=== PATIENT | female | born 1975 | race Caucasian/White ===

== ENCOUNTER 2019-12-03 12:01 | Emergency (ER) | payer BC ==
[~2019-12-03] VITALS: Ht 172.7 cm; Wt 110.2 kg
[~2019-12-03 12:01] MED LIST: CALC600T14 PO; CEPH500C PO; CYAN250010 PO; GBPN100C PO; HDR2T PO; HYDR-3870 PO; MULT1CAP27 PO; NAPR250T34 PO; NITR-65 PO; PHEN-640 PO; PREDNISONE PO
[2019-12-03] MEDS ORDERED: LABETALOL HCL 20 MG/4 ML VIAL IV ONE (12:15)
--- NOTE | 2019-12-03 12:15 | NUR ---
Stroke paged by Lester Patel at this time.
[2019-12-03 12:21] LABS: BASOPHILS % (AUTO) 0 % (0-10); EOSINOPHILS # (AUTO) 0.1 10^3/uL (0.0-0.3); EOSINOPHILS % (AUTO) 1 % (0-10); HEMATOCRIT 41 % (35-52); HEMOGLOBIN 13.6 G/DL (11.5-16.0); LYMPHOCYTES # (AUTO) 2.5 X 10^3 (1.0-4.0); LYMPHOCYTES % (AUTO) 35 % (12-44); MEAN CORPUSCULAR HEMOGLOBIN 32 PG (25-34); MEAN CORPUSCULAR HGB CONC 33 G/DL (32-36); MEAN CORPUSCULAR VOLUME 96 FL (80-99); MEAN PLATELET VOLUME 10.3 FL (7.4-10.4); MONOCYTES # (AUTO) 0.5 X 10^3 (0.0-1.0); MONOCYTES % (AUTO) 7 % (0-12); NEUTROPHILS # (AUTO) 4.1 X 10^3 (1.8-7.8); NEUTROPHILS % (AUTO) 57 % (42-75); PLATELET COUNT 262 10^3/uL (130-400); RED CELL DISTRIBUTION WIDTH 12.9 % (10.0-14.5); WHITE BLOOD COUNT 7.2 10^3/uL (4.3-11.0)
--- NOTE | 2019-12-03 12:21 | ED Neurological Problem ---
General Stated Complaint: RT ARM AND LEG PROBLEMS Source: patient Exam Limitations: no limitations History of Present Illness Date Seen by Provider: Dec 03, 2019 Time Seen by Provider: 12:17 Initial Comments To ER with right arm and right leg feeling weird since 11 AM this morning. She has also had some speech difficulty. Notices that she has some slurred speech and states she feels as if the words are "there" but she cannot get them out. Timing/Duration: 1 hour Severity: moderate Associated Symptoms: slurred speech Allergies and Home Medications Allergies Coded Allergies: No Known Drug Allergies (Unverified , 12/20/10) Home Medications Alprazolam 1 Mg Tablet, 1 MG PO BID PRN for ANXIETY Prescribed by: TRUDY BALTAZAR on 12/03/19 1335 Cyanocobalamin (Vitamin B-12) 2,500 Mcg Tablet, 2,500 MCG PO DAILY, (Reported) Hydrocodone/Acetaminophen 1 Each Tablet, 1-2 TAB PO Q4H PRN for PAIN Prescribed by: ANGELITA LÓPEZ on 10/24/15 1245 Metoprolol Tartrate 25 Mg Tablet, 25 MG PO BID Prescribed by: TRUDY BALTAZAR on 12/03/19 1335 Multivitamin 1 Each Capsule, 1 EACH PO DAILY, (Reported) Nitrofurantoin Monohyd/M-Cryst 100 Mg Capsule, 1 TAB PO BID Prescribed by: ANGELITA LÓPEZ on 10/24/15 1245 Phenazopyridine HCl 200 Mg Tablet, 1 TAB PO TID Prescribed by: ANGELITA LÓPEZ on 10/24/15 1245 [Prednisone] , 1 TAB PO DAILY DOES NOT KNOW DOSAGE. HAS HAD 3 DOSES OF PRESCRIBED 5 TOTAL. Prescribed by: ANGELITA LÓPEZ on 10/24/15 1044 Patient Home Medication List Home Medication List Reviewed: Yes Review of Systems Review of Systems Constitutional: see HPI Eyes: No Symptoms Reported Ears, Nose, Mouth, Throat: no symptoms reported Respiratory: no symptoms reported Cardiovascular: no symptoms reported Genitourinary: no symptoms reported Musculoskeletal: no symptoms reported Skin: no symptoms reported Psychiatric/Neurological: See HPI, Anxiety Endocrine: No Symptoms Reported Hematologic/Lymphatic: No Symptoms Reported Past Uqcevam-Vvyikb-Gvyfux Hx Past Medical History Reproductive Disorders: No Kidney Stones Physical Exam Vital Signs Vital Signs - First Documented 12/03/19 12:01 Temp 36.9 Pulse 96 Resp 20 B/P (MAP) 199/144 (162) Pulse Ox 98 O2 Delivery Room Air Capillary Refill : Height, Weight, BMI Height: 5'8.00" Weight: 240lbs. 0.0oz. [id number]; 36.5 BMI Method:Stated General Appearance: WD/WN, no apparent distress, other (very tearful, sobbing. States that she is very scared. Blood pressure 224/119 heart rate 90 sinus. Very anxious appearing. However she does get stroke score of 2 with 1. being for minor drift of the right arm and mild to moderate dysarthria.) HEENT: PERRL/EOMI, normal ENT inspection Neck: non-tender, full range of motion Respiratory: lungs clear, normal breath sounds, no respiratory distress, no accessory muscle use Cardiovascular: regular rate, rhythm, no murmur Gastrointestinal: normal bowel sounds, soft Extremities: normal range of motion, non-tender Neurologic/Psychiatric: alert, normal mood/affect, oriented x 3 Crainal Nerves: normal hearing, normal speech Skin: normal color, warm/dry Stroke Onset of Symptoms Date of Onset of Symptoms: Dec 03, 2019 Time of Symptom Onset: 11:00 Onset of Symptoms: Yes Symptoms onset unknown: Yes NIH Stroke Scale Assessment Select: Initial Level of Consciousness: 0=Alert (0), Level of Consciousness- Questions: 0=Answers both month/age (0), LOC Commands: 0=Performs both tasks (0), Gaze: Normal (0), Visual Monterroso: 0=No visual loss (0), Facial Movement (Facial Paresis): 0=Normal symmetrical mnt (0), Motor Function-Arms Right: 1=Drift (1), Motor Function-Arms Left: 0=No drift (0), Motor Function-Legs Right: 0=No drift (0), Motor Function-Legs Left: 0=No drift (0), Limb Ataxia: 0=Absent (0), Sensory: 0=Normal:no loss (0), Best Language: 0=No aphasia (0), Dysarthria: 1=Mild to moderate loss (1), Extinction & Inattention: 0=No abnormality (0), Total: 2 Stroke Thrombolytic Exclusion Age 18 or Over: Yes Acute intenal hemorrhage: No History of CVA: No Uncontrolled Coagulation Defec: No Severe Hypertension: Yes GI or Bleed: No Subarachnoid Hemorrhage: No Intracranial Neoplasm/Aneurysm: No Oral Anticoagulants: No Surgery or Trauma: No Puncture of Non-Compressible V: No Recent CPR: No Diabetic Hemorrhagic Retinopat: No Organ Biopsy: No Recent Obstetric Delivery: No Glucose: No Significant Hepatic Dysfunctio: No NIH Stoke Scale >22: No Bacterial Endocarditis: No Pericarditis: No Improving Symptoms: No Platelets: No TPA Contraindication: No Progress/Results/Core Measures Results/Orders Lab Results Laboratory Tests Test 12/03/19 12:05 12/03/19 12:35 Range/Units White Blood Count 7.2 4.3-11.0 10^3/uL Red Blood Count 4.27 L 4.35-5.85 10^6/uL Hemoglobin 13.6 11.5-16.0 G/DL Hematocrit 41 35-52 % Mean Corpuscular Volume 96 80-99 FL Mean Corpuscular Hemoglobin 32 25-34 PG Mean Corpuscular Hemoglobin Concent 33 32-36 G/DL Red Cell Distribution Width 12.9 10.0-14.5 % Platelet Count 262 130-400 10^3/uL Mean Platelet Volume 10.3 7.4-10.4 FL Neutrophils (%) (Auto) 57 42-75 % Lymphocytes (%) (Auto) 35 12-44 % Monocytes (%) (Auto) 7 0-12 % Eosinophils (%) (Auto) 1 0-10 % Basophils (%) (Auto) 0 0-10 % Neutrophils # (Auto) 4.1 1.8-7.8 X 10^3 Lymphocytes # (Auto) 2.5 1.0-4.0 X 10^3 Monocytes # (Auto) 0.5 0.0-1.0 X 10^3 Eosinophils # (Auto) 0.1 0.0-0.3 10^3/uL Basophils # (Auto) 0.0 0.0-0.1 10^3/uL Prothrombin Time 12.7 12.2-14.7 SEC INR Comment 0.9 0.8-1.4 Activated Partial Thromboplast Time 25 24-35 SEC D-Dimer 0.55 H 0.00-0.49 UG/ML Sodium Level 139 135-145 MMOL/L Potassium Level 3.6 3.6-5.0 MMOL/L Chloride Level 106 98-107 MMOL/L Carbon Dioxide Level 20 L 21-32 MMOL/L Anion Gap 13 5-14 MMOL/L Blood Urea Nitrogen 12 7-18 MG/DL Creatinine 0.83 0.60-1.30 MG/DL Estimat Glomerular Filtration Rate > 60 BUN/Creatinine Ratio 14 Glucose Level 116 H 70-105 MG/DL Calcium Level 8.9 8.5-10.1 MG/DL Corrected Calcium 8.7 8.5-10.1 MG/DL Magnesium Level 1.9 1.6-2.4 MG/DL Total Bilirubin 0.5 0.1-1.0 MG/DL Aspartate Amino Transf (AST/SGOT) 15 5-34 U/L Alanine Aminotransferase (ALT/SGPT) 14 0-55 U/L Alkaline Phosphatase 53 40-136 U/L Myoglobin 38.3 10.0-92.0 NG/ML Troponin I < 0.028 <0.028 NG/ML B-Type Natriuretic Peptide 63.9 <100.0 PG/ML Total Protein 8.2 6.4-8.2 GM/DL Albumin 4.2 3.2-4.5 GM/DL Urine Color YELLOW Urine Clarity CLEAR Urine pH 6.0 5-9 Urine Specific Bolt 1.025 H 1.016-1.022 Urine Protein 1+ H NEGATIVE Urine Glucose (UA) NEGATIVE NEGATIVE Urine Ketones NEGATIVE NEGATIVE Urine Nitrite NEGATIVE NEGATIVE Urine Bilirubin NEGATIVE NEGATIVE Urine Urobilinogen 0.2 < = 1.0 MG/DL Urine Leukocyte Esterase NEGATIVE NEGATIVE Urine RBC (Auto) TRACE-I NEGATIVE Urine RBC NONE /HPF Urine WBC NONE /HPF Urine Squamous Epithelial Cells RARE /HPF Urine Crystals NONE /LPF Urine Bacteria NEGATIVE /HPF Urine Casts NONE /LPF Urine Mucus NEGATIVE /LPF Urine Culture Indicated NO Urine Opiates Screen NEGATIVE NEGATIVE Urine Oxycodone Screen NEGATIVE NEGATIVE Urine Methadone Screen NEGATIVE NEGATIVE Urine Propoxyphene Screen NEGATIVE NEGATIVE Urine Barbiturates Screen NEGATIVE NEGATIVE Ur Tricyclic Antidepressants Screen NEGATIVE NEGATIVE Urine Phencyclidine Screen NEGATIVE NEGATIVE Urine Amphetamines Screen NEGATIVE NEGATIVE Urine Methamphetamines Screen NEGATIVE NEGATIVE Urine Benzodiazepines Screen NEGATIVE NEGATIVE Urine Cocaine Screen NEGATIVE NEGATIVE Urine Cannabinoids Screen NEGATIVE NEGATIVE My Orders Orders - TRUDY BALTAZAR [employer] Cbc With Automated Diff (12/03/19 12:12) Magnesium (12/03/19 12:12) Chest 1 View, Ap/Pa Only (12/03/19 12:12) Ekg Tracing (12/03/19 12:12) Comprehensive Metabolic Panel (12/03/19 12:12) Myoglobin Serum (12/03/19 12:12) Protime With Inr (12/03/19 12:12) Partial Thromboplastin Time (12/03/19 12:12) O2 (12/03/19 12:12) Monitor-Rhythm Ecg Trace Only (12/03/19 12:12) Lipid Panel (12/04/19 06:00) Ed Iv/Invasive Line Start (12/03/19 12:12) BNP (12/03/19 12:12) Troponin I (12/03/19 12:12) Labetalol Injection (Normodyne Injection (12/03/19 12:15) Ct Head Wo-R/O Stroke (12/03/19 12:12) Lorazepam Injection (Ativan Injection) (12/03/19 12:30) Ua Culture If Indicated (12/03/19 12:23) Drug Screen Stat (Urine) (12/03/19 12:23) Dysphagia Screening Tool (12/03/19 12:37) Fibrin Degradation Products (12/03/19 12:47) Ketorolac Injection (Toradol Injection) (12/03/19 13:00) Clonidine Tablet (Catapres Tablet) (12/03/19 13:30) Medications Given in ED Current Medications Medications Dose Ordered Sig/Sergio Route Start Time Stop Time Status Last Admin Dose Admin Ketorolac Tromethamine 15 mg ONCE ONCE IVP 12/03/19 13:00 12/03/19 13:01 DC 12/03/19 13:03 15 MG Labetalol HCl 10 mg ONCE ONCE IV 12/03/19 12:15 12/03/19 12:16 DC 12/03/19 12:41 10 MG Lorazepam 0.5 mg ONCE PRN IVP 12/03/19 12:30 12/03/19 12:37 0.5 MG Vital Signs/I&O 12/03/19 12:01 Temp 36.9 Pulse 96 Resp 20 B/P (MAP) 199/144 (162) Pulse Ox 98 O2 Delivery Room Air Departure Communication (Admissions) 1233-patient continues to sob nearly uncontrollably. She is texturing during most of her ER stay so far. Significant other reports she's been under a great deal of stress. It took 2 people to hold her upright to walk-in, now she refuses any assistance and insists on pushing the wheelchair back to the room herself and becomes irritated with nursing staff as they hold her arm while she walks back to her room. 1244-patient now reports that her symptoms have entirely resolved, she speaks clearly, she is downsizing from a large house to a smaller house. She gets an NIH of 0. Blood pressure still elevated at 24/116. Nurses giving Ativan and labetalol currently. She believes her symptoms are all related to the stress. 1337-still asymptomatic, blood pressure down to 177/100, she is requesting to go home. Impression Primary Impression: Anxiety Additional Impression: Hypertensive emergency Disposition: HOME, SELF-CARE Condition: Stable Departure-Patient Inst. Decision time for Depature: 13:33 Referrals: SERJIO HUTCHINSON DO (PCP) Primary Care Physician SHANE PARMAR (Family) Primary Care Physician Patient Instructions: Anxiety, Adult (DC), Malignant Hypertension (DC) Add. Discharge Instructions: 1. Return to ER for any concerns 2. Follow-up with your doctor next week 3. Medication as directed. Scripts Metoprolol Tartrate (Metoprolol Tartrate) 25 Mg Tablet 25 MG PO BID, #20 TAB Prov: TRUDY BALTAZAR APRN 12/03/19 Alprazolam (Alprazolam) 1 Mg Tablet 1 MG PO BID PRN for ANXIETY for 7 Days, #10 TAB Prov: TRUDY BALTAZAR APRN 12/03/19 TRUDY BALTAZAR APRN Dec 03, 2019 12:21
--- NOTE | 2019-12-03 12:22 | NUR ---
Spoke with pt's SO regarding plan of care.
[2019-12-03 12:27] LABS: ALBUMIN 4.2 GM/DL (3.2-4.5); CHLORIDE 106 MMOL/L (98-107); POTASSIUM 3.6 MMOL/L (3.6-5.0); SODIUM 139 MMOL/L (135-145)
[2019-12-03 12:28] LABS: CALCIUM 8.9 MG/DL (8.5-10.1)
[2019-12-03 12:29] LABS: GLUCOSE 116 MG/DL (70-105); INR 0.9 (0.8-1.4); PROTHROMBIN TIME PATIENT 12.7 SEC (12.2-14.7)
[2019-12-03 12:30] LABS: TOTAL PROTEIN 8.2 GM/DL (6.4-8.2)
[2019-12-03] MEDS ORDERED: LORazepam INJ 2 MG/ML (ATIVAN) VIAL IVP PRN (12:30)
[2019-12-03 12:31] LABS: BILIRUBIN,TOTAL 0.5 MG/DL (0.1-1.0); CARBON DIOXIDE 20 MMOL/L (21-32)
[2019-12-03 12:33] LABS: ALKALINE PHOSPHATASE 53 U/L (40-136); CREATININE SERUM 0.83 MG/DL (0.60-1.30); GFR ESTIMATED > 60
[2019-12-03 12:34] LABS: BUN/CREATININE RATIO 14
[2019-12-03 12:36] LABS: ALANINE AMINOTRANSFERASE 14 U/L (0-55); MAGNESIUM 1.9 MG/DL (1.6-2.4)
--- NOTE | 2019-12-03 12:41 | Diagnostic Imaging Report ---
PROCEDURE: CT head wo r/o stroke. TECHNIQUE: Multiple contiguous axial images were obtained through the brain without the use of intravenous contrast. Auto Exposure Controls were utilized during the CT exam to meet ALARA standards for radiation dose reduction. INDICATION: Right arm and leg numbness. Speech abnormalities. Elevated blood pressure. Evaluate for stroke. There are no CT findings of acute intracranial hemorrhage. There is no intracranial mass effect or shift. There is no hydrocephalus. No abnormal extra-axial fluid collection. There are no findings of territorial loss of santos-white differentiation. There is no abnormal low density evident within the basal ganglia or within the krystle. By CT imaging there is no evidence of an asymmetric focal hyperdense blood vessel. The mastoid air cells appear clear. The paranasal sinuses appear clear. Orbital contents unremarkable. There is no calvarial abnormality. IMPRESSION: 1. No CT findings of loss of santos-white differentiation. 2. No evidence of hemorrhage. 3. No evidence to suggest a focal abnormal hyperdense blood vessel. Dictated by: Dictated on workstation # [id number]
[2019-12-03 12:42] LABS: BILIRUBIN,URINE NEGATIVE (NEGATIVE); CLARITY,URINE CLEAR; COLOR,URINE YELLOW; GLUCOSE, URINE (UA) NEGATIVE (NEGATIVE); KETONES,URINE NEGATIVE (NEGATIVE); LEUKOCYTE ESTERASE ,URINE NEGATIVE (NEGATIVE); NITRITE,URINE NEGATIVE (NEGATIVE); PROTEIN,URINE 1+ (NEGATIVE)
[2019-12-03] MEDS ORDERED: KETOROLAC 30 MG/ML VIAL IVP ONE (13:00)
[2019-12-03 13:07] LABS: BACTERIA,URINE NEGATIVE /HPF; SQUAMOUS EPITHELIAL CELL,UR RARE /HPF
[2019-12-03 13:08] LABS: AMPHETAMINE SCREEN, URINE NEGATIVE (NEGATIVE); BARBITURATE SCREEN URINE NEGATIVE (NEGATIVE); BENZODIAZEPINES SCREEN URINE NEGATIVE (NEGATIVE); CANNABINOID SCREEN, URINE NEGATIVE (NEGATIVE); COCAINE SCREEN URINE NEGATIVE (NEGATIVE); METHADONE STAT NEGATIVE (NEGATIVE); METHAMPHETAMINE SCREEN URINE S NEGATIVE (NEGATIVE); OPIATE SCREEN URINE NEGATIVE (NEGATIVE); OXYCODONE STAT NEGATIVE (NEGATIVE); PROPOXYPHENE STAT NEGATIVE (NEGATIVE); TRICYCLIC ANTIDEPRESSANTS SCRE NEGATIVE (NEGATIVE)
--- NOTE | 2019-12-03 13:12 | Diagnostic Imaging Report ---
EXAMINATION: Chest 1 view HISTORY: Right arm and leg numbness COMPARISON: 05/10/2007 FINDINGS: The lungs are clear without edema or pneumonia. No pleural effusion or pneumothorax. Heart size is normal. IMPRESSION: 1. Clear lungs. Dictated by: Dictated on workstation # [id number]
[2019-12-03] MEDS ORDERED: cloNIDine 0.1 MG (CATAPRES) TAB PO ONE (13:30)
--- NOTE | 2019-12-03 13:32 | NUR ---
Updated pt's SO regarding plan of care.
[2019-12-03] MEDS ORDERED: METO-333 PO (13:35)
[2019-12-03] MEDS ORDERED: ALPR1TAB7 PO (13:35)
--- NOTE | 2019-12-03 13:38 | NUR ---
Pt reports feeling better and is asymptomatic at this time. Pt would like to go home. Lester Patel notified.
[2019-12-03 13:50] VITALS: BP 177/100
== END 2019-12-03 13:50 | disposition home or self-care (01) ==
LOC: EDUNIT# 12:01 → ER 12:04
DX: F41.9 Anxiety disorder, unspecified (principal); I16.1 Hypertensive emergency; Z79.52 Long term (current) use of systemic steroids
CPT/HCPCS: 36415; 70450; 71045; 80053; 80306; 81000; 83735; 83874; 83880; 84484; 85025; 85379; 85610; 85730; 93005; 93041

== ENCOUNTER 2019-12-06 13:26 | Inpatient (IN) | payer OTHER ==
[~2019-12-06] VITALS: Ht 172.7 cm; Wt 116.9 kg
[~2019-12-06 13:26] MED LIST changes: +ALPR1TAB7 PO; +METO-333 PO
[2019-12-06] MEDS ORDERED: AMLO5TAB9 PO (14:54)
[2019-12-06] MEDS ORDERED: LISI-552 PO (14:54)
[2019-12-06] MEDS ORDERED: ATOR40TA70 PO (14:54)
[2019-12-06] MEDS ORDERED: ASPI325T32 PO (14:54)
--- NOTE | 2019-12-06 14:54 | NUR ---
THE MED REC HAS BEEN ENTERED USING THE DISCHARGE ORDERS FROM [facility]- AFTER THE MEDS ARE CONTINUED I WILL SPEAK WITH THE PT AND MAKE ANY CHANGES TO THE NOTE/MED REC IF NEEDED Addendum: 12/09/19 at 1304 by BRYANNA HOLLIS CPhT SPOKE WITH PT AND CALLED [facility] TO COMPLETE THE MED REC MEDICATIONS THAT HAVE BEEN REMOVED DUE TO PT NOT TAKING PRIOR TO [facility] STAY: ASPIRIN 81 ATORVASTATIN 40MG AMLODIPINE 5MG LISINOPRIL 20MG MEDICATIONS THAT HAVE BEEN ADDED TO THE MED REC DUE TO PT TAKING BEFORE [facility]: RIKY BUCKLEY - LAST FILLED 11-15-2019 #2/ DAY SUPPLY
[2019-12-06] MEDS ORDERED: LOPERAMIDE 2 MG (IMODIUM) TABLET PO PRN (15:15)
[2019-12-06] MEDS ORDERED: LACTULOSE SYRUP 10GM/15ML (ENULOSE) 30ML UDC PO PRN (15:15)
[2019-12-06] MEDS ORDERED: diphenhydrAMINE 25 MG TAB (BENADRYL) PO PRN (15:15)
[2019-12-06] MEDS ORDERED: FLEET ENEMA ADULT 1 EA BTL PR PRN (15:15)
[2019-12-06] MEDS ORDERED: guaiFENesin/CODEINE (ROBITUSSIN AC) 10ML UDC PO PRN (15:15)
[2019-12-06] MEDS ORDERED: ACETAMINOPHEN 500 MG TAB (TYLENOL) PO PRN (15:15)
[2019-12-06] MEDS ORDERED: DOCUSATE SODIUM 100 MG (COLACE) CAP PO PRN (15:15)
[2019-12-06] MEDS ORDERED: CALCIUM CARBONATE 500 MG (TUMS) TAB.CHEW PO PRN (15:15)
[2019-12-06] MEDS ORDERED: BISACODYL 10 MG SUPP (DULCOLAX) PR PRN (15:15)
--- NOTE | 2019-12-06 16:20 | NUR ---
Admitted to room 228-1, with an admitting diagnosis of CVA, on 12/06/19 from [place] [facility] , accompanied by .DARCI BUI introduced to surroundings, call light, bed controls, phone, TV, temperature control, lights, meal times, smoking policy, visitor policy, side rail policy, bathrooms and showers. Patient Rights given to patient in the handbook.DARCI BUI verbalizes understanding that [facility] is not responsible for the loss or damage to any personal effects or valuables that are kept in the patients posession during their hospitalization. The following Patient Care Plans were discussed with the : Discharge Planning, ,, and . DARCI BUI verbalizes understanding of Interdisciplinary Patient Education. Patient and/or family were informed about the Rapid Response Team and its purpose. Patient received Patient Rights Booklet, which includes Privacy Act Statement and Data Collection Information Summary.
[2019-12-06 16:30] VITALS: BP 136/80
[2019-12-06 19:13] VITALS: BP 136/80
[2019-12-06] MEDS ORDERED: HYDROcodone/APAP 5 MG/325 MG (LORTAB) TAB PO PRN (19:45)
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
--- OUTSIDE RECORDS SUMMARY | 2019-12-06 19:49 | XMS REPORT | Clinical Summary ---
Author Author [facility] Organization [facility] Address Unknown Phone Unavailable Care Team Providers Care Retail Department Supervisor Name Role Phone Logan Huggins MD Unavailable Bill Carrizales MD PCP Macie Otoole RN Unavailable Unavailable Lasha Gray MD Unavailable Source Comments Some departments are not documenting in the electronic medical record. If you d o not see the information that you expected, contact Release of Information in [facility] [employer] Information Management department at [phone] for further assistan ce in locating additional records.[facility] Allergies No Known Allergies Medications End Date Status Medication Sig Dispensed Refills Start Date Active calcium carbonate Take 500 mg 0 (ANTACID) 500 mg PO Chew by mouth As Needed. Active ACETAMINOPHEN (TYLENOL Take by 0 PO) mouth As Needed. Active docusate (COLACE) 100 mg Take 1 Cap by 200 Cap 0 PO capsule mouth Twice 0 Daily. Active GABAPENTIN PO Take 700 mg 0 by mouth three times daily. Active SULFAMETHOXAZOLE/TRIMETHO Take by 0 PRIM (BACTRIM PO) mouth. Active oxyCODONE (ROXICODONE) 5 Take 1-3 Tabs 80 Tab 0 mg PO tablet by mouth 1 every 4 hours as needed for Pain. Active ceFAZolin (ANCEF) IJ Administer 2 21 Each 3 01/02 injection g through 1 vein every 8 hours. Active Problems Problem Noted Date Osteomyelitis, lower leg 01/13/2011 Immunizations Name Administration Dates Next Due FLU VACCINE >3YO 02/08/2010 (Preservative Free) Pneumococcal Vaccine 02/08/2010 (23-[place] Adult) Social History Date Tobacco Use Types Packs/Day Years Used Never Smoker Drinks/Week oz/Week Comments Alcohol Use socially No Sex Assigned at Date Recorded Not on file Industry Job Start Date Occupation Not on file Not on file Not on file Travel End Travel History Travel Start No recent travel history available. Last Filed Vital Signs Reading Time Taken Comments Vital Sign 113/63 01/14/2011 1:00 PM CDT Blood Pressure 71 01/14/2011 1:00 PM CDT Pulse 36.8 C (98.3 F) 01/14/2011 1:00 PM CDT Temperature - - Respiratory Rate 98% 01/14/2011 1:00 PM CDT Oxygen Saturation - - Inhaled Oxygen Concentration 113.4 kg (250 lb) 01/11/2011 2:00 PM CDT Weight 172.7 cm (5' 8") 01/11/2011 2:00 PM CDT Height 38.01 01/11/2011 2:00 PM CDT Body Mass Index Plan of Treatment Health Maintenance Due Date Last Done Comments HIV SCREENING 1988 DTAP/TDAP VACCINES (1 - 1991 Tdap) HEPATITIS C SCREENING 1991 PHYSICAL (COMPREHENSIVE) 1991 EXAM CERVICAL CANCER SCREENING 1994 BREAST CANCER SCREENING 2013 INFLUENZA VACCINE 02/02/2020 02/08/2010 Results Not on filefrom Last 3 Months Advance Directives Date Inactivated Comments Code Status Date Activated 01/14/2011 9:10 PM Full Code 01/11/2011 6:43 AM Provider has discussed Code Status No, discussion no t w/Patient or Family? necessary based on Dx 02/09/2010 4:13 PM Full Code 02/08/2010 7:41 PM
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
--- OUTSIDE RECORDS SUMMARY | 2019-12-06 19:50 | XMS REPORT ---
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 Role Phone PADMA VALENTE Unavailable PROBLEMS Type Condition ICD9-CM Code RRJ08-DL Code Onset Dates Condition S tatus SNOMED Code Problem Essential hypertension I10 Resolve d 62734284 Problem Dysthymia F34.1 Active 12668832 Problem MRSA (methicillin resistant Staphylococcus aureus) A49.02 Active 685379148 Problem Neuropathy of right ankle G57.91 Acti ve 968404421 Problem Carpal tunnel syndrome, bilateral G56.03 Active [id number] Problem Hyperinsulinemia E16.1 Active 834 10003 Problem Uses control Z30.9 Active 7 88607162 Problem Dysuria R30.0 Active 43429301 Problem Encounter for annual physica l examination excluding gynecological examination in a patient older than 17 years Z00.00 Active 975534753 ALLERGIES No Information ENCOUNTERS Encounter Location Date Diagnosis [facility] [place] [address] [facility] [id number] [address] [place] [address] 16 Jul, 2019 Carpal tunnel syndrome, bila teral G56.03 ; Neuropathy of right ankle G57.91 ; Contraceptive device, intrauterine Z97.5 and Family history of colon cancer in father Z80.0 [facility] [address] [facility] [id number] [address] [place] [address] May, Strep pharyngitis J02.0 [facility] [place] [address] [facility] [id number] [address] [place] [address] Oct, Uses control Z30.9 [facility] [place] [address] [facility] [id number] [address] [place] [address] Aug, Encounter for annual physica l examination excluding gynecological examination in a patient older than 17 years Z00.00 ; Dysuria R30.0 and Uses control Z30.9 [facility] [place] [address] [place] [id number] [address] [place] [address] May, Pharyngitis due to other org anism J02.8 [place] [address] [place] [id number] [address] [place] [address] 13 Oct, 2016 Cellulitis of right lower ex tremity L03.115 [place] [address] [address] 05 Oct, 2016 Cellulitis of right lower ex tremity L03.115 [place] [address] [address] Aug, [facility] [address] [place] [id number] [address] [place] [id number] Aug, Dental examination Z01.20 [place] [address] [address] Jul, [place] [address] [address] Jun, Well woman exam Z01.419 ; Ce rvical cancer screening Z12.4 ; Breast cancer screening Z12.39 and Right foot pain M79.671 [place] [address] [address] 02 Jun, 2016 Acute nasopharyngitis J00 [place] [address] [address] May, Contraceptive device, intrau terine Z97.5 [facility] [address] [address] Oct, Right lower quadrant abdomin al pain R10.31 ; Frequency of urination R35.0 ; Hematuria R31.9 and Renal calculi N20.0 [place] [address] [address] Oct, Pain in unspecified knee M25 .569 ; Other chronic pain G89.29 ; Obesity, unspecified obesity severity, unspecified obesity type E66.9 and Depression F32.9 [facility] [place] [address] [facility] [id number] [address] [place] [address] 25 Jun, 2015 Depressive disorder, not els ewhere classified F32.9 [place] [address] [facility] [id number] [address] [place] [address] Jun, Hyperglycemia R73.9 and Obes ity E66.9 [place] [address] [facility] [id number] [address] [place] [address] 05 Jun, 2015 Obesity, unspecified obesity severity, unspecified obesity type E66.9 [place] [address] [facility] [id number] [address] [place] [address] May, Essential hypertension I10 a nd Obesity, unspecified obesity severity, unspecified obesity type E66.9 [place] [address] [place] [id number] [address] [place] [address] Apr, Upper respiratory disease J3 9.9 ; Yeast vaginitis B37.3 ; Contraceptive device, intrauterine Z97.5 ; Depression F32.9 and Essential hypertension I10 [place] [address] [place] [id number] [address] [place] [address] 30 Oct, 2014 Sinusitis 473.9 [place] [address] [place] [id number] [address] [place] [address] Oct, Edema 782.3 and Right foot p ain 729.5 [place] [address] [facility] [id number] [address] [place] [address] Aug, [place] [address] [place] [id number] [address] [place] [address] Aug, [place] [address] [place] [id number] [address] [place] [address] Jul, [place] [address] [place] [address] Jul, [facility] [address] [id number] [address] [place] [address], [place] [address] May, [facility] [address] [id number] [address] [place] [address], [place] [address] May, [facility] [address] [id number] [address] [place] [address], [place] [address] Feb, [facility] [address] [id number] [address] [place] [address], [place] [address] Feb, [facility] [address] [id number] [address] [place] [address], [place] [address] Dec, [facility] [address] [id number] [address] [place] [address], [place] [address] Dec, [facility] [address] [id number] [address] [place] [address], [place] [address] Dec, [facility] [address] [id number] [address] [place] [address], [place] [address] Dec, [facility] [address] [id number] [address] [place] [address], [place] [address] Nov, [facility] [address] [id number] [address] [place] [address], [place] [address] Nov, [facility] [address] [id number] [address] [place] [address], [place] [address] Oct, [facility] [address] [id number] [address] [place] [address], [place] [address] Oct, [facility] [address] [id number] [address] [place] [address], [place] [address] Oct, [facility] [address] [id number] [address] [place] [address], [place] [address] Oct, [facility] [address] [id number] [address] [place] [address], [place] [address] Oct, [facility] [address] [id number] [facility] [place] [address] Oct, [facility] [address] [id number] [facility] [place] [address] Oct, [facility] [address] [id number] [address] [place] [address], [place] [address] Oct, [facility] [address] [id number] [address] [place] [address], [place] [address] Oct, [facility] [address] [id number] [address] [place] [address], [place] [address] Oct, [facility] [address] [id number] [address] [place] [address], [place] [address] September, [facility] [address] [id number] [address] [place] [address], [place] [address] September, [facility] [address] [id number] [address] [place] [address], [place] [address] Aug, [facility] [address] [id number] [address] [place] [address], [place] [address] Aug, [facility] [address] [id number] [address] [place] [address], [place] [address] Aug, [facility] [address] [id number] [address] [place] [address], [place] [address] Aug, [facility] [address] [id number] [address] [place] [address], [place] [address] Aug, [facility] [address] [id number] [address] [place] [address], [place] [address] Aug, [facility] [address] [id number] [address] [place] [address], [place] [address] Aug, [facility] [address] [id number] [address] [place] [address], [place] [address] Aug, [facility] [address] [id number] [address] [place] [address], [place] [address] May, [facility] [address] [id number] [address] [place] [address], [place] [address] May, [facility] [address] [id number] [address] [place] [address], [place] [address] May, [facility] [address] [id number] [address] [place] [address], [place] [address] May, [facility] [address] [id number] [address] [place] [address], [place] [address] May, [facility] [address] [id number] [address] [place] [address], [place] [address] May, [facility] [address] [id number] [address] [place] [address], [place] [address] Feb, [facility] [address] [id number] [address] [place] [address], [place] [address] Feb, [facility] [address] [id number] [address] [place] [address], [place] [address] Feb, [facility] [address] [id number] [address] [place] [address], [place] [address] Jan, [facility] [address] [id number] [address] [place] [address], [place] [address] Jan, [facility] [address] [id number] [address] [place] [address], [place] [address] Nov, [facility] [address] [id number] [address] [place] [address], [place] [address] Oct, [facility] [address] [id number] [address] [place] [address], [place] [address] September, [facility] [address] [id number] [address] [place] [address], [place] [address] Aug, [facility] [address] [id number] [address] [place] [address], [place] [address] Aug, [facility] [address] [id number] [address] [place] [address], [place] [address] Aug, [facility] [address] [id number] [address] [place] [address], [place] [address] Aug, [facility] [address] [id number] [address] [place] [address], [place] [address] May, [facility] [address] [id number] [address] [place] [address], [place] [address] Feb, [facility] [address] [id number] [address] [place] [address], [place] [address] Feb, [facility] [address] [id number] [address] [place] [address], [place] [address] Feb, [facility] [address] [id number] [address] [place] [address], [place] [address] Feb, [facility] [address] [id number] [address] [place] [address], [place] [address] Jan, [facility] [address] [id number] [address] [place] [address], [place] [address] Dec, [facility] [address] [id number] [address] [place] [address], [place] [address] Dec, [facility] [address] [id number] [address] [place] [address], [place] [address] Nov, [facility] [address] [id number] [address] [place] [address], [place] [address] Nov, [facility] [address] [id number] [address] [place] [address], [place] [address] Nov, [facility] [address] [id number] [address] [place] [address], [place] [address] Oct, [facility] [address] [id number] [address] [place] [address], [place] [address] September, [facility] [address] [id number] [address] [place] [address], [place] [address] Aug, [facility] [address] [id number] [address] [place] [address], [place] [address] Jul, [facility] [address] [id number] [address] [place] [address], [place] [address] Jun, [facility] [address] [id number] [address] [place] [address], [place] [address] Jun, [facility] [address] [id number] [address] [place] [address], [place] [address] Jun, [facility] [address] [id number] [address] [place] [address], [place] [address] Jun, [facility] [address] [id number] [address] [place] [address], [place] [address] Apr, [facility] [address] [id number] [address] [place] [address], [place] [address] Apr, [facility] [address] [id number] [address] [place] [address] Mar, [facility] [address] [id number] [address] [place] [address], [place] [address] Mar, [facility] [address] [id number] [address] [place] [address] Mar, [facility] [address] [id number] [address] [place] [address] Mar, [facility] [address] [id number] [address] [place] [address] Feb, [facility] [address] [id number] [address] [place] [address], [place] [address] Feb, [facility] [address] [id number] [address] [place] [address] Feb, [facility] [address] [id number] [address] [place] [address], [place] [address] Feb, [facility] [address] [id number] [address] [place] [address] Jul, [facility] [address] [facility] [id number] [address] [place] [address] Jun, [facility] [place] [address] [facility] [id number] [address] [place] [address] Feb, IMMUNIZATIONS No Known Immunizations SOCIAL HISTORY Never Assessed REASON FOR VISIT PLAN OF CARE VITAL SIGNS Height 69 in 2012-10-28 Weight 286.5 lbs 2012-10-28 Temperature 98.2 degrees Fahrenheit 2012-10-28 Heart Rate 64 bpm 2012-10-28 Respiratory Rate 18 2012-10-28 Blood pressure systolic 130 mmHg 2012-10-28 Blood pressure diastolic 84 mmHg 2012-10-28 MEDICATIONS Unknown Medications RESULTS No Results PROCEDURES No Known procedures INSTRUCTIONS MEDICATIONS ADMINISTERED No Known Medications MEDICAL [...]
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
--- OUTSIDE RECORDS SUMMARY | 2019-12-06 19:50 | XMS REPORT ---
Author Author Tracee CARPENTER Organization [facility] Address [address] [place] [address] Care Team Providers Care Braille Teacher Name Role Phone SILVERIO CARPENTER Unavailable PROBLEMS Type Condition ICD9-CM Code WNL80-IV Code Onset Dates Condition S tatus SNOMED Code Problem Essential hypertension I10 Resolve d 33835868 Problem Dysthymia F34.1 Active 02868202 Problem MRSA (methicillin resistant Staphylococcus aureus) A49.02 Active 073701138 Problem Neuropathy of right ankle G57.91 Acti ve 539744457 Problem Carpal tunnel syndrome, bilateral G56.03 Active [id number] Problem Hyperinsulinemia E16.1 Active 834 98354 Problem Uses control Z30.9 Active 7 65601853 Problem Dysuria R30.0 Active 49301660 Problem Encounter for annual physica l examination excluding gynecological examination in a patient older than 17 years Z00.00 Active 222482544 ALLERGIES No Information ENCOUNTERS Encounter Location Date Diagnosis [facility] [address] [facility] [id number] [address] [place] [address] Jul, Carpal tunnel syndrome, bila teral G56.03 ; Neuropathy of right ankle G57.91 ; Contraceptive device, intrauterine Z97.5 and Family history of colon cancer in father Z80.0 [facility] [address] [facility] [id number] [address] [place] [id number] May, Strep pharyngitis J02.0 [facility] [address] [facility] [id number] [address] [place] [id number] Oct, Uses control Z30.9 [facility] [address] [facility] [id number] [address] [place] [id number] Aug, Encounter for annual physica l examination excluding gynecological examination in a patient older than 17 years Z00.00 ; Dysuria R30.0 and Uses control Z30.9 [place] [id number] [address] May, Pharyngitis due to other org anism J02.8 [place] [address] [address] 13 Oct, 2016 Cellulitis of right lower ex tremity L03.115 [place] [address] [address] 05 Oct, 2016 Cellulitis of right lower ex tremity L03.115 [place] [address] [address] Aug, [facility] [address] [place] [id number] Aug, Dental examination Z01.20 [place] [address] [address] Jul, [place] [address] [address] Jun, Well woman exam Z01.419 ; Ce rvical cancer screening Z12.4 ; Breast cancer screening Z12.39 and Right foot pain M79.671 [place] [address] [address] 02 Jun, 2016 Acute nasopharyngitis J00 [place] [address] [address] 09 May, 2016 Contraceptive device, intrau terine Z97.5 [facility] [address] [address] Oct, Right lower quadrant abdomin al pain R10.31 ; Frequency of urination R35.0 ; Hematuria R31.9 and Renal calculi N20.0 [place] [address] [address] 16 Oct, 2015 Pain in unspecified knee M25 .569 ; Other chronic pain G89.29 ; Obesity, unspecified obesity severity, unspecified obesity type E66.9 and Depression F32.9 [facility] [address] [place] [id number] [address] [place] [address] 25 Jun, 2015 Depressive disorder, not els ewhere classified F32.9 [place] [address] [address] Jun, Hyperglycemia R73.9 and Obes ity E66.9 [place] [address] [address] 05 Jun, 2015 Obesity, unspecified obesity severity, unspecified obesity type E66.9 [place] [address] [address] May, Essential hypertension I10 a nd Obesity, unspecified obesity severity, unspecified obesity type E66.9 [place] [address] [place] [id number] [address] [place] [address] Apr, Upper respiratory disease J3 9.9 ; Yeast vaginitis B37.3 ; Contraceptive device, intrauterine Z97.5 ; Depression F32.9 and Essential hypertension I10 [place] [address] [address] 30 Oct, 2014 Sinusitis 473.9 [place] [address] [address] Oct, Edema 782.3 and Right foot p ain 729.5 [place] [address] [place] [address] Aug, [place] [address] [address] Aug, [place] [address] [address] Jul, [facility] [address] [id number] [address] [place] [address], [place] [address] Jul, [facility] [address] [id number] [address] [place] [address], [place] [address] May, [facility] [address] [id number] [address] [place] [address], [place] [address] May, [facility] [address] [id number] [address] [place] [address], [place] [address] Feb, [facility] [address] [id number] [address] [place] [address], [place] [address] Feb, [facility] [address] [id number] [address] [place] [address], [place] [address] Dec, [facility] [address] [id number] [address] [place] [address], [place] [address] Dec, [facility] [address] [id number] [address] [place] [address], [place] [address] Dec, [facility] [address] [id number] [address] [place] [address], [place] [address] Dec, [facility] [address] [id number] [address] [place] [address], [place] [address] Nov, [facility] [address] [id number] [address] [place] [address], [place] [address] Nov, [facility] [address] [id number] [address] [place] [address], [place] [address] Oct, [facility] [address] [id number] [address] [place] [address], [place] [address] Oct, [facility] [address] [id number] [address] [place] [address], [place] [address] Oct, [facility] [address] [id number] [address] [place] [address], [place] [address] Oct, [facility] [address] [id number] [address] [place] [address], [place] [address] Oct, [facility] [address] [id number] [address] [place] [address], [place] [address] Oct, [facility] [address] [id number] [address] [place] [address], [place] [address] Oct, [facility] [address] [id number] [address] [place] [address], [place] [address] Oct, [facility] [address] [id number] [address] [place] [address], [place] [address] Oct, [facility] [address] [id number] [address] [place] [address], [place] [address] Oct, [facility] [address] [id number] [address] [place] [address], [place] [address] September, [facility] [address] [id number] [address] [place] [address], [place] [address] September, [facility] [address] [id number] [address] [place] [address], [place] [address] Aug, [facility] [address] [id number] [address] [place] [address], [place] [address] Aug, [facility] [address] [id number] [address] [place] [address], [place] [address] Aug, [facility] [address] [id number] [address] [place] [address], [place] [address] Aug, [facility] [address] [id number] [address] [place] [address], [place] [address] Aug, [facility] [address] [id number] [address] [place] [address], [place] [address] Aug, [facility] [address] [id number] [address] [place] [address], [place] [address] Aug, [facility] [address] [id number] [address] [place] [address], [place] [address] Aug, [facility] [address] [id number] [address] [place] [address], [place] [id number] May, [facility] [address] [id number] [address] [place] [address], [place] [address] May, [facility] [address] [id number] [address] [place] [address], [place] [address] May, [facility] [address] [id number] [address] [place] [address], [place] [address] May, [facility] [address] [id number] [address] [place] [address], [place] [address] May, [facility] [address] [id number] [address] [place] [address], [place] [address] May, [facility] [address] [id number] [address] [place] [address], [place] [address] Feb, [facility] [address] [id number] [address] [place] [address], [place] [address] Feb, [facility] [address] [id number] [address] [place] [address], [place] [address] Feb, [facility] [address] [id number] [address] [place] [address], [place] [address] Jan, [facility] [address] [id number] [address] [place] [address], [place] [address] Jan, [facility] [address] [id number] [address] [place] [address], [place] [address] Nov, [facility] [address] [id number] [address] [place] [address], [place] [address] Oct, [facility] [address] [id number] [address] [place] [address], [place] [address] September, [facility] [address] [id number] [address] [place] [address], [place] [address] Aug, [facility] [address] [id number] [address] [place] [address], [place] [address] Aug, [facility] [address] [id number] [address] [place] [address], [place] [address] Aug, [facility] [address] [id number] [address] [place] [address], [place] [address] Aug, [facility] [address] [id number] [address] [place] [address], [place] [address] May, [facility] [address] [id number] [address] [place] [address], [place] [address] Feb, [facility] [address] [id number] [address] [place] [address], [place] [address] Feb, [facility] [address] [id number] [address] [place] [address], [place] [address] Feb, [facility] [address] [id number] [address] [place] [address], [place] [address] Feb, [facility] [address] [id number] [address] [place] [address], [place] [address] Jan, [facility] [address] [id number] [address] [place] [address], [place] [address] Dec, [facility] [address] [id number] [address] [place] [address], [place] [address] Dec, [facility] [address] [id number] [address] [place] [address], [place] [address] Nov, [facility] [address] [id number] [address] [place] [address], [place] [address] Nov, [facility] [address] [id number] [address] [place] [address], [place] [address] Nov, [facility] [address] [id number] [address] [place] [address], [place] [address] Oct, [facility] [address] [id number] [address] [place] [address], [place] [id number] September, [facility] [address] [id number] [address] [place] [address], [place] [address] Aug, [facility] [address] [id number] [address] [place] [address], [place] [id number] Jul, [facility] [address] [id number] [address] [place] [address], [place] [address] Jun, [facility] [address] [id number] [address] [place] [address], [place] [id number] Jun, [facility] [address] [id number] [address] [place] [address], [place] [id number] Jun, [facility] [address] [id number] [address] [place] [address], [place] [address] Jun, [facility] [address] [id number] [address] [place] [address], [place] [address] Apr, [facility] [address] [id number] [address] [place] [address], [place] [id number] Apr, [facility] [address] [id number] [address] [place] [address], [place] [id number] Mar, [facility] [address] [id number] [address] [place] [address], [place] [address] Mar, [facility] [address] [id number] [address] [place] [address], [place] [address] Mar, [facility] [address] [id number] [address] [place] [address], [place] [address] Mar, [facility] [address] [id number] [address] [place] [address], [place] [address] Feb, [facility] [address] [id number] [address] [place] [address], [place] [address] Feb, [facility] [address] [id number] [address] [place] [address], [place] [address] Feb, [facility] [address] [id number] [address] [place] [address], [place] [address] Feb, [facility] [address] [id number] [address] [place] [address] Jul, [facility] [address] [facility] [id number] [address] [place] [id number] Jun, [facility] [address] [facility] [id number] [address] [place] [address] Feb, IMMUNIZATIONS No Known Immunizations SOCIAL HISTORY Never Assessed REASON FOR VISIT PLAN OF CARE VITAL SIGNS MEDICATIONS Unknown Medications RESULTS No Results PROCEDURES Procedure Date Ordered Result Body Site PSYTX PT&/FAMILY 45 MINUTES Feb 07, 2013 INSTRUCTIONS MEDICATIONS ADMINISTERED No Known Medications MEDICAL [...]
--- OUTSIDE RECORDS SUMMARY | 2019-12-06 19:50 | XMS REPORT ---
Author Author Tracee Ruth Doctor Organization [facility] Address Unknown Phone Unavailable Care Team Providers Care Mail Distributor Name Role Phone Migration, Doctor Unavailable Unavailable PROBLEMS Type Condition ICD9-CM Code [id number] Code Onset Dates Condition S tatus SNOMED Code Problem Essential hypertension I10 Resolve d 34739035 Problem Dysthymia F34.1 Active 40254032 Problem MRSA (methicillin resistant Staphylococcus aureus) A49.02 Active 474319553 Problem Neuropathy of right ankle G57.91 Acti ve 988527690 Problem Carpal tunnel syndrome, bilateral G56.03 Active [id number] Problem Hyperinsulinemia E16.1 Active 834 29205 Problem Uses control Z30.9 Active 7 13005927 Problem Dysuria R30.0 Active 74058304 Problem Encounter for annual physica l examination excluding gynecological examination in a patient older than 17 years Z00.00 Active 102016707 ALLERGIES No Information ENCOUNTERS Encounter Location Date Diagnosis [facility] [address] [place] [address] 16 Jul, 2019 Carpal tunnel syndrome, bila teral G56.03 ; Neuropathy of right ankle G57.91 ; Contraceptive device, intrauterine Z97.5 and Family history of colon cancer in father Z80.0 [facility] [address] [facility] [id number] [address] [place] [address] May, Strep pharyngitis J02.0 [facility] [address] [facility] [id number] [address] [place] [address] Oct, Uses control Z30.9 [facility] [address] [place] [address] Aug, Encounter for annual physica l examination excluding gynecological examination in a patient older than 17 years Z00.00 ; Dysuria R30.0 [address] U[address] control [address]30.9 [facility] [address] [place] [id number] [address] [place] [address] May, Pharyngitis due to other org anism J02.8 [place] [address] [address] 13 Oct, 2016 Cellulitis of right lower ex tremity L03.115 [facility] [address] [address] Oct, Cellulitis of right lower ex tremity L03.115 [place] [address] [address] Aug, [facility] [address] [place] [id number] Aug, Dental examination Z01.20 [place] [address] [address] Jul, [place] [address] [address] Jun, Well woman exam Z01.419 ; Ce rvical cancer screening Z12.4 ; Breast cancer screening Z12.39 and Right foot pain M79.671 [place] [address] [address] 02 Jun, 2016 Acute nasopharyngitis J00 [place] [address] [address] May, Contraceptive device, intrau terine Z97.5 [facility] [address] [place] [id number] [address] [place] [address] Oct, Right lower quadrant abdomin al pain R10.31 ; Frequency of urination R35.0 ; Hematuria R31.9 and Renal calculi N20.0 [place] [address] [place] [id number] [place] [address] 16 Oct, 2015 Pain in unspecified knee M25 .569 ; Other chronic pain G89.29 ; Obesity, unspecified obesity severity, unspecified obesity type E66.[address] [facility] [address] [address] Jun, Depressive disorder, not els ewhere classified F32.9 [facility] [address] [address] Jun, Hyperglycemia R73.9 and Obes ity E66.9 [place] [address] [address] 05 Jun, 2015 Obesity, unspecified obesity severity, unspecified obesity type E66.9 [place] [address] [address] May, Essential hypertension I10 a nd Obesity, unspecified obesity severity, unspecified obesity type E66.9 [place] [address] [address] Apr, Upper respiratory disease J3 9.9 ; Yeast vaginitis B37.3 ; Contraceptive device, intrauterine Z97.5 ; Depression F32.9 and Essential hypertension I10 [place] [address] [address] Oct, Sinusitis 473.9 [place] [address] [address] Oct, Edema 782.3 and Right foot p ain 729.5 [place] [address] [address] Aug, [place] [address] [address] Aug, [place] [address] [address] Jul, [place] [address] [address] Jul, [facility] [address] [id number] [address] [place] [address], [place] [address] May, [facility] [address] [id number] [address] [place] [address], [place] [address] May, [facility] [address] [id number] [address] [place] [address], [place] [address] Feb, [facility] [address] [id number] [address] [place] [address], [place] [address] Feb, [facility] [address] [id number] [address] [place] [address], [place] [address] Dec, [facility] [address] [id number] [address] [place] [address], [place] [address] Dec, [facility] [address] [id number] [address] [place] [address], [place] [address] Dec, [facility] [address] [id number] [address] [place] [address], [place] [address] Dec, [facility] [address] [id number] [address] [place] [address], [place] [address] Nov, [facility] [address] [id number] [address] [place] [address], [place] [address] Nov, [facility] [address] [id number] [address] [place] [address], [place] [address] Oct, [facility] [address] [id number] [address] [place] [address], [place] [address] Oct, [facility] [address] [id number] [address] [place] [address], [place] [address] Oct, [facility] [address] [id number] [address] [place] [address], [place] [address] Oct, [facility] [address] [id number] [address] [place] [address], [place] [address] Oct, [facility] [address] [id number] [address] [place] [address], [place] [address] Oct, [facility] [address] [id number] [address] [place] [address], [place] [address] Oct, [facility] [address] [id number] [address] [place] [address], [place] [address] Oct, [facility] [address] [id number] [address] [place] [address], [place] [address] Oct, [facility] [address] [id number] [address] [place] [address], [place] [address] Oct, [facility] [address] [id number] [address] [place] [address], [place] [address] September, [facility] [address] [id number] [address] [place] [address], [place] [address] September, [facility] [address] [id number] [address] [place] [address], [place] [address] Aug, [facility] [address] [id number] [address] [place] [address], [place] [address] Aug, [facility] [address] [id number] [address] [place] [address], [place] [address] Aug, [facility] [address] [id number] [address] [place] [address], [place] [address] Aug, [facility] [address] [id number] [address] [place] [address], [place] [address] Aug, [facility] [address] [id number] [address] [place] [address], [place] [address] Aug, [facility] [address] [id number] [address] [place] [address], [place] [address] Aug, [facility] [address] [id number] [address] [place] [address], [place] [address] Aug, [facility] [address] [id number] [address] [place] [address], [place] [address] May, [facility] [address] [id number] [address] [place] [address], [place] [address] May, [facility] [address] [id number] [address] [place] [address], [place] [address] May, [facility] [address] [id number] [address] [place] [address], [place] [address] May, [facility] [address] [id number] [address] [place] [address], [place] [address] May, [facility] [address] [id number] [address] [place] [address], [place] [address] May, [facility] [address] [id number] [address] [place] [address], [place] [address] Feb, [facility] [address] [id number] [address] [place] [address], [place] [address] Feb, [facility] [address] [id number] [address] [place] [address], [place] [address] Feb, [facility] [address] [id number] [address] [place] [address], [place] [address] Jan, [facility] [address] [id number] [address] [place] [address], [place] [address] Jan, [facility] [address] [id number] [address] [place] [address], [place] [address] Nov, [facility] [address] [id number] [address] [place] [address], [place] [address] Oct, [facility] [address] [id number] [address] [place] [address], [place] [address] September, [facility] [address] [id number] [address] [place] [address], [place] [address] Aug, [facility] [address] [id number] [address] [place] [address], [place] [address] Aug, [facility] [address] [id number] [address] [place] [address], [place] [address] Aug, [facility] [address] [id number] [address] [place] [address], [place] [address] Aug, [facility] [address] [id number] [address] [place] [address], [place] [address] May, [facility] [address] [id number] [address] [place] [address], [place] [address] Feb, [facility] [address] [id number] [address] [place] [address], [place] [address] Feb, [facility] [address] [id number] [address] [place] [address], [place] [address] Feb, [facility] [address] [id number] [address] [place] [address], [place] [address] Feb, [facility] [address] [id number] [address] [place] [address], [place] [address] Jan, [facility] [address] [id number] [address] [place] [address], [place] [address] Dec, [facility] [address] [id number] [address] [place] [address], [place] [address] Dec, [facility] [address] [id number] [address] [place] [address], [place] [address] Nov, [facility] [address] [id number] [address] [place] [address], [place] [address] Nov, [facility] [address] [id number] [address] [place] [address], [place] [address] Nov, [facility] [address] [id number] [address] [place] [address], [place] [address] Oct, [facility] [address] [id number] [address] [place] [address], [place] [address] September, [facility] [address] [id number] [address] [place] [address], [place] [address] Aug, [facility] [address] [id number] [address] [place] [address], [place] [address] Jul, [facility] [address] [id number] [address] [place] [address], [place] [address] Jun, [facility] [address] [id number] [address] [place] [address], [place] [address] Jun, [facility] [address] [id number] [address] [place] [address], [place] [address] Jun, [facility] [address] [id number] [address] [place] [address], [place] [address] Jun, [facility] [address] [id number] [address] [place] [address], [place] [address] Apr, [facility] [address] [id number] [address] [place] [address], [place] [address] Apr, [facility] [address] [id number] [address] [place] [address], [place] [address] Mar, [facility] [address] [id number] [address] [place] [address], [place] [address] Mar, [facility] [address] [id number] [address] [place] [address], [place] [address] Mar, [facility] [address] [id number] [address] [place] [address], [place] [address] Mar, [facility] [address] [id number] [address] [place] [address], [place] [address] Feb, [facility] [address] [id number] [address] [place] [address], [place] [address] Feb, [facility] [address] [id number] [address] [place] [address], [place] [address] Feb, [facility] [address] [id number] [address] [place] [address], [place] [address] Feb, [facility] [address] [id number] [address] [place] [address], [place] [address] Jul, [facility] [address] [id number] [address] [place] [address] Jun, [facility] [address] [facility] [id number] [address] [place] [address] Feb, IMMUNIZATIONS No Known Immunizations SOCIAL HISTORY Never Assessed REASON FOR VISIT PLAN OF CARE VITAL SIGNS MEDICATIONS Unknown Medications RESULTS No Results PROCEDURES Procedure Date Ordered Result Body Site TB INTRADERMAL TEST Jan 25, 2013 INSTRUCTIONS MEDICATIONS ADMINISTERED No Known Medications [...]
--- OUTSIDE RECORDS SUMMARY | 2019-12-06 19:50 | XMS REPORT ---
Author Author Tracee CARPENTER Organization [facility] Address [address] [place] [address] Care Team Providers Care Warehouse Pricing And Inventory Clerk Name Role Phone SILVERIO CARPENTER Unavailable PROBLEMS Type Condition ICD9-CM Code OQY83-JC Code Onset Dates Condition S tatus SNOMED Code Problem Essential hypertension I10 Resolve d 28889946 Problem Dysthymia F34.1 Active 23165369 Problem MRSA (methicillin resistant Staphylococcus aureus) A49.02 Active 748975743 Problem Neuropathy of right ankle G57.91 Acti ve 342917388 Problem Carpal tunnel syndrome, bilateral G56.03 Active [id number] Problem Hyperinsulinemia E16.1 Active 834 44573 Problem Uses control Z30.9 Active 7 05106950 Problem Dysuria R30.0 Active 16584873 Problem Encounter for annual physica l examination excluding gynecological examination in a patient older than 17 years Z00.00 Active 980772226 ALLERGIES No Information ENCOUNTERS Encounter Location Date Diagnosis [facility] [address] [facility] [id number] [address] [place] [address] Jul, Carpal tunnel syndrome, bila teral G56.03 ; Neuropathy of right ankle G57.91 ; Contraceptive device, intrauterine Z97.5 and Family history of colon cancer in father Z80.0 [facility] [address] [facility] [place] [id number] [address] [place] [address] May, Strep pharyngitis J02.0 [facility] [address] [facility] [id number] [address] [place] [address] Oct, Uses control Z30.9 [facility] [address] [facility] [id number] [address] [place] [address] Aug, Encounter for annual physica l examination excluding gynecological examination in a patient older than 17 years Z00.00 ; Dysuria R30.0 and Uses control Z30.9 [place] [id number] [address] May, Pharyngitis due to other org anism J02.8 [place] [address] [address] 13 Oct, 2016 Cellulitis of right lower ex tremity L03.115 [place] [address] [address] 05 Oct, 2016 Cellulitis of right lower ex tremity L03.115 [place] [address] [address] Aug, [facility] [address] [place] [id number] Aug, Dental examination Z01.20 [place] [address] [address] Jul, [place] [address] [address] Jun, Well woman exam Z01.419 ; Ce rvical cancer screening Z12.4 ; Breast cancer screening Z12.39 and Right foot pain M79.671 [place] [address] [address] 02 Jun, 2016 Acute nasopharyngitis J00 [place] [address] [address] 09 May, 2016 Contraceptive device, intrau terine Z97.[address] [facility] [address] [address] Oct, Right lower quadrant abdomin al pain R10.31 ; Frequency of urination R35.0 ; Hematuria R31.9 and Renal calculi N20.0 [place] [address] [address] 16 Oct, 2015 Pain in unspecified knee M25 .569 ; Other chronic pain G89.29 ; Obesity, unspecified obesity severity, unspecified obesity type E66.9 and Depression F32.9 [facility] [address] [place] [id number] [address] [place] [address] 25 Jun, 2015 Depressive disorder, not els ewhere classified F32.9 [place] [address] [address] Jun, Hyperglycemia R73.9 and Obes ity E66.9 [place] [address] [address] 05 Jun, 2015 Obesity, unspecified obesity severity, unspecified obesity type E66.9 [place] [address] [address] May, Essential hypertension I10 a nd Obesity, unspecified obesity severity, unspecified obesity type E66.9 [place] [address] [place] [id number] [address] [place] [address] Apr, Upper respiratory disease J3 9.9 ; Yeast vaginitis B37.3 ; Contraceptive device, intrauterine Z97.5 ; Depression F32.9 and Essential hypertension I10 [place] [address] [address] 30 Oct, 2014 Sinusitis 473.9 [place] [address] [address] Oct, Edema 782.3 and Right foot p ain 729.5 [place] [address] [place] [address] Aug, [place] [address] [address] Aug, [place] [address] [address] Jul, [facility] [address] [id number] [address] [place] [address], [place] [address] Jul, [facility] [address] [id number] [address] [place] [address], [place] [address] May, [facility] [address] [id number] [address] [place] [address], [place] [address] May, [facility] [address] [id number] [address] [place] [address], [place] [address] Feb, [facility] [address] [id number] [address] [place] [address], [place] [address] Feb, [facility] [address] [id number] [address] [place] [address], [place] [address] Dec, [facility] [address] [id number] [address] [place] [address], [place] [address] Dec, [facility] [address] [id number] [address] [place] [address], [place] [address] Dec, [facility] [address] [id number] [address] [place] [address], [place] [address] Dec, [facility] [address] [id number] [address] [place] [address], [place] [address] Nov, [facility] [address] [id number] [address] [place] [address], [place] [address] Nov, [facility] [address] [id number] [address] [place] [address], [place] [address] Oct, [facility] [address] [id number] [address] [place] [address], [place] [address] Oct, [facility] [address] [id number] [address] [place] [address], [place] [address] Oct, [facility] [address] [id number] [address] [place] [address], [place] [address] Oct, [facility] [address] [id number] [address] [place] [address], [place] [address] Oct, [facility] [address] [id number] [address] [place] [address], [place] [address] Oct, [facility] [address] [id number] [address] [place] [address], [place] [address] Oct, [facility] [address] [id number] [address] [place] [address], [place] [address] Oct, [facility] [address] [id number] [address] [place] [address], [place] [address] Oct, [facility] [address] [id number] [address] [place] [address], [place] [address] Oct, [facility] [address] [id number] [address] [place] [address], [place] [address] September, [facility] [address] [id number] [address] [place] [address], [place] [address] September, [facility] [address] [id number] [address] [place] [address], [place] [address] Aug, [facility] [address] [id number] [address] [place] [address], [place] [address] Aug, [facility] [address] [id number] [address] [place] [address], [place] [address] Aug, [facility] [address] [id number] [address] [place] [address], [place] [address] Aug, [facility] [address] [id number] [address] [place] [address], [place] [address] Aug, [facility] [address] [id number] [address] [place] [address], [place] [address] Aug, [facility] [address] [id number] [address] [place] [address], [place] [address] Aug, [facility] [address] [id number] [address] [place] [address], [place] [address] Aug, [facility] [address] [id number] [address] [place] [address], [place] [address] May, [facility] [address] [id number] [address] [place] [address], [place] [address] May, [facility] [address] [id number] [address] [place] [address], [place] [address] May, [facility] [address] [id number] [address] [place] [address], [place] [address] May, [facility] [address] [id number] [address] [place] [address], [place] [address] May, [facility] [address] [id number] [address] [place] [address], [place] [address] May, [facility] [address] [id number] [address] [place] [address], [place] [address] Feb, [facility] [address] [id number] [address] [place] [address], [place] [address] Feb, [facility] [address] [id number] [address] [place] [address], [place] [address] Feb, [facility] [address] [id number] [address] [place] [address], [place] [address] Jan, [facility] [address] [id number] [address] [place] [address], [place] [address] Jan, [facility] [address] [id number] [address] [place] [address], [place] [address] Nov, [facility] [address] [id number] [address] [place] [address], [place] [address] Oct, [facility] [address] [id number] [address] [place] [address], [place] [address] September, [facility] [address] [id number] [address] [place] [address], [place] [address] Aug, [facility] [address] [id number] [address] [place] [address], [place] [address] Aug, [facility] [address] [id number] [address] [place] [address], [place] [address] Aug, [facility] [address] [id number] [address] [place] [address], [place] [address] Aug, [facility] [address] [id number] [address] [place] [address], [place] [address] May, [facility] [address] [id number] [address] [place] [address], [place] [address] Feb, [facility] [address] [id number] [address] [place] [address], [place] [address] Feb, [facility] [address] [id number] [address] [place] [address], [place] [address] Feb, [facility] [address] [id number] [address] [place] [address], [place] [address] Feb, [facility] [address] [id number] [address] [place] [address], [place] [address] Jan, [facility] [address] [id number] [address] [place] [address], [place] [address] Dec, [facility] [address] [id number] [address] [place] [address], [place] [address] Dec, [facility] [address] [id number] [address] [place] [address], [place] [address] Nov, [facility] [address] [id number] [address] [place] [address], [place] [address] Nov, [facility] [address] [id number] [address] [place] [address], [place] [address] Nov, [facility] [address] [id number] [address] [place] [address], [place] [address] Oct, [facility] [address] [id number] [address] [place] [address], [place] [address] September, [facility] [address] [id number] [address] [place] [address], [place] [address] Aug, [facility] [address] [id number] [address] [place] [address], [place] [address] Jul, [facility] [address] [id number] [address] [place] [address], [place] [address] Jun, [facility] [address] [id number] [address] [place] [address], [place] [address] Jun, [facility] [address] [id number] [address] [place] [address], [place] [address] Jun, [facility] [address] [id number] [address] [place] [address], [place] [address] Jun, [facility] [address] [id number] [address] [place] [address], [place] [address] Apr, [facility] [address] [id number] [address] [place] [address], [place] [address] Apr, [facility] [address] [id number] [address] [place] [address], [place] [address] Mar, [facility] [address] [id number] [address] [place] [address], [place] [address] Mar, [facility] [address] [id number] [address] [place] [address], [place] [address] Mar, [facility] [address] [id number] [address] [place] [address], [place] [address] Mar, [facility] [address] [id number] [address] [place] [address], [place] [address] Feb, [facility] [address] [id number] [address] [place] [address], [place] [address] Feb, [facility] [address] [id number] [address] [place] [address], [place] [address] Feb, [facility] [address] [id number] [address] [place] [address], [place] [address] Feb, [facility] [address] [id number] [address] [place] [address] Jul, [facility] [address] [facility] [id number] [address] [place] [address] Jun, [facility] [address] [facility] [id number] [address] [place] [address] Feb, IMMUNIZATIONS No Known Immunizations SOCIAL HISTORY Never Assessed REASON FOR VISIT PLAN OF CARE VITAL SIGNS MEDICATIONS Unknown Medications RESULTS No Results PROCEDURES Procedure Date Ordered Result Body Site PSYTX PT&/FAMILY 45 MINUTES Feb 21, 2013 INSTRUCTIONS MEDICATIONS ADMINISTERED No Known Medications [...]
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
--- OUTSIDE RECORDS SUMMARY | 2019-12-06 19:50 | XMS REPORT ---
Author Author Tracee Ruth Doctor Organization [facility] Address Unknown Phone Unavailable Care Team Providers Care Customs Consultant Name Role Phone Migration, Doctor Unavailable Unavailable PROBLEMS Type Condition ICD9-CM Code BKI73-CD Code Onset Dates Condition S tatus SNOMED Code Problem Essential hypertension I10 Resolve d 81129923 Problem Dysthymia F34.1 Active 37869503 Problem MRSA (methicillin resistant Staphylococcus aureus) A49.02 Active 570354530 Problem Neuropathy of right ankle G57.91 Acti ve 570316911 Problem Carpal tunnel syndrome, bilateral G56.03 Active [id number] Problem Hyperinsulinemia E16.1 Active 834 27604 Problem Uses control Z30.9 Active 7 08679497 Problem Dysuria R30.0 Active 56997393 Problem Encounter for annual physica l examination excluding gynecological examination in a patient older than 17 years Z00.00 Active 291845234 ALLERGIES No Information ENCOUNTERS Encounter Location Date Diagnosis [facility] [address] [facility] [id number] [address] [place] [id number] Aug, [facility] [address] [facility] [id number] [address] [place] [address] Jul, Carpal tunnel syndrome, bila teral G56.03 ; Neuropathy of right ankle G57.91 ; Contraceptive device, intrauterine Z97.5 and Family history of colon cancer in father Z80.0 [facility] [address] [facility] [id number] [address] [place] [address] May, Strep pharyngitis J02.0 [facility] [address] [facility] [id number] [address] [place] [address] Oct, Uses control Z30.9 [facility] [address] [facility] [id number] [address] [place] [address] Aug, Encounter for annual physica l examination excluding gynecological examination in a patient older than 17 years Z00.00 ; Dysuria R30.0 [address]30[address]9 [facility] [address] [address] May, Pharyngitis due to other org anism J02.8 [place] [address] [address] 13 Oct, 2016 Cellulitis of right lower ex tremity L03.115 [place] [address] [address] Oct, Cellulitis of right lower ex tremity L03.115 [place] [address] [address] Aug, [facility] [address] [place] [id number] [place] [id number] Aug, Dental examination Z01.20 [place] [address] [address] Jul, [place] [address] [address] Jun, Well woman exam Z01.419 ; Ce rvical cancer screening Z12.4 ; Breast cancer screening Z12.39 and Right foot pain M79.671 [place] [address] [address] Jun, Acute nasopharyngitis J00 [facility] [address] [address] May, Contraceptive device, intrau terine Z97.5 [facility] [address] [address] Oct, Right lower quadrant abdomin al pain R10.31 ; Frequency of urination R35.0 ; Hematuria R31.9 and Renal calculi N20.0 [place] [address] [address] 16 Oct, 2015 Pain in unspecified knee M25 .569 ; Other chronic pain G89.29 ; Obesity, unspecified obesity severity, unspecified obesity type E66.[address] [facility] [address] [facility] [id number] [address] [place] [address] 25 Jun, 2015 Depressive disorder, not els ewhere classified F32.9 [place] [address] [place] [id number] [address] [place] [address] Jun, Hyperglycemia R73.9 and Obes ity E66.9 [place] [address] [facility] [id number] [place] [phone] 05 Jun, 2015 Obesity, unspecified obesity severity, unspecified obesity type E66.9 [place] [address] [address] May, Essential hypertension I10 a nd Obesity, unspecified obesity severity, unspecified obesity type E66.9 [place] [id number] [place] [address] Apr, Upper respiratory disease J3 9.9 ; Yeast vaginitis B37.3 ; Contraceptive device, intrauterine Z97.5 ; Depression F32.9 and Essential hypertension I10 [place] [address] [place] [id number] [address] [place] [phone] 30 Oct, 2014 Sinusitis 473.9 [place] [address] [address] Oct, Edema 782.3 and Right foot p ain 729.5 [place] [address] [place] [id number] [address] [place] [phone] Aug, [place] [address] [address] Aug, [place] [address] [place] [id number] [address] [place] [address] Jul, [facility] [address] [id number] [address] [place] [address], [place] [address] Jul, [facility] [address] [id number] [address] [place] [address], [place] [address] May, [facility] [address] [id number] [address] [place] [address], [place] [address] May, [facility] [address] [id number] [address] [place] [address], [place] [address] Feb, [facility] [address] [id number] [address] [place] [address], [place] [address] Feb, [facility] [address] [id number] [address] [place] [address], [place] [address] Dec, [facility] [address] [id number] [address] [place] [address], [place] [address] Dec, [facility] [address] [id number] [address] [place] [address], [place] [address] Dec, [facility] [address] [id number] [address] [place] [address], [place] [address] Dec, [facility] [address] [id number] [address] [place] [address], [place] [address] Nov, [facility] [address] [id number] [address] [place] [address], [place] [address] Nov, [facility] [address] [id number] [address] [place] [address], [place] [address] Oct, [facility] [address] [id number] [address] [place] [address], [place] [address] Oct, [facility] [address] [id number] [address] [place] [address], [place] [address] Oct, [facility] [address] [id number] [address] [place] [address], [place] [address] Oct, [facility] [address] [id number] [address] [place] [address], [place] [address] Oct, [facility] [address] [id number] [address] [place] [address], [place] [address] Oct, [facility] [address] [id number] [address] [place] [address], [place] [address] Oct, [facility] [address] [id number] [address] [place] [address], [place] [address] Oct, [facility] [address] [id number] [address] [place] [address], [place] [address] Oct, [facility] [address] [id number] [address] [place] [address], [place] [address] Oct, [facility] [address] [id number] [address] [place] [address], [place] [address] September, [facility] [address] [id number] [address] [place] [address], [place] [address] September, [facility] [address] [id number] [address] [place] [address], [place] [address] Aug, [facility] [address] [id number] [address] [place] [address], [place] [address] Aug, [facility] [address] [id number] [address] [place] [address], [place] [address] Aug, [facility] [address] [id number] [address] [place] [address], [place] [address] Aug, [facility] [address] [id number] [address] [place] [address], [place] [address] Aug, [facility] [address] [id number] [address] [place] [address], [place] [address] Aug, [facility] [address] [id number] [address] [place] [address], [place] [address] Aug, [facility] [address] [id number] [address] [place] [address], [place] [address] Aug, [facility] [address] [id number] [address] [place] [address], [place] [address] May, [facility] [address] [id number] [address] [place] [address], [place] [address] May, [facility] [address] [id number] [address] [place] [address], [place] [address] May, [facility] [address] [id number] [address] [place] [address], [place] [address] May, [facility] [address] [id number] [address] [place] [address], [place] [address] May, [facility] [address] [id number] [address] [place] [address], [place] [address] May, [facility] [address] [id number] [address] [place] [address], [place] [address] Feb, [facility] [address] [id number] [address] [place] [address], [place] [address] Feb, [facility] [address] [id number] [address] [place] [address], [place] [address] Feb, [facility] [address] [id number] [address] [place] [address], [place] [address] Jan, [facility] [address] [id number] [address] [place] [address], [place] [address] Jan, [facility] [address] [id number] [address] [place] [address], [place] [address] Nov, [facility] [address] [id number] [address] [place] [address], [place] [address] Oct, [facility] [address] [id number] [address] [place] [address], [place] [address] September, [facility] [address] [id number] [address] [place] [address], [place] [address] Aug, [facility] [address] [id number] [address] [place] [address], [place] [address] Aug, [facility] [address] [id number] [address] [place] [address], [place] [address] Aug, [facility] [address] [id number] [address] [place] [address], [place] [address] Aug, [facility] [address] [id number] [address] [place] [address], [place] [address] May, [facility] [address] [id number] [address] [place] [address], [place] [address] Feb, [facility] [address] [id number] [address] [place] [address], [place] [address] Feb, [facility] [address] [id number] [address] [place] [address], [place] [address] Feb, [facility] [address] [id number] [address] [place] [address], [place] [address] Feb, [facility] [address] [id number] [address] [place] [address], [place] [address] Jan, [facility] [address] [id number] [address] [place] [address], [place] [address] Dec, [facility] [address] [id number] [address] [place] [address], [place] [address] Dec, [facility] [address] [id number] [address] [place] [address], [place] [address] Nov, [facility] [address] [id number] [address] [place] [address], [place] [address] Nov, [facility] [address] [id number] [address] [place] [address], [place] [address] Nov, [facility] [address] [id number] [address] [place] [address], [place] [address] Oct, [facility] [address] [id number] [address] [place] [address], [place] [address] September, [facility] [address] [id number] [address] [place] [address], [place] [address] Aug, [facility] [address] [id number] [address] [place] [address], [place] [address] Jul, [facility] [address] [id number] [address] [place] [address], [place] [address] Jun, [facility] [address] [id number] [address] [place] [address], [place] [address] Jun, [facility] [address] [id number] [address] [place] [address], [place] [address] Jun, [facility] [address] [id number] [address] [place] [address], [place] [address] Jun, [facility] [address] [id number] [address] [place] [address], [place] [address] Apr, [facility] [address] [id number] [address] [place] [address], [place] [address] Apr, [facility] [address] [id number] [address] [place] [address], [place] [address] Mar, [facility] [address] [id number] [address] [place] [address], [place] [address] Mar, [facility] [address] [id number] [address] [place] [address], [place] [address] Mar, [facility] [address] [id number] [address] [place] [address], [place] [address] Mar, [facility] [address] [id number] [address] [place] [address], [place] [address] Feb, [facility] [address] [id number] [address] [place] [address], [place] [address] Feb, [facility] [address] [id number] [address] [place] [address], [place] [address] Feb, [facility] [address] [id number] [address] [place] [address], [place] [address] Feb, [facility] [address] [id number] [address] [place] [address] Jul, [facility] [address] [facility] [id number] [address] [place] [address] Jun, [facility] [address] [facility] [id number] [address] [place] [address] Feb, IMMUNIZATIONS No Known Immunizations SOCIAL HISTORY Never Assessed REASON FOR VISIT PLAN OF CARE VITAL SIGNS MEDICATIONS Unknown Medications RESULTS No Results PROCEDURES Procedure Date Ordered Result Body Site TB INTRADERMAL TEST Dec 06, 2013 INSTRUCTIONS MEDICATIONS ADMINISTERED No Known Medications [...]
--- OUTSIDE RECORDS SUMMARY | 2019-12-06 19:50 | XMS REPORT ---
Author Author Tracee CARPENTER Organization [facility] Address [address] [place] [address] Care Team Providers Care Data Review Specialist Name Role Phone SILVERIO CARPENTER Unavailable PROBLEMS Type Condition ICD9-CM Code NAK90-UI Code Onset Dates Condition S tatus SNOMED Code Problem Essential hypertension I10 Resolve d 86678803 Problem Dysthymia F34.1 Active 06848008 Problem MRSA (methicillin resistant Staphylococcus aureus) A49.02 Active 365461971 Problem Neuropathy of right ankle G57.91 Acti ve 016018909 Problem Carpal tunnel syndrome, bilateral G56.03 Active [id number] Problem Hyperinsulinemia E16.1 Active 834 48649 Problem Uses control Z30.9 Active 7 22226489 Problem Dysuria R30.0 Active 08574979 Problem Encounter for annual physica l examination excluding gynecological examination in a patient older than 17 years Z00.00 Active [id number] ALLERGIES No Information ENCOUNTERS Encounter Location Date Diagnosis [facility] [address] [facility] [id number] [address] [place] [address] Jul, Carpal tunnel syndrome, bila teral G56.03 ; Neuropathy of right ankle G57.91 ; Contraceptive device, intrauterine Z97.5 and Family history of colon cancer in father Z80.0 [facility] [address] [facility] [id number] [address] [place] [address] May, Strep pharyngitis J02.0 [facility] [address] [facility] [id number] [address] [place] [address] Oct, Uses control Z30.9 [facility] [address] [facility] [id number] [address] [place] [address] Aug, Encounter for annual physica l examination excluding gynecological examination in a patient older than 17 years Z00.00 ; Dysuria R30.0 and Uses control Z30.9 [place] [id number] [address] May, Pharyngitis due to other org anism J02.8 [place] [address] [address] 13 Oct, 2016 Cellulitis of right lower ex tremity L03.115 [place] [address] [address] 05 Oct, 2016 Cellulitis of right lower ex tremity L03.115 [place] [address] [address] Aug, [facility] [address] [place] [id number] Aug, Dental examination Z01.20 [place] [address] [address] Jul, [place] [address] [address] Jun, Well woman exam Z01.419 ; Ce rvical cancer screening Z12.4 ; Breast cancer screening Z12.39 and Right foot pain M79.671 [place] [address] [address] 02 Jun, 2016 Acute nasopharyngitis J00 [place] [address] [address] 09 May, 2016 Contraceptive device, intrau terine Z97.5 [facility] [address] [address] Oct, Right lower quadrant abdomin al pain R10.31 ; Frequency of urination R35.0 ; Hematuria R31.9 and Renal calculi N20.0 [place] [address] [address] 16 Oct, 2015 Pain in unspecified knee M25 .569 ; Other chronic pain G89.29 ; Obesity, unspecified obesity severity, unspecified obesity type E66.9 and Depression F32.9 [facility] [address] [place] [id number] [address] [place] [address] 25 Jun, 2015 Depressive disorder, not els ewhere classified F32.9 [place] [address] [address] Jun, Hyperglycemia R73.9 and Obes ity E66.9 [place] [address] [address] 05 Jun, 2015 Obesity, unspecified obesity severity, unspecified obesity type E66.9 [place] [address] [address] May, Essential hypertension I10 a nd Obesity, unspecified obesity severity, unspecified obesity type E66.9 [place] [address] [place] [id number] [address] [place] [address] Apr, Upper respiratory disease J3 9.9 ; Yeast vaginitis B37.3 ; Contraceptive device, intrauterine Z97.5 ; Depression F32.9 and Essential hypertension I10 [place] [address] [address] 30 Oct, 2014 Sinusitis 473.9 [place] [address] [address] Oct, Edema 782.3 and Right foot p ain 729.5 [place] [address] [place] [address] Aug, [place] [address] [address] Aug, [place] [address] [address] Jul, [facility] [address] [id number] [address] [place] [address], [place] [address] Jul, [facility] [address] [id number] [address] [place] [address], [place] [address] May, [facility] [address] [id number] [address] [place] [address], [place] [address] May, [facility] [address] [id number] [address] [place] [address], [place] [address] Feb, [facility] [address] [id number] [address] [place] [address], [place] [address] Feb, [facility] [address] [id number] [address] [place] [address], [place] [address] Dec, [facility] [address] [id number] [address] [place] [address], [place] [address] Dec, [facility] [address] [id number] [address] [place] [address], [place] [address] Dec, [facility] [address] [id number] [address] [place] [address], [place] [address] Dec, [facility] [address] [id number] [address] [place] [address], [place] [address] Nov, [facility] [address] [id number] [address] [place] [address], [place] [address] Nov, [facility] [address] [id number] [address] [place] [address], [place] [address] Oct, [facility] [address] [id number] [address] [place] [address], [place] [address] Oct, [facility] [address] [id number] [address] [place] [address], [place] [address] Oct, [facility] [address] [id number] [address] [place] [address], [place] [address] Oct, [facility] [address] [id number] [address] [place] [address], [place] [address] Oct, [facility] [address] [id number] [address] [place] [address], [place] [address] Oct, [facility] [address] [id number] [address] [place] [address], [place] [address] Oct, [facility] [address] [id number] [address] [place] [address], [place] [address] Oct, [facility] [address] [id number] [address] [place] [address], [place] [address] Oct, [facility] [address] [id number] [address] [place] [address], [place] [address] Oct, [facility] [address] [id number] [address] [place] [address], [place] [address] September, [facility] [address] [id number] [address] [place] [address], [place] [address] September, [facility] [address] [id number] [address] [place] [address], [place] [address] Aug, [facility] [address] [id number] [address] [place] [address], [place] [address] Aug, [facility] [address] [id number] [address] [place] [address], [place] [address] Aug, [facility] [address] [id number] [address] [place] [address], [place] [address] Aug, [facility] [address] [id number] [address] [place] [address], [place] [address] Aug, [facility] [address] [id number] [address] [place] [address], [place] [address] Aug, [facility] [address] [id number] [address] [place] [address], [place] [address] Aug, [facility] [address] [id number] [address] [place] [address], [place] [address] Aug, [facility] [address] [id number] [address] [place] [address], [place] [address] May, [facility] [address] [id number] [address] [place] [address], [place] [address] May, [facility] [address] [id number] [address] [place] [address], [place] [address] May, [facility] [address] [id number] [address] [place] [address], [place] [address] May, [facility] [address] [id number] [address] [place] [address], [place] [address] May, [facility] [address] [id number] [address] [place] [address], [place] [address] May, [facility] [address] [id number] [address] [place] [address], [place] [address] Feb, [facility] [address] [id number] [address] [place] [address], [place] [address] Feb, [facility] [address] [id number] [address] [place] [address], [place] [address] Feb, [facility] [address] [id number] [address] [place] [address], [place] [address] Jan, [facility] [address] [id number] [address] [place] [address], [place] [address] Jan, [facility] [address] [id number] [address] [place] [address], [place] [address] Nov, [facility] [address] [id number] [address] [place] [address], [place] [address] Oct, [facility] [address] [id number] [address] [place] [address], [place] [address] September, [facility] [address] [id number] [address] [place] [address], [place] [address] Aug, [facility] [address] [id number] [address] [place] [address], [place] [address] Aug, [facility] [address] [id number] [address] [place] [address], [place] [address] Aug, [facility] [address] [id number] [address] [place] [address], [place] [address] Aug, [facility] [address] [id number] [address] [place] [address], [place] [address] May, [facility] [address] [id number] [address] [place] [address], [place] [address] Feb, [facility] [address] [id number] [address] [place] [address], [place] [address] Feb, [facility] [address] [id number] [address] [place] [address], [place] [address] Feb, [facility] [address] [id number] [address] [place] [address], [place] [address] Feb, [facility] [address] [id number] [address] [place] [address], [place] [address] Jan, [facility] [address] [id number] [address] [place] [address], [place] [address] Dec, [facility] [address] [id number] [address] [place] [address], [place] [address] Dec, [facility] [address] [id number] [address] [place] [address], [place] [address] Nov, [facility] [address] [id number] [address] [place] [address], [place] [address] Nov, [facility] [address] [id number] [address] [place] [address], [place] [address] Nov, [facility] [address] [id number] [address] [place] [address], [place] [address] Oct, [facility] [address] [id number] [address] [place] [address], [place] [address] September, [facility] [address] [id number] [address] [place] [address], [place] [address] Aug, [facility] [address] [id number] [address] [place] [address], [place] [address] Jul, [facility] [address] [id number] [address] [place] [address], [place] [address] Jun, [facility] [address] [id number] [address] [place] [address], [place] [address] Jun, [facility] [address] [id number] [address] [place] [address], [place] [address] Jun, [facility] [address] [id number] [address] [place] [address], [place] [address] Jun, [facility] [address] [id number] [address] [place] [address], [place] [address] Apr, [facility] [address] [id number] [address] [place] [address], [place] [address] Apr, [facility] [address] [id number] [address] [place] [address], [place] [address] Mar, [facility] [address] [id number] [address] [place] [address], [place] [address] Mar, [facility] [address] [id number] [address] [place] [address], [place] [address] Mar, [facility] [address] [id number] [address] [place] [address], [place] [address] Mar, [facility] [address] [id number] [address] [place] [address], [place] [address] Feb, [facility] [address] [id number] [address] [place] [address], [place] [address] Feb, [facility] [address] [id number] [address] [place] [address], [place] [address] Feb, [facility] [address] [id number] [address] [place] [address], [place] [address] Feb, [facility] [address] [id number] [address] [place] [address] Jul, [facility] [address] [facility] [id number] [address] [place] [address] Jun, [facility] [address] [facility] [id number] [address] [place] [address] Feb, IMMUNIZATIONS No Known Immunizations SOCIAL HISTORY Never Assessed REASON FOR VISIT PLAN OF CARE VITAL SIGNS MEDICATIONS Unknown Medications RESULTS No Results PROCEDURES Procedure Date Ordered Result Body Site PSYTX PT&/FAMILY 45 MINUTES November 22, 2012 INSTRUCTIONS MEDICATIONS ADMINISTERED No Known Medications [...]
--- OUTSIDE RECORDS SUMMARY | 2019-12-06 19:51 | XMS REPORT ---
Author Author Tracee Ruth Doctor Organization [facility] Address Unknown Phone Unavailable Care Team Providers Care Staff Analyst Name Role Phone Migration, Doctor Unavailable Unavailable PROBLEMS Type Condition ICD9-CM Code QUN68-YP Code Onset Dates Condition S tatus SNOMED Code Problem Uses control Z30.9 Active 7 98561273 Problem Dysuria R30.0 Active 24677291 Problem Dysthymia F34.1 Active 15169797 Problem MRSA (methicillin resistant Staphylococcus aureus) A49.02 Active 794242279 Problem Hyperinsulinemia E16.1 Active 834 39745 Problem Encounter for annual physica l examination excluding gynecological examination in a patient older than 17 years Z00.00 Active [id number] ALLERGIES No Information ENCOUNTERS Encounter Location Date Diagnosis [facility] WALK IN [facility] [address] [facility] [id number] [address] [place] [address] 05 May, 2019 Strep pharyngitis J02.0 [place] [address] [id number] [place] [address] Oct, Uses control Z30.9 [place] [address] [id number] [place] [address] Aug, Encounter for annual physical examinatio n excluding gynecological examination in a patient older than 17 years Z00.00 ; Dysuria R30.0 and Uses control Z30.9 [facility] [address] [id number] [place] [address] May, Pharyngitis due to other organism J02.8 [place] [address] [address] 13 Oct, 2016 Cellulitis of right lower extremity L03. 115 [place] [address] [address] 05 Oct, 2016 Cellulitis of right lower extremity L03. 115 [place] [id number] [place] [address] Aug, [facility] [address] [id number] [place] [id number] Aug, Dental examination Z01.20 [facility] [id number] [place] [address] Jul, [facility] [address] [address] Jun, Well woman exam Z01.419 ; Cervical cance r screening Z12.4 ; Breast cancer screening Z12.39 and Right foot pain M79.671 [place] [address] [address] 02 Jun, 2016 Acute nasopharyngitis J00 [place] [address] [address] May, Contraceptive device, intrauterine Z97.5 [facility] CARE [address] [facility] [id number] [address] [place] [address] Oct, Right lower quadrant abdomin al pain R10.31 ; Frequency of urination R35.0 ; Hematuria R31.9 and Renal calculi N20.0 [place] [id number] [place] [address] 16 Oct, 2015 Pain in unspecified knee M25.569 ; Other chronic pain G89.29 ; Obesity, unspecified obesity severity, unspecified obesity type E66.9 and Depression F32.9 [place] [address] [address] Jun, Depressive disorder, not elsewhere class ified F32.9 [facility] [address] [address] Jun, Hyperglycemia R73.9 and Obesity E66.9 [facility] [address] [address] 05 Jun, 2015 Obesity, unspecified obesity severity, u nspecified obesity type E66.9 [facility] [address] [address] May, Essential hypertension I10 and Obesity, unspecified obesity severity, unspecified obesity type E66.9 [facility] [address] [address] Apr, Upper respiratory disease J39.9 ; Yeast vaginitis B37.3 ; Contraceptive device, intrauterine Z97.5 ; Depression F32.9 and Essential hypertension I10 [facility] [address] [address] Oct, Sinusitis 473.9 [place] [address] [address] Oct, Edema 782.3 and Right foot pain 729.5 [facility] [address] [address] Aug, [facility] [address] [address] Aug, [facility] [address] [address] Jul, [facility] [address] [address] Jul, [facility] [address] [address] May, [facility] [address] [address] May, [facility] [address] [address] Feb, [facility] [address] [address] Feb, [facility] [address] [address] Dec, [facility] [address] [address] Dec, [facility] [address] [facility] [id number] [place] [address] Dec, [facility] [address] [facility] [id number] [place] [address] Dec, [facility] [address] [id number] [place] [address] Nov, [facility] [address] [id number] [place] [address] Nov, [facility] [address] [id number] [place] [address] Oct, [facility] [address] [id number] [place] [address] Oct, [facility] [address] [id number] [place] [address] Oct, [facility] [address] [id number] [place] [address] Oct, [facility] [address] [id number] [place] [address] Oct, [facility] [address] [id number] [place] [address] Oct, [facility] [address] [id number] [place] [address] Oct, [facility] [address] [id number] [place] [address] Oct, [facility] [address] [id number] [place] [address] Oct, [facility] [address] [id number] [place] [address] Oct, [facility] [address] [id number] [place] [address] September, [facility] [address] [id number] [place] [address] September, [facility] [address] [id number] [place] [address] Aug, [facility] [address] [facility] [id number] [place] [address] Aug, [facility] [address] [facility] [id number] [place] [address] Aug, [facility] [address] [id number] [place] [address] Aug, [facility] [address] [id number] [place] [address] Aug, [facility] [address] [facility] [id number] [place] [address] Aug, [facility] [address] [id number] [place] [address] Aug, [facility] [address] [id number] [place] [address] Aug, [facility] [address] [id number] [place] [address] May, [facility] [address] [id number] [place] [address] May, [facility] [address] [id number] [place] [address] May, [facility] [address] [id number] [place] [address] May, [facility] [address] [id number] [place] [address] May, [facility] [address] [id number] [place] [address] May, [facility] [address] [id number] [place] [address] Feb, [facility] [address] [id number] [place] [address] Feb, [facility] [address] [id number] [place] [address] Feb, [facility] [address] [id number] [place] [address] Jan, [facility] [address] [id number] [place] [address] Jan, [facility] [address] [id number] [place] [address] Nov, [facility] [address] [id number] [place] [address] Oct, [facility] [address] [id number] [place] [address] September, [facility] [address] [id number] [place] [address] Aug, [facility] [address] [id number] [place] [address] Aug, [facility] [address] [id number] [place] [address] Aug, [facility] [address] [id number] [place] [address] Aug, [facility] [address] [id number] [place] [address] May, [facility] [address] [id number] [place] [address] Feb, [facility] [address] [id number] [place] [address] Feb, [facility] [address] [id number] [place] [address] Feb, [facility] [address] [id number] [place] [address] Feb, [facility] [address] [id number] [place] [address] Jan, [facility] [address] [id number] [place] [address] Dec, [facility] [address] [id number] [place] [address] Dec, [facility] [address] [id number] [place] [address] Nov, [facility] [address] [id number] [place] [address] Nov, [facility] [address] [id number] [place] [address] Nov, [facility] [address] [id number] [place] [address] Oct, [facility] [address] [id number] [place] [address] September, [facility] [address] [id number] [place] [address] Aug, [facility] [address] [id number] [place] [address] Jul, [facility] [id number] [place] [address] Jun, [facility] [id number] [place] [address] Jun, [facility] [address] [id number] [place] [address] Jun, [facility] [id number] [place] [address] Jun, [facility] [id number] [place] [address] Apr, [facility] [address] [id number] [place] [address] Apr, [facility] [address] [id number] [place] [address] Mar, [facility] [id number] [place] [address] Mar, [facility] [address] [id number] [place] [address] Mar, [facility] [address] [id number] [place] [address] Mar, [facility] [address] [id number] [place] [address] Feb, [facility] [address] [id number] [place] [address] Feb, [facility] [address] [id number] [place] [address] Feb, [facility] [id number] [place] [address] Feb, [facility] [address] [id number] [place] [address] Jul, [facility] [address] [id number] [place] [address] Jun, [facility] [address] [id number] [place] [address] Feb, IMMUNIZATIONS No Known Immunizations SOCIAL HISTORY Never Assessed REASON FOR VISIT PLAN OF CARE VITAL SIGNS Height 69 in 2013-08-23 Weight 288.2 lbs 2013-08-23 Temperature 99.1 degrees Fahrenheit 2013-08-23 Heart Rate 88 bpm 2013-08-23 Respiratory Rate 20 2013-08-23 Blood pressure systolic 138 mmHg 2013-08-23 Blood pressure diastolic 80 mmHg 2013-08-23 MEDICATIONS No Known Medications RESULTS No Results PROCEDURES Procedure Date Ordered Result Body Site THER/PROPH/DIAG INJ, SC/IM August 23, 2013 STREP A ASSAY W/OPTIC August 23, 2013 IM 5OOMG [place] August 23, 2013 INSTRUCTIONS MEDICATIONS ADMINISTERED No Known Medications [...]
--- OUTSIDE RECORDS SUMMARY | 2019-12-06 19:51 | XMS REPORT ---
Author Author Tracee CARPENTER Organization [facility] Address [address] [place] [address] Care Team Providers Care Aircraft Navigator Name Role Phone SILVERIO CARPENTER Unavailable PROBLEMS Type Condition ICD9-CM Code RFX47-FA Code Onset Dates Condition S tatus SNOMED Code Problem Uses control Z30.9 Active 7 48722384 Problem Dysuria R30.0 Active 56005455 Problem Dysthymia F34.1 Active 85161249 Problem MRSA (methicillin resistant Staphylococcus aureus) A49.02 Active 033514109 Problem Hyperinsulinemia E16.1 Active 834 32184 Problem Encounter for annual physica l examination excluding gynecological examination in a patient older than 17 years Z00.00 Active 534662564 ALLERGIES No Information ENCOUNTERS Encounter Location Date Diagnosis [facility] WALK IN [facility] [address] [facility] [id number] [address] [place] [address] 05 May, 2019 Strep pharyngitis J02.0 [facility] [id number] [place] [address] Oct, Uses control Z30.9 [facility] [id number] [place] [address] Aug, Encounter for annual physical examinatio n excluding gynecological examination in a patient older than 17 years Z00.00 ; Dysuria R30.0 and Uses control Z30.9 [facility] [id number] [place] [address] May, Pharyngitis due to other organism J02.8 [facility] [id number] [place] [address] 13 Oct, 2016 Cellulitis of right lower extremity L03. 115 [place] [id number] [place] [address] Oct, Cellulitis of right lower extremity L03. 115 [place] [address] [address] Aug, [facility] [address] [facility] [id number] [place] [id number] Aug, Dental examination Z01.20 [place] [address] [address] Jul, [place] [address] [address] Jun, Well woman exam Z01.419 ; Cervical cance r screening Z12.4 ; Breast cancer screening Z12.39 and Right foot pain M79.671 [place] [address] [address] 02 Jun, 2016 Acute nasopharyngitis J00 [place] [address] [address] May, Contraceptive device, intrauterine Z97.5 [facility] CARE [address] [facility] [id number] [address] [place] [address] Oct, Right lower quadrant abdomin al pain R10.31 ; Frequency of urination R35.0 ; Hematuria R31.9 and Renal calculi N20.0 [place] [address] [address] 16 Oct, 2015 Pain in unspecified knee M25.569 ; Other chronic pain G89.29 ; Obesity, unspecified obesity severity, unspecified obesity type E66.9 and Depression F32.9 [place] [address] [address] Jun, Depressive disorder, not elsewhere class ified F32.9 [place] [address] [address] 11 Jun, 2015 Hyperglycemia R73.9 and Obesity E66.9 [place] [address] [address] Jun, Obesity, unspecified obesity severity, u nspecified obesity type E66.9 [facility] [address] [address] May, Essential hypertension I10 and Obesity, unspecified obesity severity, unspecified obesity type E66.9 [facility] [address] [address] Apr, Upper respiratory disease J39.9 ; Yeast vaginitis B37.3 ; Contraceptive device, intrauterine Z97.5 ; Depression F32.9 and Essential hypertension I10 [facility] [address] [address] Oct, Sinusitis 473.9 [facility] [address] [address] Oct, Edema 782.3 and Right foot pain 729.5 [facility] [address] [address] Aug, [facility] [address] [address] Aug, [facility] [address] [address] Jul, [facility] [address] [address] Jul, [facility] [address] [address] May, [facility] [address] [address] May, [facility] [address] [address] Feb, [facility] [address] [address] Feb, [facility] [address] [address] Dec, [facility] [address] [facility] [id number] [place] [address] Dec, [facility] [address] [facility] [id number] [place] [address] Dec, [facility] [address] [facility] [id number] [place] [address] Dec, [facility] [address] [id number] [place] [address] Nov, [facility] [address] [facility] [id number] [place] [address] Nov, [facility] [address] [id number] [place] [address] Oct, [facility] [address] [id number] [place] [address] Oct, [facility] [address] [id number] [place] [address] Oct, [facility] [address] [id number] [place] [address] Oct, [facility] [address] [id number] [place] [address] Oct, [facility] [address] [id number] [place] [address] Oct, [facility] [address] [id number] [place] [address] Oct, [facility] [address] [id number] [place] [address] Oct, [facility] [address] [id number] [place] [address] Oct, [facility] [address] [id number] [place] [address] Oct, [facility] [address] [id number] [place] [address] September, [facility] [address] [id number] [place] [address] September, [facility] [address] [facility] [id number] [place] [address] Aug, [facility] [address] [id number] [place] [address] Aug, [facility] [address] [id number] [place] [address] Aug, [facility] [address] [id number] [place] [address] Aug, [facility] [address] [facility] [id number] [place] [address] Aug, [facility] [address] [id number] [place] [address] Aug, [facility] [address] [id number] [place] [address] Aug, [facility] [address] [id number] [place] [address] Aug, [facility] [address] [id number] [place] [address] May, [facility] [address] [id number] [place] [address] May, [facility] [address] [id number] [place] [address] May, [facility] [address] [id number] [place] [address] May, [facility] [address] [id number] [place] [address] May, [facility] [address] [id number] [place] [address] May, [facility] [address] [id number] [place] [address] Feb, [facility] [address] [id number] [place] [address] Feb, [facility] [address] [id number] [place] [address] 07 Feb, 2013 [facility] [address] [id number] [place] [address] Jan, [facility] [address] [id number] [place] [address] 24 Jan, 2013 [facility] [address] [id number] [place] [address] Nov, [facility] [address] [id number] [place] [address] Oct, [facility] [address] [id number] [place] [address] September, [facility] [address] [id number] [place] [address] Aug, [facility] [address] [id number] [place] [address] Aug, [facility] [address] [id number] [place] [address] Aug, [facility] [address] [id number] [place] [address] Aug, [facility] [address] [id number] [place] [address] May, [facility] [address] [id number] [place] [address] Feb, [facility] [address] [id number] [place] [address] Feb, [facility] [address] [id number] [place] [address] Feb, [facility] [address] [id number] [place] [address] Feb, [facility] [address] [id number] [place] [address] Jan, [facility] [address] [id number] [place] [address] Dec, [facility] [address] [id number] [place] [address] Dec, [facility] [address] [id number] [place] [address] Nov, [facility] [address] [id number] [place] [address] Nov, [facility] [address] [id number] [place] [address] Nov, [facility] [address] [id number] [place] [address] Oct, [facility] [address] [id number] [place] [address] September, [facility] [address] [id number] [place] [address] Aug, [facility] [id number] [place] [address] Jul, [facility] [address] [id number] [place] [address] Jun, [facility] [address] [id number] [place] [address] Jun, [facility] [id number] [place] [address] Jun, [facility] [address] [id number] [place] [address] Jun, [facility] [address] [id number] [place] [address] Apr, [facility] [address] [id number] [place] [address] Apr, [facility] [id number] [place] [address] Mar, [facility] [address] [id number] [place] [address] Mar, [facility] [id number] [place] [address] Mar, [facility] [address] [id number] [place] [address] Mar, [facility] [address] [id number] [place] [address] Feb, [facility] [address] [id number] [place] [address] Feb, [facility] [id number] [place] [address] Feb, [facility] [address] [id number] [place] [address] Feb, [facility] [id number] [place] [address] Jul, [facility] [address] [id number] [place] [address] Jun, [facility] [address] [id number] [place] [address] Feb, IMMUNIZATIONS No Known Immunizations SOCIAL HISTORY Never Assessed REASON FOR VISIT PLAN OF CARE VITAL SIGNS MEDICATIONS No Known Medications RESULTS No Results PROCEDURES Procedure Date Ordered Result Body Site PSYTX PT&/FAMILY 45 MINUTES August 25, 2013 INSTRUCTIONS MEDICATIONS ADMINISTERED No Known [...]
--- OUTSIDE RECORDS SUMMARY | 2019-12-06 19:51 | XMS REPORT ---
Author Author Tracee PARMAR Organization [facility] Address [address] [place] [address] Care Team Providers Care Educational Therapy Teacher Name Role Phone SHANE PARMAR Unavailable PROBLEMS Type Condition ICD9-CM Code XUR50-ZZ Code Onset Dates Condition S tatus SNOMED Code Problem Dysthymia F34.1 Active 86987302 Problem MRSA (methicillin resistant Staphylococcus aureus) A49.02 Active 541616394 Problem Neuropathy of right ankle G57.91 Acti ve 899545754 Problem Carpal tunnel syndrome, bilateral G56.03 Active [id number] Problem Hyperinsulinemia E16.1 Active 834 01891 Problem Uses control Z30.9 Active 7 95605537 Problem Dysuria R30.0 Active 39879815 Problem Encounter for annual physica l examination excluding gynecological examination in a patient older than 17 years Z00.00 Active 197406005 ALLERGIES No Information ENCOUNTERS Encounter Location Date Diagnosis [facility] [id number] [place] [address] Aug, [facility] [address] [address] Jul, Carpal tunnel syndrome, bilateral G56.03 ; Neuropathy of right ankle G57.91 ; Contraceptive device, intrauterine Z97.5 and Family history of colon cancer in father Z80.0 [facility] [address] [facility] [id number] [address] [place] [address] May, Strep pharyngitis J02.0 [facility] [address] [id number] [place] [address] Oct, Uses control Z30.9 [facility] [id number] [place] [address] Aug, Encounter for annual physical examinatio n excluding gynecological examination in a patient older than 17 years Z00.00 ; Dysuria R30.0 and Uses control Z30.[address] [address] May, Pharyngitis due to other organism J02.8 [facility] [address] [address] 13 Oct, 2016 Cellulitis of right lower extremity L03. 115 [place] [address] [address] 05 Oct, 2016 Cellulitis of right lower extremity L03. [address] [address] Aug, [facility] [address] [id number] [place] [id number] Aug, Dental examination Z01.[address] [address] Jul, [address] [address] Jun, Well woman exam Z01.419 ; Cervical cance r screening Z12.4 ; Breast cancer screening Z12.39 and Right foot pain M79.[address] [address] 02 Jun, 2016 Acute nasopharyngitis J00 [address] [address] 09 May, 2016 Contraceptive device, intrauterine Z97.5 [facility] [address] [facility] [id number] [address] [place] [address] Oct, Right lower quadrant abdomin al pain R10.31 ; Frequency of urination R35.0 ; Hematuria R31.9 and Renal calculi N20.[address] [address] 16 Oct, 2015 Pain in unspecified knee M25.569 ; Other chronic pain G89.29 ; Obesity, unspecified obesity severity, unspecified obesity type E66.9 and Depression F32.9 [facility] [address] [address] Jun, Depressive disorder, not elsewhere class ified F32.9 [facility] [address] [address] Jun, Hyperglycemia R73.9 and Obesity E66.9 [facility] [address] [address] Jun, Obesity, unspecified obesity severity, u nspecified obesity type E66.9 [facility] [address] [address] May, Essential hypertension I10 and Obesity, unspecified obesity severity, unspecified obesity type E66.9 [facility] [address] [address] Apr, Upper respiratory disease J39.9 ; Yeast vaginitis B37.3 ; Contraceptive device, intrauterine Z97.5 ; Depression F32.9 and Essential hypertension I10 [facility] [address] [address] Oct, Sinusitis 473.9 [facility] [address] [address] 04 Oct, 2014 Edema 782.3 and Right foot pain 729.5 [facility] [address] [address] Aug, [facility] [address] [address] Aug, [facility] [address] [address] Jul, [facility] [address] [address] Jul, [facility] [address] [address] May, [facility] [place] [facility] [address] [facility] [id number] [place] [address] May, [facility] [place] [facility] [address] [facility] [id number] [place] [address] Feb, [facility] [place] [facility] [address] [id number] [place] [address] Feb, [facility] [place] [facility] [address] [id number] [place] [address] Dec, [facility] [place] [facility] [address] [facility] [id number] [place] [address] Dec, [facility] [place] [facility] [address] [id number] [place] [address] Dec, [facility] [place] [facility] [address] [id number] [place] [address] Dec, [facility] [place] [facility] [address] [id number] [place] [address] Nov, [facility] [place] [facility] [address] [facility] [id number] [place] [address] Nov, [facility] [place] [facility] [address] [id number] [place] [address] Oct, [facility] [place] [facility] [address] [id number] [place] [address] Oct, [facility] [place] [facility] [address] [id number] [place] [address] Oct, [facility] [place] [facility] [address] [facility] [id number] [place] [address] Oct, [facility] [place] [facility] [address] [id number] [place] [address] Oct, [facility] [place] [facility] [address] [id number] [place] [address] Oct, [facility] [place] [facility] [address] [id number] [place] [address] Oct, [facility] [place] [facility] [address] [id number] [place] [address] Oct, [facility] [place] [facility] [address] [id number] [place] [address] Oct, [facility] [place] [facility] [address] [facility] [id number] [place] [address] Oct, [facility] [place] [facility] [address] [id number] [place] [address] September, [facility] [place] [facility] [address] [id number] [place] [address] September, [facility] [place] [facility] [address] [id number] [place] [address] Aug, [facility] [place] [facility] [address] [id number] [place] [address] Aug, [facility] [place] [facility] [address] [id number] [place] [address] Aug, [facility] [place] [facility] [address] [id number] [place] [address] Aug, [facility] [place] [facility] [address] [id number] [place] [address] Aug, [facility] [place] [facility] [address] [id number] [place] [address] Aug, [facility] [place] [facility] [address] [id number] [place] [address] Aug, [facility] [place] [facility] [address] [id number] [place] [address] Aug, [facility] [place] [facility] [address] [id number] [place] [address] May, [facility] [place] [facility] [address] [id number] [place] [address] May, [facility] [place] [facility] [address] [id number] [place] [address] May, [facility] [place] [facility] [address] [id number] [place] [address] May, [facility] [place] [facility] [address] [id number] [place] [address] May, [facility] [place] [facility] [address] [id number] [place] [address] May, [facility] [place] [facility] [address] [id number] [place] [address] Feb, [facility] [place] [facility] [address] [id number] [place] [address] Feb, [facility] [place] [facility] [address] [id number] [place] [address] Feb, [facility] [place] [facility] [address] [id number] [place] [address] Jan, [facility] [place] [facility] [address] [id number] [place] [address] Jan, [facility] [place] [facility] [address] [id number] [place] [address] Nov, [facility] [place] [facility] [address] [id number] [place] [address] Oct, [facility] [place] [facility] [address] [id number] [place] [address] September, [facility] [place] [facility] [address] [id number] [place] [address] Aug, [facility] [place] [facility] [address] [id number] [place] [address] Aug, [facility] [place] [facility] [address] [id number] [place] [address] Aug, [facility] [place] [facility] [address] [id number] [place] [address] Aug, [facility] [place] [facility] [address] [id number] [place] [address] May, [facility] [place] [facility] [address] [id number] [place] [address] Feb, [facility] [place] [facility] [address] [id number] [place] [address] Feb, [facility] [place] [facility] [address] [id number] [place] [address] Feb, [facility] [place] [facility] [address] [id number] [place] [address] Feb, [facility] [place] [facility] [address] [id number] [place] [address] Jan, [facility] [place] [facility] [address] [id number] [place] [address] Dec, [facility] [place] [facility] [address] [id number] [place] [address] Dec, [facility] [place] [facility] [address] [id number] [place] [address] Nov, [facility] [place] [facility] [address] [id number] [place] [address] Nov, [facility] [place] [facility] [address] [id number] [place] [address] Nov, [facility] [place] [facility] [address] [id number] [place] [address] Oct, [facility] [place] [facility] [id number] [place] [address] September, [facility] [place] [facility] [address] [id number] [place] [address] Aug, [facility] [place] [facility] [address] [id number] [place] [address] Jul, [facility] [place] [facility] [address] [id number] [place] [address] Jun, [facility] [place] [facility] [address] [id number] [place] [address] Jun, [facility] [place] [facility] [address] [id number] [place] [address] Jun, [facility] [place] [facility] [address] [id number] [place] [address] Jun, [facility] [place] [facility] [address] [id number] [place] [address] Apr, [facility] [address] [id number] [place] [address] Apr, [facility] [address] [id number] [place] [address] Mar, [facility] [address] [id number] [place] [address] Mar, [facility] [id number] [place] [address] Mar, [facility] [id number] [place] [address] Mar, [facility] [id number] [place] [address] Feb, [facility] [id number] [place] [address] Feb, [facility] [id number] [place] [address] Feb, [facility] [id number] [place] [address] Feb, [facility] [address] [id number] [place] [address] Jul, [facility] [id number] [place] [address] Jun, [facility] [id number] [place] [address] Feb, IMMUNIZATIONS No Known Immunizations SOCIAL HISTORY [...]
--- OUTSIDE RECORDS SUMMARY | 2019-12-06 19:51 | XMS REPORT ---
Author Author Tracee CARPENTER Organization [facility] [place] Address [address] [place] [address] Care Team Providers Care Tax Accountant Name Role Phone SILVERIO CARPENTER Unavailable PROBLEMS Type Condition ICD9-CM Code PUP60-NR Code Onset Dates Condition S tatus SNOMED Code Problem Uses control Z30.9 Active 7 95304085 Problem Dysuria R30.0 Active 55304848 Problem Dysthymia F34.1 Active 14666811 Problem MRSA (methicillin resistant Staphylococcus aureus) A49.02 Active 209516197 Problem Hyperinsulinemia E16.1 Active 834 34148 Problem Encounter for annual physica l examination excluding gynecological examination in a patient older than 17 years Z00.00 Active [id number] ALLERGIES No Information ENCOUNTERS Encounter Location Date Diagnosis [facility] [place] [id number] [place] [address] 16 Jul, 2019 [facility] [address] [facility] [id number] [place] [address] May, Strep pharyngitis J02.0 [facility] [place] [address] [id number] [place] [address] Oct, Uses control Z30.9 [facility] [place] [address] [id number] [place] [address] Aug, Encounter for annual physical examinatio n excluding gynecological examination in a patient older than 17 years Z00.00 ; Dysuria R30.0 and Uses control Z30.9 [facility] [place] [address] [id number] [place] [address] May, Pharyngitis due to other organism J02.8 [facility] [place] [address] [id number] [place] [address] Oct, Cellulitis of right lower extremity L03. 115 [place] [address] [address] 05 Oct, 2016 Cellulitis of right lower extremity L03. 115 [place] [address] [address] Aug, [facility] [address] [facility] [id number] [place] [id number] Aug, Dental examination Z01.20 [place] [address] [address] Jul, [address] [address] Jun, Well woman exam Z01.419 ; Cervical cance r screening Z12.4 ; Breast cancer screening Z12.39 and Right foot pain M79.671 [place] [address] [address] Jun, Acute nasopharyngitis J00 [place] [address] [address] May, Contraceptive device, intrauterine Z97.5 [facility] [address] [facility] [id number] [address] [place] [address] Oct, Right lower quadrant abdomin al pain R10.31 ; Frequency of urination R35.0 ; Hematuria R31.9 and Renal calculi N20.0 [place] [address] [address] 16 Oct, 2015 Pain in unspecified knee M25.569 ; Other chronic pain G89.29 ; Obesity, unspecified obesity severity, unspecified obesity type E66.9 and Depression F32.9 [place] [address] [address] Jun, Depressive disorder, not elsewhere class ified F32.9 [place] [address] [address] Jun, Hyperglycemia R73.9 and Obesity E66.9 [facility] [place] [address] [address] 05 Jun, 2015 Obesity, unspecified obesity severity, u nspecified obesity type E66.9 [facility] [place] [address] [address] May, Essential hypertension I10 and Obesity, unspecified obesity severity, unspecified obesity type E66.9 [facility] [place] [address] [address] Apr, Upper respiratory disease J39.9 ; Yeast vaginitis B37.3 ; Contraceptive device, intrauterine Z97.5 ; Depression F32.9 and Essential hypertension I10 [place] [address] [address] Oct, Sinusitis 473.9 [place] [address] [address] Oct, Edema 782.3 and Right foot pain 729.5 [facility] [place] [address] [address] Aug, [facility] [place] [address] [address] Aug, [facility] [place] [address] [address] Jul, [facility] [place] [address] [address] Jul, [facility] [place] [address] [address] May, [facility] [place] [address] [address] May, [facility] [place] [address] [address] Feb, [facility] [place] [address] [address] Feb, [facility] [place] [facility] [address] [facility] [id number] [place] [address] Dec, [facility] [place] [facility] [address] [facility] [id number] [place] [address] Dec, [facility] [place] [facility] [address] [facility] [id number] [place] [address] Dec, [facility] [place] [facility] [address] [id number] [place] [address] Dec, [facility] [place] [facility] [address] [facility] [id number] [place] [address] Nov, [facility] [place] [facility] [address] [facility] [id number] [place] [address] Nov, [facility] [place] [facility] [address] [id number] [place] [address] Oct, [facility] [place] [facility] [address] [id number] [place] [address] Oct, [facility] [place] [facility] [address] [id number] [place] [address] Oct, [facility] [place] [facility] [address] [id number] [place] [address] Oct, [facility] [place] [facility] [address] [id number] [place] [address] Oct, [facility] [place] [facility] [address] [id number] [place] [address] Oct, [facility] [place] [facility] [address] [id number] [place] [address] Oct, [facility] [place] [facility] [address] [id number] [place] [address] Oct, [facility] [place] [facility] [address] [id number] [place] [address] Oct, [facility] [place] [facility] [address] [id number] [place] [address] Oct, [facility] [place] [facility] [address] [id number] [place] [address] September, [facility] [place] [facility] [address] [id number] [place] [address] September, [facility] [place] [facility] [address] [id number] [place] [address] Aug, [facility] [place] [facility] [address] [id number] [place] [address] Aug, [facility] [place] [facility] [address] [id number] [place] [address] Aug, [facility] [place] [facility] [address] [facility] [id number] [place] [address] Aug, [facility] [place] [facility] [address] [id number] [place] [address] Aug, [facility] [place] [facility] [address] [id number] [place] [address] Aug, [facility] [place] [facility] [address] [id number] [place] [address] Aug, [facility] [place] [facility] [address] [id number] [place] [address] Aug, [facility] [place] [facility] [address] [id number] [place] [address] May, [facility] [place] [facility] [address] [id number] [place] [address] May, [facility] [place] [facility] [address] [id number] [place] [address] May, [facility] [place] [facility] [address] [id number] [place] [address] May, [facility] [place] [facility] [address] [id number] [place] [address] May, [facility] [place] [facility] [address] [id number] [place] [address] May, [facility] [place] [facility] [address] [id number] [place] [address] Feb, [facility] [place] [facility] [address] [id number] [place] [address] Feb, [facility] [place] [facility] [address] [id number] [place] [address] Feb, [facility] [place] [facility] [address] [id number] [place] [address] Jan, [facility] [place] [facility] [address] [id number] [place] [address] Jan, [facility] [place] [facility] [address] [id number] [place] [address] Nov, [facility] [place] [facility] [address] [id number] [place] [address] Oct, [facility] [place] [facility] [address] [id number] [place] [address] September, [facility] [place] [facility] [address] [id number] [place] [address] Aug, [facility] [place] [facility] [address] [facility] [id number] [place] [address] Aug, [facility] [address] [facility] [id number] [place] [address] Aug, [facility] [address] [facility] [id number] [place] [address] Aug, [facility] [address] [facility] [id number] [place] [address] May, [facility] [address] [facility] [id number] [place] [address] Feb, [facility] [address] [facility] [id number] [place] [address] Feb, [facility] [address] [facility] [id number] [place] [address] Feb, [facility] [address] [facility] [id number] [place] [address] Feb, [facility] [address] [facility] [id number] [place] [address] Jan, [facility] [address] [facility] [id number] [place] [address] Dec, [facility] [address] [facility] [id number] [place] [address] Dec, [facility] [address] [facility] [id number] [place] [address] Nov, [facility] [address] [facility] [id number] [place] [address] Nov, [facility] [address] [facility] [address] [id number] [place] [address] Nov, [facility] [address] [facility] [id number] [place] [address] Oct, [facility] [address] [facility] [address] [id number] [place] [address] September, [facility] [id number] [place] [address] Aug, [facility] [address] [facility] [address] [id number] [place] [address] Jul, [facility] [address] [facility] [address] [id number] [place] [address] Jun, [facility] [address] [facility] [address] [id number] [place] [address] Jun, [facility] [address] [facility] [address] [id number] [place] [address] Jun, [facility] [address] [facility] [address] [id number] [place] [address] Jun, [facility] [address] [facility] [address] [id number] [place] [address] Apr, [facility] [id number] [place] [address] Apr, [facility] [address] [facility] [address] [id number] [place] [address] Mar, [facility] [id number] [place] [address] Mar, [facility] [place] [id number] [place] [address] Mar, [facility] [place] [id number] [place] [address] Mar, [facility] [place] [id number] [place] [address] Feb, [facility] [place] [id number] [place] [address] Feb, [facility] [place] [id number] [place] [address] Feb, [facility] [place] [id number] [place] [address] Feb, [facility] [place] [id number] [place] [address] Jul, [facility] [place] [id number] [place] [address] Jun, [facility] [place] [id number] [place] [address] Feb, IMMUNIZATIONS No Known Immunizations SOCIAL HISTORY Never Assessed REASON FOR VISIT PLAN OF CARE VITAL SIGNS MEDICATIONS Unknown Medications RESULTS No Results PROCEDURES Procedure Date Ordered Result Body Site PSYTX PT&/FAMILY 45 MINUTES September 05, 2013 INSTRUCTIONS MEDICATIONS ADMINISTERED No Known Medications [...]
--- OUTSIDE RECORDS SUMMARY | 2019-12-06 19:51 | XMS REPORT ---
Author Author Tracee PARMAR Organization [facility] Address [address] [place] [address] Care Team Providers Care Pathology Technician Name Role Phone SHANE PARMAR Unavailable PROBLEMS Type Condition ICD9-CM Code FWS79-SI Code Onset Dates Condition S tatus SNOMED Code Problem Uses control Z30.9 Active 7 75438649 Problem Dysuria R30.0 Active 81424267 Problem Dysthymia F34.1 Active 32744922 Problem MRSA (methicillin resistant Staphylococcus aureus) A49.02 Active 430786193 Problem Hyperinsulinemia E16.1 Active 834 21233 Problem Encounter for annual physica l examination excluding gynecological examination in a patient older than 17 years Z00.00 Active [id number] ALLERGIES No Information ENCOUNTERS Encounter Location Date Diagnosis [facility] [address] [facility] [id number] [address] [place] [address] 05 May, 2019 Strep pharyngitis J02.0 [facility] [id number] [place] [address] Oct, Uses control Z30.9 [facility] [id number] [place] [address] Aug, Encounter for annual physical examinatio n excluding gynecological examination in a patient older than 17 years Z00.00 ; Dysuria R30.0 and Uses control Z30.9 [facility] [id number] [place] [address] May, Pharyngitis due to other organism J02.8 [facility] [id number] [place] [address] 13 Oct, 2016 Cellulitis of right lower extremity L03. [address] [place] [id number] [place] [address] Oct, Cellulitis of right lower extremity L03. [address] [place] [address] [address] Aug, [facility] [address] [facility] [id number] [place] [id number] Aug, Dental examination Z01.20 [place] [address] [address] Jul, [place] [address] [address] Jun, Well woman exam Z01.419 ; Cervical cance r screening Z12.4 ; Breast cancer screening Z12.39 and Right foot pain M79.671 [place] [address] [address] 02 Jun, 2016 Acute nasopharyngitis J00 [place] [address] [address] May, Contraceptive device, intrauterine Z97.5 [facility] [address] [facility] [facility] [id number] [address] [place] [address] Oct, Right lower quadrant abdomin al pain R10.31 ; Frequency of urination R35.0 ; Hematuria R31.9 and Renal calculi N20.0 [place] [address] [address] 16 Oct, 2015 Pain in unspecified knee M25.569 ; Other chronic pain G89.29 ; Obesity, unspecified obesity severity, unspecified obesity type E66.9 and Depression F32.9 [place] [address] [address] Jun, Depressive disorder, not elsewhere class ified F32.9 [place] [address] [address] 11 Jun, 2015 Hyperglycemia R73.9 and Obesity E66.9 [place] [address] [address] Jun, Obesity, unspecified obesity severity, u nspecified obesity type E66.9 [facility] [address] [address] May, Essential hypertension I10 and Obesity, unspecified obesity severity, unspecified obesity type E66.9 [facility] [address] [address] Apr, Upper respiratory disease J39.9 ; Yeast vaginitis B37.3 ; Contraceptive device, intrauterine Z97.5 ; Depression F32.9 and Essential hypertension I10 [facility] [address] [address] Oct, Sinusitis 473.9 [facility] [address] [address] Oct, Edema 782.3 and Right foot pain 729.5 [facility] [address] [address] Aug, [facility] [address] [address] Aug, [facility] [address] [address] Jul, [facility] [address] [address] Jul, [facility] [address] [address] May, [facility] [address] [address] May, [facility] [address] [address] Feb, [facility] [address] [address] Feb, [facility] [address] [address] Dec, [facility] [address] [facility] [id number] [place] [address] Dec, [facility] [address] [facility] [facility] [id number] [place] [address] Dec, [facility] [address] [facility] [facility] [id number] [place] [address] Dec, [facility] [address] [id number] [place] [address] Nov, [facility] [address] [facility] [id number] [place] [address] Nov, [facility] [address] [id number] [place] [address] Oct, [facility] [address] [id number] [place] [address] Oct, [facility] [address] [id number] [place] [address] Oct, [facility] [address] [id number] [place] [address] Oct, [facility] [address] [id number] [place] [address] Oct, [facility] [address] [id number] [place] [address] Oct, [facility] [address] [id number] [place] [address] Oct, [facility] [address] [id number] [place] [address] Oct, [facility] [address] [id number] [place] [address] Oct, [facility] [address] [id number] [place] [address] Oct, [facility] [address] [id number] [place] [address] September, [facility] [address] [id number] [place] [address] September, [facility] [address] [facility] [id number] [place] [address] Aug, [facility] [address] [id number] [place] [address] Aug, [facility] [address] [id number] [place] [address] Aug, [facility] [address] [id number] [place] [address] Aug, [facility] [address] [facility] [id number] [place] [address] Aug, [facility] [address] [id number] [place] [address] Aug, [facility] [address] [id number] [place] [address] Aug, [facility] [address] [id number] [place] [address] Aug, [facility] [address] [id number] [place] [address] May, [facility] [address] [id number] [place] [address] May, [facility] [address] [id number] [place] [address] May, [facility] [address] [id number] [place] [address] May, [facility] [address] [id number] [place] [address] May, [facility] [address] [id number] [place] [address] May, [facility] [address] [id number] [place] [address] Feb, [facility] [address] [id number] [place] [address] Feb, [facility] [address] [id number] [place] [address] 07 Feb, 2013 [facility] [address] [id number] [place] [address] Jan, [facility] [address] [id number] [place] [address] 24 Jan, 2013 [facility] [address] [id number] [place] [address] Nov, [facility] [address] [id number] [place] [address] Oct, [facility] [address] [id number] [place] [address] September, [facility] [address] [id number] [place] [address] Aug, [facility] [address] [id number] [place] [address] Aug, [facility] [address] [id number] [place] [address] Aug, [facility] [address] [id number] [place] [address] Aug, [facility] [address] [id number] [place] [address] May, [facility] [address] [id number] [place] [address] Feb, [facility] [address] [id number] [place] [address] Feb, [facility] [address] [id number] [place] [address] Feb, [facility] [address] [id number] [place] [address] Feb, [facility] [address] [id number] [place] [address] Jan, [facility] [address] [id number] [place] [address] Dec, [facility] [address] [id number] [place] [address] Dec, [facility] [address] [id number] [place] [address] Nov, [facility] [address] [id number] [place] [address] Nov, [facility] [address] [id number] [place] [address] Nov, [facility] [address] [id number] [place] [address] Oct, [facility] [address] [id number] [place] [address] September, [facility] [address] [id number] [place] [address] Aug, [facility] [id number] [place] [address] Jul, [facility] [address] [id number] [place] [address] Jun, [facility] [address] [id number] [place] [address] Jun, [facility] [id number] [place] [address] Jun, [facility] [address] [id number] [place] [address] Jun, [facility] [address] [id number] [place] [address] Apr, [facility] [address] [id number] [place] [address] Apr, [facility] [id number] [place] [address] Mar, [facility] [address] [id number] [place] [address] Mar, [facility] [id number] [place] [address] Mar, [facility] [address] [id number] [place] [address] Mar, [facility] [address] [id number] [place] [address] Feb, [facility] [address] [id number] [place] [address] Feb, [facility] [id number] [place] [address] Feb, [facility] [address] [id number] [place] [address] Feb, [facility] [id number] [place] [address] Jul, [facility] [address] [id number] [place] [address] Jun, [facility] [address] [id number] [place] [address] Feb, IMMUNIZATIONS No Known Immunizations SOCIAL HISTORY Never Assessed REASON FOR VISIT PLAN OF CARE VITAL SIGNS Height 69 in 2013-10-27 Weight 295.1 lbs 2013-10-27 Temperature 98.8 degrees Fahrenheit 2013-10-27 Heart Rate 62 bpm 2013-10-27 Respiratory Rate 20 2013-10-27 Blood pressure systolic 144 mmHg 2013-10-27 Blood pressure diastolic 82 mmHg 2013-10-27 MEDICATIONS No Known Medications RESULTS No Results PROCEDURES Procedure Date Ordered Result Body Site COMPLETE CBC W/AUTO DIFF WBC October 27, 2013 ASSAY THYROID STIM HORMONE October 27, 2013 URINE TEST October 27, 2013 COMPREHEN METABOLIC PANEL October 27, 2013 VENIPUNCT, ROUTINE* October 27, 2013 INSTRUCTIONS MEDICATIONS ADMINISTERED No Known Medications [...]
--- OUTSIDE RECORDS SUMMARY | 2019-12-06 19:51 | XMS REPORT ---
Author Author Tracee CARPENTER Organization [facility] Address [address] [place] [address] Care Team Providers Care State Appellate Clerk Name Role Phone SILVERIO CARPENTER Unavailable PROBLEMS Type Condition ICD9-CM Code [id number] Code Onset Dates Condition S tatus SNOMED Code Problem Essential hypertension I10 Resolve d 24062040 Problem Dysthymia F34.1 Active 80053368 Problem MRSA (methicillin resistant Staphylococcus aureus) A49.02 Active 201762185 Problem Neuropathy of right ankle G57.91 Acti ve 673557730 Problem Carpal tunnel syndrome, bilateral G56.03 Active [id number] Problem Hyperinsulinemia E16.1 Active 834 24727 Problem Uses control Z30.9 Active 7 90366900 Problem Dysuria R30.0 Active 17695212 Problem Encounter for annual physica l examination excluding gynecological examination in a patient older than 17 years Z00.00 Active [id number] ALLERGIES No Information ENCOUNTERS Encounter Location Date Diagnosis [facility] [address] [facility] [id number] [address] [place] [address] Aug, [facility] [address] [facility] [id number] [address] [place] [address] Jul, Carpal tunnel syndrome, bila teral G56.03 ; Neuropathy of right ankle G57.91 ; Contraceptive device, intrauterine Z97.5 and Family history of colon cancer in father Z80.0 [facility] [address] [facility] [id number] [address] [place] [address] May, Strep pharyngitis J02.0 [facility] [address] [facility] [id number] [address] [place] [address] Oct, Uses control Z30.9 [facility] [address] [place] [id number] [address] [place] [address] Aug, Encounter for annual physica l examination excluding gynecological examination in a patient older than 17 years Z00.00 ; Dysuria R30.0 and Uses control Z30.9 [facility] [address] [place] [id number] [address] [place] [address] 26 May, 2017 Pharyngitis due to other org anism J02.8 [facility] [address] [address] 13 Oct, 2016 Cellulitis of right lower ex tremity L03.115 [place] [address] [address] 05 Oct, 2016 Cellulitis of right lower ex tremity L03.115 [place] [address] [place] [id number] [address] [place] [address] Aug, [facility] [address] [place] [id number] Aug, Dental examination Z01.20 [facility] [address] [place] [id number] [address] [place] [address] Jul, [place] [address] [address] Jun, Well woman exam Z01.419 ; Ce rvical cancer screening Z12.4 ; Breast cancer screening Z12.39 and Right foot pain M79.671 [facility] [address] [place] [address] 02 Jun, 2016 Acute nasopharyngitis J00 [facility] [address] [address] 09 May, 2016 Contraceptive device, intrau terine Z97.[address] [facility] [address] [place] [id number] [address] [place] [address] Oct, Right lower quadrant abdomin al pain R10.31 ; Frequency of urination R35.0 ; Hematuria R31.9 and Renal calculi N20.0 [place] [address] [place] [id number] [address] [place] [address] 16 Oct, 2015 Pain in unspecified knee M25 .569 ; Other chronic pain G89.29 ; Obesity, unspecified obesity severity, unspecified obesity type E66.9 and Depression F32.9 [place] [address] [place] [address] Jun, Depressive disorder, not els ewhere classified F32.9 [place] [address] [place] [id number] [place] [address] Jun, Hyperglycemia R73.9 and Obes ity E66.9 [place] [address] [place] [id number] [place] [address] 05 Jun, 2015 Obesity, unspecified obesity severity, unspecified obesity type E66.9 [place] [address] [address] May, Essential hypertension I10 a nd Obesity, unspecified obesity severity, unspecified obesity type E66.9 [place] [address] [address] Apr, Upper respiratory disease J3 9.9 ; Yeast vaginitis B37.3 ; Contraceptive device, intrauterine Z97.5 ; Depression F32.9 and Essential hypertension I10 [place] [address] [place] [address] 30 Oct, 2014 Sinusitis 473.9 [place] [address] [place] [id number] [address] [place] [address] 04 Oct, 2014 Edema 782.3 and Right foot p ain 729.5 [place] [address] [place] [id number] [place] [address] Aug, [place] [address] [address] Aug, [facility] [address] [id number] [address] [place] [address], [place] [address] Jul, [facility] [address] [id number] [address] [place] [address], [place] [address] Jul, [facility] [address] [id number] [address] [place] [address], [place] [address] May, [facility] [address] [id number] [address] [place] [address], [place] [address] May, [facility] [address] [id number] [address] [place] [address], [place] [address] Feb, [facility] [address] [id number] [address] [place] [address], [place] [address] Feb, [facility] [address] [id number] [address] [place] [address], [place] [address] Dec, [facility] [address] [id number] [address] [place] [address], [place] [address] Dec, [facility] [address] [id number] [address] [place] [address], [place] [address] Dec, [facility] [address] [id number] [address] [place] [address], [place] [address] Dec, [facility] [address] [id number] [address] [place] [address], [place] [address] Nov, [facility] [address] [id number] [address] [place] [address], [place] [address] Nov, [facility] [address] [id number] [address] [place] [address], [place] [address] Oct, [facility] [address] [id number] [address] [place] [address], [place] [address] Oct, [facility] [address] [id number] [address] [place] [address], [place] [address] Oct, [facility] [address] [id number] [address] [place] [address], [place] [address] Oct, [facility] [address] [id number] [address] [place] [address], [place] [address] Oct, [facility] [address] [id number] [address] [place] [address], [place] [address] Oct, [facility] [address] [id number] [address] [place] [address], [place] [address] Oct, [facility] [address] [id number] [address] [place] [address], [place] [address] Oct, [facility] [address] [id number] [address] [place] [address], [place] [address] Oct, [facility] [address] [id number] [address] [place] [address], [place] [address] Oct, [facility] [address] [id number] [address] [place] [address], [place] [address] September, [facility] [address] [id number] [address] [place] [address], [place] [address] September, [facility] [address] [id number] [address] [place] [address], [place] [address] Aug, [facility] [address] [id number] [address] [place] [address], [place] [address] Aug, [facility] [address] [id number] [address] [place] [address], [place] [address] Aug, [facility] [address] [id number] [address] [place] [address], [place] [address] Aug, [facility] [address] [id number] [address] [place] [address], [place] [address] Aug, [facility] [address] [id number] [address] [place] [address], [place] [address] Aug, [facility] [address] [id number] [address] [place] [address], [place] [address] Aug, [facility] [address] [id number] [address] [place] [address], [place] [address] Aug, [facility] [address] [id number] [address] [place] [address], [place] [address] May, [facility] [address] [id number] [address] [place] [address], [place] [address] May, [facility] [address] [id number] [address] [place] [address], [place] [address] May, [facility] [address] [id number] [address] [place] [address], [place] [address] May, [facility] [address] [id number] [address] [place] [address], [place] [address] May, [facility] [address] [id number] [address] [place] [address], [place] [address] May, [facility] [address] [id number] [address] [place] [address], [place] [address] Feb, [facility] [address] [id number] [address] [place] [address], [place] [address] Feb, [facility] [address] [id number] [address] [place] [address], [place] [address] Feb, [facility] [address] [id number] [address] [place] [address], [place] [address] Jan, [facility] [address] [id number] [address] [place] [address], [place] [address] Jan, [facility] [address] [id number] [address] [place] [address], [place] [address] Nov, [facility] [address] [id number] [address] [place] [address], [place] [address] Oct, [facility] [address] [id number] [address] [place] [address], [place] [address] September, [facility] [address] [id number] [address] [place] [address], [place] [address] Aug, [facility] [address] [id number] [address] [place] [address], [place] [address] Aug, [facility] [address] [id number] [address] [place] [address], [place] [address] Aug, [facility] [address] [id number] [address] [place] [address], [place] [address] Aug, [facility] [address] [id number] [address] [place] [address], [place] [address] May, [facility] [address] [id number] [address] [place] [address], [place] [address] Feb, [facility] [address] [id number] [address] [place] [address], [place] [address] Feb, [facility] [address] [id number] [address] [place] [address], [place] [address] Feb, [facility] [address] [id number] [address] [place] [address], [place] [address] Feb, [facility] [address] [id number] [address] [place] [address], [place] [address] Jan, [facility] [address] [id number] [address] [place] [address], [place] [address] Dec, [facility] [address] [id number] [address] [place] [address], [place] [address] Dec, [facility] [address] [id number] [address] [place] [address], [place] [address] Nov, [facility] [address] [id number] [address] [place] [address], [place] [address] Nov, [facility] [address] [id number] [address] [place] [address], [place] [address] Nov, [facility] [address] [id number] [address] [place] [address], [place] [address] Oct, [facility] [address] [id number] [address] [place] [address], [place] [address] September, [facility] [address] [id number] [address] [place] [address], [place] [address] Aug, [facility] [address] [id number] [address] [place] [address], [place] [address] Jul, [facility] [address] [id number] [address] [place] [address], [place] [address] Jun, [facility] [address] [id number] [address] [place] [address], [place] [address] Jun, [facility] [address] [id number] [address] [place] [address], [place] [address] Jun, [facility] [address] [id number] [address] [place] [address], [place] [address] Jun, [facility] [address] [id number] [address] [place] [address], [place] [address] Apr, [facility] [address] [id number] [address] [place] [address], [place] [address] Apr, [facility] [address] [id number] [address] [place] [address], [place] [address] Mar, [facility] [address] [id number] [address] [place] [address], [place] [address] Mar, [facility] [address] [id number] [address] [place] [address], [place] [address] Mar, [facility] [address] [id number] [address] [place] [address] Mar, [facility] [address] [id number] [address] [place] [address], [place] [address] Feb, [facility] [address] [id number] [address] [place] [address], [place] [address] Feb, [facility] [address] [id number] [address] [place] [address], [place] [address] Feb, [facility] [address] [id number] [address] [place] [address] Feb, [facility] [address] [facility] [id number] [address] [place] [address] Jul, [facility] [address] [facility] [id number] [address] [place] [address] Jun, [facility] [address] [facility] [id number] [address] [place] [address] Feb, IMMUNIZATIONS No Known Immunizations SOCIAL HISTORY [...]
--- OUTSIDE RECORDS SUMMARY | 2019-12-06 19:51 | XMS REPORT ---
Author Author Tracee PARMAR Organization [facility] Address [address] [place] [address] Care Team Providers Care Postpartum Rn Name Role Phone SHANE PARMAR Unavailable PROBLEMS Type Condition ICD9-CM Code EIG14-UP Code Onset Dates Condition S tatus SNOMED Code Problem Essential hypertension I10 Resolve d 35151625 Problem Dysthymia F34.1 Active 10070494 Problem MRSA (methicillin resistant Staphylococcus aureus) A49.02 Active 275340816 Problem Neuropathy of right ankle G57.91 Acti ve 386574667 Problem Carpal tunnel syndrome, bilateral G56.03 Active [id number] Problem Hyperinsulinemia E16.1 Active 834 18590 Problem Uses control Z30.9 Active 7 39411875 Problem Dysuria R30.0 Active 46580826 Problem Encounter for annual physica l examination excluding gynecological examination in a patient older than 17 years Z00.00 Active [id number] ALLERGIES No Information ENCOUNTERS Encounter Location Date Diagnosis [facility] [address] [id number] [place] [address] Aug, [facility] [address] [id number] [place] [address] Jul, Carpal tunnel syndrome, bila teral G56.03 ; Neuropathy of right ankle G57.91 ; Contraceptive device, intrauterine Z97.5 and Family history of colon cancer in father Z80.0 [facility] [address] [facility] [id number] [place] [address] May, Strep pharyngitis J02.0 [facility] [address] [facility] [id number] [place] [address] Oct, Uses control Z30.9 [place] [address] [place] [id number] [place] [address] Aug, Encounter for annual physica l examination excluding gynecological examination in a patient older than 17 years Z00.00 ; Dysuria R30.0 and Uses control Z30.9 [facility] [address] [place] [id number] [address] [place] [address] 26 May, 2017 Pharyngitis due to other org anism J02.8 [facility] [address] [address] 13 Oct, 2016 Cellulitis of right lower ex tremity L03.115 [place] [address] [address] 05 Oct, 2016 Cellulitis of right lower ex tremity L03.115 [place] [address] [place] [id number] [place] [address] Aug, [facility] [id number] [place] [id number] Aug, Dental examination Z01.20 [facility] [address] [place] [id number] [place] [address] Jul, [place] [address] [address] Jun, Well woman exam Z01.419 ; Ce rvical cancer screening Z12.4 ; Breast cancer screening Z12.39 and Right foot pain M79.671 [facility] [address] [place] [address] 02 Jun, 2016 Acute nasopharyngitis J00 [facility] [address] [address] 09 May, 2016 Contraceptive device, intrau terine Z97.5 [facility] [address] [place] [id number] [address] [place] [address] Oct, Right lower quadrant abdomin al pain R10.31 ; Frequency of urination R35.0 ; Hematuria R31.9 and Renal calculi N20.0 [place] [address] [place] [id number] [address] [place] [address] 16 Oct, 2015 Pain in unspecified knee M25 .569 ; Other chronic pain G89.29 ; Obesity, unspecified obesity severity, unspecified obesity type E66.9 and Depression F32.9 [place] [address] [place] [address] Jun, Depressive disorder, not els ewhere classified F32.9 [place] [address] [place] [id number] [place] [address] Jun, Hyperglycemia R73.9 and Obes ity E66.9 [place] [address] [place] [id number] [place] [address] 05 Jun, 2015 Obesity, unspecified obesity severity, unspecified obesity type E66.9 [place] [address] [address] May, Essential hypertension I10 a nd Obesity, unspecified obesity severity, unspecified obesity type E66.9 [place] [address] [address] Apr, Upper respiratory disease J3 9.9 ; Yeast vaginitis B37.3 ; Contraceptive device, intrauterine Z97.5 ; Depression F32.9 and Essential hypertension I10 [place] [address] [place] [address] 30 Oct, 2014 Sinusitis 473.9 [place] [address] [place] [id number] [address] [place] [address] 04 Oct, 2014 Edema 782.3 and Right foot p ain 729.5 [place] [address] [place] [id number] [place] [address] Aug, [place] [address] [address] Aug, [facility] [address] [id number] [address] [place] [address], [place] [address] Jul, [facility] [address] [id number] [address] [place] [address], [place] [address] Jul, [facility] [address] [id number] [address] [place] [address], [place] [address] May, [facility] [address] [id number] [address] [place] [address], [place] [address] May, [facility] [address] [id number] [address] [place] [address], [place] [address] Feb, [facility] [address] [id number] [address] [place] [address], [place] [address] Feb, [facility] [address] [id number] [address] [place] [address], [place] [address] Dec, [facility] [address] [id number] [address] [place] [address], [place] [address] Dec, [facility] [address] [id number] [address] [place] [address], [place] [address] Dec, [facility] [address] [id number] [address] [place] [address], [place] [address] Dec, [facility] [address] [id number] [address] [place] [address], [place] [address] Nov, [facility] [address] [id number] [address] [place] [address], [place] [address] Nov, [facility] [address] [id number] [address] [place] [address], [place] [address] Oct, [facility] [address] [id number] [address] [place] [address], [place] [address] Oct, [facility] [address] [id number] [address] [place] [address], [place] [address] Oct, [facility] [address] [id number] [address] [place] [address], [place] [address] Oct, [facility] [address] [id number] [address] [place] [address], [place] [address] Oct, [facility] [address] [id number] [address] [place] [address], [place] [address] Oct, [facility] [address] [id number] [address] [place] [address], [place] [address] Oct, [facility] [address] [id number] [address] [place] [address], [place] [address] Oct, [facility] [address] [id number] [address] [place] [address], [place] [address] Oct, [facility] [address] [id number] [address] [place] [address], [place] [address] Oct, [facility] [address] [id number] [address] [place] [address], [place] [address] September, [facility] [address] [id number] [address] [place] [address], [place] [address] September, [facility] [address] [id number] [address] [place] [address], [place] [address] Aug, [facility] [address] [id number] [address] [place] [address], [place] [address] Aug, [facility] [address] [id number] [address] [place] [address], [place] [address] Aug, [facility] [address] [id number] [address] [place] [address], [place] [address] Aug, [facility] [address] [id number] [address] [place] [address], [place] [address] Aug, [facility] [address] [id number] [address] [place] [address], [place] [address] Aug, [facility] [address] [id number] [address] [place] [address], [place] [address] Aug, [facility] [address] [id number] [address] [place] [address], [place] [address] Aug, [facility] [address] [id number] [address] [place] [address], [place] [address] May, [facility] [address] [id number] [address] [place] [address], [place] [address] May, [facility] [address] [id number] [address] [place] [address], [place] [address] May, [facility] [address] [id number] [address] [place] [address], [place] [address] May, [facility] [address] [id number] [address] [place] [address], [place] [address] May, [facility] [address] [id number] [address] [place] [address], [place] [address] May, [facility] [address] [id number] [address] [place] [address], [place] [address] Feb, [facility] [address] [id number] [address] [place] [address], [place] [address] Feb, [facility] [address] [id number] [address] [place] [address], [place] [address] Feb, [facility] [address] [id number] [address] [place] [address], [place] [address] Jan, [facility] [address] [id number] [address] [place] [address], [place] [address] Jan, [facility] [address] [id number] [address] [place] [address], [place] [address] Nov, [facility] [address] [id number] [address] [place] [address], [place] [address] Oct, [facility] [address] [id number] [address] [place] [address], [place] [address] September, [facility] [address] [id number] [address] [place] [address], [place] [address] Aug, [facility] [address] [id number] [address] [place] [address], [place] [address] Aug, [facility] [address] [id number] [address] [place] [address], [place] [address] Aug, [facility] [address] [id number] [address] [place] [address], [place] [address] Aug, [facility] [address] [id number] [address] [place] [address], [place] [address] May, [facility] [address] [id number] [address] [place] [address], [place] [address] Feb, [facility] [address] [id number] [address] [place] [address], [place] [address] Feb, [facility] [address] [id number] [address] [place] [address], [place] [address] Feb, [facility] [address] [id number] [address] [place] [address], [place] [address] Feb, [facility] [address] [id number] [address] [place] [address], [place] [address] Jan, [facility] [address] [id number] [address] [place] [address], [place] [address] Dec, [facility] [address] [id number] [address] [place] [address], [place] [address] Dec, [facility] [address] [id number] [address] [place] [address], [place] [address] Nov, [facility] [address] [id number] [address] [place] [address], [place] [address] Nov, [facility] [address] [id number] [address] [place] [address], [place] [address] Nov, [facility] [address] [id number] [address] [place] [address], [place] [address] Oct, [facility] [address] [id number] [address] [place] [address], [place] [address] September, [facility] [address] [id number] [address] [place] [address], [place] [address] Aug, [facility] [address] [id number] [address] [place] [address], [place] [address] Jul, [facility] [address] [id number] [address] [place] [address], [place] [address] Jun, [facility] [address] [id number] [address] [place] [address], [place] [address] Jun, [facility] [address] [id number] [address] [place] [address], [place] [address] Jun, [facility] [address] [id number] [address] [place] [address], [place] [address] Jun, [facility] [address] [id number] [address] [place] [address], [place] [address] Apr, [facility] [address] [id number] [address] [place] [address], [place] [address] Apr, [facility] [address] [id number] [address] [place] [address], [place] [address] Mar, [facility] [address] [id number] [address] [place] [address], [place] [address] Mar, [facility] [address] [id number] [address] [place] [address], [place] [address] Mar, [facility] [address] [id number] [address] [place] [address] Mar, [facility] [address] [id number] [address] [place] [address], [place] [address] Feb, [facility] [address] [id number] [address] [place] [address], [place] [address] Feb, [facility] [address] [id number] [address] [place] [address], [place] [address] Feb, [facility] [address] [id number] [address] [place] [address] Feb, [facility] [address] [id number] [place] [address] Jul, [facility] [address] [facility] [id number] [place] [address] Jun, [facility] [address] [facility] [id number] [place] [address] Feb, IMMUNIZATIONS No Known Immunizations SOCIAL HISTORY Never Assessed REASON FOR VISIT PLAN OF CARE VITAL SIGNS Height 69 in 2013-05-05 Weight 294.18 lbs 2013-05-05 Temperature 101.6 degrees Fahrenheit 2013-05-05 Heart Rate 120 bpm 2013-05-05 Respiratory Rate 20 2013-05-05 Blood pressure systolic 112 mmHg 2013-05-05 Blood pressure diastolic 80 mmHg 2013-05-05 MEDICATIONS Unknown Medications RESULTS No Results PROCEDURES Procedure Date Ordered Result Body Site STREP A ASSAY W/OPTIC May 05, 2013 INSTRUCTIONS MEDICATIONS ADMINISTERED No Known [...]
--- OUTSIDE RECORDS SUMMARY | 2019-12-06 19:51 | XMS REPORT ---
Author Author Tracee Ruth Doctor Organization [facility] Address Unknown Phone Unavailable Care Team Providers Care Product Management Internship Name Role Phone Migration, Doctor Unavailable Unavailable PROBLEMS Type Condition ICD9-CM Code OFZ83-DO Code Onset Dates Condition S tatus SNOMED Code Problem Uses control Z30.9 Active 7 69025363 Problem Dysuria R30.0 Active 30059288 Problem Dysthymia F34.1 Active 94896431 Problem MRSA (methicillin resistant Staphylococcus aureus) A49.02 Active 964236617 Problem Hyperinsulinemia E16.1 Active 834 61269 Problem Encounter for annual physica l examination excluding gynecological examination in a patient older than 17 years Z00.00 Active [id number] ALLERGIES No Information ENCOUNTERS Encounter Location Date Diagnosis [facility] [id number] [place] [address] 16 Jul, 2019 [facility] [address] [facility] [id number] [place] [address] 05 May, 2019 Strep pharyngitis J02.0 [facility] [facility] [id number] [place] [address] 27 Oct, 2018 Uses control Z30.9 [facility] [facility] [id number] [place] [address] Aug, Encounter for annual physical examinatio n excluding gynecological examination in a patient older than 17 years Z00.00 ; Dysuria R30.0 and Uses control Z30.9 [place] [id number] [place] [address] 26 May, 2017 Pharyngitis due to other organism J02.8 [facility] [id number] [place] [address] 13 Oct, 2016 Cellulitis of right lower extremity L03. 115 [address] [address] [address] Oct, Cellulitis of right lower extremity L03. 115 [address] [address] [address] Aug, [facility] [address] [facility] [id number] [place] [id number] Aug, Dental examination Z01.20 [place] [address] [address] Jul, [place] [address] [address] Jun, Well woman exam Z01.419 ; Cervical cance r screening Z12.4 ; Breast cancer screening Z12.39 and Right foot pain M79.671 [place] [address] [address] 02 Jun, 2016 Acute nasopharyngitis J00 [place] [address] [address] May, Contraceptive device, intrauterine Z97.5 [facility] [address] [facility] [id number] [address] [place] [address] Oct, Right lower quadrant abdomin al pain R10.31 ; Frequency of urination R35.0 ; Hematuria R31.9 and Renal calculi N20.0 [place] [address] [address] 16 Oct, 2015 Pain in unspecified knee M25.569 ; Other chronic pain G89.29 ; Obesity, unspecified obesity severity, unspecified obesity type E66.9 and Depression F32.9 [place] [address] [address] Jun, Depressive disorder, not elsewhere class ified F32.9 [place] [address] [address] 11 Jun, 2015 Hyperglycemia R73.9 and Obesity E66.9 [place] [address] [address] Jun, Obesity, unspecified obesity severity, u nspecified obesity type E66.9 [facility] [address] [address] May, Essential hypertension I10 and Obesity, unspecified obesity severity, unspecified obesity type E66.9 [facility] [address] [address] Apr, Upper respiratory disease J39.9 ; Yeast vaginitis B37.3 ; Contraceptive device, intrauterine Z97.5 ; Depression F32.9 and Essential hypertension I10 [facility] [address] [address] Oct, Sinusitis 473.9 [facility] [address] [address] Oct, Edema 782.3 and Right foot pain 729.5 [facility] [address] [address] Aug, [facility] [address] [address] Aug, [facility] [address] [address] Jul, [facility] [address] [address] Jul, [facility] [address] [address] May, [facility] [address] [address] May, [facility] [address] [address] Feb, [facility] [address] [address] Feb, [facility] [address] [address] Dec, [facility] [address] [facility] [id number] [place] [address] Dec, [facility] [address] [facility] [id number] [place] [address] Dec, [facility] [address] [facility] [id number] [place] [address] Dec, [facility] [address] [id number] [place] [address] Nov, [facility] [address] [facility] [id number] [place] [address] Nov, [facility] [address] [id number] [place] [address] Oct, [facility] [address] [id number] [place] [address] Oct, [facility] [address] [id number] [place] [address] Oct, [facility] [address] [id number] [place] [address] Oct, [facility] [address] [id number] [place] [address] Oct, [facility] [address] [id number] [place] [address] Oct, [facility] [address] [id number] [place] [address] Oct, [facility] [address] [id number] [place] [address] Oct, [facility] [address] [id number] [place] [address] Oct, [facility] [address] [id number] [place] [address] Oct, [facility] [address] [id number] [place] [address] September, [facility] [address] [id number] [place] [address] September, [facility] [address] [facility] [id number] [place] [address] Aug, [facility] [address] [id number] [place] [address] Aug, [facility] [address] [id number] [place] [address] Aug, [facility] [address] [id number] [place] [address] Aug, [facility] [address] [facility] [id number] [place] [address] Aug, [facility] [address] [id number] [place] [address] Aug, [facility] [address] [id number] [place] [address] Aug, [facility] [address] [id number] [place] [address] Aug, [facility] [address] [id number] [place] [address] May, [facility] [address] [id number] [place] [address] May, [facility] [address] [id number] [place] [address] May, [facility] [address] [id number] [place] [address] May, [facility] [address] [id number] [place] [address] May, [facility] [address] [id number] [place] [address] May, [facility] [address] [id number] [place] [address] Feb, [facility] [address] [id number] [place] [address] Feb, [facility] [address] [id number] [place] [address] 07 Feb, 2013 [facility] [address] [id number] [place] [address] Jan, [facility] [address] [id number] [place] [address] 24 Jan, 2013 [facility] [address] [id number] [place] [address] Nov, [facility] [address] [id number] [place] [address] Oct, [facility] [address] [id number] [place] [address] September, [facility] [address] [id number] [place] [address] Aug, [facility] [address] [id number] [place] [address] Aug, [facility] [address] [id number] [place] [address] Aug, [facility] [address] [id number] [place] [address] Aug, [facility] [address] [id number] [place] [address] May, [facility] [address] [id number] [place] [address] Feb, [facility] [address] [id number] [place] [address] Feb, [facility] [address] [id number] [place] [address] Feb, [facility] [address] [id number] [place] [address] Feb, [facility] [address] [id number] [place] [address] Jan, [facility] [address] [id number] [place] [address] Dec, [facility] [address] [id number] [place] [address] Dec, [facility] [address] [id number] [place] [address] Nov, [facility] [address] [id number] [place] [address] Nov, [facility] [address] [id number] [place] [address] Nov, [facility] [address] [id number] [place] [address] Oct, [facility] [address] [id number] [place] [address] September, [facility] [address] [id number] [place] [address] Aug, [facility] [id number] [place] [address] Jul, [facility] [address] [id number] [place] [address] Jun, [facility] [address] [id number] [place] [address] Jun, [facility] [id number] [place] [address] Jun, [facility] [address] [id number] [place] [address] Jun, [facility] [address] [id number] [place] [address] Apr, [facility] [address] [id number] [place] [address] Apr, [facility] [id number] [place] [address] Mar, [facility] [address] [id number] [place] [address] Mar, [facility] [id number] [place] [address] Mar, [facility] [address] [id number] [place] [address] Mar, [facility] [address] [id number] [place] [address] Feb, [facility] [address] [id number] [place] [address] Feb, [facility] [id number] [place] [address] Feb, [facility] [id number] [place] [address] Feb, [facility] [id number] [place] [address] Jul, [facility] [address] [id number] [place] [address] Jun, [facility] [address] [id number] [place] [address] Feb, IMMUNIZATIONS No Known Immunizations SOCIAL HISTORY [...]
--- OUTSIDE RECORDS SUMMARY | 2019-12-06 19:52 | XMS REPORT ---
Author Author Tracee PARMAR Organization [facility] Address [address] [place] [address] Care Team Providers Care Gaming Associate Name Role Phone SHANE PARMAR Unavailable PROBLEMS Type Condition ICD9-CM Code VSI67-GM Code Onset Dates Condition S tatus SNOMED Code Problem Uses control Z30.9 Active 7 [id number] Problem Dysuria R30.0 Active 19126038 Problem Dysthymia F34.1 Active 67374735 Problem MRSA (methicillin resistant Staphylococcus aureus) A49.02 Active 542770166 Problem Hyperinsulinemia E16.1 Active 834 68596 Problem Encounter for annual physica l examination excluding gynecological examination in a patient older than 17 years Z00.00 Active [id number] ALLERGIES No Information ENCOUNTERS Encounter Location Date Diagnosis [place] [id number] [facility] [id number] [address] [place] [id number] Oct, Uses control Z30.9 [place] [address] [facility] [id number] [address] [place] [address] Aug, Encounter for annual physica l examination excluding gynecological examination in a patient older than 17 years Z00.00 ; Dysuria R30.0 and Uses control Z30.9 [facility] [address] [facility] [id number] [address] [place] [address] May, Pharyngitis due to other org anism J02.8 [place] [address] [facility] [id number] [address] [place] [address] 13 Oct, 2016 Cellulitis of right lower ex tremity L03.115 [place] [address] [facility] [id number] [address] [place] [address] 05 Oct, 2016 Cellulitis of right lower ex tremity L03.115 [place] [address] [facility] [id number] [address] [place] [address] Aug, [facility] [address] [facility] [id number] [address] [place] [id number] Aug, Dental examination Z01.20 [facility] [address] [place] [address] Jul, [facility] [address] [address] 23 Jun, 2016 Well woman exam Z01.419 ; Ce rvical cancer screening Z12.4 ; Breast cancer screening Z12.39 and Right foot pain M79.671 [place] [address] [place] [id number] [address] [place] [address] 02 Jun, 2016 Acute nasopharyngitis J00 [place] [address] [address] May, Contraceptive device, intrau terine Z97.5 [facility] [address] [place] [address] Oct, Right lower quadrant abdomin al pain R10.31 ; Frequency of urination R35.0 ; Hematuria R31.9 and Renal calculi N20.0 [place] [address] [place] [id number] [address] [place] [address] 16 Oct, 2015 Pain in unspecified knee M25 .569 ; Other chronic pain G89.29 ; Obesity, unspecified obesity severity, unspecified obesity type E66.9 and Depression F32.9 [place] [address] [place] [address] Jun, Depressive disorder, not els ewhere classified F32.9 [facility] [address] [place] [id number] [address] [place] [address] 11 Jun, 2015 Hyperglycemia R73.9 and Obes ity E66.9 [facility] [address] [address] Jun, Obesity, unspecified obesity severity, unspecified obesity type E66.9 [facility] [address] [facility] [id number] [address] [place] [phone] May, Essential hypertension I10 a nd Obesity, unspecified obesity severity, unspecified obesity type E66.9 [facility] [address] [place] [id number] [address] [place] [address] Apr, Upper respiratory disease J3 9.9 ; Yeast vaginitis B37.3 ; Contraceptive device, intrauterine Z97.5 ; Depression F32.9 and Essential hypertension I10 [facility] [address] [facility] [id number] [address] [place] [address] Oct, Sinusitis 473.9 [facility] [address] [place] [id number] [address] [place] [address] Oct, Edema 782.3 and Right foot p ain 729.5 [facility] [address] [place] [id number] [address] [place] [address] Aug, [facility] [address] [facility] [id number] [address] [place] [phone] Aug, [facility] [address] [place] [id number] [address] [place] [address] Jul, [facility] [address] [place] [id number] [address] [place] [address] Jul, [facility] [address] [place] [id number] [address] [place] [phone] May, [facility] [address] [facility] [id number] [address] [place] [address] May, [facility] [address] [place] [id number] [address] [place] [phone] Feb, [facility] [address] [place] [id number] [address] [place] [phone] Feb, [facility] [address] [id number] [facility] [address] Dec, [facility] [address] [id number] [address] [place] [address], [place] [address] Dec, [facility] [address] [id number] [address] [place] [address], [place] [address] Dec, [facility] [address] [id number] [address] [place] [address], [place] [address] Dec, [facility] [address] [id number] [address] [place] [address], [place] [address] Nov, [facility] [address] [id number] [address] [place] [address], [place] [address] Nov, [facility] [address] [id number] [address] [place] [address], [place] [address] Oct, [facility] [address] [id number] [address] [place] [address], [place] [address] Oct, [facility] [address] [id number] [address] [place] [address], [place] [address] Oct, [facility] [address] [id number] [address] [place] [address], [place] [address] Oct, [facility] [address] [id number] [address] [place] [address], [place] [address] Oct, [facility] [address] [id number] [address] [place] [address], [place] [address] Oct, [facility] [address] [id number] [address] [place] [address], [place] [address] Oct, [facility] [address] [id number] [address] [place] [address], [place] [address] Oct, [facility] [address] [id number] [address] [place] [address], [place] [address] Oct, [facility] [address] [id number] [address] [place] [address], [place] [address] Oct, [facility] [address] [id number] [address] [place] [address], [place] [address] September, [facility] [address] [id number] [address] [place] [address], [place] [address] September, [facility] [address] [id number] [address] [place] [address], [place] [address] Aug, [facility] [address] [id number] [address] [place] [address], [place] [address] Aug, [facility] [address] [id number] [address] [place] [address], [place] [address] Aug, [facility] [address] [id number] [address] [place] [address], [place] [address] Aug, [facility] [address] [id number] [address] [place] [address], [place] [address] Aug, [facility] [address] [id number] [address] [place] [address], [place] [address] Aug, [facility] [address] [id number] [address] [place] [address], [place] [address] Aug, [facility] [address] [id number] [address] [place] [address], [place] [address] Aug, [facility] [address] [id number] [address] [place] [address], [place] [address] May, [facility] [address] [id number] [address] [place] [address], [place] [address] May, [facility] [address] [id number] [address] [place] [address], [place] [address] May, [facility] [address] [id number] [address] [place] [address], [place] [address] May, [facility] [address] [id number] [address] [place] [address], [place] [address] May, [facility] [address] [id number] [address] [place] [address], [place] [address] May, [facility] [address] [id number] [address] [place] [address], [place] [address] Feb, [facility] [address] [id number] [address] [place] [address], [place] [address] Feb, [facility] [address] [id number] [address] [place] [address], [place] [address] Feb, [facility] [address] [id number] [address] [place] [address], [place] [address] Jan, [facility] [address] [id number] [address] [place] [address], [place] [address] Jan, [facility] [address] [id number] [address] [place] [address], [place] [address] Nov, [facility] [address] [id number] [address] [place] [address], [place] [address] Oct, [facility] [address] [id number] [address] [place] [address], [place] [address] September, [facility] [address] [id number] [address] [place] [address], [place] [address] Aug, [facility] [address] [id number] [address] [place] [address], [place] [address] Aug, [facility] [address] [id number] [address] [place] [address], [place] [address] Aug, [facility] [address] [id number] [address] [place] [address], [place] [address] Aug, [facility] [address] [id number] [address] [place] [address], [place] [address] May, [facility] [address] [id number] [address] [place] [address], [place] [address] Feb, [facility] [address] [id number] [address] [place] [address], [place] [address] Feb, [facility] [address] [id number] [address] [place] [address], [place] [address] Feb, [facility] [address] [id number] [address] [place] [address], [place] [address] Feb, [facility] [address] [id number] [address] [place] [address], [place] [address] Jan, [facility] [address] [id number] [address] [place] [address], [place] [address] Dec, [facility] [address] [id number] [address] [place] [address], [place] [address] Dec, [facility] [address] [id number] [address] [place] [address], [place] [address] Nov, [facility] [address] [id number] [address] [place] [address], [place] [address] Nov, [facility] [address] [id number] [address] [place] [address], [place] [address] Nov, [facility] [address] [id number] [address] [place] [address], [place] [address] Oct, [facility] [address] [id number] [address] [place] [address], [place] [address] September, [facility] [address] [id number] [address] [place] [address], [place] [address] Aug, [facility] [address] [id number] [address] [place] [address], [place] [address] Jul, [facility] [address] [id number] [address] [place] [address], [place] [address] Jun, [facility] [address] [id number] [address] [place] [address], [place] [address] Jun, [facility] [address] [id number] [address] [place] [address], [place] [address] 08 Jun, 2011 [facility] [address] [id number] [address] [place] [address] [address] Jun, [facility] [address] [id number] [address] [place] [address] Apr, [facility] [address] [id number] [address] [place] [address] Apr, [facility] [address] [id number] [address] [place] [id number] Mar, [facility] [address] [id number] [address] [place] [address] Mar, [facility] [address] [id number] [address] [place] [address] Mar, [facility] [address] [id number] [address] [place] [address] Mar, [facility] [address] [id number] [address] [place] [address] Feb, [facility] [address] [id number] [address] [place] [address] Feb, [facility] [address] [id number] [address] [place] [address] Feb, [facility] [address] [id number] [address] [place] [address] Feb, [facility] [address] [id number] [address] [place] [address] Jul, [facility] [address] [id number] [address] [place] [address] Jun, [facility] [address] [id number] [address] [place] [address] Feb, IMMUNIZATIONS No Known Immunizations SOCIAL HISTORY Never Assessed REASON FOR VISIT PLAN OF CARE VITAL SIGNS Height 69 in 2014-02-02 Weight 289.3 lbs 2014-02-02 Temperature 98.4 degrees Fahrenheit 2014-02-02 Heart Rate 80 bpm 2014-02-02 Respiratory Rate 18 2014-02-02 Blood pressure systolic 152 mmHg 2014-02-02 Blood pressure diastolic 88 mmHg 2014-02-02 MEDICATIONS Unknown Medications RESULTS No Results PROCEDURES [...]
--- OUTSIDE RECORDS SUMMARY | 2019-12-06 19:52 | XMS REPORT ---
Author Author Tracee PARMAR Organization [facility] Address [address] [place] [address] Care Team Providers Care Insight Director Name Role Phone SHANE PARMAR Unavailable PROBLEMS Type Condition ICD9-CM Code HZX22-DV Code Onset Dates Condition S tatus SNOMED Code Problem Uses control Z30.9 Active 7 15089036 Problem Dysuria R30.0 Active 76070755 Problem Dysthymia F34.1 Active 66564339 Problem MRSA (methicillin resistant Staphylococcus aureus) A49.02 Active 463380471 Problem Hyperinsulinemia E16.1 Active 834 54444 Problem Encounter for annual physica l examination excluding gynecological examination in a patient older than 17 years Z00.00 Active [id number] ALLERGIES No Information ENCOUNTERS Encounter Location Date Diagnosis [place] [address] [facility] [id number] [address] [place] [address] Oct, Uses control Z30.9 [place] [address] [facility] [id number] [address] [place] [address] Aug, Encounter for annual physica l examination excluding gynecological examination in a patient older than 17 years Z00.00 ; Dysuria R30.0 and Uses control Z30.9 [facility] [address] [facility] [id number] [address] [place] [address] May, Pharyngitis due to other org anism J02.8 [place] [address] [facility] [id number] [address] [place] [address] 13 Oct, 2016 Cellulitis of right lower ex tremity L03.115 [place] [address] [facility] [id number] [address] [place] [address] 05 Oct, 2016 Cellulitis of right lower ex tremity L03.115 [place] [address] [facility] [id number] [address] [place] [address] Aug, [facility] [address] [facility] [id number] [address] [place] [id number] Aug, Dental examination Z01.20 [facility] [id number] [place] [address] Jul, [facility] [address] [address] 23 Jun, 2016 Well woman exam Z01.419 ; Ce rvical cancer screening Z12.4 ; Breast cancer screening Z12.39 and Right foot pain M79.671 [place] [address] [place] [id number] [address] [place] [address] 02 Jun, 2016 Acute nasopharyngitis J00 [place] [address] [address] May, Contraceptive device, intrau terine Z97.5 [facility] [address] [place] [address] Oct, Right lower quadrant abdomin al pain R10.31 ; Frequency of urination R35.0 ; Hematuria R31.9 and Renal calculi N20.0 [place] [address] [place] [id number] [address] [place] [address] 16 Oct, 2015 Pain in unspecified knee M25 .569 ; Other chronic pain G89.29 ; Obesity, unspecified obesity severity, unspecified obesity type E66.9 and Depression F32.9 [place] [address] [place] [address] Jun, Depressive disorder, not els ewhere classified F32.9 [facility] [address] [place] [id number] [address] [place] [address] 11 Jun, 2015 Hyperglycemia R73.9 and Obes ity E66.9 [facility] [address] [address] Jun, Obesity, unspecified obesity severity, unspecified obesity type E66.9 [facility] [address] [facility] [id number] [address] [place] [address] May, Essential hypertension I10 a nd Obesity, unspecified obesity severity, unspecified obesity type E66.9 [facility] [address] [place] [id number] [address] [place] [address] Apr, Upper respiratory disease J3 9.9 ; Yeast vaginitis B37.3 ; Contraceptive device, intrauterine Z97.5 ; Depression F32.9 and Essential hypertension I10 [facility] [address] [facility] [id number] [address] [place] [address] Oct, Sinusitis 473.9 [facility] [address] [place] [id number] [address] [place] [address] Oct, Edema 782.3 and Right foot p ain 729.5 [facility] [address] [place] [id number] [address] [place] [address] Aug, [facility] [address] [facility] [id number] [address] [place] [address] Aug, [facility] [address] [place] [id number] [address] [place] [address] Jul, [facility] [address] [place] [id number] [address] [place] [address] Jul, [facility] [address] [place] [id number] [address] [place] [address] May, [facility] [address] [facility] [id number] [address] [place] [address] May, [facility] [address] [place] [id number] [address] [place] [address] Feb, [facility] [address] [place] [id number] [address] [place] [address] Feb, [facility] [address] [id number] [facility] [place] [address] Dec, [facility] [address] [id number] [address] [place] [address], [place] [address] Dec, [facility] [address] [id number] [address] [place] [address], [place] [address] Dec, [facility] [address] [id number] [address] [place] [address], [place] [address] Dec, [facility] [address] [id number] [address] [place] [address], [place] [address] Nov, [facility] [address] [id number] [address] [place] [address], [place] [address] Nov, [facility] [address] [id number] [address] [place] [address], [place] [address] Oct, [facility] [address] [id number] [address] [place] [address], [place] [address] Oct, [facility] [address] [id number] [address] [place] [address], [place] [address] Oct, [facility] [address] [id number] [address] [place] [address], [place] [address] Oct, [facility] [address] [id number] [address] [place] [address], [place] [address] Oct, [facility] [address] [id number] [address] [place] [address], [place] [address] Oct, [facility] [address] [id number] [address] [place] [address], [place] [address] Oct, [facility] [address] [id number] [address] [place] [address], [place] [address] Oct, [facility] [address] [id number] [address] [place] [address], [place] [address] Oct, [facility] [address] [id number] [address] [place] [address], [place] [address] Oct, [facility] [address] [id number] [address] [place] [address], [place] [address] September, [facility] [address] [id number] [address] [place] [address], [place] [address] September, [facility] [address] [id number] [address] [place] [address], [place] [address] Aug, [facility] [address] [id number] [address] [place] [address], [place] [address] Aug, [facility] [address] [id number] [address] [place] [address], [place] [address] Aug, [facility] [address] [id number] [address] [place] [address], [place] [address] Aug, [facility] [address] [id number] [address] [place] [address], [place] [address] Aug, [facility] [address] [id number] [address] [place] [address], [place] [address] Aug, [facility] [address] [id number] [address] [place] [address], [place] [address] Aug, [facility] [address] [id number] [address] [place] [address], [place] [address] Aug, [facility] [address] [id number] [address] [place] [address], [place] [address] May, [facility] [address] [id number] [address] [place] [address], [place] [address] May, [facility] [address] [id number] [address] [place] [address], [place] [address] May, [facility] [address] [id number] [address] [place] [address], [place] [address] May, [facility] [address] [id number] [address] [place] [address], [place] [address] May, [facility] [address] [id number] [address] [place] [address], [place] [address] May, [facility] [address] [id number] [address] [place] [address], [place] [address] Feb, [facility] [address] [id number] [address] [place] [address], [place] [address] Feb, [facility] [address] [id number] [address] [place] [address], [place] [address] Feb, [facility] [address] [id number] [address] [place] [address], [place] [address] Jan, [facility] [address] [id number] [address] [place] [address], [place] [address] Jan, [facility] [address] [id number] [address] [place] [address], [place] [address] Nov, [facility] [address] [id number] [address] [place] [address], [place] [address] Oct, [facility] [address] [id number] [address] [place] [address], [place] [address] September, [facility] [address] [id number] [address] [place] [address], [place] [address] Aug, [facility] [address] [id number] [address] [place] [address], [place] [address] Aug, [facility] [address] [id number] [address] [place] [address], [place] [address] Aug, [facility] [address] [id number] [address] [place] [address], [place] [address] Aug, [facility] [address] [id number] [address] [place] [address], [place] [address] May, [facility] [address] [id number] [address] [place] [address], [place] [address] Feb, [facility] [address] [id number] [address] [place] [address], [place] [address] Feb, [facility] [address] [id number] [address] [place] [address], [place] [address] Feb, [facility] [address] [id number] [address] [place] [address], [place] [address] Feb, [facility] [address] [id number] [address] [place] [address], [place] [address] Jan, [facility] [address] [id number] [address] [place] [address], [place] [address] Dec, [facility] [address] [id number] [address] [place] [address], [place] [address] Dec, [facility] [address] [id number] [address] [place] [address], [place] [address] Nov, [facility] [address] [id number] [address] [place] [address], [place] [address] Nov, [facility] [address] [id number] [address] [place] [address], [place] [address] Nov, [facility] [address] [id number] [address] [place] [address], [place] [address] Oct, [facility] [address] [id number] [address] [place] [address], [place] [address] September, [facility] [address] [id number] [address] [place] [address], [place] [address] Aug, [facility] [address] [id number] [address] [place] [address], [place] [address] Jul, [facility] [address] [id number] [address] [place] [address], [place] [address] Jun, [facility] [address] [id number] [address] [place] [address], [place] [address] Jun, [facility] [address] [id number] [address] [place] [address], [place] [address] 08 Jun, 2011 [facility] [address] [id number] [address] [place] [address] [address] Jun, [facility] [address] [id number] [address] [place] [address] Apr, [facility] [address] [id number] [address] [place] [address] Apr, [facility] [address] [id number] [address] [place] [address] Mar, [facility] [address] [id number] [address] [place] [address] Mar, [facility] [address] [id number] [address] [place] [address] Mar, [facility] [address] [id number] [address] [place] [address] Mar, [facility] [address] [id number] [address] [place] [address] Feb, [facility] [address] [id number] [address] [place] [address] Feb, [facility] [address] [id number] [address] [place] [address] Feb, [facility] [address] [id number] [address] [place] [address] Feb, [facility] [address] [id number] [address] [place] [address] Jul, [facility] [address] [id number] [address] [place] [address] Jun, [facility] [address] [id number] [address] [place] [address] Feb, IMMUNIZATIONS No Known Immunizations SOCIAL HISTORY Never Assessed REASON FOR VISIT PLAN OF CARE VITAL SIGNS Height 69 in 2013-11-24 Weight 287.2 lbs 2013-11-24 Temperature 99 degrees Fahrenheit 2013-11-24 Heart Rate 80 bpm 2013-11-24 Respiratory Rate 20 2013-11-24 Blood pressure systolic 120 mmHg 2013-11-24 Blood pressure diastolic 80 mmHg 2013-11-24 MEDICATIONS Unknown Medications RESULTS No Results PROCEDURES Procedure Date Ordered Result Body Site DESTRUCT LESION, -November 24, 2013 INSTRUCTIONS MEDICATIONS ADMINISTERED No Known Medications [...]
--- OUTSIDE RECORDS SUMMARY | 2019-12-06 19:52 | XMS REPORT ---
Author Author Tracee Ruth Doctor Organization [facility] Address Unknown Phone Unavailable Care Team Providers Care Laboratory Director Name Role Phone Migration, Doctor Unavailable Unavailable PROBLEMS Type Condition ICD9-CM Code FOS44-ZB Code Onset Dates Condition S tatus SNOMED Code Problem Uses control Z30.9 Active 7 16171381 Problem Dysuria R30.0 Active 34692585 Problem Dysthymia F34.1 Active 82926637 Problem MRSA (methicillin resistant Staphylococcus aureus) A49.02 Active 119644400 Problem Hyperinsulinemia E16.1 Active 834 46757 Problem Encounter for annual physica l examination excluding gynecological examination in a patient older than 17 years Z00.00 Active [id number] ALLERGIES No Information ENCOUNTERS Encounter Location Date Diagnosis [place] [address] [facility] [id number] [address] [place] [id number] Dec, [place] [address] [id number] [address] [place] [phone] Oct, Uses control Z30.9 [place] [address] [id number] [address] [place] [phone] Aug, Encounter for annual physica l examination excluding gynecological examination in a patient older than 17 years Z00.00 ; Dysuria R30.0 and Uses control Z30.9 [place] [address] [id number] [address] [place] [phone] May, Pharyngitis due to other org anism J02.8 [place] [address] [facility] [id number] [address] [place] [id number] 13 Oct, 2016 Cellulitis of right lower ex tremity L03.115 [place] [address] [facility] [id number] [address] [place] [id number] 05 Oct, 2016 Cellulitis of right lower ex tremity L03.115 [facility] [place] [address] [facility] [id number] [address] [place] [phone] Aug, [facility] [address] [facility] [id number] [address] [place] [id number] Aug, Dental examination Z01.20 [facility] [place] [address] [place] [id number] [address] [place] [id number] Jul, [facility] [place] [address] [place] [id number] [address] [place] [id number] 23 Jun, 2016 Well woman exam Z01.419 ; Ce rvical cancer screening Z12.4 ; Breast cancer screening Z12.39 and Right foot pain M79.671 [place] [address] [place] [id number] [address] [place] [id number] 02 Jun, 2016 Acute nasopharyngitis J00 [place] [address] [phone] May, Contraceptive device, intrau terine Z97.5 [facility] [address] [place] [id number] [address] [place] [phone] Oct, Right lower quadrant abdomin al pain R10.31 ; Frequency of urination R35.0 ; Hematuria R31.9 and Renal calculi N20.0 [place] [id number] [place] [id number] 16 Oct, 2015 Pain in unspecified knee M25 .569 ; Other chronic pain G89.29 ; Obesity, unspecified obesity severity, unspecified obesity type E66.9 and Depression F32.9 [place] [address] [place] [id number] [address] [place] [id number] Jun, Depressive disorder, not els ewhere classified F32.9 [facility] [place] [address] [place] [id number] [address] [place] [id number] 11 Jun, 2015 Hyperglycemia R73.9 and Obes ity E66.9 [place] [address] [place] [id number] [address] [place] [id number] 05 Jun, 2015 Obesity, unspecified obesity severity, unspecified obesity type E66.9 [facility] [place] [address] [facility] [id number] [address] [place] [phone] May, Essential hypertension I10 a nd Obesity, unspecified obesity severity, unspecified obesity type E66.9 [facility] [place] [address] [facility] [id number] [address] [place] [phone] Apr, Upper respiratory disease J3 9.9 ; Yeast vaginitis B37.3 ; Contraceptive device, intrauterine Z97.5 ; Depression F32.9 and Essential hypertension I10 [facility] [place] [address] [facility] [id number] [address] [place] [phone] Oct, Sinusitis 473.9 [facility] [place] [address] [place] [id number] [address] [place] [phone] Oct, Edema 782.3 and Right foot p ain 729.5 [facility] [place] [address] [place] [id number] [address] [place] [phone] Aug, [facility] [place] [address] [facility] [id number] [address] [place] [phone] Aug, [facility] [place] [address] [place] [id number] [address] [place] [phone] Jul, [facility] [place] [address] [place] [id number] [address] [place] [phone] Jul, [facility] [place] [address] [place] [id number] [address] [place] [phone] May, [facility] [place] [address] [id number] [address] [place] [phone] May, [facility] [place] [address] [place] [id number] [address] [place] [phone] Feb, [facility] [place] [address] [place] [id number] [address] [place] [phone] Feb, [facility] [address] [id number] [facility] [place] [address] Dec, [facility] [address] [id number] [address] [place] [address], [place] [address] Dec, [facility] [address] [id number] [address] [place] [address], [place] [address] Dec, [facility] [address] [id number] [address] [place] [address], [place] [address] Dec, [facility] [address] [id number] [address] [place] [address], [place] [address] Nov, [facility] [address] [id number] [address] [place] [address], [place] [address] Nov, [facility] [address] [id number] [address] [place] [address], [place] [address] Oct, [facility] [address] [id number] [address] [place] [address], [place] [address] Oct, [facility] [address] [id number] [address] [place] [address], [place] [address] Oct, [facility] [address] [id number] [address] [place] [address], [place] [address] Oct, [facility] [address] [id number] [address] [place] [address], [place] [address] Oct, [facility] [address] [id number] [address] [place] [address], [place] [address] Oct, [facility] [address] [id number] [address] [place] [address], [place] [address] Oct, [facility] [address] [id number] [address] [place] [address], [place] [address] Oct, [facility] [address] [id number] [address] [place] [address], [place] [address] Oct, [facility] [address] [id number] [address] [place] [address], [place] [address] Oct, [facility] [address] [id number] [address] [place] [address], [place] [address] September, [facility] [address] [id number] [address] [place] [address], [place] [address] September, [facility] [address] [id number] [address] [place] [address], [place] [address] Aug, [facility] [address] [id number] [address] [place] [address], [place] [address] Aug, [facility] [address] [id number] [address] [place] [address], [place] [address] Aug, [facility] [address] [id number] [address] [place] [address], [place] [address] Aug, [facility] [address] [id number] [address] [place] [address], [place] [address] Aug, [facility] [address] [id number] [address] [place] [address], [place] [address] Aug, [facility] [address] [id number] [address] [place] [address], [place] [address] Aug, [facility] [address] [id number] [address] [place] [address], [place] [address] Aug, [facility] [address] [id number] [address] [place] [address], [place] [address] May, [facility] [address] [id number] [address] [place] [address], [place] [address] May, [facility] [address] [id number] [address] [place] [address], [place] [address] May, [facility] [address] [id number] [address] [place] [address], [place] [address] May, [facility] [address] [id number] [address] [place] [address], [place] [address] May, [facility] [address] [id number] [address] [place] [address], [place] [address] May, [facility] [address] [id number] [address] [place] [address], [place] [address] Feb, [facility] [address] [id number] [address] [place] [address], [place] [address] Feb, [facility] [address] [id number] [address] [place] [address], [place] [address] Feb, [facility] [address] [id number] [address] [place] [address], [place] [address] Jan, [facility] [address] [id number] [address] [place] [address], [place] [address] Jan, [facility] [address] [id number] [address] [place] [address], [place] [address] Nov, [facility] [address] [id number] [address] [place] [address], [place] [address] Oct, [facility] [address] [id number] [address] [place] [address], [place] [address] September, [facility] [address] [id number] [address] [place] [address], [place] [address] Aug, [facility] [address] [id number] [address] [place] [address], [place] [address] Aug, [facility] [address] [id number] [address] [place] [address], [place] [address] Aug, [facility] [address] [id number] [address] [place] [address], [place] [address] Aug, [facility] [address] [id number] [address] [place] [address], [place] [address] May, [facility] [address] [id number] [address] [place] [address], [place] [address] Feb, [facility] [address] [id number] [address] [place] [address], [place] [address] Feb, [facility] [address] [id number] [address] [place] [address], [place] [address] Feb, [facility] [address] [id number] [address] [place] [address], [place] [address] Feb, [facility] [address] [id number] [address] [place] [address], [place] [address] Jan, [facility] [address] [id number] [address] [place] [address], [place] [address] Dec, [facility] [address] [id number] [address] [place] [address], [place] [address] Dec, [facility] [address] [id number] [address] [place] [address], [place] [address] Nov, [facility] [address] [id number] [address] [place] [address], [place] [address] Nov, [facility] [address] [id number] [address] [place] [address], [place] [address] Nov, [facility] [address] [id number] [address] [place] [address], [place] [address] Oct, [facility] [address] [id number] [address] [place] [address], [place] [address] September, [facility] [address] [id number] [address] [place] [address], [place] [address] Aug, [facility] [address] [id number] [address] [place] [address], [place] [address] Jul, [facility] [address] [id number] [address] [place] [address], [place] [address] Jun, [facility] [address] [id number] [address] [place] [address], [place] [address] Jun, [facility] [address] [id number] [address] [place] [address], [place] [address] Jun, [facility] [address] [id number] [address] [place] [address], [place] [address] Jun, [facility] [place] [address] [id number] [address] [place] [phone] Apr, [facility] [place] [address] [id number] [address] [place] [id number] Apr, [facility] [place] [address] [id number] [address] [place] [address] Mar, [facility] [place] [address] [id number] [address] [place] [id number] Mar, [facility] [place] [address] [id number] [address] [place] [address] Mar, [facility] [place] [address] [id number] [address] [place] [id number] Mar, [facility] [place] [address] [id number] [address] [place] [phone] Feb, [facility] [place] [address] [id number] [address] [place] [id number] Feb, [facility] [place] [address] [id number] [address] [place] [id number] Feb, [facility] [place] [address] [id number] [address] [place] [id number] Feb, [facility] [place] [address] [id number] [address] [place] [id number] Jul, [facility] [place] [address] [id number] [address] [place] [id number] Jun, [facility] [place] [address] [id number] [address] [place] [phone] Feb, IMMUNIZATIONS No Known Immunizations SOCIAL HISTORY Never Assessed REASON FOR VISIT PLAN OF CARE VITAL SIGNS Height 69 in 2011-11-24 Weight 280.12 lbs 2011-11-24 Temperature 97.8 degrees Fahrenheit 2011-11-24 Heart Rate 74 bpm 2011-11-24 Respiratory Rate 20 2011-11-24 Blood pressure systolic 124 mmHg 2011-11-24 Blood pressure diastolic 86 mmHg 2011-11-24 MEDICATIONS Unknown Medications RESULTS No Results PROCEDURES [...]
--- OUTSIDE RECORDS SUMMARY | 2019-12-06 19:52 | XMS REPORT ---
Author Author Tracee CARPENTER Organization [facility] Address [address] [place] [address] Care Team Providers Care Panelboard Operator Name Role Phone SILVERIO CARPENTER Unavailable PROBLEMS Type Condition ICD9-CM Code [id number] Code Onset Dates Condition S tatus SNOMED Code Problem Uses control Z30.9 Active 7 73070300 Problem Dysuria R30.0 Active 32083432 Problem Dysthymia F34.1 Active 38967225 Problem MRSA (methicillin resistant Staphylococcus aureus) A49.02 Active 620452682 Problem Hyperinsulinemia E16.1 Active 834 27034 Problem Encounter for annual physica l examination excluding gynecological examination in a patient older than 17 years Z00.00 Active [id number] ALLERGIES No Information ENCOUNTERS Encounter Location Date Diagnosis [place] [id number] [id number] [address] [place] [id number] Dec, [place] [address] [id number] [address] [place] [id number] Oct, Uses control Z30.9 [facility] [address] [id number] [address] [place] [id number] Aug, Encounter for annual physica l examination excluding gynecological examination in a patient older than 17 years Z00.00 ; Dysuria R30.0 and Uses control Z30.9 [facility] [address] [id number] [address] [place] [address] May, Pharyngitis due to other org anism J02.8 [facility] [address] [id number] [address] [place] [id number] 13 Oct, 2016 Cellulitis of right lower ex tremity L03.115 [place] [address] [place] [id number] [address] [place] [address] 05 Oct, 2016 Cellulitis of right lower ex tremity L03.115 [place] [address] [address] Aug, [facility] [address] [facility] [id number] [address] [place] [id number] Aug, Dental examination Z01.20 [place] [address] [address] Jul, [place] [address] [address] Jun, Well woman exam Z01.419 ; Ce rvical cancer screening Z12.4 ; Breast cancer screening Z12.39 and Right foot pain M79.671 [place] [address] [address] 02 Jun, 2016 Acute nasopharyngitis J00 [place] [address] [address] May, Contraceptive device, intrau terine Z97.5 [facility] [address] [id number] Oct, Right lower quadrant abdomin al pain R10.31 ; Frequency of urination R35.0 ; Hematuria R31.9 and Renal calculi N20.0 [place] [address] [place] [id number] [address] [place] [address] Oct, Pain in unspecified knee M25 .569 ; Other chronic pain G89.29 ; Obesity, unspecified obesity severity, unspecified obesity type E66.9 and Depression F32.9 [place] [address] [id number] Jun, Depressive disorder, not els ewhere classified F32.9 [facility] [address] [id number] 11 Feb, 2016 Hyperglycemia R73.9 and Obes ity E66.9 [facility] [address] [facility] [id number] [address] [place] [id number] 05 Jun, 2015 Obesity, unspecified obesity severity, unspecified obesity type E66.9 [facility] [address] [facility] [id number] [address] [place] [address] 28 May, 2015 Essential hypertension I10 a nd Obesity, unspecified obesity severity, unspecified obesity type E66.9 [facility] [address] [place] [id number] [address] [place] [address] Apr, Upper respiratory disease J3 9.9 ; Yeast vaginitis B37.3 ; Contraceptive device, intrauterine Z97.5 ; Depression F32.9 and Essential hypertension I10 [facility] [address] [place] [id number] [address] [place] [id number] 30 Oct, 2014 Sinusitis 473.9 [facility] [address] [id number] Oct, Edema 782.3 and Right foot p ain 729.5 [facility] [address] [place] [id number] [address] [place] [phone] Aug, [facility] [address] [place] [id number] [address] [place] [phone] Aug, [facility] [address] [place] [id number] [address] [place] [address] Jul, [facility] [address] [place] [id number] [address] [place] [id number] Jul, [facility] [address] [place] [id number] [address] [place] [address] May, [facility] [address] [place] [id number] [address] [place] [address] May, [facility] [address] [place] [id number] [address] [place] [address] Feb, [facility] [address] [id number] [address] [place] [address], [place] [id number] Feb, [facility] [address] [id number] [address] [place] [address], [place] [id number] Dec, [facility] [address] [id number] [address] [place] [address], [place] [id number] Dec, [facility] [address] [id number] [address] [place] [address], [place] [id number] Dec, [facility] [address] [id number] [address] [place] [address], [place] [id number] Dec, [facility] [address] [id number] [address] [place] [address], [place] [id number] Nov, [facility] [address] [id number] [address] [place] [address], [place] [id number] Nov, [facility] [address] [id number] [address] [place] [address], [place] [id number] Oct, [facility] [address] [id number] [address] [place] [address], [place] [address] Oct, [facility] [address] [id number] [address] [place] [address], [place] [id number] Oct, [facility] [address] [id number] [address] [place] [address], [place] [id number] Oct, [facility] [address] [id number] [address] [place] [address], [place] [id number] Oct, [facility] [address] [id number] [address] [place] [address], [place] [id number] Oct, [facility] [address] [id number] [address] [place] [address], [place] [id number] Oct, [facility] [address] [id number] [address] [place] [address], [place] [id number] Oct, [facility] [address] [id number] [address] [place] [address], [place] [id number] Oct, [facility] [address] [id number] [address] [place] [address], [place] [id number] Oct, [facility] [address] [id number] [address] [place] [address], [place] [id number] September, [facility] [address] [id number] [address] [place] [address], [place] [id number] September, [facility] [address] [id number] [address] [place] [address], [place] [id number] Aug, [facility] [address] [id number] [address] [place] [address], [place] [id number] Aug, [facility] [address] [id number] [address] [place] [address], [place] [id number] Aug, [facility] [address] [id number] [address] [place] [address], [place] [id number] Aug, [facility] [address] [id number] [address] [place] [address], [place] [id number] Aug, [facility] [address] [id number] [address] [place] [address], [place] [id number] Aug, [facility] [address] [id number] [address] [place] [address], [place] [id number] Aug, [facility] [address] [id number] [address] [place] [address], [place] [id number] Aug, [facility] [address] [id number] [address] [place] [address], [place] [id number] May, [facility] [address] [id number] [address] [place] [address], [place] [id number] May, [facility] [address] [id number] [address] [place] [address], [place] [id number] May, [facility] [address] [id number] [address] [place] [address], [place] [id number] May, [facility] [address] [id number] [address] [place] [address], [place] [id number] May, [facility] [address] [id number] [address] [place] [address], [place] [id number] May, [facility] [address] [id number] [address] [place] [address], [place] [id number] Feb, [facility] [address] [id number] [address] [place] [address], [place] [id number] Feb, [facility] [address] [id number] [address] [place] [address], [place] [id number] Feb, [facility] [address] [id number] [address] [place] [address], [place] [id number] Jan, [facility] [address] [id number] [address] [place] [address], [place] [id number] Jan, [facility] [address] [id number] [address] [place] [address], [place] [id number] Nov, [facility] [address] [id number] [address] [place] [address], [place] [id number] Oct, [facility] [address] [id number] [address] [place] [address], [place] [id number] September, [facility] [address] [id number] [address] [place] [address], [place] [id number] Aug, [facility] [address] [id number] [address] [place] [address], [place] [address] Aug, [facility] [address] [id number] [address] [place] [address], [place] [id number] Aug, [facility] [address] [id number] [address] [place] [address], [place] [id number] Aug, [facility] [address] [id number] [address] [place] [address], [place] [id number] May, [facility] [address] [id number] [address] [place] [address], [place] [id number] Feb, [facility] [address] [id number] [address] [place] [address], [place] [id number] Feb, [facility] [address] [id number] [address] [place] [address], [place] [id number] Feb, [facility] [address] [id number] [address] [place] [address], [place] [id number] Feb, [facility] [address] [id number] [address] [place] [address], [place] [id number] Jan, [facility] [address] [id number] [address] [place] [address], [place] [id number] Dec, [facility] [address] [id number] [address] [place] [address], [place] [id number] Dec, [facility] [address] [id number] [address] [place] [address], [place] [id number] Nov, [facility] [address] [id number] [address] [place] [address], [place] [address] Nov, [facility] [address] [id number] [address] [place] [address], [place] [id number] Nov, [facility] [address] [id number] [address] [place] [address], [place] [id number] Oct, [facility] [address] [id number] [address] [place] [address], [place] [id number] September, [facility] [address] [id number] [address] [place] [address], [place] [id number] Aug, [facility] [address] [id number] [address] [place] [address], [place] [id number] Jul, [facility] [address] [id number] [address] [place] [address], [place] [id number] Jun, [facility] [address] [id number] [address] [place] [address], [place] [id number] Jun, [facility] [address] [id number] [address] [place] [address], [place] [id number] Jun, [facility] [address] [id number] [address] [place] [id number] Jun, [facility] [address] [id number] [address] [place] [id number] Apr, [facility] [address] [id number] [address] [place] [id number] Apr, [facility] [address] [id number] [address] [place] [address] Mar, [facility] [address] [id number] [address] [place] [id number] Mar, [facility] [address] [id number] [address] [place] [id number] Mar, [facility] [address] [id number] [address] [place] [id number] Mar, [facility] [address] [id number] [address] [place] [id number] Feb, [facility] [address] [id number] [address] [place] [id number] Feb, [facility] [address] [id number] [address] [place] [phone] Feb, [facility] [address] [id number] [address] [place] [id number] Feb, [facility] [address] [id number] [address] [place] [id number] Jul, [facility] [address] [id number] [address] [place] [id number] Jun, [facility] [address] [id number] [address] [place] [id number] Feb, IMMUNIZATIONS No Known Immunizations SOCIAL HISTORY [...]
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
--- OUTSIDE RECORDS SUMMARY | 2019-12-06 19:52 | XMS REPORT ---
Author Author Tracee CARPENTER Organization [facility] Address [address] [place] [address] Care Team Providers Care [employer] Name Role Phone SILVERIO CARPENTER Unavailable PROBLEMS Type Condition ICD9-CM Code XAT71-LQ Code Onset Dates Condition S tatus SNOMED Code Problem Uses control Z30.9 Active 7 56104600 Problem Dysuria R30.0 Active 08029918 Problem Dysthymia F34.1 Active 15843832 Problem MRSA (methicillin resistant Staphylococcus aureus) A49.02 Active 850633813 Problem Hyperinsulinemia E16.1 Active 834 22189 Problem Encounter for annual physica l examination excluding gynecological examination in a patient older than 17 years Z00.00 Active [id number] ALLERGIES No Information ENCOUNTERS Encounter Location Date Diagnosis [facility] [address] [facility] [id number] [address] [place] [address] Oct, Uses control Z30.[address] [place] [address] [facility] [id number] [address] [place] [phone] Aug, Encounter for annual physica l examination excluding gynecological examination in a patient older than 17 years Z00.00 ; Dysuria R30.0 and Uses control Z30.9 [facility] [address] [facility] [id number] [address] [place] [address] May, Pharyngitis due to other org anism J02.[address] [place] [address] [facility] [id number] [address] [place] [address] 13 Oct, 2016 Cellulitis of right lower ex tremity L03.[address] [place] [address] [facility] [id number] [address] [place] [id number] 05 Oct, 2016 Cellulitis of right lower ex tremity L03.[address] [place] [address] [facility] [id number] [address] [place] [address] Aug, [facility] [address] [facility] [id number] [address] [place] [id number] Aug, Dental examination Z01.20 [facility] [address] [place] [address] Jul, [facility] [address] [address] 23 Jun, 2016 Well woman exam Z01.419 ; Ce rvical cancer screening Z12.4 ; Breast cancer screening Z12.39 and Right foot pain M79.671 [place] [address] [place] [id number] [address] [place] [address] 02 Jun, 2016 Acute nasopharyngitis J00 [place] [address] [address] May, Contraceptive device, intrau terine Z97.5 [facility] [address] [place] [address] Oct, Right lower quadrant abdomin al pain R10.31 ; Frequency of urination R35.0 ; Hematuria R31.9 and Renal calculi N20.0 [place] [address] [place] [id number] [address] [place] [address] 16 Oct, 2015 Pain in unspecified knee M25 .569 ; Other chronic pain G89.29 ; Obesity, unspecified obesity severity, unspecified obesity type E66.9 and Depression F32.9 [place] [address] [place] [address] Jun, Depressive disorder, not els ewhere classified F32.9 [facility] [address] [place] [id number] [address] [place] [address] 11 Jun, 2015 Hyperglycemia R73.9 and Obes ity E66.9 [facility] [address] [address] Jun, Obesity, unspecified obesity severity, unspecified obesity type E66.9 [facility] [address] [facility] [id number] [address] [place] [address] May, Essential hypertension I10 a nd Obesity, unspecified obesity severity, unspecified obesity type E66.9 [facility] [address] [place] [id number] [address] [place] [address] Apr, Upper respiratory disease J3 9.9 ; Yeast vaginitis B37.3 ; Contraceptive device, intrauterine Z97.5 ; Depression F32.9 and Essential hypertension I10 [facility] [address] [facility] [id number] [address] [place] [address] Oct, Sinusitis 473.9 [facility] [address] [place] [id number] [address] [place] [address] Oct, Edema 782.3 and Right foot p ain 729.5 [facility] [address] [place] [id number] [address] [place] [id number] Aug, [facility] [address] [facility] [id number] [address] [place] [address] Aug, [facility] [address] [place] [id number] [address] [place] [phone] Jul, [facility] [address] [place] [id number] [address] [place] [address] Jul, [facility] [address] [place] [id number] [address] [place] [address] May, [facility] [address] [facility] [id number] [address] [place] [address] May, [facility] [address] [place] [id number] [address] [place] [address] Feb, [facility] [address] [place] [id number] [address] [place] [address] Feb, [facility] [address] [id number] [facility] [place] [address] Dec, [facility] [address] [id number] [address] [place] [address], [place] [address] Dec, [facility] [address] [id number] [address] [place] [address], [place] [address] Dec, [facility] [address] [id number] [address] [place] [address], [place] [address] Dec, [facility] [address] [id number] [address] [place] [address], [place] [address] Nov, [facility] [address] [id number] [address] [place] [address], [place] [address] Nov, [facility] [address] [id number] [address] [place] [address], [place] [address] Oct, [facility] [address] [id number] [address] [place] [address], [place] [address] Oct, [facility] [address] [id number] [address] [place] [address], [place] [address] Oct, [facility] [address] [id number] [address] [place] [address], [place] [address] Oct, [facility] [address] [id number] [address] [place] [address], [place] [address] Oct, [facility] [address] [id number] [address] [place] [address], [place] [address] Oct, [facility] [address] [id number] [address] [place] [address], [place] [address] Oct, [facility] [address] [id number] [address] [place] [address], [place] [address] Oct, [facility] [address] [id number] [address] [place] [address], [place] [address] Oct, [facility] [address] [id number] [address] [place] [address], [place] [address] Oct, [facility] [address] [id number] [address] [place] [address], [place] [address] September, [facility] [address] [id number] [address] [place] [address], [place] [address] September, [facility] [address] [id number] [address] [place] [address], [place] [address] Aug, [facility] [address] [id number] [address] [place] [address], [place] [address] Aug, [facility] [address] [id number] [address] [place] [address], [place] [address] Aug, [facility] [address] [id number] [address] [place] [address], [place] [address] Aug, [facility] [address] [id number] [address] [place] [address], [place] [address] Aug, [facility] [address] [id number] [address] [place] [address], [place] [address] Aug, [facility] [address] [id number] [address] [place] [address], [place] [address] Aug, [facility] [address] [id number] [address] [place] [address], [place] [address] Aug, [facility] [address] [id number] [address] [place] [address], [place] [address] May, [facility] [address] [id number] [address] [place] [address], [place] [address] May, [facility] [address] [id number] [address] [place] [address], [place] [address] May, [facility] [address] [id number] [address] [place] [address], [place] [address] May, [facility] [address] [id number] [address] [place] [address], [place] [address] May, [facility] [address] [id number] [address] [place] [address], [place] [address] May, [facility] [address] [id number] [address] [place] [address], [place] [address] Feb, [facility] [address] [id number] [address] [place] [address], [place] [address] Feb, [facility] [address] [id number] [address] [place] [address], [place] [address] Feb, [facility] [address] [id number] [address] [place] [address], [place] [address] Jan, [facility] [address] [id number] [address] [place] [address], [place] [address] Jan, [facility] [address] [id number] [address] [place] [address], [place] [address] Nov, [facility] [address] [id number] [address] [place] [address], [place] [address] Oct, [facility] [address] [id number] [address] [place] [address], [place] [address] September, [facility] [address] [id number] [address] [place] [address], [place] [address] Aug, [facility] [address] [id number] [address] [place] [address], [place] [address] Aug, [facility] [address] [id number] [address] [place] [address], [place] [address] Aug, [facility] [address] [id number] [address] [place] [address], [place] [address] Aug, [facility] [address] [id number] [address] [place] [address], [place] [address] May, [facility] [address] [id number] [address] [place] [address], [place] [address] Feb, [facility] [address] [id number] [address] [place] [address], [place] [address] Feb, [facility] [address] [id number] [address] [place] [address], [place] [address] Feb, [facility] [address] [id number] [address] [place] [address], [place] [address] Feb, [facility] [address] [id number] [address] [place] [address], [place] [address] Jan, [facility] [address] [id number] [address] [place] [address], [place] [address] Dec, [facility] [address] [id number] [address] [place] [address], [place] [address] Dec, [facility] [address] [id number] [address] [place] [address], [place] [address] Nov, [facility] [address] [id number] [address] [place] [address], [place] [address] Nov, [facility] [address] [id number] [address] [place] [address], [place] [address] Nov, [facility] [address] [id number] [address] [place] [address], [place] [address] Oct, [facility] [address] [id number] [address] [place] [address], [place] [address] September, [facility] [address] [id number] [address] [place] [address], [place] [address] Aug, [facility] [address] [id number] [address] [place] [address], [place] [address] Jul, [facility] [address] [id number] [address] [place] [address], [place] [address] Jun, [facility] [address] [id number] [address] [place] [address], [place] [address] Jun, [facility] [address] [id number] [address] [place] [address], [place] [address] 08 Jun, 2011 [facility] [address] [id number] [address] [place] [address] [address] Jun, [facility] [address] [id number] [address] [place] [address] Apr, [facility] [address] [id number] [address] [place] [address] Apr, [facility] [address] [id number] [address] [place] [address] Mar, [facility] [address] [id number] [address] [place] [address] Mar, [facility] [address] [id number] [address] [place] [address] Mar, [facility] [address] [id number] [address] [place] [address] Mar, [facility] [address] [id number] [address] [place] [address] Feb, [facility] [address] [id number] [address] [place] [address] Feb, [facility] [address] [id number] [address] [place] [id number] Feb, [facility] [address] [id number] [address] [place] [id number] Feb, [facility] [address] [id number] [address] [place] [address] Jul, [facility] [address] [id number] [address] [place] [address] Jun, [facility] [address] [id number] [address] [place] [address] Feb, IMMUNIZATIONS No Known Immunizations SOCIAL HISTORY Never Assessed REASON FOR VISIT PLAN OF CARE VITAL SIGNS MEDICATIONS Unknown Medications RESULTS No Results PROCEDURES Procedure Date Ordered Result Body Site PSYTX PT&/FAMILY 45 MINUTES October 03, 2013 INSTRUCTIONS MEDICATIONS ADMINISTERED No Known Medications [...]
--- OUTSIDE RECORDS SUMMARY | 2019-12-06 19:52 | XMS REPORT ---
Author Author Tracee CARPENTER Organization [facility] Address [address] [place] [address] Care Team Providers Care Manager Lan Name Role Phone SILVERIO CARPENTER Unavailable PROBLEMS Type Condition ICD9-CM Code [id number] Code Onset Dates Condition S tatus SNOMED Code Problem Uses control Z30.9 Active 7 [id number] Problem Dysuria R30.0 Active 94460763 Problem Dysthymia F34.1 Active 32141051 Problem MRSA (methicillin resistant Staphylococcus aureus) A49.02 Active 847473059 Problem Hyperinsulinemia E16.1 Active 834 31386 Problem Encounter for annual physica l examination excluding gynecological examination in a patient older than 17 years Z00.00 Active [id number] ALLERGIES No Information ENCOUNTERS Encounter Location Date Diagnosis [facility] [address] [facility] [id number] [address] [place] [id number] Oct, Uses control Z30.9 [place] [address] [facility] [id number] [address] [place] [address] Aug, Encounter for annual physica l examination excluding gynecological examination in a patient older than 17 years Z00.00 ; Dysuria R30.0 and Uses control Z30.9 [facility] [address] [facility] [id number] [address] [place] [address] May, Pharyngitis due to other org anism J02.8 [place] [address] [facility] [id number] [address] [place] [address] 13 Oct, 2016 Cellulitis of right lower ex tremity L03.115 [place] [address] [facility] [id number] [address] [place] [address] 05 Oct, 2016 Cellulitis of right lower ex tremity L03.115 [place] [address] [facility] [id number] [address] [place] [address] Aug, [facility] [address] [facility] [id number] [address] [place] [id number] Aug, Dental examination Z01.20 [facility] [id number] [place] [address] Jul, [facility] [address] [address] 23 Jun, 2016 Well woman exam Z01.419 ; Ce rvical cancer screening Z12.4 ; Breast cancer screening Z12.39 and Right foot pain M79.671 [place] [address] [place] [id number] [address] [place] [phone] 02 Jun, 2016 Acute nasopharyngitis J00 [place] [address] [address] May, Contraceptive device, intrau terine Z97.5 [facility] [address] [place] [address] Oct, Right lower quadrant abdomin al pain R10.31 ; Frequency of urination R35.0 ; Hematuria R31.9 and Renal calculi N20.0 [place] [address] [place] [id number] [address] [place] [address] 16 Oct, 2015 Pain in unspecified knee M25 .569 ; Other chronic pain G89.29 ; Obesity, unspecified obesity severity, unspecified obesity type E66.9 and Depression F32.9 [place] [address] [place] [address] Jun, Depressive disorder, not els ewhere classified F32.9 [facility] [address] [place] [id number] [address] [place] [id number] 11 Jun, 2015 Hyperglycemia R73.9 and Obes ity E66.9 [facility] [address] [address] Jun, Obesity, unspecified obesity severity, unspecified obesity type E66.9 [facility] [address] [facility] [id number] [address] [place] [id number] May, Essential hypertension I10 a nd Obesity, unspecified obesity severity, unspecified obesity type E66.9 [facility] [address] [place] [id number] [address] [place] [id number] Apr, Upper respiratory disease J3 9.9 ; Yeast vaginitis B37.3 ; Contraceptive device, intrauterine Z97.5 ; Depression F32.9 and Essential hypertension I10 [facility] [address] [facility] [id number] [address] [place] [address] Oct, Sinusitis 473.9 [facility] [address] [place] [id number] [address] [place] [address] Oct, Edema 782.3 and Right foot p ain 729.5 [facility] [address] [place] [id number] [address] [place] [address] Aug, [facility] [address] [facility] [id number] [address] [place] [address] Aug, [facility] [address] [place] [id number] [address] [place] [id number] Jul, [facility] [address] [place] [id number] [address] [place] [phone] Jul, [facility] [address] [place] [id number] [address] [place] [phone] May, [facility] [address] [facility] [id number] [address] [place] [id number] May, [facility] [address] [place] [id number] [address] [place] [id number] Feb, [facility] [address] [place] [id number] [address] [place] [phone] Feb, [facility] [address] [id number] [facility] [address] Dec, [facility] [address] [id number] [address] [place] [address], [place] [address] Dec, [facility] [address] [id number] [address] [place] [address], [place] [address] Dec, [facility] [address] [id number] [address] [place] [address], [place] [address] Dec, [facility] [address] [id number] [address] [place] [address], [place] [address] Nov, [facility] [address] [id number] [address] [place] [address], [place] [address] Nov, [facility] [address] [id number] [address] [place] [address], [place] [address] Oct, [facility] [address] [id number] [address] [place] [address], [place] [address] Oct, [facility] [address] [id number] [address] [place] [address], [place] [address] Oct, [facility] [address] [id number] [address] [place] [address], [place] [address] Oct, [facility] [address] [id number] [address] [place] [address], [place] [address] Oct, [facility] [address] [id number] [address] [place] [address], [place] [address] Oct, [facility] [address] [id number] [address] [place] [address], [place] [address] Oct, [facility] [address] [id number] [address] [place] [address], [place] [address] Oct, [facility] [address] [id number] [address] [place] [address], [place] [address] Oct, [facility] [address] [id number] [address] [place] [address], [place] [address] Oct, [facility] [address] [id number] [address] [place] [address], [place] [address] September, [facility] [address] [id number] [address] [place] [address], [place] [address] September, [facility] [address] [id number] [address] [place] [address], [place] [address] Aug, [facility] [address] [id number] [address] [place] [address], [place] [address] Aug, [facility] [address] [id number] [address] [place] [address], [place] [address] Aug, [facility] [address] [id number] [address] [place] [address], [place] [address] Aug, [facility] [address] [id number] [address] [place] [address], [place] [address] Aug, [facility] [address] [id number] [address] [place] [address], [place] [address] Aug, [facility] [address] [id number] [address] [place] [address], [place] [address] Aug, [facility] [address] [id number] [address] [place] [address], [place] [address] Aug, [facility] [address] [id number] [address] [place] [address], [place] [address] May, [facility] [address] [id number] [address] [place] [address], [place] [address] May, [facility] [address] [id number] [address] [place] [address], [place] [address] May, [facility] [address] [id number] [address] [place] [address], [place] [address] May, [facility] [address] [id number] [address] [place] [address], [place] [address] May, [facility] [address] [id number] [address] [place] [address], [place] [address] May, [facility] [address] [id number] [address] [place] [address], [place] [address] Feb, [facility] [address] [id number] [address] [place] [address], [place] [address] Feb, [facility] [address] [id number] [address] [place] [address], [place] [address] Feb, [facility] [address] [id number] [address] [place] [address], [place] [address] Jan, [facility] [address] [id number] [address] [place] [address], [place] [address] Jan, [facility] [address] [id number] [address] [place] [address], [place] [address] Nov, [facility] [address] [id number] [address] [place] [address], [place] [address] Oct, [facility] [address] [id number] [address] [place] [address], [place] [address] September, [facility] [address] [id number] [address] [place] [address], [place] [address] Aug, [facility] [address] [id number] [address] [place] [address], [place] [address] Aug, [facility] [address] [id number] [address] [place] [address], [place] [address] Aug, [facility] [address] [id number] [address] [place] [address], [place] [address] Aug, [facility] [address] [id number] [address] [place] [address], [place] [address] May, [facility] [address] [id number] [address] [place] [address], [place] [address] Feb, [facility] [address] [id number] [address] [place] [address], [place] [address] Feb, [facility] [address] [id number] [address] [place] [address], [place] [address] Feb, [facility] [address] [id number] [address] [place] [address], [place] [address] Feb, [facility] [address] [id number] [address] [place] [address], [place] [address] Jan, [facility] [address] [id number] [address] [place] [address], [place] [address] Dec, [facility] [address] [id number] [address] [place] [address], [place] [address] Dec, [facility] [address] [id number] [address] [place] [address], [place] [address] Nov, [facility] [address] [id number] [address] [place] [address], [place] [address] Nov, [facility] [address] [id number] [address] [place] [address], [place] [address] Nov, [facility] [address] [id number] [address] [place] [address], [place] [address] Oct, [facility] [address] [id number] [address] [place] [address], [place] [address] September, [facility] [address] [id number] [address] [place] [address], [place] [address] Aug, [facility] [address] [id number] [address] [place] [address], [place] [address] Jul, [facility] [address] [id number] [address] [place] [address], [place] [address] Jun, [facility] [address] [id number] [address] [place] [address], [place] [address] Jun, [facility] [address] [id number] [address] [place] [address], [place] [address] 08 Jun, 2011 [facility] [address] [id number] [address] [place] [address] [address] Jun, [facility] [address] [id number] [address] [place] [address] Apr, [facility] [address] [id number] [address] [place] [address] Apr, [facility] [address] [id number] [address] [place] [address] Mar, [facility] [address] [id number] [address] [place] [address] Mar, [facility] [address] [id number] [address] [place] [address] Mar, [facility] [address] [id number] [address] [place] [address] Mar, [facility] [address] [id number] [address] [place] [address] Feb, [facility] [address] [id number] [address] [place] [address] Feb, [facility] [address] [id number] [address] [place] [address] Feb, [facility] [address] [id number] [address] [place] [address] Feb, [facility] [address] [id number] [address] [place] [address] Jul, [facility] [address] [id number] [address] [place] [address] Jun, [facility] [address] [id number] [address] [place] [address] Feb, IMMUNIZATIONS No Known Immunizations SOCIAL HISTORY Never Assessed REASON FOR VISIT PLAN OF CARE VITAL SIGNS MEDICATIONS Unknown Medications RESULTS No Results PROCEDURES Procedure Date Ordered Result Body Site PSYTX PT&/FAMILY 45 MINUTES October 13, 2013 INSTRUCTIONS MEDICATIONS ADMINISTERED No Known Medications [...]
--- OUTSIDE RECORDS SUMMARY | 2019-12-06 19:52 | XMS REPORT ---
Author Author Tracee Ruth Doctor Organization [facility] Address Unknown Phone Unavailable Care Team Providers Care Marketing Communication Manager Name Role Phone Migration, Doctor Unavailable Unavailable PROBLEMS Type Condition ICD9-CM Code QWL35-OO Code Onset Dates Condition S tatus SNOMED Code Problem Uses control Z30.9 Active 7 85220910 Problem Dysuria R30.0 Active 97875126 Problem Dysthymia F34.1 Active 89815358 Problem MRSA (methicillin resistant Staphylococcus aureus) A49.02 Active 355888953 Problem Hyperinsulinemia E16.1 Active 834 41067 Problem Encounter for annual physica l examination excluding gynecological examination in a patient older than 17 years Z00.00 Active [id number] ALLERGIES No Information ENCOUNTERS Encounter Location Date Diagnosis [place] [address] [facility] [id number] [address] [place] [address] Dec, [place] [address] [id number] [address] [place] [address] Oct, Uses control Z30.9 [place] [address] [id number] [address] [place] [address] Aug, Encounter for annual physica l examination excluding gynecological examination in a patient older than 17 years Z00.00 ; Dysuria R30.0 and Uses control Z30.9 [place] [address] [id number] [address] [place] [address] May, Pharyngitis due to other org anism J02.8 [place] [address] [facility] [id number] [address] [place] [address] 13 Oct, 2016 Cellulitis of right lower ex tremity L03.115 [place] [address] [facility] [id number] [address] [place] [id number] 05 Oct, 2016 Cellulitis of right lower ex tremity L03.115 [facility] [address] [facility] [id number] [address] [place] [address] Aug, [facility] [address] [facility] [id number] [address] [place] [id number] Aug, Dental examination Z01.20 [facility] [address] [place] [id number] [address] [place] [address] Jul, [facility] [address] [place] [id number] [address] [place] [address] 23 Jun, 2016 Well woman exam Z01.419 ; Ce rvical cancer screening Z12.4 ; Breast cancer screening Z12.39 and Right foot pain M79.671 [place] [address] [place] [id number] [address] [place] [address] 02 Jun, 2016 Acute nasopharyngitis J00 [place] [address] [address] May, Contraceptive device, intrau terine Z97.5 [facility] [address] [place] [id number] [address] [place] [address] Oct, Right lower quadrant abdomin al pain R10.31 ; Frequency of urination R35.0 ; Hematuria R31.9 and Renal calculi N20.0 [place] [id number] [place] [address] 16 Oct, 2015 Pain in unspecified knee M25 .569 ; Other chronic pain G89.29 ; Obesity, unspecified obesity severity, unspecified obesity type E66.9 and Depression F32.9 [place] [address] [place] [id number] [address] [place] [address] Jun, Depressive disorder, not els ewhere classified F32.9 [facility] [address] [place] [id number] [address] [place] [address] 11 Jun, 2015 Hyperglycemia R73.9 and Obes ity E66.9 [place] [address] [place] [id number] [address] [place] [id number] 05 Jun, 2015 Obesity, unspecified obesity severity, unspecified obesity type E66.9 [facility] [address] [facility] [id number] [address] [place] [address] May, Essential hypertension I10 a nd Obesity, unspecified obesity severity, unspecified obesity type E66.9 [facility] [address] [facility] [id number] [address] [place] [address] Apr, Upper respiratory disease J3 9.9 ; Yeast vaginitis B37.3 ; Contraceptive device, intrauterine Z97.5 ; Depression F32.9 and Essential hypertension I10 [facility] [address] [facility] [id number] [address] [place] [address] Oct, Sinusitis 473.9 [facility] [address] [place] [id number] [address] [place] [address] Oct, Edema 782.3 and Right foot p ain 729.5 [facility] [address] [place] [id number] [address] [place] [address] Aug, [facility] [address] [facility] [id number] [address] [place] [address] Aug, [facility] [address] [place] [id number] [address] [place] [address] Jul, [facility] [address] [place] [id number] [address] [place] [address] Jul, [facility] [address] [place] [id number] [address] [place] [address] May, [facility] [address] [id number] [address] [place] [address] May, [facility] [address] [place] [id number] [address] [place] [address] Feb, [facility] [address] [place] [id number] [address] [place] [address] Feb, [facility] [address] [id number] [address] [place] [address] Dec, [facility] [address] [id number] [address] [place] [address], [place] [address] Dec, [facility] [address] [id number] [address] [place] [address], [place] [address] Dec, [facility] [address] [id number] [address] [place] [address], [place] [address] Dec, [facility] [address] [id number] [address] [place] [address], [place] [address] Nov, [facility] [address] [id number] [address] [place] [address], [place] [address] Nov, [facility] [address] [id number] [address] [place] [address], [place] [address] Oct, [facility] [address] [id number] [address] [place] [address], [place] [address] Oct, [facility] [address] [id number] [address] [place] [address], [place] [address] Oct, [facility] [address] [id number] [address] [place] [address], [place] [address] Oct, [facility] [address] [id number] [address] [place] [address], [place] [address] Oct, [facility] [address] [id number] [address] [place] [address], [place] [address] Oct, [facility] [address] [id number] [address] [place] [address], [place] [address] Oct, [facility] [address] [id number] [address] [place] [address], [place] [address] Oct, [facility] [address] [id number] [address] [place] [address], [place] [address] Oct, [facility] [address] [id number] [address] [place] [address], [place] [address] Oct, [facility] [address] [id number] [address] [place] [address], [place] [address] September, [facility] [address] [id number] [address] [place] [address], [place] [address] September, [facility] [address] [id number] [address] [place] [address], [place] [address] Aug, [facility] [address] [id number] [address] [place] [address], [place] [address] Aug, [facility] [address] [id number] [address] [place] [address], [place] [address] Aug, [facility] [address] [id number] [address] [place] [address], [place] [address] Aug, [facility] [address] [id number] [address] [place] [address], [place] [address] Aug, [facility] [address] [id number] [address] [place] [address], [place] [address] Aug, [facility] [address] [id number] [address] [place] [address], [place] [address] Aug, [facility] [address] [id number] [address] [place] [address], [place] [address] Aug, [facility] [address] [id number] [address] [place] [address], [place] [address] May, [facility] [address] [id number] [address] [place] [address], [place] [address] May, [facility] [address] [id number] [address] [place] [address], [place] [address] May, [facility] [address] [id number] [address] [place] [address], [place] [address] May, [facility] [address] [id number] [address] [place] [address], [place] [address] May, [facility] [address] [id number] [address] [place] [address], [place] [address] May, [facility] [address] [id number] [address] [place] [address], [place] [address] Feb, [facility] [address] [id number] [address] [place] [address], [place] [address] Feb, [facility] [address] [id number] [address] [place] [address], [place] [address] Feb, [facility] [address] [id number] [address] [place] [address], [place] [address] Jan, [facility] [address] [id number] [address] [place] [address], [place] [address] Jan, [facility] [address] [id number] [address] [place] [address], [place] [address] Nov, [facility] [address] [id number] [address] [place] [address], [place] [address] Oct, [facility] [address] [id number] [address] [place] [address], [place] [address] September, [facility] [address] [id number] [address] [place] [address], [place] [address] Aug, [facility] [address] [id number] [address] [place] [address], [place] [address] Aug, [facility] [address] [id number] [address] [place] [address], [place] [address] Aug, [facility] [address] [id number] [address] [place] [address], [place] [address] Aug, [facility] [address] [id number] [address] [place] [address], [place] [address] May, [facility] [address] [id number] [address] [place] [address], [place] [address] Feb, [facility] [address] [id number] [address] [place] [address], [place] [address] Feb, [facility] [address] [id number] [address] [place] [address], [place] [address] Feb, [facility] [address] [id number] [address] [place] [address], [place] [address] Feb, [facility] [address] [id number] [address] [place] [address], [place] [address] Jan, [facility] [address] [id number] [address] [place] [address], [place] [address] Dec, [facility] [address] [id number] [address] [place] [address], [place] [address] Dec, [facility] [address] [id number] [address] [place] [address], [place] [address] Nov, [facility] [address] [id number] [address] [place] [address], [place] [address] Nov, [facility] [address] [id number] [address] [place] [address], [place] [address] Nov, [facility] [address] [id number] [address] [place] [address], [place] [address] Oct, [facility] [address] [id number] [address] [place] [address], [place] [address] September, [facility] [address] [id number] [address] [place] [address], [place] [address] Aug, [facility] [address] [id number] [address] [place] [address], [place] [address] Jul, [facility] [address] [id number] [address] [place] [address], [place] [address] Jun, [facility] [address] [id number] [address] [place] [address], [place] [address] Jun, [facility] [address] [id number] [address] [place] [address], [place] [address] Jun, [facility] [address] [id number] [address] [place] [address], [place] [address] Jun, [facility] [address] [id number] [address] [place] [address] Apr, [facility] [address] [id number] [address] [place] [address] Apr, [facility] [address] [id number] [address] [place] [address] Mar, [facility] [address] [id number] [address] [place] [address] Mar, [facility] [address] [id number] [address] [place] [address] Mar, [facility] [address] [id number] [address] [place] [address] Mar, [facility] [address] [id number] [address] [place] [address] Feb, [facility] [address] [id number] [address] [place] [address] Feb, [facility] [address] [id number] [address] [place] [address] Feb, [facility] [address] [id number] [address] [place] [address] Feb, [facility] [address] [id number] [address] [place] [address] Jul, [facility] [address] [id number] [address] [place] [address] Jun, [facility] [address] [id number] [address] [place] [address] Feb, IMMUNIZATIONS No Known Immunizations SOCIAL HISTORY Never Assessed REASON FOR VISIT PLAN OF CARE VITAL SIGNS MEDICATIONS Unknown Medications RESULTS No Results PROCEDURES Procedure Date Ordered Result Body Site INJECTION PCN G [place] [id number] UNITS May 06, 2013 THER/PROPH/DIAG INJ, SC/IM May 06, 2013 INSTRUCTIONS MEDICATIONS ADMINISTERED No Known [...]
--- OUTSIDE RECORDS SUMMARY | 2019-12-06 19:53 | XMS REPORT ---
Author Author Tracee MCCRAY Organization [facility] Address [address] [place] [address] Care Team Providers Care Supervisor Electronic Coils Name Role Phone LOPEZ MCCRAY Unavailable PROBLEMS Type Condition ICD9-CM Code FAI26-OX Code Onset Dates Condition S tatus SNOMED Code Problem Dysuria R30.0 Active 38570304 Problem Uses control Z30.9 Active 7 11140168 Problem MRSA (methicillin resistant Staphylococcus aureus) A49.02 Active 315578479 Problem Dysthymia F34.1 Active 56867140 Problem Encounter for annual physica l examination excluding gynecological examination in a patient older than 17 years Z00.00 Active 044946031 Problem Hyperinsulinemia E16.1 Active 834 20553 ALLERGIES No Known Allergies ENCOUNTERS Encounter Location Date Diagnosis [facility] [address] [facility] [id number] [address] [place] [address] Aug, Encounter for annual physica l examination excluding gynecological examination in a patient older than 17 years Z00.00 ; Dysuria R30.0 and Uses control Z30.9 [facility] [address] [facility] [id number] [address] [place] [address] May, Pharyngitis due to other org anism J02.8 [facility] [address] [facility] [id number] [address] [place] [address] Oct, Cellulitis of right lower ex tremity L03.115 [facility] [address] [facility] [id number] [address] [place] [address] Oct, Cellulitis of right lower ex tremity L03.115 [facility] [address] [facility] [id number] [address] [place] [address] Aug, [facility] [address] [facility] [id number] [address] [place] [address] [id number] Aug, Dental examination Z01.20 [place] [address] [place] [id number] [address] [place] [address] 02 Jul, 2016 [place] [address] [place] [id number] [address] [place] [address] 23 Jun, 2016 Well woman exam Z01.419 ; Ce rvical cancer screening Z12.4 ; Breast cancer screening Z12.39 and Right foot pain M79.671 [place] [address] [place] [id number] [address] [place] [address] 02 Jun, 2016 Acute nasopharyngitis J00 [place] [address] [address] 09 May, 2016 Contraceptive device, intrau terine Z97.5 [facility] [address] [place] [id number] [address] [place] [address] Oct, Right lower quadrant abdomin al pain R10.31 ; Frequency of urination R35.0 ; Hematuria R31.9 and Renal calculi N20.0 [place] [address] [address] 16 Oct, 2015 Pain in unspecified knee M25 .569 ; Other chronic pain G89.29 ; Obesity, unspecified obesity severity, unspecified obesity type E66.9 and Depression F32.9 [place] [address] [place] [id number] [address] [place] [address] Jun, Depressive disorder, not els ewhere classified F32.9 [place] [address] [place] [id number] [address] [place] [address] 11 Jun, 2015 Hyperglycemia R73.9 and Obes ity E66.9 [place] [address] [place] [id number] [address] [place] [address] 05 Jun, 2015 Obesity, unspecified obesity severity, unspecified obesity type E66.9 [place] [address] [address] May, Essential hypertension I10 a nd Obesity, unspecified obesity severity, unspecified obesity type E66.9 [facility] [address] [address] Apr, Upper respiratory disease J3 9.9 ; Yeast vaginitis B37.3 ; Contraceptive device, intrauterine Z97.5 ; Depression F32.9 and Essential hypertension I10 [facility] [address] [address] Oct, Sinusitis 473.9 [facility] [address] [address] Oct, Edema 782.3 and Right foot p ain 729.5 [facility] [address] [address] Aug, [facility] [address] [address] Aug, [facility] [address] [address] Jul, [facility] [address] [address] Jul, [facility] [address] [address] May, [facility] [address] [place] [id number] [address] [place] [address] May, [facility] [address] [place] [id number] [address] [place] [address] Feb, [facility] [address] [address] Feb, [facility] [address] [place] [id number] [address] [place] [address] Dec, [facility] [address] [address] Dec, [facility] [address] [id number] [facility] [place] [address] Dec, [facility] [address] [id number] [address] [place] [address], [place] [address] Dec, [facility] [address] [id number] [address] [place] [address], [place] [address] Nov, [facility] [address] [id number] [address] [place] [address], [place] [address] Nov, [facility] [address] [id number] [address] [place] [address], [place] [address] Oct, [facility] [address] [id number] [address] [place] [address], [place] [address] Oct, [facility] [address] [id number] [address] [place] [address], [place] [address] Oct, [facility] [address] [id number] [address] [place] [address], [place] [address] Oct, [facility] [address] [id number] [address] [place] [address], [place] [address] Oct, [facility] [address] [id number] [address] [place] [address], [place] [address] Oct, [facility] [address] [id number] [address] [place] [address], [place] [address] Oct, [facility] [address] [id number] [address] [place] [address], [place] [address] Oct, [facility] [address] [id number] [address] [place] [address], [place] [address] Oct, [facility] [address] [id number] [address] [place] [address], [place] [address] Oct, [facility] [address] [id number] [address] [place] [address], [place] [address] September, [facility] [address] [id number] [address] [place] [address], [place] [address] September, [facility] [address] [id number] [address] [place] [address], [place] [address] Aug, [facility] [address] [id number] [address] [place] [address], [place] [address] Aug, [facility] [address] [id number] [address] [place] [address], [place] [address] Aug, [facility] [address] [id number] [address] [place] [address], [place] [address] Aug, [facility] [address] [id number] [address] [place] [address], [place] [address] Aug, [facility] [address] [id number] [address] [place] [address], [place] [address] Aug, [facility] [address] [id number] [address] [place] [address], [place] [address] Aug, [facility] [address] [id number] [address] [place] [address], [place] [address] Aug, [facility] [address] [id number] [address] [place] [address], [place] [address] May, [facility] [address] [id number] [address] [place] [address], [place] [address] May, [facility] [address] [id number] [address] [place] [address], [place] [address] May, [facility] [address] [id number] [address] [place] [address], [place] [address] May, [facility] [address] [id number] [address] [place] [address], [place] [address] May, [facility] [address] [id number] [address] [place] [address], [place] [address] May, [facility] [address] [id number] [address] [place] [address], [place] [address] Feb, [facility] [address] [id number] [address] [place] [address], [place] [address] Feb, [facility] [address] [id number] [address] [place] [address], [place] [address] Feb, [facility] [address] [id number] [address] [place] [address], [place] [address] Jan, [facility] [address] [id number] [address] [place] [address], [place] [address] Jan, [facility] [address] [id number] [address] [place] [address], [place] [address] Nov, [facility] [address] [id number] [address] [place] [address], [place] [address] Oct, [facility] [address] [id number] [address] [place] [address], [place] [address] September, [facility] [address] [id number] [address] [place] [address], [place] [address] Aug, [facility] [address] [id number] [address] [place] [address], [place] [address] Aug, [facility] [address] [id number] [address] [place] [address], [place] [address] Aug, [facility] [address] [id number] [address] [place] [address], [place] [address] Aug, [facility] [address] [id number] [address] [place] [address], [place] [address] May, [facility] [address] [id number] [address] [place] [address], [place] [address] Feb, [facility] [address] [id number] [address] [place] [address], [place] [address] Feb, [facility] [address] [id number] [address] [place] [address], [place] [address] Feb, [facility] [address] [id number] [address] [place] [address] [place] [address] Feb, [facility] [address] [id number] [address] [place] [address], [place] [address] Jan, [facility] [address] [id number] [address] [place] [address], [place] [address] Dec, [facility] [address] [id number] [address] [place] [address], [place] [address] Dec, [facility] [address] [id number] [address] [place] [address], [place] [address] Nov, [facility] [address] [id number] [address] [place] [address], [place] [address] Nov, [facility] [address] [id number] [address] [place] [address], [place] [address] Nov, [facility] [address] [id number] [address] [place] [address], [place] [address] Oct, [facility] [address] [id number] [address] [place] [address], [place] [address] September, [facility] [address] [id number] [address] [place] [address], [place] [address] Aug, [facility] [address] [id number] [address] [place] [address], [place] [address] Jul, [facility] [address] [id number] [address] [place] [address], [place] [address] Jun, [facility] [address] [id number] [address] [place] [address], [place] [address] Jun, [facility] [address] [id number] [address] [place] [address], [place] [address] Jun, [facility] [address] [id number] [address] [place] [address], [place] [address] Jun, [facility] [address] [id number] [address] [place] [address], [place] [address] Apr, [facility] [address] [id number] [address] [place] [address] Apr, [facility] [address] [id number] [address] [place] [address] Mar, [facility] [address] [id number] [address] [place] [address] Mar, [facility] [address] [id number] [address] [place] [address] Mar, [facility] [address] [id number] [address] [place] [address] Mar, [facility] [address] [id number] [address] [place] [address] Feb, [facility] [address] [id number] [address] [place] [address] Feb, [facility] [address] [id number] [address] [place] [address] Feb, [facility] [address] [id number] [address] [place] [address] Feb, [facility] [address] [id number] [address] [place] [address] Jul, [facility] [address] [id number] [address] [place] [address] Jun, [facility] [address] [id number] [address] [place] [address] Feb, IMMUNIZATIONS No Known Immunizations SOCIAL HISTORY Never Assessed REASON FOR VISIT Annual physical (female) -- yoli kaiser PLAN OF CARE Activity Details Follow Up 1 Year, prn Reason:annual wi th PCP VITAL SIGNS Height 69 in 2017-08-28 Weight 238.0 lbs 2017-08-28 Temperature 98.2 degrees Fahrenheit 2017-08-28 Heart Rate 80 bpm 2017-08-28 Respiratory Rate 18 2017-08-28 BMI 35.14 kg/m2 2017-08-28 Blood pressure systolic 130 mmHg 2017-08-28 Blood pressure diastolic 90 mmHg 2017-08-28 MEDICATIONS Medication Instructions Dosage Frequency Start Date End Date Duration S tatus NuvaRing 0.12-0.015 MG/24HR Vaginal monthly _insert ONE RING INTRAVAGINALLY, LEAVE IN FOR 21 DAYS, REMOVE FOR 7 DAYS AND REPEAT 56 Active RESULTS Name Result Date Reference Range TEST, URINE (IN HOUSE) 2017-08-28 RESULTS negative Lot # [id number] Control + Exp date 02/2019 UA W/CULTURE IF INDICATED (IN HOUSE) 2017-08-28 Lot # [id number] Exp date 02/2018 Clarity clear Color yellow Odor no GLU neg DELROY neg KET neg SG 1.025 BLO trace pH 5.5 Protein neg URO 0.2 NIT neg FARRAH trace Lot # Exp date PROCEDURES Procedure Date Ordered Result Body Site URINE TEST August 28, 2017 URINALYSIS, AUTO, W/O SCOPE August 28, 2017 INSTRUCTIONS MEDICATIONS ADMINISTERED No Known Medications MEDICAL [...]
--- OUTSIDE RECORDS SUMMARY | 2019-12-06 19:53 | XMS REPORT ---
Author Author Tracee Ruth Doctor Organization [facility] Address Unknown Phone Unavailable Care Team Providers Care Chamfering Machine Operator Name Role Phone Migration, Doctor Unavailable Unavailable PROBLEMS Type Condition ICD9-CM Code QLH50-PY Code Onset Dates Condition S tatus SNOMED Code Problem Uses control Z30.9 Active 7 89961427 Problem Dysuria R30.0 Active 67728224 Problem Dysthymia F34.1 Active 76833877 Problem MRSA (methicillin resistant Staphylococcus aureus) A49.02 Active 187906318 Problem Hyperinsulinemia E16.1 Active 834 70477 Problem Encounter for annual physica l examination excluding gynecological examination in a patient older than 17 years Z00.00 Active [id number] ALLERGIES No Information ENCOUNTERS Encounter Location Date Diagnosis [place] [address] [address] [facility] [id number] [address] [place] [phone] Aug, Encounter for annual physica l examination excluding gynecological examination in a patient older than 17 years Z00.00 ; Dysuria R30.0 and Uses control Z30.9 [place] 6147[address] [facility] [id number] [address] [place] [phone] May, Pharyngitis due to other org anism J02.8 [place] [address] [address] [facility] [id number] [address] [place] [id number] 13 Oct, 2016 Cellulitis of right lower ex tremity L03.115 [place] 614721 [address] [facility] [id number] [address] [place] [id number] 05 Oct, 2016 Cellulitis of right lower ex tremity L03.115 [place] 614721 [address] [facility] [id number] [address] [place] [id number] 19 Aug, 2016 [facility] [address] [id number] [address] [place] [id number] Aug, Dental examination Z01.20 [place] [address] [address] [place] [id number] [address] [place] [phone] Jul, [place] [address] [address] 23 Jun, 2016 Well woman exam Z01.419 ; Ce rvical cancer screening Z12.4 ; Breast cancer screening Z12.39 and Right foot pain M79.671 [place] [address] [id number] 02 Jun, 2016 Acute nasopharyngitis J00 [place] [address] [address] May, Contraceptive device, intrau terine Z97.5 [facility] [address] [address] Oct, Right lower quadrant abdomin al pain R10.31 ; Frequency of urination R35.0 ; Hematuria R31.9 and Renal calculi N20.0 [place] [address] [address] 16 Oct, 2015 Pain in unspecified knee M25 .569 ; Other chronic pain G89.29 ; Obesity, unspecified obesity severity, unspecified obesity type E66.9 and Depression F32.9 [place] [address] [address] Jun, Depressive disorder, not els ewhere classified F32.9 [place] [address] [address] Jun, Hyperglycemia R73.9 and Obes ity E66.[address] [address] 05 Jun, 2015 Obesity, unspecified obesity severity, unspecified obesity type E66.9 [place] [address] [address] May, Essential hypertension I10 a nd Obesity, unspecified obesity severity, unspecified obesity type E66.9 [facility] [address] [facility] [id number] [address] [place] [phone] Apr, Upper respiratory disease J3 9.9 ; Yeast vaginitis B37.3 ; Contraceptive device, intrauterine Z97.5 ; Depression F32.9 and Essential hypertension I10 [facility] [address] [facility] [id number] [address] [place] [phone] Oct, Sinusitis 473.9 [facility] [address] [facility] [id number] [address] [place] [phone] Oct, Edema 782.3 and Right foot p ain 729.5 [facility] [address] [place] [id number] [address] [place] [phone] Aug, [facility] [address] [place] [id number] [address] [place] [phone] Aug, [facility] [address] [place] [id number] [address] [place] [phone] Jul, [facility] [address] [facility] [id number] [address] [place] [phone] Jul, [facility] [address] [place] [id number] [address] [place] [phone] May, [facility] [address] [facility] [id number] [address] [place] [phone] May, [facility] [address] [id number] [address] [place] [phone] Feb, [facility] [address] [facility] [id number] [address] [place] [phone] Feb, [facility] [address] [facility] [id number] [address] [place] [phone] Dec, [facility] [address] [facility] [id number] [address] [place] [phone] Dec, [facility] [address] [facility] [id number] [address] [place] [phone] Dec, [facility] [address] [id number] [address] [place] [address], [place] [address] Dec, [facility] [address] [id number] [address] [place] [address], [place] [address] Nov, [facility] [address] [id number] [address] [place] [address], [place] [address] Nov, [facility] [address] [id number] [address] [place] [address], [place] [address] Oct, [facility] [address] [id number] [address] [place] [address], [place] [address] Oct, [facility] [address] [id number] [address] [place] [address], [place] [address] Oct, [facility] [address] [id number] [address] [place] [address], [place] [address] Oct, [facility] [address] [id number] [address] [place] [address], [place] [address] Oct, [facility] [address] [id number] [address] [place] [address], [place] [address] Oct, [facility] [address] [id number] [address] [place] [address], [place] [address] Oct, [facility] [address] [id number] [address] [place] [address], [place] [address] Oct, [facility] [address] [id number] [address] [place] [address], [place] [address] Oct, [facility] [address] [id number] [address] [place] [address], [place] [address] Oct, [facility] [address] [id number] [address] [place] [address], [place] [address] September, [facility] [address] [id number] [address] [place] [address], [place] [address] September, [facility] [address] [id number] [facility] [place] [address] Aug, [facility] [address] [id number] [address] [place] [address], [place] [address] Aug, [facility] [address] [id number] [address] [place] [address], [place] [address] Aug, [facility] [address] [id number] [address] [place] [address], [place] [address] Aug, [facility] [address] [id number] [address] [place] [address], [place] [address] Aug, [facility] [address] [id number] [address] [place] [address], [place] [address] Aug, [facility] [address] [id number] [address] [place] [address], [place] [address] Aug, [facility] [address] [id number] [address] [place] [address], [place] [address] Aug, [facility] [address] [id number] [address] [place] [address], [place] [address] May, [facility] [address] [id number] [address] [place] [address], [place] [address] May, [facility] [address] [id number] [address] [place] [address], [place] [address] May, [facility] [address] [id number] [address] [place] [address], [place] [address] May, [facility] [address] [id number] [address] [place] [address], [place] [address] May, [facility] [address] [id number] [address] [place] [address], [place] [address] May, [facility] [address] [id number] [address] [place] [address], [place] [address] Feb, [facility] [address] [id number] [address] [place] [address] [address] Feb, [facility] [address] [id number] [address] [place] [address], [place] [address] Feb, [facility] [address] [id number] [address] [place] [address], [place] [address] Jan, [facility] [address] [id number] [address] [place] [address], [place] [address] Jan, [facility] [address] [id number] [address] [place] [address], [place] [address] Nov, [facility] [address] [id number] [address] [place] [address], [place] [address] Oct, [facility] [address] [id number] [address] [place] [address], [place] [address] September, [facility] [address] [id number] [address] [place] [address], [place] [address] Aug, [facility] [address] [id number] [address] [place] [address], [place] [address] Aug, [facility] [address] [id number] [address] [place] [address], [place] [address] Aug, [facility] [address] [id number] [address] [place] [address], [place] [address] Aug, [facility] [address] [id number] [address] [place] [address], [place] [address] May, [facility] [address] [id number] [address] [place] [address], [place] [address] Feb, [facility] [address] [id number] [address] [place] [address], [place] [address] Feb, [facility] [address] [id number] [address] [place] [address], [place] [address] Feb, [facility] [address] [id number] [address] [place] [address], [place] [address] Feb, [facility] [address] [id number] [address] [place] [address], [place] [address] 06 Jan, 2012 [facility] [address] [id number] [address] [place] [address], [place] [address] Dec, [facility] [address] [id number] [address] [place] [address], [place] [address] Dec, [facility] [address] [id number] [address] [place] [address], [place] [address] Nov, [facility] [address] [id number] [address] [place] [address], [place] [address] Nov, [facility] [address] [id number] [address] [place] [address], [place] [address] Nov, [facility] [address] [id number] [address] [place] [address], [place] [address] Oct, [facility] [address] [id number] [address] [place] [address], [place] [address] September, [facility] [address] [id number] [address] [place] [address], [place] [address] Aug, [facility] [address] [id number] [address] [place] [address], [place] [address] Jul, [facility] [address] [id number] [address] [place] [address], [place] [address] Jun, [facility] [address] [id number] [address] [place] [address], [place] [address] Jun, [facility] [address] [id number] [address] [place] [address], [place] [address] Jun, [facility] [address] [id number] [address] [place] [address], [place] [address] 04 Jun, 2011 [facility] [address] [id number] [address] [place] [address], [place] [address] Apr, [facility] [address] [id number] [address] [place] [address], [place] [address] Apr, [facility] [address] [id number] [address] [place] [id number] Mar, [facility] [address] [id number] [address] [place] [phone] Mar, [facility] [address] [id number] [address] [place] [phone] Mar, [facility] [address] [id number] [address] [place] [phone] Mar, [facility] [address] [id number] [address] [place] [phone] Feb, [facility] [address] [id number] [address] [place] [phone] Feb, [facility] [address] [id number] [address] [place] [phone] Feb, [facility] [address] [id number] [address] [place] [phone] Feb, [facility] [address] [id number] [address] [place] [phone] Jul, [facility] [address] [id number] [address] [place] [id number] Jun, [facility] [address] [id number] [address] [place] [phone] Feb, IMMUNIZATIONS No Known Immunizations SOCIAL HISTORY Never Assessed REASON FOR VISIT [facility] PLAN OF CARE VITAL SIGNS MEDICATIONS No Known Medications RESULTS No Results PROCEDURES No Known [...]
--- OUTSIDE RECORDS SUMMARY | 2019-12-06 19:53 | XMS REPORT ---
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 Name Role Phone SHANE PARMAR Unavailable PROBLEMS Type Condition ICD9-CM Code UXJ52-ND Code Onset Dates Condition S tatus SNOMED Code Problem Dysthymia F34.1 Active 52816091 Problem Hyperinsulinemia E16.1 Active 834 52201 Problem MRSA (methicillin resistant Staphylococcus aureus) A49.02 Active 156103524 Problem Hyperglycemia R73.9 Active 635781 07 ALLERGIES Unknown Allergies SOCIAL HISTORY No smoking Hx information available PLAN OF CARE VITAL SIGNS MEDICATIONS Medication Instructions Dosage Frequency Start Date End Date Duration S tatus NuvaRing 0.12-0.015 MG/24HR Vaginal 1 ea intravaginally every 4 wee ks 1 ring Oct, 28 days Active RESULTS No Results PROCEDURES No Known procedures IMMUNIZATIONS No Known Immunizations
--- OUTSIDE RECORDS SUMMARY | 2019-12-06 19:53 | XMS REPORT ---
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 Name Role Phone SHANE PARMAR Unavailable PROBLEMS Type Condition ICD9-CM Code ILD04-BQ Code Onset Dates Condition S tatus SNOMED Code Problem Uses control Z30.9 Active 7 13278353 Problem Dysuria R30.0 Active 50219910 Problem Dysthymia F34.1 Active 64717408 Problem MRSA (methicillin resistant Staphylococcus aureus) A49.02 Active 180876367 Problem Hyperinsulinemia E16.1 Active 834 22557 Problem Encounter for annual physica l examination excluding gynecological examination in a patient older than 17 years Z00.00 Active 301050420 ALLERGIES No Information ENCOUNTERS Encounter Location Date Diagnosis [place] [id number] [id number] [address] [place] [address] Dec, [place] [address] [id number] [address] [place] [address] Oct, Uses control Z30.9 [facility] [address] [id number] [address] [place] [address] Aug, Encounter for annual physica l examination excluding gynecological examination in a patient older than 17 years Z00.00 ; Dysuria R30.0 and Uses control Z30.9 [place] [address] [id number] [address] [place] [address] May, Pharyngitis due to other org anism J02.8 [facility] [address] [id number] [address] [place] [address] 13 Oct, 2016 Cellulitis of right lower ex tremity L03.115 [place] [address] [place] [id number] [address] [place] [address] 05 Oct, 2016 Cellulitis of right lower ex tremity L03.115 [place] [address] [address] Aug, [facility] [address] [facility] [id number] [address] [place] [id number] Aug, Dental examination Z01.20 [place] [address] [address] Jul, [place] [address] [address] Jun, Well woman exam Z01.419 ; Ce rvical cancer screening Z12.4 ; Breast cancer screening Z12.39 and Right foot pain M79.671 [place] [address] [address] 02 Jun, 2016 Acute nasopharyngitis J00 [place] [address] [address] May, Contraceptive device, intrau terine Z97.5 [facility] [address] [address] Oct, Right lower quadrant abdomin al pain R10.31 ; Frequency of urination R35.0 ; Hematuria R31.9 and Renal calculi N20.0 [place] [address] [place] [id number] [address] [place] [address] Oct, Pain in unspecified knee M25 .569 ; Other chronic pain G89.29 ; Obesity, unspecified obesity severity, unspecified obesity type E66.9 and Depression F32.9 [place] [address] [address] Jun, Depressive disorder, not els ewhere classified F32.9 [facility] [address] [id number] 11 Feb, 2016 Hyperglycemia R73.9 and Obes ity E66.9 [facility] [address] [facility] [id number] [address] [place] [id number] 05 Jun, 2015 Obesity, unspecified obesity severity, unspecified obesity type E66.9 [facility] [address] [facility] [id number] [address] [place] [address] 28 May, 2015 Essential hypertension I10 a nd Obesity, unspecified obesity severity, unspecified obesity type E66.9 [facility] [address] [place] [id number] [address] [place] [address] Apr, Upper respiratory disease J3 9.9 ; Yeast vaginitis B37.3 ; Contraceptive device, intrauterine Z97.5 ; Depression F32.9 and Essential hypertension I10 [facility] [address] [place] [id number] [address] [place] [address] 30 Oct, 2014 Sinusitis 473.9 [facility] [address] [address] Oct, Edema 782.3 and Right foot p ain 729.5 [facility] [address] [place] [id number] [address] [place] [phone] Aug, [facility] [address] [place] [id number] [address] [place] [phone] Aug, [facility] [address] [place] [id number] [address] [place] [address] Jul, [facility] [address] [place] [id number] [address] [place] [phone] Jul, [facility] [address] [place] [id number] [address] [place] [address] May, [facility] [address] [place] [id number] [address] [place] [phone] May, [facility] [address] [place] [id number] [address] [place] [phone] Feb, [facility] [address] [id number] [address] [place] [address], [place] [address] Feb, [facility] [address] [id number] [address] [place] [address], [place] [address] Dec, [facility] [address] [id number] [address] [place] [address], [place] [address] Dec, [facility] [address] [id number] [address] [place] [address], [place] [address] Dec, [facility] [address] [id number] [address] [place] [address], [place] [address] Dec, [facility] [address] [id number] [address] [place] [address], [place] [address] Nov, [facility] [address] [id number] [address] [place] [address], [place] [address] Nov, [facility] [address] [id number] [address] [place] [address], [place] [address] Oct, [facility] [address] [id number] [address] [place] [address], [place] [address] Oct, [facility] [address] [id number] [address] [place] [address], [place] [address] Oct, [facility] [address] [id number] [address] [place] [address], [place] [address] Oct, [facility] [address] [id number] [address] [place] [address], [place] [address] Oct, [facility] [address] [id number] [address] [place] [address], [place] [address] Oct, [facility] [address] [id number] [address] [place] [address], [place] [address] Oct, [facility] [address] [id number] [address] [place] [address], [place] [address] Oct, [facility] [address] [id number] [address] [place] [address], [place] [address] Oct, [facility] [address] [id number] [address] [place] [address], [place] [address] Oct, [facility] [address] [id number] [address] [place] [address], [place] [address] September, [facility] [address] [id number] [address] [place] [address], [place] [address] September, [facility] [address] [id number] [address] [place] [address], [place] [address] Aug, [facility] [address] [id number] [address] [place] [address], [place] [address] Aug, [facility] [address] [id number] [address] [place] [address], [place] [address] Aug, [facility] [address] [id number] [address] [place] [address], [place] [address] Aug, [facility] [address] [id number] [address] [place] [address], [place] [address] Aug, [facility] [address] [id number] [address] [place] [address], [place] [address] Aug, [facility] [address] [id number] [address] [place] [address], [place] [address] Aug, [facility] [address] [id number] [address] [place] [address], [place] [address] Aug, [facility] [address] [id number] [address] [place] [address], [place] [address] May, [facility] [address] [id number] [address] [place] [address], [place] [address] May, [facility] [address] [id number] [address] [place] [address], [place] [address] May, [facility] [address] [id number] [address] [place] [address], [place] [address] May, [facility] [address] [id number] [address] [place] [address], [place] [address] May, [facility] [address] [id number] [address] [place] [address], [place] [address] May, [facility] [address] [id number] [address] [place] [address], [place] [address] Feb, [facility] [address] [id number] [address] [place] [address], [place] [address] Feb, [facility] [address] [id number] [address] [place] [address], [place] [address] Feb, [facility] [address] [id number] [address] [place] [address], [place] [address] Jan, [facility] [address] [id number] [address] [place] [address], [place] [address] Jan, [facility] [address] [id number] [address] [place] [address], [place] [address] Nov, [facility] [address] [id number] [address] [place] [address], [place] [address] Oct, [facility] [address] [id number] [address] [place] [address], [place] [address] September, [facility] [address] [id number] [address] [place] [address], [place] [address] Aug, [facility] [address] [id number] [address] [place] [address], [place] [address] Aug, [facility] [address] [id number] [address] [place] [address], [place] [address] Aug, [facility] [address] [id number] [address] [place] [address], [place] [address] Aug, [facility] [address] [id number] [address] [place] [address], [place] [address] May, [facility] [address] [id number] [address] [place] [address], [place] [address] Feb, [facility] [address] [id number] [address] [place] [address], [place] [address] Feb, [facility] [address] [id number] [address] [place] [address], [place] [address] Feb, [facility] [address] [id number] [address] [place] [address], [place] [address] Feb, [facility] [address] [id number] [address] [place] [address], [place] [address] Jan, [facility] [address] [id number] [address] [place] [address], [place] [address] Dec, [facility] [address] [id number] [address] [place] [address], [place] [address] Dec, [facility] [address] [id number] [address] [place] [address], [place] [address] Nov, [facility] [address] [id number] [address] [place] [address], [place] [address] Nov, [facility] [address] [id number] [address] [place] [address], [place] [address] Nov, [facility] [address] [id number] [address] [place] [address], [place] [address] Oct, [facility] [address] [id number] [address] [place] [address], [place] [address] September, [facility] [address] [id number] [address] [place] [address], [place] [address] Aug, [facility] [address] [id number] [address] [place] [address], [place] [address] Jul, [facility] [address] [id number] [address] [place] [address], [place] [address] Jun, [facility] [address] [id number] [address] [place] [address], [place] [address] Jun, [facility] [address] [id number] [address] [place] [address], [place] [address] Jun, [facility] [address] [id number] [address] [place] [address] Jun, [facility] [address] [id number] [address] [place] [address] Apr, [facility] [address] [id number] [address] [place] [address] Apr, [facility] [address] [id number] [address] [place] [address] Mar, [facility] [address] [id number] [address] [place] [address] Mar, [facility] [address] [id number] [address] [place] [address] Mar, [facility] [address] [id number] [address] [place] [address] Mar, [facility] [address] [id number] [address] [place] [address] Feb, [facility] [address] [id number] [address] [place] [id number] Feb, [facility] [address] [id number] [address] [place] [address] Feb, [facility] [address] [id number] [address] [place] [address] Feb, [facility] [address] [id number] [address] [place] [address] Jul, [facility] [address] [id number] [address] [place] [address] Jun, [facility] [address] [id number] [address] [place] [phone] Feb, IMMUNIZATIONS No Known Immunizations SOCIAL HISTORY Never Assessed REASON FOR VISIT PLAN OF CARE VITAL SIGNS Height 69 in 2014-07-06 Weight 313.31 lbs 2014-07-06 Temperature 99 degrees Fahrenheit 2014-07-06 Heart Rate 76 bpm 2014-07-06 Respiratory Rate 18 2014-07-06 Blood pressure systolic 136 mmHg 2014-07-06 Blood pressure diastolic 74 mmHg 2014-07-06 MEDICATIONS Unknown Medications RESULTS No Results PROCEDURES Procedure Date Ordered Result Body Site DESTRUCT LESION, 1-July 06, 2014 INSTRUCTIONS MEDICATIONS ADMINISTERED No Known Medications MEDICAL [...]
--- OUTSIDE RECORDS SUMMARY | 2019-12-06 19:53 | XMS REPORT ---
Author Author Tracee Ruth Doctor Organization [facility] Address Unknown Phone Unavailable Care Team Providers Care Advertising Sales Executive Name Role Phone Migration, Doctor Unavailable Unavailable PROBLEMS Type Condition ICD9-CM Code [id number] Code Onset Dates Condition S tatus SNOMED Code Problem Uses control Z30.9 Active 7 57269032 Problem Dysuria R30.0 Active 36040163 Problem Dysthymia F34.1 Active 92761777 Problem MRSA (methicillin resistant Staphylococcus aureus) A49.02 Active 997219683 Problem Hyperinsulinemia E16.1 Active 834 71790 Problem Encounter for annual physica l examination excluding gynecological examination in a patient older than 17 years Z00.00 Active [id number] ALLERGIES No Information ENCOUNTERS Encounter Location Date Diagnosis [place] [address] [facility] [id number] [address] [place] [address] Aug, Encounter for annual physica l examination excluding gynecological examination in a patient older than 17 years Z00.00 ; Dysuria R30.0 and Uses control Z30.9 [place] [id number] [facility] [id number] [address] [place] [address] May, Pharyngitis due to other org anism J02.8 [place] [address] [facility] [id number] [address] [place] [address] 13 Oct, 2016 Cellulitis of right lower ex tremity L03.115 [place] [address] [facility] [id number] [address] [place] [address] 05 Oct, 2016 Cellulitis of right lower ex tremity L03.115 [place] [address] [facility] [id number] [address] [place] [address] 19 Aug, 2016 [facility] [address] [id number] [address] [place] [id number] Aug, Dental examination Z01.20 [place] [address] [address] [place] [id number] [address] [place] [address] Jul, [place] [address] [address] 23 Jun, 2016 Well woman exam Z01.419 ; Ce rvical cancer screening Z12.4 ; Breast cancer screening Z12.39 and Right foot pain M79.671 [place] [address] [address] 02 Jun, 2016 Acute nasopharyngitis J00 [place] [address] [address] May, Contraceptive device, intrau terine Z97.5 [facility] [address] [address] Oct, Right lower quadrant abdomin al pain R10.31 ; Frequency of urination R35.0 ; Hematuria R31.9 and Renal calculi N20.0 [place] [address] [address] 16 Oct, 2015 Pain in unspecified knee M25 .569 ; Other chronic pain G89.29 ; Obesity, unspecified obesity severity, unspecified obesity type E66.9 and Depression F32.9 [place] [address] [address] Jun, Depressive disorder, not els ewhere classified F32.9 [place] [address] [address] Jun, Hyperglycemia R73.9 and Obes ity E66.[address] [address] 05 Jun, 2015 Obesity, unspecified obesity severity, unspecified obesity type E66.9 [place] [address] [address] May, Essential hypertension I10 a nd Obesity, unspecified obesity severity, unspecified obesity type E66.9 [facility] [address] [facility] [id number] [address] [place] [address] Apr, Upper respiratory disease J3 9.9 ; Yeast vaginitis B37.3 ; Contraceptive device, intrauterine Z97.5 ; Depression F32.9 and Essential hypertension I10 [facility] [address] [facility] [id number] [address] [place] [address] Oct, Sinusitis 473.9 [facility] [address] [facility] [id number] [address] [place] [address] Oct, Edema 782.3 and Right foot p ain 729.5 [facility] [address] [place] [id number] [address] [place] [address] Aug, [facility] [address] [place] [id number] [address] [place] [address] Aug, [facility] [address] [place] [id number] [address] [place] [address] Jul, [facility] [address] [facility] [id number] [address] [place] [address] Jul, [facility] [address] [place] [id number] [address] [place] [address] May, [facility] [address] [facility] [id number] [address] [place] [address] May, [facility] [address] [id number] [address] [place] [address] Feb, [facility] [address] [facility] [id number] [address] [place] [address] Feb, [facility] [address] [facility] [id number] [address] [place] [address] Dec, [facility] [address] [facility] [id number] [address] [place] [address] Dec, [facility] [address] [facility] [id number] [address] [place] [address] Dec, [facility] [address] [id number] [address] [place] [address], [place] [address] Dec, [facility] [address] [id number] [address] [place] [address], [place] [address] Nov, [facility] [address] [id number] [address] [place] [address], [place] [address] Nov, [facility] [address] [id number] [address] [place] [address], [place] [address] Oct, [facility] [address] [id number] [address] [place] [address], [place] [address] Oct, [facility] [address] [id number] [address] [place] [address], [place] [address] Oct, [facility] [address] [id number] [address] [place] [address], [place] [address] Oct, [facility] [address] [id number] [address] [place] [address], [place] [address] Oct, [facility] [address] [id number] [address] [place] [address], [place] [address] Oct, [facility] [address] [id number] [address] [place] [address], [place] [address] Oct, [facility] [address] [id number] [address] [place] [address], [place] [address] Oct, [facility] [address] [id number] [address] [place] [address], [place] [address] Oct, [facility] [address] [id number] [address] [place] [address], [place] [address] Oct, [facility] [address] [id number] [address] [place] [address], [place] [address] September, [facility] [address] [id number] [address] [place] [address], [place] [address] September, [facility] [address] [id number] [facility] [place] [address] Aug, [facility] [address] [id number] [address] [place] [address], [place] [address] Aug, [facility] [address] [id number] [address] [place] [address], [place] [address] Aug, [facility] [address] [id number] [address] [place] [address], [place] [address] Aug, [facility] [address] [id number] [address] [place] [address], [place] [address] Aug, [facility] [address] [id number] [address] [place] [address], [place] [address] Aug, [facility] [address] [id number] [address] [place] [address], [place] [address] Aug, [facility] [address] [id number] [address] [place] [address], [place] [address] Aug, [facility] [address] [id number] [address] [place] [address], [place] [address] May, [facility] [address] [id number] [address] [place] [address], [place] [address] May, [facility] [address] [id number] [address] [place] [address], [place] [address] May, [facility] [address] [id number] [address] [place] [address], [place] [address] May, [facility] [address] [id number] [address] [place] [address], [place] [address] May, [facility] [address] [id number] [address] [place] [address], [place] [address] May, [facility] [address] [id number] [address] [place] [address], [place] [address] Feb, [facility] [address] [id number] [address] [place] [address] [address] Feb, [facility] [address] [id number] [address] [place] [address], [place] [address] Feb, [facility] [address] [id number] [address] [place] [address], [place] [address] Jan, [facility] [address] [id number] [address] [place] [address], [place] [address] Jan, [facility] [address] [id number] [address] [place] [address], [place] [address] Nov, [facility] [address] [id number] [address] [place] [address], [place] [address] Oct, [facility] [address] [id number] [address] [place] [address], [place] [address] September, [facility] [address] [id number] [address] [place] [address], [place] [address] Aug, [facility] [address] [id number] [address] [place] [address], [place] [address] Aug, [facility] [address] [id number] [address] [place] [address], [place] [address] Aug, [facility] [address] [id number] [address] [place] [address], [place] [address] Aug, [facility] [address] [id number] [address] [place] [address], [place] [address] May, [facility] [address] [id number] [address] [place] [address], [place] [address] Feb, [facility] [address] [id number] [address] [place] [address], [place] [address] Feb, [facility] [address] [id number] [address] [place] [address], [place] [address] Feb, [facility] [address] [id number] [address] [place] [address], [place] [address] Feb, [facility] [address] [id number] [address] [place] [address], [place] [address] 06 Jan, 2012 [facility] [address] [id number] [address] [place] [address], [place] [address] Dec, [facility] [address] [id number] [address] [place] [address], [place] [address] Dec, [facility] [address] [id number] [address] [place] [address], [place] [address] Nov, [facility] [address] [id number] [address] [place] [address], [place] [address] Nov, [facility] [address] [id number] [address] [place] [address], [place] [address] Nov, [facility] [address] [id number] [address] [place] [address], [place] [address] Oct, [facility] [address] [id number] [address] [place] [address], [place] [address] September, [facility] [address] [id number] [address] [place] [address], [place] [address] Aug, [facility] [address] [id number] [address] [place] [address], [place] [address] Jul, [facility] [address] [id number] [address] [place] [address], [place] [address] Jun, [facility] [address] [id number] [address] [place] [address], [place] [address] Jun, [facility] [address] [id number] [address] [place] [address], [place] [address] Jun, [facility] [address] [id number] [address] [place] [address], [place] [address] 04 Jun, 2011 [facility] [address] [id number] [address] [place] [address], [place] [address] Apr, [facility] [address] [id number] [address] [place] [address], [place] [address] Apr, [facility] [address] [id number] [address] [place] [address] Mar, [facility] [address] [id number] [address] [place] [address] Mar, [facility] [address] [id number] [address] [place] [address] Mar, [facility] [address] [id number] [address] [place] [address] Mar, [facility] [address] [id number] [address] [place] [address] Feb, [facility] [address] [id number] [address] [place] [address] Feb, [facility] [address] [id number] [address] [place] [address] Feb, [facility] [address] [id number] [address] [place] [address] Feb, [facility] [address] [id number] [address] [place] [address] Jul, [facility] [address] [id number] [address] [place] [address] Jun, [facility] [address] [id number] [address] [place] [address] Feb, IMMUNIZATIONS No Known Immunizations SOCIAL HISTORY Never Assessed REASON FOR VISIT [facility] PLAN OF CARE VITAL SIGNS MEDICATIONS Medication Instructions Dosage Frequency Start Date End Date Duration S tatus NuvaRing 0.12-0.015 mg/24 hr 1 ea by Vaginal route yon ry 4 weeks Oct, Active Fluoxetine 40 mg 1 capsule by Oral route 1 time per day Dec, Active Amoxicillin 500 mg 1 capsule by Oral route 3 times per day for 1 days May, Active Augmentin 875-125 mg 1 tablet by Oral route 2 times pe r day for 10 day(s) Aug, Active Bactroban 2 % 1 earl by Topical route 2 times per day f or 7 day(s) Jun, Active Bactrim DS 800-160 mg 1 tablet by Oral route 2 times p er day for 10 day(s) Jul, Active RESULTS No Results PROCEDURES No Known [...]
--- OUTSIDE RECORDS SUMMARY | 2019-12-06 19:53 | XMS REPORT ---
Author Author Tracee Ruth Doctor Organization [facility] Address Unknown Phone Unavailable Care Team Providers Care Plastic Surgery Specialist Name Role Phone Migration, Doctor Unavailable Unavailable PROBLEMS Type Condition ICD9-CM Code KLL07-PM Code Onset Dates Condition S tatus SNOMED Code Problem Uses control Z30.9 Active 7 92463667 Problem Dysuria R30.0 Active 67715611 Problem Dysthymia F34.1 Active 28196492 Problem MRSA (methicillin resistant Staphylococcus aureus) A49.02 Active 450958832 Problem Hyperinsulinemia E16.1 Active 834 85963 Problem Encounter for annual physica l examination excluding gynecological examination in a patient older than 17 years Z00.00 Active [id number] ALLERGIES No Information ENCOUNTERS Encounter Location Date Diagnosis [place] [address] [address] [facility] [place] [id number] [address] [place] [phone] Aug, Encounter for annual physica l examination excluding gynecological examination in a patient older than 17 years Z00.00 ; Dysuria R30.0 and Uses control Z30.9 [place] [address] [facility] [place] [id number] [address] [place] [phone] May, Pharyngitis due to other org anism J02.8 [place] [address] [address] [facility] [place] [id number] [address] [place] [id number] 13 Oct, 2016 Cellulitis of right lower ex tremity L03.115 [place] [address] [facility] [place] [id number] [address] [place] [phone] 05 Oct, 2016 Cellulitis of right lower ex tremity L03.115 [place] [address] [facility] [place] [id number] [address] [place] [id number] 19 Aug, 2016 [facility] [address] [id number] [address] [place] [id number] Aug, Dental examination Z01.20 [place] [address] [address] [place] [id number] [address] [place] [phone] Jul, [place] [address] [address] 23 Jun, 2016 Well woman exam Z01.419 ; Ce rvical cancer screening Z12.4 ; Breast cancer screening Z12.39 and Right foot pain M79.671 [place] [address] [address] 02 Jun, 2016 Acute nasopharyngitis J00 [place] [address] [address] May, Contraceptive device, intrau terine Z97.5 [facility] [address] [address] Oct, Right lower quadrant abdomin al pain R10.31 ; Frequency of urination R35.0 ; Hematuria R31.9 and Renal calculi N20.0 [place] [address] [address] 16 Oct, 2015 Pain in unspecified knee M25 .569 ; Other chronic pain G89.29 ; Obesity, unspecified obesity severity, unspecified obesity type E66.9 and Depression F32.9 [place] [address] [address] Jun, Depressive disorder, not els ewhere classified F32.9 [place] [address] [address] Jun, Hyperglycemia R73.9 and Obes ity E66.[address] [address] 05 Jun, 2015 Obesity, unspecified obesity severity, unspecified obesity type E66.9 [place] [address] [address] May, Essential hypertension I10 a nd Obesity, unspecified obesity severity, unspecified obesity type E66.9 [facility] [place] [address] [facility] [place] [id number] [address] [place] [phone] Apr, Upper respiratory disease J3 9.9 ; Yeast vaginitis B37.3 ; Contraceptive device, intrauterine Z97.5 ; Depression F32.9 and Essential hypertension I10 [facility] [place] [address] [facility] [place] [id number] [address] [place] [phone] Oct, Sinusitis 473.9 [facility] [place] [address] [facility] [place] [id number] [address] [place] [phone] Oct, Edema 782.3 and Right foot p ain 729.5 [facility] [place] [address] [place] [id number] [address] [place] [phone] Aug, [facility] [place] [address] [place] [id number] [address] [place] [phone] Aug, [facility] [place] [address] [place] [id number] [address] [place] [phone] Jul, [facility] [place] [address] [facility] [place] [id number] [address] [place] [phone] Jul, [facility] [place] [address] [place] [id number] [address] [place] [phone] May, [facility] [place] [address] [facility] [place] [id number] [address] [place] [phone] May, [facility] [place] [address] [id number] [address] [place] [phone] Feb, [facility] [place] [address] [facility] [place] [id number] [address] [place] [phone] Feb, [facility] [place] [address] [facility] [place] [id number] [address] [place] [phone] Dec, [facility] [place] [address] [facility] [place] [id number] [address] [place] [phone] Dec, [facility] [place] [address] [facility] [place] [id number] [address] [place] [phone] Dec, [facility] [address] [id number] [address] [place] [address], [place] [address] Dec, [facility] [address] [id number] [address] [place] [address], [place] [address] Nov, [facility] [address] [id number] [address] [place] [address], [place] [address] Nov, [facility] [address] [id number] [address] [place] [address], [place] [address] Oct, [facility] [address] [id number] [address] [place] [address], [place] [address] Oct, [facility] [address] [id number] [address] [place] [address], [place] [address] Oct, [facility] [address] [id number] [address] [place] [address], [place] [address] Oct, [facility] [address] [id number] [address] [place] [address], [place] [address] Oct, [facility] [address] [id number] [address] [place] [address], [place] [address] Oct, [facility] [address] [id number] [address] [place] [address], [place] [address] Oct, [facility] [address] [id number] [address] [place] [address], [place] [address] Oct, [facility] [address] [id number] [address] [place] [address], [place] [address] Oct, [facility] [address] [id number] [address] [place] [address], [place] [address] Oct, [facility] [address] [id number] [address] [place] [address], [place] [address] September, [facility] [address] [id number] [address] [place] [address], [place] [address] September, [facility] [address] [id number] [address] [place] [address] Aug, [facility] [address] [id number] [address] [place] [address], [place] [address] Aug, [facility] [address] [id number] [address] [place] [address], [place] [address] Aug, [facility] [address] [id number] [address] [place] [address], [place] [address] Aug, [facility] [address] [id number] [address] [place] [address], [place] [address] Aug, [facility] [address] [id number] [address] [place] [address], [place] [address] Aug, [facility] [address] [id number] [address] [place] [address], [place] [address] Aug, [facility] [address] [id number] [address] [place] [address], [place] [address] Aug, [facility] [address] [id number] [address] [place] [address], [place] [address] May, [facility] [address] [id number] [address] [place] [address], [place] [address] May, [facility] [address] [id number] [address] [place] [address], [place] [address] May, [facility] [address] [id number] [address] [place] [address], [place] [address] May, [facility] [address] [id number] [address] [place] [address], [place] [address] May, [facility] [address] [id number] [address] [place] [address], [place] [address] May, [facility] [address] [id number] [address] [place] [address], [place] [address] Feb, [facility] [address] [id number] [address] [place] [address] [address] Feb, [facility] [address] [id number] [address] [place] [address], [place] [address] Feb, [facility] [address] [id number] [address] [place] [address], [place] [address] Jan, [facility] [address] [id number] [address] [place] [address], [place] [address] Jan, [facility] [address] [id number] [address] [place] [address], [place] [address] Nov, [facility] [address] [id number] [address] [place] [address], [place] [address] Oct, [facility] [address] [id number] [address] [place] [address], [place] [address] September, [facility] [address] [id number] [address] [place] [address], [place] [address] Aug, [facility] [address] [id number] [address] [place] [address], [place] [address] Aug, [facility] [address] [id number] [address] [place] [address], [place] [address] Aug, [facility] [address] [id number] [address] [place] [address], [place] [address] Aug, [facility] [address] [id number] [address] [place] [address], [place] [address] May, [facility] [address] [id number] [address] [place] [address], [place] [address] Feb, [facility] [address] [id number] [address] [place] [address], [place] [address] Feb, [facility] [address] [id number] [address] [place] [address], [place] [address] Feb, [facility] [address] [id number] [address] [place] [address], [place] [address] Feb, [facility] [address] [id number] [address] [place] [address], [place] [address] 06 Jan, 2012 [facility] [address] [id number] [address] [place] [address], [place] [address] Dec, [facility] [address] [id number] [address] [place] [address], [place] [address] Dec, [facility] [address] [id number] [address] [place] [address], [place] [address] Nov, [facility] [address] [id number] [address] [place] [address], [place] [address] Nov, [facility] [address] [id number] [address] [place] [address], [place] [address] Nov, [facility] [address] [id number] [address] [place] [address], [place] [address] Oct, [facility] [address] [id number] [address] [place] [address], [place] [address] September, [facility] [address] [id number] [address] [place] [address], [place] [address] Aug, [facility] [address] [id number] [address] [place] [address], [place] [address] Jul, [facility] [address] [id number] [address] [place] [address], [place] [address] Jun, [facility] [address] [id number] [address] [place] [address], [place] [address] Jun, [facility] [address] [id number] [address] [place] [address], [place] [address] Jun, [facility] [address] [id number] [address] [place] [address], [place] [address] 04 Jun, 2011 [facility] [address] [id number] [address] [place] [address], [place] [address] Apr, [facility] [address] [id number] [address] [place] [address], [place] [address] Apr, [facility] [place] [address] [id number] [address] [place] [id number] Mar, [facility] [place] [address] [id number] [address] [place] [phone] Mar, [facility] [place] [address] [id number] [address] [place] [id number] Mar, [facility] [place] [address] [id number] [address] [place] [id number] Mar, [facility] [place] [address] [id number] [address] [place] [phone] Feb, [facility] [place] [address] [id number] [address] [place] [phone] Feb, [facility] [place] [address] [id number] [address] [place] [phone] Feb, [facility] [place] [address] [id number] [address] [place] [phone] Feb, [facility] [place] [address] [id number] [address] [place] [phone] Jul, [facility] [place] [address] [id number] [address] [place] [id number] Jun, [facility] [place] [address] [id number] [address] [place] [phone] Feb, IMMUNIZATIONS No Known Immunizations SOCIAL HISTORY Never Assessed REASON FOR VISIT [facility] PLAN OF CARE VITAL SIGNS MEDICATIONS No [...]
--- OUTSIDE RECORDS SUMMARY | 2019-12-06 19:53 | XMS REPORT ---
Author Author Tracee FARR Organization [facility] Address Unknown Care Team Providers Care Emissions Testing And Repair Technician Name Role Phone GERBERARABELLA LOMELI Unavailable PROBLEMS Type Condition ICD9-CM Code TVA96-NG Code Onset Dates Condition S tatus SNOMED Code Problem Dysthymia F34.1 Active 41193411 Problem Hyperinsulinemia E16.1 Active 834 00083 Problem MRSA (methicillin resistant Staphylococcus aureus) A49.02 Active 347509091 Problem Hyperglycemia R73.9 Active 743093 07 ALLERGIES No Known Allergies SOCIAL HISTORY Never Assessed PLAN OF CARE Activity Details Follow Up prn Reason:amina/hygiene VITAL SIGNS Height 69 in 2016-08-12 Blood pressure systolic 143 mmHg 2016-08-12 Blood pressure diastolic 91 mmHg 2016-08-12 MEDICATIONS Unknown Medications RESULTS No Results PROCEDURES Procedure Date Ordered Result Body Site LTD ORAL EVALUATION - PROBLEM FOCUS August 12, 2016 INTRAORL-PERIAPICAL 1 FILM [id number] August 12, 2016 BITEWING - SINGLE FILM August 12, 2016 IMMUNIZATIONS No Known Immunizations MEDICAL (GENERAL) HISTORY Type Description Date Medical [...]
--- OUTSIDE RECORDS SUMMARY | 2019-12-06 19:53 | XMS REPORT ---
Author Author Tracee SAEED Organization [facility] Address [address] [place] [address] Care Team Providers Care Design Printing Machine Set Up Operator Name Role Phone KASSIDY SAEED Unavailable PROBLEMS Type Condition ICD9-CM Code VRY85-VC Code Onset Dates Condition S tatus SNOMED Code Problem Dysthymia F34.1 Active 76657680 Problem Hyperinsulinemia E16.1 Active 834 01203 Problem MRSA (methicillin resistant Staphylococcus aureus) A49.02 Active 593974314 Problem Hyperglycemia R73.9 Active 547603 07 ALLERGIES No Known Allergies ENCOUNTERS Encounter Location Date Diagnosis [facility] [address] [id number] [address] [place] [id number] Aug, [facility] [address] [id number] [address] [place] [address] May, Pharyngitis due to other org anism J02.8 [facility] [address] [id number] [address] [place] [address] 13 Oct, 2016 Cellulitis of right lower ex tremity L03.115 [facility] [address] [id number] [address] [place] [address] 05 Oct, 2016 Cellulitis of right lower ex tremity L03.115 [facility] [address] [id number] [address] [place] [address] Aug, [facility] [address] [id number] [address] [place] [id number] Aug, Dental examination Z01.20 [facility] [address] [id number] [address] [place] [address] Jul, [facility] [address] [id number] [address] [place] [address] Jun, Well woman exam Z01.419 ; Ce rvical cancer screening Z12.4 ; Breast cancer screening Z12.39 and Right foot pain M79.671 [place] [address] [place] [id number] [address] [place] [address] 02 Jun, 2016 Acute nasopharyngitis J00 [place] [address] [place] [id number] [address] [place] [phone] 09 May, 2016 Contraceptive device, intrau terine Z97.5 [facility] [address] [facility] [id number] [address] [place] [address] 20 Oct, 2015 Right lower quadrant abdomin al pain R10.31 ; Frequency of urination R35.0 ; Hematuria R31.9 and Renal calculi N20.0 [place] [address] [place] [id number] [address] [place] [address] 16 Oct, 2015 Pain in unspecified knee M25 .569 ; Other chronic pain G89.29 ; Obesity, unspecified obesity severity, unspecified obesity type E66.9 and Depression F32.9 [place] [id number] [place] [address] Jun, Depressive disorder, not els ewhere classified F32.9 [place] [address] [place] [id number] [address] [place] [address] Jun, Hyperglycemia R73.9 and Obes ity E66.9 [place] [address] [place] [id number] [address] [place] [address] Jun, Obesity, unspecified obesity severity, unspecified obesity type E66.9 [place] [address] [place] [id number] [address] [place] [address] May, Essential hypertension I10 a nd Obesity, unspecified obesity severity, unspecified obesity type E66.9 [place] [address] [place] [id number] [address] [place] [address] Apr, Upper respiratory disease J3 9.9 ; Yeast vaginitis B37.3 ; Contraceptive device, intrauterine Z97.5 ; Depression F32.9 and Essential hypertension I10 [facility] [address] [id number] [address] [place] [phone] Oct, Sinusitis 473.9 [facility] [address] [facility] [id number] [address] [place] [address] Oct, Edema 782.3 and Right foot p ain 729.5 [facility] [address] [id number] [address] [place] [phone] Aug, [facility] [address] [id number] [address] [place] [phone] Aug, [facility] [address] [facility] [id number] [address] [place] [phone] Jul, [facility] [address] [facility] [id number] [address] [place] [address] Jul, [facility] [address] [facility] [id number] [address] [place] [phone] May, [facility] [address] [facility] [id number] [address] [place] [phone] May, [facility] [address] [facility] [id number] [address] [place] [phone] Feb, [facility] [address] [facility] [id number] [address] [place] [phone] Feb, [facility] [address] [id number] [address] [place] [phone] Dec, [facility] [address] [id number] [address] [place] [phone] Dec, [facility] [address] [facility] [id number] [address] [place] [phone] Dec, [facility] [address] [facility] [id number] [address] [place] [phone] Dec, [facility] [address] [id number] [facility] [place] [address] Nov, [facility] [address] [id number] [address] [place] [address], [place] [address] Nov, [facility] [address] [id number] [address] [place] [address], [place] [address] Oct, [facility] [address] [id number] [address] [place] [address], [place] [address] Oct, [facility] [address] [id number] [address] [place] [address], [place] [address] Oct, [facility] [address] [id number] [address] [place] [address], [place] [address] Oct, [facility] [address] [id number] [address] [place] [address], [place] [address] Oct, [facility] [address] [id number] [address] [place] [address], [place] [address] Oct, [facility] [address] [id number] [address] [place] [address], [place] [address] Oct, [facility] [address] [id number] [address] [place] [address], [place] [address] Oct, [facility] [address] [id number] [address] [place] [address], [place] [address] Oct, [facility] [address] [id number] [address] [place] [address], [place] [address] Oct, [facility] [address] [id number] [address] [place] [address], [place] [address] September, [facility] [address] [id number] [address] [place] [address], [place] [address] September, [facility] [address] [id number] [address] [place] [address], [place] [address] Aug, [facility] [address] [id number] [address] [place] [address], [place] [address] Aug, [facility] [address] [id number] [address] [place] [address], [place] [address] Aug, [facility] [address] [id number] [address] [place] [address], [place] [address] Aug, [facility] [address] [id number] [address] [place] [address], [place] [address] Aug, [facility] [address] [id number] [address] [place] [address], [place] [address] Aug, [facility] [address] [id number] [address] [place] [address], [place] [address] Aug, [facility] [address] [id number] [address] [place] [address], [place] [address] Aug, [facility] [address] [id number] [address] [place] [address], [place] [address] May, [facility] [address] [id number] [address] [place] [address], [place] [address] May, [facility] [address] [id number] [address] [place] [address], [place] [address] May, [facility] [address] [id number] [address] [place] [address], [place] [address] May, [facility] [address] [id number] [address] [place] [address], [place] [address] May, [facility] [address] [id number] [address] [place] [address], [place] [address] May, [facility] [address] [id number] [address] [place] [address], [place] [address] Feb, [facility] [address] [id number] [address] [place] [address], [place] [address] Feb, [facility] [address] [id number] [address] [place] [address], [place] [address] Feb, [facility] [address] [id number] [address] [place] [address], [place] [address] Jan, [facility] [address] [id number] [address] [place] [address], [place] [address] 24 Jan, 2013 [facility] [address] [id number] [address] [place] [address], [place] [address] Nov, [facility] [address] [id number] [address] [place] [address], [place] [address] Oct, [facility] [address] [id number] [address] [place] [address], [place] [address] September, [facility] [address] [id number] [address] [place] [address], [place] [address] Aug, [facility] [address] [id number] [address] [place] [address], [place] [address] Aug, [facility] [address] [id number] [address] [place] [address], [place] [address] Aug, [facility] [address] [id number] [address] [place] [address], [place] [address] Aug, [facility] [address] [id number] [address] [place] [address], [place] [address] May, [facility] [address] [id number] [address] [place] [address], [place] [address] Feb, [facility] [address] [id number] [address] [place] [address], [place] [address] Feb, [facility] [address] [id number] [address] [place] [address], [place] [address] Feb, [facility] [address] [id number] [address] [place] [address], [place] [address] Feb, [facility] [address] [id number] [address] [place] [address], [place] [address] Jan, [facility] [address] [id number] [address] [place] [address], [place] [address] Dec, [facility] [address] [id number] [address] [place] [address], [place] [address] Dec, [facility] [address] [id number] [address] [place] [address], [place] [address] Nov, [facility] [address] [id number] [address] [place] [address], [place] [address] Nov, [facility] [address] [id number] [address] [place] [address], [place] [address] Nov, [facility] [address] [id number] [address] [place] [address], [place] [address] Oct, [facility] [address] [id number] [address] [place] [address], [place] [address] September, [facility] [address] [id number] [address] [place] [address], [place] [address] Aug, [facility] [address] [id number] [address] [place] [address], [place] [address] Jul, [facility] [address] [id number] [address] [place] [address], [place] [address] Jun, [facility] [address] [id number] [address] [place] [address], [place] [address] Jun, [facility] [address] [id number] [address] [place] [address], [place] [address] Jun, [facility] [address] [id number] [address] [place] [address], [place] [address] Jun, [facility] [address] [id number] [address] [place] [address], [place] [address] Apr, [facility] [address] [id number] [address] [place] [address], [place] [address] Apr, [facility] [address] [id number] [address] [place] [address], [place] [address] Mar, [facility] [address] [id number] [address] [place] [address] Mar, [facility] [address] [id number] [address] [place] [address] Mar, [facility] [address] [id number] [address] [place] [address] Mar, [facility] [address] [id number] [address] [place] [address] Feb, [facility] [address] [id number] [address] [place] [address] Feb, [facility] [address] [id number] [address] [place] [address] Feb, [facility] [address] [id number] [address] [place] [address] Feb, [facility] [address] [id number] [address] [place] [address] Jul, [facility] [address] [id number] [address] [place] [address] Jun, [facility] [address] [id number] [address] [place] [id number] Feb, IMMUNIZATIONS No Known Immunizations SOCIAL HISTORY Never Assessed REASON FOR VISIT Foot concerns - Right foot irritation along incision line. States she has had m ultiple surgeries on that foot. - Mirella [employer] PLAN OF CARE Activity Details Follow Up prn Reason: VITAL SIGNS Height 69 in 2016-10-06 Weight 220.9 lbs 2016-10-06 Temperature 99.1 degrees Fahrenheit 2016-10-06 Heart Rate 88 bpm 2016-10-06 Respiratory Rate 20 2016-10-06 BMI 32.62 kg/m2 2016-10-06 Blood pressure systolic 160 mmHg 2016-10-06 Blood pressure diastolic 87 mmHg 2016-10-06 MEDICATIONS Medication Instructions Dosage Frequency Start Date End Date Duration S jono Doxycycline Hyclate 100 mg Orally every 12 hrs 1 capsule 12h Oct, Oct, 5 day(s) Active RESULTS No Results PROCEDURES No Known [...]
--- OUTSIDE RECORDS SUMMARY | 2019-12-06 19:53 | XMS REPORT ---
Author Author Tracee Ruth Doctor Organization [facility] Address Unknown Phone Unavailable Care Team Providers Care Snow Remover Name Role Phone Migration, Doctor Unavailable Unavailable PROBLEMS Type Condition ICD9-CM Code SXU39-QY Code Onset Dates Condition S tatus SNOMED Code Problem Uses control Z30.9 Active 7 15510025 Problem Dysuria R30.0 Active 53518175 Problem Dysthymia F34.1 Active 75885334 Problem MRSA (methicillin resistant Staphylococcus aureus) A49.02 Active 318486508 Problem Hyperinsulinemia E16.1 Active 834 74646 Problem Encounter for annual physica l examination excluding gynecological examination in a patient older than 17 years Z00.00 Active [id number] ALLERGIES No Information ENCOUNTERS Encounter Location Date Diagnosis [place] [address] [address] [facility] [id number] [address] [place] [address] Aug, Encounter for annual physica l examination excluding gynecological examination in a patient older than 17 years Z00.00 ; Dysuria R30.0 and Uses control Z30.9 [place] [address] [facility] [id number] [address] [place] [address] May, Pharyngitis due to other org anism J02.8 [place] [address] [address] [facility] [id number] [address] [place] [address] 13 Oct, 2016 Cellulitis of right lower ex tremity L03.115 [place] [address] [facility] [id number] [address] [place] [address] 05 Oct, 2016 Cellulitis of right lower ex tremity L03.115 [place] [address] [facility] [id number] [address] [place] [address] Aug, [facility] [address] [id number] [address] [place] [id number] Aug, Dental examination Z01.20 [place] [address] [address] [place] [id number] [address] [place] [address] Jul, [place] [address] [address] 23 Jun, 2016 Well woman exam Z01.419 ; Ce rvical cancer screening Z12.4 ; Breast cancer screening Z12.39 and Right foot pain M79.671 [place] [address] [address] 02 Jun, 2016 Acute nasopharyngitis J00 [place] [address] [address] May, Contraceptive device, intrau terine Z97.5 [facility] [address] [address] Oct, Right lower quadrant abdomin al pain R10.31 ; Frequency of urination R35.0 ; Hematuria R31.9 and Renal calculi N20.0 [place] [address] [address] 16 Oct, 2015 Pain in unspecified knee M25 .569 ; Other chronic pain G89.29 ; Obesity, unspecified obesity severity, unspecified obesity type E66.9 and Depression F32.9 [place] [address] [address] Jun, Depressive disorder, not els ewhere classified F32.9 [place] [address] [address] Jun, Hyperglycemia R73.9 and Obes ity E66.[address] [address] 05 Jun, 2015 Obesity, unspecified obesity severity, unspecified obesity type E66.9 [place] [address] [address] May, Essential hypertension I10 a nd Obesity, unspecified obesity severity, unspecified obesity type E66.9 [facility] [address] [facility] [id number] [address] [place] [address] Apr, Upper respiratory disease J3 9.9 ; Yeast vaginitis B37.3 ; Contraceptive device, intrauterine Z97.5 ; Depression F32.9 and Essential hypertension I10 [facility] [address] [facility] [id number] [address] [place] [address] Oct, Sinusitis 473.9 [facility] [address] [facility] [id number] [address] [place] [address] Oct, Edema 782.3 and Right foot p ain 729.5 [facility] [address] [place] [id number] [address] [place] [address] Aug, [facility] [address] [place] [id number] [address] [place] [phone] Aug, [facility] [address] [place] [id number] [address] [place] [phone] Jul, [facility] [address] [facility] [id number] [address] [place] [phone] Jul, [facility] [address] [place] [id number] [address] [place] [phone] May, [facility] [address] [facility] [id number] [address] [place] [phone] May, [facility] [address] [id number] [address] [place] [phone] Feb, [facility] [address] [facility] [id number] [address] [place] [phone] Feb, [facility] [address] [facility] [id number] [address] [place] [address] Dec, [facility] [address] [facility] [id number] [address] [place] [address] Dec, [facility] [address] [facility] [id number] [address] [place] [phone] Dec, [facility] [address] [id number] [address] [place] [address], [place] [address] Dec, [facility] [address] [id number] [address] [place] [address], [place] [address] Nov, [facility] [address] [id number] [address] [place] [address], [place] [address] Nov, [facility] [address] [id number] [address] [place] [address], [place] [address] Oct, [facility] [address] [id number] [address] [place] [address], [place] [address] Oct, [facility] [address] [id number] [address] [place] [address], [place] [address] Oct, [facility] [address] [id number] [address] [place] [address], [place] [address] Oct, [facility] [address] [id number] [address] [place] [address], [place] [address] Oct, [facility] [address] [id number] [address] [place] [address], [place] [address] Oct, [facility] [address] [id number] [address] [place] [address], [place] [address] Oct, [facility] [address] [id number] [address] [place] [address], [place] [address] Oct, [facility] [address] [id number] [address] [place] [address], [place] [address] Oct, [facility] [address] [id number] [address] [place] [address], [place] [address] Oct, [facility] [address] [id number] [address] [place] [address], [place] [address] September, [facility] [address] [id number] [address] [place] [address], [place] [address] September, [facility] [address] [id number] [facility] [place] [address] Aug, [facility] [address] [id number] [address] [place] [address], [place] [address] Aug, [facility] [address] [id number] [address] [place] [address], [place] [address] Aug, [facility] [address] [id number] [address] [place] [address], [place] [address] Aug, [facility] [address] [id number] [address] [place] [address], [place] [address] Aug, [facility] [address] [id number] [address] [place] [address], [place] [address] Aug, [facility] [address] [id number] [address] [place] [address], [place] [address] Aug, [facility] [address] [id number] [address] [place] [address], [place] [address] Aug, [facility] [address] [id number] [address] [place] [address], [place] [address] May, [facility] [address] [id number] [address] [place] [address], [place] [address] May, [facility] [address] [id number] [address] [place] [address], [place] [address] May, [facility] [address] [id number] [address] [place] [address], [place] [address] May, [facility] [address] [id number] [address] [place] [address], [place] [address] May, [facility] [address] [id number] [address] [place] [address], [place] [address] May, [facility] [address] [id number] [address] [place] [address], [place] [address] Feb, [facility] [address] [id number] [address] [place] [address] [address] Feb, [facility] [address] [id number] [address] [place] [address], [place] [address] Feb, [facility] [address] [id number] [address] [place] [address], [place] [address] Jan, [facility] [address] [id number] [address] [place] [address], [place] [address] Jan, [facility] [address] [id number] [address] [place] [address], [place] [address] Nov, [facility] [address] [id number] [address] [place] [address], [place] [address] Oct, [facility] [address] [id number] [address] [place] [address], [place] [address] September, [facility] [address] [id number] [address] [place] [address], [place] [address] Aug, [facility] [address] [id number] [address] [place] [address], [place] [address] Aug, [facility] [address] [id number] [address] [place] [address], [place] [address] Aug, [facility] [address] [id number] [address] [place] [address], [place] [address] Aug, [facility] [address] [id number] [address] [place] [address], [place] [address] May, [facility] [address] [id number] [address] [place] [address], [place] [address] Feb, [facility] [address] [id number] [address] [place] [address], [place] [address] Feb, [facility] [address] [id number] [address] [place] [address], [place] [address] Feb, [facility] [address] [id number] [address] [place] [address], [place] [address] Feb, [facility] [address] [id number] [address] [place] [address], [place] [address] 06 Jan, 2012 [facility] [address] [id number] [address] [place] [address], [place] [address] Dec, [facility] [address] [id number] [address] [place] [address], [place] [address] Dec, [facility] [address] [id number] [address] [place] [address], [place] [address] Nov, [facility] [address] [id number] [address] [place] [address], [place] [address] Nov, [facility] [address] [id number] [address] [place] [address], [place] [address] Nov, [facility] [address] [id number] [address] [place] [address], [place] [address] Oct, [facility] [address] [id number] [address] [place] [address], [place] [address] September, [facility] [address] [id number] [address] [place] [address], [place] [address] Aug, [facility] [address] [id number] [address] [place] [address], [place] [address] Jul, [facility] [address] [id number] [address] [place] [address], [place] [address] Jun, [facility] [address] [id number] [address] [place] [address], [place] [address] Jun, [facility] [address] [id number] [address] [place] [address], [place] [address] Jun, [facility] [address] [id number] [address] [place] [address], [place] [address] 04 Jun, 2011 [facility] [address] [id number] [address] [place] [address], [place] [address] Apr, [facility] [address] [id number] [address] [place] [address], [place] [address] Apr, [facility] [address] [id number] [address] [place] [address] Mar, [facility] [address] [id number] [address] [place] [address] Mar, [facility] [address] [id number] [address] [place] [address] Mar, [facility] [address] [id number] [address] [place] [address] Mar, [facility] [address] [id number] [address] [place] [address] Feb, [facility] [address] [id number] [address] [place] [address] Feb, [facility] [address] [id number] [address] [place] [address] Feb, [facility] [address] [id number] [address] [place] [address] Feb, [facility] [address] [id number] [address] [place] [address] Jul, [facility] [address] [id number] [address] [place] [address] Jun, [facility] [address] [id number] [address] [place] [address] Feb, IMMUNIZATIONS No Known Immunizations SOCIAL HISTORY Never Assessed REASON FOR VISIT [facility] [...]
--- OUTSIDE RECORDS SUMMARY | 2019-12-06 19:53 | XMS REPORT ---
Author Author Tracee PARMAR Organization [employer] Address Unknown Phone Unavailable Care Team Providers Care Airport Engineer Name Role Phone SHANE PARMAR CP Unavailable Allergies, Adverse Reactions, Alerts Substance Reaction Event Type N.K.D.A. Info Not Available Non Drug Allergy Problems Problem Type Condition Code Onset Dates Condition Statu s Problem Methicillin resistant Staphylococcus aureus 041.12 Active Problem Viral warts, unspecified 078.10 Act [place] Problem Personal history of other diseases of digestive diseas e V12.79 Active Problem Unspecified breast screening V76.10 Active Assessment Essential hypertension I10 Activ e Problem Screening for malignant neoplasm of the cervix V76.2 Active Problem Pain in soft tissues of limb 729.5 Active Problem Cellulitis and abscess of face 682.0 Active Problem Screening examination for pulmonary tuberculosis V74.1 Active Problem Major depressive disorder, r ecurrent episode, severe, without mention of psychotic behavior 296.33 Active Problem Pain in joint, ankle and foot 719.47 Active Assessment Yeast vaginitis B37.3 Active Assessment Upper respiratory disease J39.9 Ac tive Assessment Depression F32.9 Active Assessment Contraceptive device, intrauterine Z97.5 Active Problem Abnormal weight gain 783.1 Active Problem Unspecified cellulitis and abscess of toe 681.10 Active Problem Postnasal drip 784.91 Active Problem Unspecified disorder of skin and subcutaneous tissue 7 09.9 Active Problem DTAP TEST V06.1 Active Problem Blepharitis, unspecified 373.00 Act [place] Medications Medication Code System Code Instructions Start Date End Date Status Dosage Toprol XL [facility] [address]-79 50 MG Orally Once a day at hs Apr 24 15 1 tablet Fluoxetine [facility] [address]-00 40 mg Dec 08, 2013 1 capsule by Oral route 1 time per day Tessalon Perles [facility] [address]-81 100 MG Orally Three times a day Apr 24, 2015 May 01, 2015 1 capsule as needed Zithromax Z-Jorge [facility] [address]-90 250 MG Orally Once a day Apr 24, 2015 Apr 29, 2015 2 tablets on the first day, then 1 tablet daily for 4 days Diflucan [facility] [address]-99 150 MG Orally On ce a day May repeat in 3-4 days if needed Apr 24, 2015 1 tablet NuvaRing [facility] [address]-56 0.12-0.015 mg/24 hr 1 ea intravaginally every 4 weeks October 27, 2013 1 ea by Vaginal route every 4 weeks Procedures Procedure Coding System Code Date Office Visit, Est Pt., Level 3 CPT-4 15839 D 2014 Vital Signs Date/Time: Apr 24, 2015 Temperature 99.0 F Weight 321 lbs Height 69 in BMI 47.40 Index Blood Pressure Diastolic 92 mmHg Blood Pressure Systolic 180 mmHg Cardiac Monitoring Heart Rate 88 bpm Results No Known Results Summary Purpose [employer] Submission
--- OUTSIDE RECORDS SUMMARY | 2019-12-06 19:53 | XMS REPORT ---
Author Author Tracee PARMAR Organization [employer] Address Unknown Phone Unavailable Care Team Providers Care Print Journalist Name Role Phone SHANE PARMAR CP Unavailable Allergies No Known Allergies Problems Problem Type Condition Code Onset Dates Condition Statu s Problem Methicillin resistant Staphylococcus aureus 041.12 Active Problem Viral warts, unspecified 078.10 Act [place] Problem Personal history of other diseases of digestive diseas e V12.79 Active Problem Unspecified breast screening V76.10 Active Problem Screening for malignant neoplasm of the cervix V76.2 Active Problem Pain in soft tissues of limb 729.5 Active Problem Cellulitis and abscess of face 682.0 Active Problem Screening examination for pulmonary tuberculosis V74.1 Active Problem Major depressive disorder, r ecurrent episode, severe, without mention of psychotic behavior 296.33 Active Problem Pain in joint, ankle and foot 719.47 Active Assessment Obesity, unspecified obesity severity, u nspecified obesity type E66.9 Active Problem Abnormal weight gain 783.1 Active Problem Unspecified cellulitis and abscess of toe 681.10 Active Problem Postnasal drip 784.91 Active Problem Unspecified disorder of skin and subcutaneous tissue 7 09.9 Active Problem DTAP TEST V06.1 Active Problem Blepharitis, unspecified 373.00 Act [place] Medications No Known Medications Procedures Procedure Coding System Code Date GLYCATED HEMOGLOBIN TEST CPT-4 77791 Jun 08, 2015 ASSAY OF INSULIN CPT-4 00967 Jun 08, 2015 ASSAY OF TOTAL TESTOSTERONE CPT-4 41873 Jun 08, 2015 LIPID PANEL CPT-4 70413 Jun 08, 2015 COMPLETE CBC W/AUTO DIFF WBC CPT-4 72066 Jun 08, 2015 VENIPUNCT, ROUTINE* CPT-4 26355 Jun 08, 2015 COMPREHEN METABOLIC PANEL CPT-4 61381 Jun Results Name Result Date Reference Range Unit Abnormali ty Flag ROUTINE VENIPUNCTURE Summary Purpose [employer] Submission
--- OUTSIDE RECORDS SUMMARY | 2019-12-06 19:53 | XMS REPORT ---
Author Author Tracee PARMAR Organization [facility] Address [address] [place] [address] Care Team Providers Care Social Media Specialist Name Role Phone SHANE PARMAR Unavailable PROBLEMS Type Condition ICD9-CM Code ISE41-FE Code Onset Dates Condition S tatus SNOMED Code Problem Uses control Z30.9 Active 7 60783505 Problem Dysuria R30.0 Active 59864457 Problem Dysthymia F34.1 Active 02106029 Problem MRSA (methicillin resistant Staphylococcus aureus) A49.02 Active 779906088 Problem Hyperinsulinemia E16.1 Active 834 10314 Problem Encounter for annual physica l examination excluding gynecological examination in a patient older than 17 years Z00.00 Active [id number] ALLERGIES No Information ENCOUNTERS Encounter Location Date Diagnosis [place] [address] [id number] [address] [place] [address] Dec, [place] [address] [id number] [address] [place] [address] Oct, Uses control Z30.9 [facility] [address] [id number] [address] [place] [address] Aug, Encounter for annual physica l examination excluding gynecological examination in a patient older than 17 years Z00.00 ; Dysuria R30.0 and Uses control Z30.9 [place] [address] [id number] [address] [place] [address] May, Pharyngitis due to other org anism J02.8 [facility] [address] [id number] [address] [place] [address] 13 Oct, 2016 Cellulitis of right lower ex tremity L03.115 [place] [address] [place] [id number] [address] [place] [id number] 05 Oct, 2016 Cellulitis of right lower ex tremity L03.115 [place] [address] [address] Aug, [facility] [address] [facility] [id number] [address] [place] [id number] Aug, Dental examination Z01.20 [place] [address] [address] Jul, [place] [address] [address] Jun, Well woman exam Z01.419 ; Ce rvical cancer screening Z12.4 ; Breast cancer screening Z12.39 and Right foot pain M79.671 [place] [address] [address] 02 Jun, 2016 Acute nasopharyngitis J00 [place] [address] [address] May, Contraceptive device, intrau terine Z97.5 [facility] [address] [address] Oct, Right lower quadrant abdomin al pain R10.31 ; Frequency of urination R35.0 ; Hematuria R31.9 and Renal calculi N20.0 [place] [address] [place] [id number] [address] [place] [address] Oct, Pain in unspecified knee M25 .569 ; Other chronic pain G89.29 ; Obesity, unspecified obesity severity, unspecified obesity type E66.9 and Depression F32.9 [place] [address] [address] Jun, Depressive disorder, not els ewhere classified F32.9 [facility] [address] [address] 11 Feb, 2016 Hyperglycemia R73.9 and Obes ity E66.9 [facility] [address] [facility] [id number] [address] [place] [id number] 05 Jun, 2015 Obesity, unspecified obesity severity, unspecified obesity type E66.9 [facility] [address] [facility] [id number] [address] [place] [address] 28 May, 2015 Essential hypertension I10 a nd Obesity, unspecified obesity severity, unspecified obesity type E66.9 [facility] [address] [place] [id number] [address] [place] [address] Apr, Upper respiratory disease J3 9.9 ; Yeast vaginitis B37.3 ; Contraceptive device, intrauterine Z97.5 ; Depression F32.9 and Essential hypertension I10 [facility] [address] [place] [id number] [address] [place] [address] 30 Oct, 2014 Sinusitis 473.9 [facility] [address] [address] Oct, Edema 782.3 and Right foot p ain 729.5 [facility] [address] [place] [id number] [address] [place] [address] Aug, [facility] [address] [place] [id number] [address] [place] [address] Aug, [facility] [address] [place] [id number] [address] [place] [phone] Jul, [facility] [address] [place] [id number] [address] [place] [address] Jul, [facility] [address] [place] [id number] [address] [place] [phone] May, [facility] [address] [place] [id number] [address] [place] [address] May, [facility] [address] [place] [id number] [address] [place] [phone] Feb, [facility] [address] [id number] [address] [place] [address], [place] [address] Feb, [facility] [address] [id number] [address] [place] [address], [place] [address] Dec, [facility] [address] [id number] [address] [place] [address], [place] [address] Dec, [facility] [address] [id number] [address] [place] [address], [place] [address] Dec, [facility] [address] [id number] [address] [place] [address], [place] [address] Dec, [facility] [address] [id number] [address] [place] [address], [place] [address] Nov, [facility] [address] [id number] [address] [place] [address], [place] [address] Nov, [facility] [address] [id number] [address] [place] [address], [place] [address] Oct, [facility] [address] [id number] [address] [place] [address], [place] [address] Oct, [facility] [address] [id number] [address] [place] [address], [place] [address] Oct, [facility] [address] [id number] [address] [place] [address], [place] [address] Oct, [facility] [address] [id number] [address] [place] [address], [place] [address] Oct, [facility] [address] [id number] [address] [place] [address], [place] [address] Oct, [facility] [address] [id number] [address] [place] [address], [place] [address] Oct, [facility] [address] [id number] [address] [place] [address], [place] [address] Oct, [facility] [address] [id number] [address] [place] [address], [place] [address] Oct, [facility] [address] [id number] [address] [place] [address], [place] [address] Oct, [facility] [address] [id number] [address] [place] [address], [place] [address] September, [facility] [address] [id number] [address] [place] [address], [place] [address] September, [facility] [address] [id number] [address] [place] [address], [place] [address] Aug, [facility] [address] [id number] [address] [place] [address], [place] [address] Aug, [facility] [address] [id number] [address] [place] [address], [place] [address] Aug, [facility] [address] [id number] [address] [place] [address], [place] [address] Aug, [facility] [address] [id number] [address] [place] [address], [place] [address] Aug, [facility] [address] [id number] [address] [place] [address], [place] [address] Aug, [facility] [address] [id number] [address] [place] [address], [place] [address] Aug, [facility] [address] [id number] [address] [place] [address], [place] [address] Aug, [facility] [address] [id number] [address] [place] [address], [place] [address] May, [facility] [address] [id number] [address] [place] [address], [place] [address] May, [facility] [address] [id number] [address] [place] [address], [place] [address] May, [facility] [address] [id number] [address] [place] [address], [place] [address] May, [facility] [address] [id number] [address] [place] [address], [place] [address] May, [facility] [address] [id number] [address] [place] [address], [place] [address] May, [facility] [address] [id number] [address] [place] [address], [place] [address] Feb, [facility] [address] [id number] [address] [place] [address], [place] [address] Feb, [facility] [address] [id number] [address] [place] [address], [place] [address] Feb, [facility] [address] [id number] [address] [place] [address], [place] [address] Jan, [facility] [address] [id number] [address] [place] [address], [place] [address] Jan, [facility] [address] [id number] [address] [place] [address], [place] [address] Nov, [facility] [address] [id number] [address] [place] [address], [place] [address] Oct, [facility] [address] [id number] [address] [place] [address], [place] [address] September, [facility] [address] [id number] [address] [place] [address], [place] [address] Aug, [facility] [address] [id number] [address] [place] [address], [place] [address] Aug, [facility] [address] [id number] [address] [place] [address], [place] [address] Aug, [facility] [address] [id number] [address] [place] [address], [place] [address] Aug, [facility] [address] [id number] [address] [place] [address], [place] [address] May, [facility] [address] [id number] [address] [place] [address], [place] [address] Feb, [facility] [address] [id number] [address] [place] [address], [place] [address] Feb, [facility] [address] [id number] [address] [place] [address], [place] [address] Feb, [facility] [address] [id number] [address] [place] [address], [place] [address] Feb, [facility] [address] [id number] [address] [place] [address], [place] [address] Jan, [facility] [address] [id number] [address] [place] [address], [place] [address] Dec, [facility] [address] [id number] [address] [place] [address], [place] [address] Dec, [facility] [address] [id number] [address] [place] [address], [place] [address] Nov, [facility] [address] [id number] [address] [place] [address], [place] [address] Nov, [facility] [address] [id number] [address] [place] [address], [place] [address] Nov, [facility] [address] [id number] [address] [place] [address], [place] [address] Oct, [facility] [address] [id number] [address] [place] [address], [place] [address] September, [facility] [address] [id number] [address] [place] [address], [place] [address] Aug, [facility] [address] [id number] [address] [place] [address], [place] [address] Jul, [facility] [address] [id number] [address] [place] [address], [place] [address] Jun, [facility] [address] [id number] [address] [place] [address], [place] [address] Jun, [facility] [address] [id number] [address] [place] [address], [place] [address] Jun, [facility] [address] [id number] [address] [place] [address] Jun, [facility] [address] [id number] [address] [place] [address] Apr, [facility] [address] [id number] [address] [place] [address] Apr, [facility] [address] [id number] [address] [place] [address] Mar, [facility] [address] [id number] [address] [place] [address] Mar, [facility] [address] [id number] [address] [place] [address] Mar, [facility] [address] [id number] [address] [place] [address] Mar, [facility] [address] [id number] [address] [place] [address] Feb, [facility] [address] [id number] [address] [place] [address] Feb, [facility] [address] [id number] [address] [place] [address] Feb, [facility] [address] [id number] [address] [place] [address] Feb, [facility] [address] [id number] [address] [place] [address] Jul, [facility] [address] [id number] [address] [place] [address] Jun, [facility] [address] [id number] [address] [place] [address] Feb, IMMUNIZATIONS No Known Immunizations SOCIAL HISTORY [...]
--- OUTSIDE RECORDS SUMMARY | 2019-12-06 19:54 | XMS REPORT | Continuity of Care Document ---
Demographics Preferred Language Unknown Marital Status Unknown Jehovah'S Witness Affiliation Unknown Race Unknown Ethnic Group Unknown Author Organization Unknown Address Unknown Phone Unavailable Allergies Active Description Code Type Severity Reaction Onset Reported/Identified Relationship to Patient Clinical Status Yes No Known Drug Allergies [id number] Drug Allergy Unknown N/A 12/20/2010 Medications There is no data. Problems Date Dx Coded Attending Type Code Diagnosis Diagnosed By 12/20/2010 Ot 682.6 CELL ULITIS OF LEG 12/20/2010 Ot 729.5 PAIN IN LIMB 04/27/2011 Ot 730.27 OST EOMYELITIS NOS-ANKLE 04/27/2011 Ot 730.27 OST EOMYELITIS NOS-ANKLE 02/15/2013 TRUDY BALTAZAR ASSEMBLY MACHINE SET UP MECHANIC Ot 719.46 JOINT PAIN-L/LEG 10/23/2015 JOHNNY JIMENEZ ASSEMBLY MACHINE SET UP MECHANIC Ot R10.31 RIGHT LOWER QUADRANT PAIN 10/23/2015 JOHNNY JIMENEZ ASSEMBLY MACHINE SET UP MECHANIC Ot R10.31 RIGHT LOWER QUADRANT PAIN 10/23/2015 FROILAN MUNIZ MD Ot N20.0 CALCULUS OF KIDNEY 10/23/2015 FROILAN MUNIZ MD Ot N20.1 CALCULUS OF URETER 10/23/2015 FROILAN MUNIZ MD Ot Z01.8 12 ENCOUNTER FOR PREPROCEDURAL LABORATORY E 10/23/2015 FROILAN MUNIZ MD Ot Z11.2 ENCOUNTER FOR SCREENING FOR OTHER BACTER 10/24/2015 JOHNNY JIMENEZ ASSEMBLY MACHINE SET UP MECHANIC Ot R10.31 RIGHT LOWER QUADRANT PAIN 10/24/2015 FROILAN MUNIZ MD Ot N20.0 CALCULUS OF KIDNEY 10/24/2015 FROILAN MUNIZ MD Ot N20.1 CALCULUS OF URETER 10/24/2015 FROILAN MUNIZ MD Ot N20.0 CALCULUS OF KIDNEY 10/25/2015 FROILAN MUNIZ MD Ot N20.0 CALCULUS OF KIDNEY 10/25/2015 FROILAN MUNIZ MD Ot N20.1 CALCULUS OF URETER 10/25/2015 FROILAN MUNIZ MD Ot Z01.8 12 ENCOUNTER FOR PREPROCEDURAL LABORATORY E 10/25/2015 CRISTY BATRES, FROILAN Mishra Ot Z11.2 ENCOUNTER FOR SCREENING FOR OTHER BACTER 10/28/2015 JIMENEZ, JOHNNY R ASSEMBLY MACHINE SET UP MECHANIC Ot R10.31 RIGHT LOWER QUADRANT PAIN 10/29/2015 CRISTY BATRES, FROILAN Mishra Ot N20.0 CALCULUS OF KIDNEY 10/30/2015 CRISTY BATRES, FROILAN Mishra Ot N20.0 CALCULUS OF KIDNEY 10/30/2015 CRISTY BATRES, FROILAN Mishra Ot N20.1 CALCULUS OF URETER 04/10/2016 JIMENEZ, JOHNNY R ASSEMBLY MACHINE SET UP MECHANIC Ot R10.31 RIGHT LOWER QUADRANT PAIN 04/10/2016 CRISTY BATRES, FROILAN Mishra Ot N20.0 CALCULUS OF KIDNEY 04/10/2016 JIMENEZ, JOHNNY R ASSEMBLY MACHINE SET UP MECHANIC Ot R10.31 RIGHT LOWER QUADRANT PAIN 04/10/2016 JIMENEZ, JOHNNY R ASSEMBLY MACHINE SET UP MECHANIC Ot R10.31 RIGHT LOWER QUADRANT PAIN 04/16/2016 JIMENEZ, JOHNNY R ASSEMBLY MACHINE SET UP MECHANIC Ot R10.31 RIGHT LOWER QUADRANT PAIN 04/16/2016 CRISTY BATRES, FROILAN Mishra Ot N20.0 CALCULUS OF KIDNEY 12/03/2019 JIMENEZ, JHONNY R ASSEMBLY MACHINE SET UP MECHANIC Ot R10.31 RIGHT LOWER QUADRANT PAIN 12/03/2019 CRISTY BATRES, FROILAN Mishra Ot N20.0 CALCULUS OF KIDNEY 12/03/2019 JIMENEZ, JOHNNY R ASSEMBLY MACHINE SET UP MECHANIC Ot R10.31 RIGHT LOWER QUADRANT PAIN 12/03/2019 CRISTY BATRES, FROILAN Mishra Ot N20.0 CALCULUS OF KIDNEY 12/05/2019 TRUDY BALTAZAR APRN Ot F41 .9 ANXIETY DISORDER, UNSPECIFIED 12/05/2019 TRUDY BALTAZAR ASSEMBLY MACHINE SET UP MECHANIC Ot I10 ESSENTIAL (PRIMARY) HYPERTENSION 12/05/2019 TRUDY BALTAZAR ASSEMBLY MACHINE SET UP MECHANIC Ot Z79.52 REAL ESTATE 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 Results Test Result Range Pap Lb, HPV-hr - 06/26/16 09:47 HPV, high-risk Negative Negative DIAGNOSIS: Comment Specimen adequacy: Comment Clinician provided ICD10: Comment Performed by: Comment . . Note: Comment Complete blood count (CBC) with automate d white blood cell (WBC) differential - 12/03/19 12:05 Blood leukocytes automated count (number/volume) 7.2 10*3/uL 4.3-11.0 Blood erythrocytes automated count (number/volume) 4.27 10*6/uL 4.35-5.85 Venous blood hemoglobin measurement (mass/volume) 13.6 g/dL 11.5-16.0 Blood hematocrit (volume fraction) 41 % 35-52 Automated erythrocyte mean corpuscular volume 96 [ foz_us] 80-99 Automated erythrocyte mean corpuscular h emoglobin (mass per erythrocyte) 32 pg 25-34 Automated erythrocyte mean corpuscular h emoglobin concentration measurement (mass/volume) 33 g/dL 32-36 Automated erythrocyte distribution width ratio 12. 9 % 10.0- 14.5 Automated blood platelet count (count/volume) 262 10*3/uL 130-400 Automated blood platelet mean volume measurement 10.3 [foz_us] 7.4-10.4 Automated blood neutrophils/100 leukocytes 57 % 42-75 Automated blood lymphocytes/100 leukocytes 35 % 12-44 Blood monocytes/100 leukocytes 7 % 0-12 Automated blood eosinophils/100 leukocytes 1 % 0-10 Automated blood basophils/100 leukocytes 0 % 0-10 Blood neutrophils automated count (number/volume) 4.1 10*3 1.8-7.8 Blood lymphocytes automated count (number/volume) 2.5 10*3 1.0-4.0 Blood monocytes automated count (number/volume) 0. 5 10*3 0.0-1.0 Automated eosinophil count 0.1 10*3/uL 0 .0-0.3 Automated blood basophil count (count/volume) 0.0 10*3/uL 0.0-0.1 Comprehensive metabolic panel - 12/03/19 12:05 Serum or plasma sodium measurement (moles/volume) 139 mmol/L 135-145 Serum or plasma potassium measurement (moles/volume) 3.6 mmol/L 3.6-5.0 Serum or plasma chloride measurement (moles/volume) 106 mmol/L 98-107 Carbon dioxide 20 mmol/L 21-32 Serum or plasma anion gap determination (moles/volume) 13 mmol/L 5-14 Serum or plasma urea nitrogen measurement (mass/volume ) 12 mg/dL 7-18 Serum or plasma creatinine measurement (mass/volume) 0.83 mg/dL 0.60-1.30 Serum or plasma urea nitrogen/creatinine mass ratio 14 NRG Serum or plasma creatinine measurement w ith calculation of estimated glomerular filtration rate > NRG Serum or plasma glucose measurement (mass/volume) 116 mg/dL 70-105 Serum or plasma calcium measurement (mass/volume) 8.9 mg/dL 8.5-10.1 Serum or plasma total bilirubin measurement (mass/volu me) 0.5 mg/dL 0.1-1.0 Serum or plasma alkaline phosphatase marco surement (enzymatic activity/volume) 53 U/L 40-136 Serum or plasma aspartate aminotransfera se measurement (enzymatic activity/volume) 15 U/L 5-34 Serum or plasma alanine aminotransferase measurement (enzymatic activity/volume) 14 U/L 0-55 Serum or plasma protein measurement (mass/volume) 8.2 g/dL 6.4-8.2 Serum or plasma albumin measurement (mass/volume) 4.2 g/dL 3.2-4.5 CALCIUM CORRECTED 8.7 mg/dL 8.5-10.1 PT panel in platelet poor plasma by coag ulation assay - 12/03/19 12:05 Prothrombin time (PT) in platelet poor plasma by coagu lation assay 12.7 s 12.2-14.7 INR in platelet poor plasma or blood by coagulation as say 0.9 0.8-1.4 Activated partial thromboplastin time (a PTT) in platelet poor plasma bycoagulation assay - 12/03/19 12:05 Activated partial thromboplastin time (a PTT) in platelet poor plasma bycoagulation assay 25 s 24-35 Magnesium - 12/03/19 12:05 Magnesium 1.9 mg/dL 1.6-2.4 Serum or plasma troponin i.cardiac measu rement (mass/volume) - 12/03/19 12:05 Serum or plasma troponin i.cardiac measurement (mass/v olume) < ng/mL <0.028 Myoglobin, serum - 12/03/19 12:05 Myoglobin, serum 38.3 ng/mL 10.0-92.0 Serum or plasma lithium measurement (mol es/volume) - 12/03/19 12:05 BNP PT 63.9 pg/mL <100.0 Fibrin D-dimer FEU measurement in platel et poor plasma (mass/volume) - 12/03/19 12:05 Fibrin D-dimer FEU measurement in platelet poor plasma (mass/volume) 0.55 ug/mL 0.00-0.49 Complete urinalysis with reflex to cultu re - 12/03/19 12:35 Urine color determination YELLOW NRG Urine clarity determination CLEAR NR G Urine pH measurement by test strip 6.0 5-9 Specific gravity of urine by test strip 1.025 1.016-1.022 Urine protein assay by test strip, semi-quantitative 1+ NEGATIVE Urine glucose detection by automated test strip NE GATIVE NEGATIVE Erythrocytes detection in urine sediment by light micr oscopy TRACE-I NEGATIVE Urine ketones detection by automated test strip NE GATIVE NEGATIVE Urine nitrite detection by test strip NEGATIVE NEGATIVE Urine total bilirubin detection by test strip NEGA TIVE NEGATIVE Urine urobilinogen measurement by automated test strip (mass/volume) 0.2 mg/dL < = 1.0 Urine leukocyte esterase detection by dipstick NEG ATIVE NEGATIVE Automated urine sediment erythrocyte cou nt by microscopy (number/high power field) NONE NRG Automated urine sediment leukocyte count by microscopy (number/high power field) NONE NRG Bacteria detection in urine sediment by light microsco py NEGATIVE NRG Squamous epithelial cells detection in u rine sediment by light microscopy RARE NRG Crystals detection in urine sediment by light microsco py NONE NRG Casts detection in urine sediment by light microscopy NONE NRG Mucus detection in urine sediment by light microscopy NEGATIVE NRG Complete urinalysis with reflex to culture NO NRG Urine drug screening test - 12/03/19 12: 35 Urine phencyclidine detection by screening method NEGATIVE NEGATIVE Urine benzodiazepines detection by screening method NEGATIVE NEGATIVE Urine cocaine detection NEGATIVE NEGATI VE Urine amphetamines detection by screening method N EGATIVE NEGATIVE Urine methamphetamine detection by screening method NEGATIVE NEGATIVE Urine cannabinoids detection by screening method N EGATIVE NEGATIVE Urine opiates detection by screening method NEGATI VE NEGATIVE Urine barbiturates detection NEGATIVE N EGATIVE Screening urine tricyclic antidepressants detection NEGATIVE NEGATIVE Urine methadone detection by screening method NEGA TIVE NEGATIVE Urine oxycodone detection NEGATIVE NEGA TIVE Urine propoxyphene detection NEGATIVE N EGATIVE Encounters ACCT No. Visit Date/Time Discharge Status Pt. Type Provider Facility Loc./Unit Complaint [id number] 07/01/2016 09:19:00 Document Registration [id number] 12/03/2019 12:04:00 020 13:50:00 DIS Outpatient TRUDY BALTAZAR APRN [facility] ER RT ARM AND LEG PROBLEMS [id number] 10/24/2015 08:48:00 016 13:08:00 DIS Outpatient FROILAN MUNIZ MD [facility] SDC RT.URETERAL STONE,BILAT ERAL URETERAL STONE [id number] 10/23/2015 13:19:00 016 23:59:59 CLS Outpatient FROILAN MUNIZ MD [facility] RAD RT STONE [id number] 10/23/2015 15:19:00 016 15:45:00 DIS Outpatient FROILAN MUNIZ MD [facility] PREOP RT URETERAL STONE,BILAT ERAL URETERAL STONE [id number] 10/22/2015 12:07:00 016 23:59:59 CLS Outpatient JOHNNY JIMENEZ APRN [facility] RAD RLQ PAIN [id number] 02/15/2013 18:24:00 013 19:55:00 DIS Emergency TRUDY BALTAZAR APRN [facility] ER L KNEE INJ [id number] 12/06/2019 16:20:[address] Inpatient ROSE PENA DO [facility] [place] IRF ACUTE CVA [id number] 02/18/2011 17:52:00 Document Registration [id number] 01/27/2011 14:41:00 Document Registration [id number] 12/20/2010 18:20:00 Document Registration [id number] 05/08/2019 17:15:00 05/08/2019 23:59:5 9 CLS [facility]
--- OUTSIDE RECORDS SUMMARY | 2019-12-06 19:54 | XMS REPORT ---
Author Author Tracee PARMAR [facility] Address [address] [place] [address] Care Team Providers Care Tire Wrapper Name Role Phone SHANE PARMAR Unavailable PROBLEMS Type Condition ICD9-CM Code [id number] Code Onset Dates Condition S tatus SNOMED Code Problem Dysthymia F34.1 Active 49939362 Problem Hyperinsulinemia E16.1 Active 834 35918 Problem MRSA (methicillin resistant Staphylococcus aureus) A49.02 Active 411992616 Problem Hyperglycemia R73.9 Active 702720 07 ALLERGIES No Known Allergies SOCIAL HISTORY Never Assessed PLAN OF CARE Activity Details Follow Up prn Reason: VITAL SIGNS Height 69 in 2016-06-26 Weight 222.8 lbs 2016-06-26 Temperature 98.6 degrees Fahrenheit 2016-06-26 Heart Rate 80 bpm 2016-06-26 Respiratory Rate 16 2016-06-26 BMI 32.90 kg/m2 2016-06-26 Blood pressure systolic 112 mmHg 2016-06-26 Blood pressure diastolic 80 mmHg 2016-06-26 MEDICATIONS Medication Instructions Dosage Frequency Start Date End Date Duration S tatus NuvaRing 0.12-0.015 MG/24HR Vaginal 1 ea intravaginally every 4 wee ks 1 ring Oct, 28 days Active Tramadol HCl 50 mg Orally Once a day 1 tablet as needed 24h Jun, Active RESULTS Name Result Date Reference Range PDF Report 2016-06-26 PDF Report1 LCLS PAP TEST W/ HPV REGARDLESS 2016-06-26 DIAGNOSIS: Specimen adequacy: Clinician provided ICD10: Performed by: . . Note: HPV, high-risk Negative Negative Mammogram, Bilateral Screening 2016-07-03 PROCEDURES Procedure Date Ordered Result Body Site SPECIMEN HANDLING Jun 26, 2016 IMMUNIZATIONS No Known Immunizations MEDICAL (GENERAL) [...]
--- OUTSIDE RECORDS SUMMARY | 2019-12-06 19:54 | XMS REPORT ---
Author Author Tracee PARMAR Organization [employer] Address Unknown Phone Unavailable Care Team Providers Care Box Gluer Name Role Phone SHANE PARMAR CP Unavailable Allergies, Adverse Reactions, Alerts Substance Reaction Event Type N.K.D.A. Info Not Available Non Drug Allergy Problems Problem Type Condition Code Onset Dates Condition Statu s Problem Pain in joint, ankle and foot 719.47 Active Problem Methicillin resistant Staphylococcus aureus 041.12 Active Problem Major depressive disorder, r ecurrent episode, severe, without mention of psychotic behavior 296.33 Active Assessment Obesity E66.9 Active Problem Hyperglycemia R73.9 Active Assessment Hyperglycemia R73.9 Active Medications Medication Code System Code Instructions Start Date End Date Status Dosage Fluoxetine [facility] [address]-47 40 mg Dec 08, 2013 1 capsule by Oral route 1 time per day NuvaRing [facility] [address]-29 0.12-0.015 mg/24 hr 1 ea intravaginally every 4 weeks October 27, 2013 1 ea by Vaginal route every 4 weeks Toprol XL [facility] [address]-89 50 MG Orally Once a day at hs Dec 22, 20 15 1 tablet MetFORMIN HCl ER [facility] [address]-88 500 MG Orally 2 times a day Jun 042015 2 tablet Procedures Procedure Coding System Code Date Office Visit, Est Pt., Level 3 CPT-4 67230 F 2015 Vital Signs Date/Time: Jun 14, 2015 Temperature 98.4 F Weight 318 lbs Height 69 in BMI 46.96 Index Blood Pressure Diastolic 82 mmHg Blood Pressure Systolic 142 mmHg Cardiac Monitoring Heart Rate 70 bpm Results No Known Results Summary Purpose [employer] Submission
--- OUTSIDE RECORDS SUMMARY | 2019-12-06 19:54 | XMS REPORT | Continuity of Care Document ---
Author Author [facility] Organization [facility] Address Unknown Phone Unavailable Care Team Providers Care Vessel Ordinary Seaman Name Role Phone XENIA MANNING MD PP Insurance Providers Payer Name Policy Number Subscriber Name Relationship Self Pay Mario Bui Advance Directives Directive Response Recor ded Date Advance Directives N 6:29pm Problems No Known Problems or Medical conditions. Social History History Response Recorde d Date/Time Alcohol Use Denies Use 1 6:29pm Recreational Drug Use N 02/15/13 6:29pm Allergies, Adverse Reactions, Alerts Allergen Type Severity Reaction Last Updated No Known Drug Allergies 12/20/10 Medications Medication Dose Units Route Sig Qty Days Naproxen (Naprosyn) 1 Ea ch PO TID PRN 14 Hydromorphone HCl (Dilaudid) 1 Tab PO BID PRN 6 Cephalexin Monohydrate (Cephalexin) 1 Each PO TID 7 Gabapentin (Neurontin) 900 Mg PO TID Response Recorded Date/Time Status not known Unknown Results No Known Relevant Diagnostic Tests, Laboratory Data and/or Discharge Summary. Encounters Encounter Location Date/ Time Departed Emergency Room [facility] 02/15/13 6:24pm
--- OUTSIDE RECORDS SUMMARY | 2019-12-06 19:54 | XMS REPORT ---
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
--- OUTSIDE RECORDS SUMMARY | 2019-12-06 19:54 | XMS REPORT ---
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 Unknown Non Drug Allergy Jun, Unknown SOCIAL HISTORY No smoking Hx information available PLAN OF CARE Activity Details Follow Up if not improving with PCP or reg follow up Reason: VITAL SIGNS Height 69 in 2016-06-05 Weight 225.5 lbs 2016-06-05 Temperature 97.9 degrees Fahrenheit 2016-06-05 Heart Rate 78 bpm 2016-06-05 Respiratory Rate 18 2016-06-05 BMI 33.30 kg/m2 2016-06-05 Blood pressure systolic 112 mmHg 2016-06-05 Blood pressure diastolic 74 mmHg 2016-06-05 MEDICATIONS Medication Instructions Dosage Frequency Start Date End Date Duration S tatus Azithromycin 250 MG Orally Once a day 2 tablets on the fi rst day, then 1 tablet daily for 4 days 24h Jun, Jun, 5 day(s) Active NuvaRing 0.12-0.015 MG/24HR Vaginal 1 ea intravaginally every 4 wee ks 1 ring Oct, 28 days Active RESULTS No Results PROCEDURES Procedure Date Ordered Related Diagnosis Body Site Office Visit, Est Pt., Level 3 Jun 05, 2016 IMMUNIZATIONS No Known Immunizations
[2019-12-06] MEDS: ALPRAZolam 0.25 MG (XANAX) TAB PO PRN (21:24)
[2019-12-06] MEDS: SENNA W/DOCUSATE (SENOKOT S) TABLET PO SCH (21:24)
[2019-12-06] MEDS: ENOXAPARIN 40 MG/0.4 ML (LOVENOX) SYR SC SCH (21:24)
[2019-12-06] MEDS: MELATONIN 3 MG TABLET PO PRN (21:25)
[2019-12-06] MEDS: DOCUSATE SODIUM 100 MG (COLACE) CAP PO SCH (21:27)
[2019-12-06] MEDS: polyethylene glycoL POWDER 17 GM (MIRALAX) PACK PO SCH (21:27)
[2019-12-06] MEDS: ACETAMINOPHEN 325 MG TABLET PO PRN (21:39)
[2019-12-07 05:29] VITALS: BP 135/60
[2019-12-07 05:56] LABS: BASOPHILS % (AUTO) 0 % (0-10); EOSINOPHILS # (AUTO) 0.1 10^3/uL (0.0-0.3); EOSINOPHILS % (AUTO) 1 % (0-10); HEMATOCRIT 42 % (35-52); HEMOGLOBIN 13.9 G/DL (11.5-16.0); LYMPHOCYTES # (AUTO) 2.9 X 10^3 (1.0-4.0); LYMPHOCYTES % (AUTO) 27 % (12-44); MEAN CORPUSCULAR HEMOGLOBIN 32 PG (25-34); MEAN CORPUSCULAR HGB CONC 33 G/DL (32-36); MEAN CORPUSCULAR VOLUME 98 FL (80-99); MEAN PLATELET VOLUME 10.6 FL (7.4-10.4); MONOCYTES # (AUTO) 0.9 X 10^3 (0.0-1.0); MONOCYTES % (AUTO) 9 % (0-12); NEUTROPHILS # (AUTO) 6.9 X 10^3 (1.8-7.8); NEUTROPHILS % (AUTO) 64 % (42-75); PLATELET COUNT 291 10^3/uL (130-400); RED CELL DISTRIBUTION WIDTH 13.5 % (10.0-14.5); WHITE BLOOD COUNT 10.8 10^3/uL (4.3-11.0)
[2019-12-07 06:20] LABS: ALBUMIN 3.6 GM/DL (3.2-4.5); BILIRUBIN,TOTAL 0.7 MG/DL (0.1-1.0); CALCIUM 9.2 MG/DL (8.5-10.1); CREATININE SERUM 1.38 MG/DL (0.60-1.30); POTASSIUM 4.4 MMOL/L (3.6-5.0)
--- NOTE | 2019-12-07 08:18 | PM&R Post Admission Assessment ---
PM&R HP Date of Visit: Dec 07, 2019 Time of Visit: 11:00 History of Present Illness CC: CVA HPI: Jesús Mccarthy, MSIII: Tracee is a 44 y.o. F with history of gastric sleeve, HLD, and prediabetes who experienced a stroke on 12/02, 4 days ago. The patient says she felt slurred speech and right arm and leg weakness when driving. She went to [facility], where she had BP measured at 200/145 and had a negative head CT. BP was controlled to 170/100 and the patient had improvement without resolution of symptoms. She had sudden worsening of symptoms and visited [facility] the same day, where a 2cm left thalamic occlusion was found along with SBP of 210. The patient was outside tPA window. [facility] PT noted the patient needs significant assistance climbing up steps with a railing but has improved LE function and is able to walk without assistance, although balance is impaired. OT found right UE neglect and weakness. The patient feels she is able to walk and talk at functional levels but wants to improve use of her hand. Sensation is intact in all extremities. She came to [facility] re[facility] unit 12/05. The patient lives with her 14 yo daughter. She has family in the area, including a 27 yo son. She has a boyfriend but does not live with him. 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 Diet has been unhealthy in the past 6 months. PE: General: pleasant, no acute distress. Able to talk openly about her stroke, occasionally appropriately emotional. Neuro: baseline left facial droop. Mildly slurred speech. No apparent word finding difficulties. Sensation intact to face and extremities. Strength 1/5 flexion of right phalanges, 2/5 right UE , 5/5 LUE. RLE flexion 4/5, right foot plantarflexion and dorsiflexion 4/5, LLE flexion 5/5, left foot plantarflexion and dorsiflexion 5/5. 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) Alcohol Use: Denies Use Recreational Drug Use: No Smoking Status: Never a Smoker 2nd Hand Smoke Exposure: No Physical Abuse Screen: No Sexual Abuse: No Recent Foreign Travel: No Contact w/other who traveled: No Recent Hopitalizations: No Recent Infectious Disease Expo: No Immunizations Up To Date Pediatric: Yes Seasonal Allergies Seasonal Allergies: No Past Medical History Surgeries: Abdominal, Orthopedic Neurological: Stroke (12/03/19) Reproductive: No Genitourinary: Kidney Stones History of Blood Disorders: No PM&R Allergy/Meds/Data Review Allergies Coded Allergies: No Known Drug Allergies (Unverified , 12/20/10) Home Medications Scheduled Amlodipine Besylate (Amlodipine Besylate), 5 MG PO DAILY, (Reported) Aspirin (Aspirin EC), 325 MG PO DAILY, (Reported) Atorvastatin Calcium (Atorvastatin Calcium), 40 MG PO HS, (Reported) Lisinopril (Lisinopril), 20 MG PO DAILY, (Reported) Discontinued Medications Alprazolam (Alprazolam), 1 MG PO BID PRN for ANXIETY Discontinued Reason: No Longer Taking Cyanocobalamin (Vitamin B-12) (Vitamin B12), 2,500 MCG PO DAILY, (Reported) Discontinued Reason: No Longer Taking Hydrocodone/Acetaminophen (Lorcet 5-325 mg Tablet), 1-2 TAB PO Q4H PRN for PAIN Discontinued Reason: No Longer Taking Metoprolol Tartrate (Metoprolol Tartrate), 25 MG PO BID Discontinued Reason: No Longer Taking Multivitamin (Multivitamins), 1 EACH PO DAILY, (Reported) Discontinued Reason: No Longer Taking Nitrofurantoin Monohyd/M-Cryst (Macrobid 100 mg Capsule), 1 TAB PO BID Discontinued Reason: No Longer Taking Phenazopyridine HCl (Pyridium), 1 TAB PO TID Discontinued Reason: No Longer Taking [Prednisone], 1 TAB PO DAILY Discontinued Reason: No Longer Taking Current Medications Current Medications Reviewed Laboratory Data Laboratory Tests 12/07/19 05:50: White Blood Count 10.8, Red Blood Count 4.33L, Hemoglobin 13.9, Hematocrit 42, Mean Corpuscular Volume 98, Mean Corpuscular Hemoglobin 32, Mean Corpuscular Hemoglobin Concent 33, Red Cell Distribution Width 13.5, Platelet Count 291, Mean Platelet Volume 10.6H, Neutrophils (%) (Auto) 64, Lymphocytes (%) (Auto) 27, Monocytes (%) (Auto) 9, Eosinophils (%) (Auto) 1, Basophils (%) (Auto) 0, Neutrophils # (Auto) 6.9, Lymphocytes # (Auto) 2.9, Monocytes # (Auto) 0.9, Eosinophils # (Auto) 0.1, Basophils # (Auto) 0.0, Sodium Level 139, Potassium Level 4.4, Chloride Level 103, Carbon Dioxide Level 21, Anion Gap 15H, Blood Urea Nitrogen 32H, Creatinine 1.38H, Estimat Glomerular Filtration Rate 41, BUN/Creatinine Ratio 23, Glucose Level 113H, Calcium Level 9.2, Corrected Calcium 9.5, Total Bilirubin 0.7, Aspartate Amino Transf (AST/SGOT) 13, Alanine Aminotransferase (ALT/SGPT) 10, Alkaline Phosphatase 49, Total Protein 7.0, Albumin 3.6 Review of Systems Constitutional: see HPI EENTM: no symptoms reported Respiratory: no symptoms reported Cardiovascular: no symptoms reported Gastrointestinal: no symptoms reported Genitourinary: no symptoms reported Musculoskeletal: muscle pain, muscle stiffness Skin: no symptoms reported Psychiatric/Neurological: Anxiety, Numbness, Weakness (right arm) All Other Systems Reviewed Negative Unless Noted: Yes Physical Exam Physical Exam Vital Signs Vital Signs - First Documented 12/06/19 16:30 Temp 36.4 Pulse 98 Resp 16 B/P (MAP) 136/80 (98) Pulse Ox 96 O2 Delivery Room Air Capillary Refill : Less Than 3 Seconds Height, Weight, BMI Height: 5'8.00" Weight: 240lbs. 0.0oz. [id number]; 38.39 BMI Method:Stated General Appearance: No Apparent Distress, WD/WN, Chronically ill, Obese Eyes: Bilateral Eye Normal Inspection, Bilateral Eye PERRL HEENT: PERRL/EOMI, Normal ENT Inspection, Pharynx Normal Neck: Full Range of Motion, Normal Inspection, Non Tender, Supple, Carotid Bruit Respiratory: Chest Non Tender, Lungs Clear, Normal Breath Sounds, No Accessory Muscle Use, No Respiratory Distress Cardiovascular: Regular Rate, Rhythm, No Edema, No Gallop, No JVD, No Murmur, Normal Peripheral Pulses Gastrointestinal: Normal Bowel Sounds, No Organomegaly, No Pulsatile Mass, Non Tender, Soft Back: Normal Inspection, No CVA Tenderness, No Vertebral Tenderness Extremity: Normal Capillary Refill, Normal Inspection, Normal Range of Motion, Non Tender, No Calf Tenderness, No Pedal Edema Neurologic/Psychiatric: Alert, Oriented x3, No Motor/Sensory Deficits, Normal Mood/Affect, Abnormal Gait, Facial Droop (right), Motor Weakness (right arm 2/5) Skin: Normal Color, Warm/Dry Lymphatic: No Adenopathy PM&R Medical Assessment & Plan REHAB/MEDICAL ASSESSMENT AND PLAN: REHAB IMPAIRMENT GROUP: CVA ETIOLOGIC DIAGNOSIS: CVA The comorbidities that impact the patients function and/or functional outcome by: obesity, anxiety, grief reaction REHAB PLAN: The patient is being admitted to our comprehensive inpatient rehabilitation facility and can tolerate the intensity of service consisting of at least: 180 minutes of therapy a day, 5 out of 7 days a week Rehab treatment will consist of: PT OT will focus on strengthening the right arm and fall prevention and ST will focus on facial droop and speech The patient/family has a good understanding of our discharge process and will benefit from an interdisciplinary inpatient rehabilitation program. The patient has potential to make improvement and is in need of at least two of the following multidisciplinary therapies including but not limited to physical, occupational, speech, and prosthetics and orthotics. Additionally the patient will need services from respiratory, nutritional services, wound care, psychology, etc. (Customize this to each patient). Given the patients complex condition and risk of further medical complications, rehabilitation services cannot be safely or effectively provided at a lower level of care such as a retirement facility. BARRIERS TO DISCHARGE: Dominant hand weakness ESTIMATED LOS: 7 days DISPOSITION: Home RELEVANT CHANGES SINCE PREADMISSION SCREENING: I have compared the patients medical and functional status at the time of the preadmission screening and there are: no changes PROGNOSIS: Good REHABILITATION GOALS: 1. PT OT will focus on strengthening the right arm and fall prevention and ST will focus on facial droop and speech All the above goals were reviewed with the patient and he/she is in agreement. By signing this document, I acknowledge that I have personally performed a full physical examination on this patient within 24 hours of admission to this inpatient rehabilitation facility and have determined the patient to be able to tolerate the above course of treatment at an intensive level for a reasonable period of time. I will be completing a detailed individualized Plan of Care for this patient by day #4 of the patients stay based upon the Preadmission Screen, the Post-Admission Evaluation, and the therapy evaluations. Admission Dx/Comorbidities: (1) CVA (cerebral vascular accident) ICD Codes: I63.9 - Cerebral infarction, unspecified (2) Renal insufficiency ICD Codes: N28.9 - Disorder of kidney and ureter, unspecified (3) Obesity ICD Codes: E66.9 - Obesity, unspecified (4) Hypertensive emergency Status: Acute ICD Codes: I16.1 - Hypertensive emergency (5) Anxiety Status: Acute ICD Codes: F41.9 - Anxiety disorder, unspecified Assessment/Plan Assessment and Plan Assess & Plan/Chief Complaint Assessment: CVA with right sided weakness HTN CRI Obesity Plan: Home meds Monitor BP IRF protocol ROSE PENA DO Dec 07, 2019 08:18
[2019-12-07] MEDS: SENNA W/DOCUSATE (SENOKOT S) TABLET PO SCH ×2 (09:15→21:22)
[2019-12-07] MEDS: ASPIRIN E.C. 325 MG (ECOTRIN) TABLET PO SCH (09:15)
[2019-12-07] MEDS: polyethylene glycoL POWDER 17 GM (MIRALAX) PACK PO SCH ×2 (09:16→21:29)
[2019-12-07] MEDS: DOCUSATE SODIUM 100 MG (COLACE) CAP PO SCH ×2 (09:16→21:26)
[2019-12-07] MEDS: lisINopril 20 MG (PRINIVIL) TABLET PO SCH (09:16)
[2019-12-07] MEDS: amLODIPine 5 MG (NORVASC) TAB PO SCH (09:16)
--- NOTE | 2019-12-07 09:46 | Progress Note ---
TRUDY RAINES MED STUDENT 12/07/19 0946: Progress Note Tracee is a 44 y.o. F with history of gastric sleeve, HLD, and prediabetes who experienced a stroke on 12/02, 4 days ago. The patient says she felt slurred speech and right arm and leg weakness when driving. She went to [facility], where she had BP measured at 200/145 and had a negative head CT. BP was controlled to 170/100 and the patient had improvement without resolution of symptoms. She had sudden worsening of symptoms and visited [facility] the same day, where a 2cm left thalamic occlusion was found along with SBP of 210. The patient was outside tPA window. [facility] PT noted the patient needs significant assistance climbing up steps with a railing but has improved LE function and is able to walk without assistance, although balance is impaired. OT found right UE neglect and weakness. The pat ient feels she is able to walk and talk at functional levels but wants to improve use of her hand. Sensation is intact in all extremities. She came to [facility] unit 12/05. The patient lives with her 14 yo daughter. She has family in the area, including a 27 yo son. She has a boyfriend but does not live with him. 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 Diet has been unhealthy in the past 6 months. PE: General: pleasant, no acute distress. Able to talk openly about her stroke, occasionally appropriately emotional. Neuro: baseline left facial droop. Mildly slurred speech. No apparent word finding difficulties. Sensation intact to face and extremities. Strength 1/5 flexion of right phalanges, 2/5 right UE , 5/5 LUE. RLE flexion 4/5, right foot plantarflexion and dorsiflexion 4/5, LLE flexion 5/5, left foot plantarflexion and dorsiflexion 5/5. Cardiovascular: RRR, no murmurs Respiratory: Lungs clear to auscultation bilaterally MAHI PENA DO 12/07/19 1059: Supervisory-Addendum Brief Verification & Attestation Participated in pt care: history, MDM, physical Personally performed: exam, history, MDM, supervision of care Care discussed with: Medical Student Procedures: n/a Results interpretation: Verified all documentation Verification and Attestation of Medical Student E/M Service A medical student performed and documented this service in my presence. I reviewed and verified all information documented by the medical student and made modifications to such information, when appropriate. I personally performed the physical exam and medical decision making. Mahi Pena, Dec 07, 2019,10:59 TRUDY RAINES MED STUDENT Dec 07, 2019 09:46 MAHI PENA DO Dec 07, 2019 10:59
--- NOTE | 2019-12-07 10:21 | Occupational Therapy Eval ---
OT Evaluation-General/PLF Medical Diagnosis Admission Date Dec 06, 2019 at 16:20 Medical Diagnosis: CVA Onset Date: Dec 03, 2019 Therapy Diagnosis Therapy Diagnosis: Right sided weakness Height/Weight Height (Feet): 5 Height (Inches): 8.00 Weight (Pounds): 240 Weight (Ounces): 0.0 Precautions Precautions/Isolations: Fall Prevention, Standard Precautions Weight Bear Status Weight Bearing Restriction: Weight Bearing/Tolerated Referral Physician: Dr. Auguste Referral Reason: Activity Tolerance, Self Care, Evaluation/Treatment, Strengthening/ROM Medical History Pertinent Medical History: HTN Additional Medical History Artherosclerosis Reviewed History: Yes Social History Home: Single Level Current Living Status: Children Entry Into Home: Stairs With Railing Steps Into Home: 3 ADL-Prior Level of Function SCALE: Activities may be completed with or without assistive devices. 8-Rhkzodeibw-iyswbio completes the activity by him/herself with no assistance from a helper. 5-Set-up or Clean-up Assistance-helper sets up or cleans up; patient completes activity. [place] assists only prior to or following the activity. 4-Supervision or Touching Assistance-helper provides verbal cues and/or touching/steadying and/or contact guard assistance as patient completes activity. Assistance may be provided throughout the activity or intermittently. 3-Partial/Moderate Assistance-helper does LESS THAN HALF the effort. [place] lifts, holds or supports trunk or limbs, but provides less than half the effort. 2-Substantial/Maximal Assistance-helper does MORE THAN HALF the effort. [place] lifts or holds trunk or limbs and provides more than half the effort. 2-Mrwnsspbc-hiwrkv does ALL the effort. Patient does none of the effort to complete the activity. Or, the assistance of 2 or more helpers is required for the patient to complete the activity. If activity was not attempted, code reason: 7-Patient Refused. 9-Not Applicable-not attempted and the patient did not perform the activity before the current illness, exacerbation or injury. 10-Not Attempted due to Environmental Limitations-(lack of equipment, weather restraints, etc.). 88-Not Attempted due to Medical Conditions or Safety Concerns. ADL PLOF Comments Pt. was fully independent prior to this hospitalization. 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 Appearance Pt. up in bathroom when OT entered room. Agrees to work with OT. Mental Status/Objective Patient Orientation: Person, Place, Time, Situation Current Glasses/Contacts: Yes Hand Dominance: Right Upper Extremity ROM Pt. is able to flex right shoulder to approximately 20 degrees. If she uses the left arm to raise the right arm, she is able to hold the right arm in place unsupported at 90 degrees. She has very limited active movement in right hand. Left UE- WFL. Upper Extremity Coordination Right- impaired. Left- WFL Upper Extremity Strength Left- 5/5 Right- 3/5 elbow flexion, 2/5 shoulder flexion, 1/5 wrist ADL-Treatment Eating (QC): 7 Oral Hygiene (QC): 4 (SBA standing at sink to brush teeth.) Shower/Bathe Self (QC): 3 (Min assist to wash rear mara area thoroughly in shower.) Upper Body Dressing (QC): 2 (OT assisted with doffing/donning bra. Also assist ed with donning t-shirt dress.) Lower Body Dressing (QC): 3 (Mod assist to don underwear over hips.) On/Off Footwear (QC): 4 (SBA to don/doff slipper socks.) Toileting Hygiene (QC): 4 Other Treatments Pt. is up walking in room when OT enters. Nursing present with her. Noted appropriate balance in stance and ambulation. Pt. showers and dresses, and then is able to transfer from surface to surface with SBA. OT explains OT role and goals. Pt. verbalizes understanding. Pt. reports no difficulty with vision, but does have slurred speech. Pt. is eager to gain independence. All needs met in room. Education OT Patient Education: Correct positioning, Modified ADL techniques, Progress toward Goal/Update tx plan, Purpose of tx/functional activities, Reviewed precautions, Rehab process, Transfer techniques Teaching Recipient: Patient Teaching Methods: Demonstration, Discussion Response to Teaching: Verbalize Understanding, Return Demonstration OT Nursing Home Goals Digital Content Coordinator Goals Time Frame: Dec 21, 2019 Eating (QC): 6 Oral Hygiene (QC): 6 Toileting Hygiene (QC): 6 Shower/Bathe Self (QC): 6 Upper Body Dressing (QC): 6 Lower Body Dressing (QC): 6 On/Off Footwear (QC): 6 Additional Goals: 1-Demonstrate ADL Tasks, 2-Verbalize Understanding, 3- ImproveStrength/Bing 1=Demonstrate adherence to instructed precautions during ADL tasks. 2=Patient will verbalize/demonstrate understanding of assistive devices/modifications for ADL. 3=Patient will improve strength/tolerance for activity to enable patient to perform ADL's. OT Education/Plan Problem List/Assessment Assessment: Decreased Activ Tolerance, Decreased UE Strength, Impaired Coordination, Impaired I ADL's, Impaired Self-Care Skills, Restricted Funct UE ROM Discharge Recommendations Plan/Recommendations: Continue POC Therapy Discharge Recommendati: Home & Family, Post Acute OT Treatment Plan/Plan of Care Treatment,Training & Education: Yes Patient would benefit from OT for education, treatment and training to promote independence in ADL's, mobility, safety and/or upper extremity function for ADL's. Plan of Care: ADL Retraining, Functional Mobility, UE Funct Exercise/Act Treatment Duration: Dec 21, 2019 Frequency: At least 5 of 7 days/Wk (IRF) Estimated Hrs Per Day: 1.5 hours per day Agreement: Yes Rehab Potential: Good Time/GCodes Start Time: 09:25 Stop Time: 10:00 Total Time Billed (hr/min): 35 Billed Treatment Time 1, EVM x 15minutes, ADL x 20minutes NURY JARQUIN OT Dec 07, 2019 10:21
--- NOTE | 2019-12-07 10:56 | Physical Therapy Evaluation ---
PT Evaluation-General Medical Diagnosis Admission Date Dec 06, 2019 at 16:20 Medical Diagnosis: CVA Onset Date: Dec 03, 2019 Therapy Diagnosis Therapy Diagnosis: impaired mobility,endurance, balance Height/Weight Height (Feet): 5 Height (Inches): 8.00 Weight (Pounds): 240 Weight (Ounces): 0.0 Precautions Precautions/Isolations: Fall Prevention, Standard Precautions Referral Physician: Dr. Auguste Reason for Referral: Evaluation/Treatment Medical History Pertinent Medical History: HTN Reviewed History: Yes Social History Home: Single Level Current Living Status: Children Entry Into Home: Stairs With Railing PT Steps Into Home: 3 Prior Prior Level of Function SCALE: Activities may be completed with or without assistive devices. 1-Zcsknzmjya-zfncyit completes the activity by him/herself with no assistance from a helper. 5-Set-up or Clean-up Assistance-helper sets up or cleans up; patient completes activity. [place] assists only prior to or following the activity. 4-Supervision or Touching Assistance-helper provides verbal cues and/or touching/steadying and/or contact guard assistance as patient completes activity. Assistance may be provided throughout the activity or intermittently. 3-Partial/Moderate Assistance-helper does LESS THAN HALF the effort. [place] lifts, holds or supports trunk or limbs, but provides less than half the effort. 2-Substantial/Maximal Assistance-helper does MORE THAN HALF the effort. [place] lifts or holds trunk or limbs and provides more than half the effort. 4-Vwwfkedeo-qnncib does ALL the effort. Patient does none of the effort to complete the activity. Or, the assistance of 2 or more helpers is required for the patient to complete the activity. If activity was not attempted, code reason: 7-Patient Refused. 9-Not Applicable-not attempted and the patient did not perform the activity before the current illness, exacerbation or injury. 10-Not Attempted due to Environmental Limitations-(lack of equipment, weather restraints, etc.). 88-Not Attempted due to Medical Conditions or Safety Concerns. Bed Mobility: 6 Transfers (B,C,W/C): 6 Gait: 6 Stairs: 6 Indoor Mobility (Ambulation): Independent Stairs: Independent PT Evaluation-Current Subjective Patient in recliner pre tx, agrees to PT, has no complaints of pain. Pt/Family Goals to be independent at home Objective Patient Orientation: Person, Place, Situation ROM/Strength ROM Lower Extremities WNL Strength Lower Extremities 5/5 gross BLE Neuromuscular (Tone, Coordination, Reflexes) Good tracking and peripheral vision, patient has some depth perception issues. Sensory Vision: Hearing: Functional Hand Dominance: Right Sensation Right Lower Extremit: Intact Sensation Left Lower Extremity: Intact Transfers Roll Left to Right (QC): 6 Sit to Lying (QC): 6 Lying to Sitting/Side of Bed(Q: 6 Sit to Stand (QC): 6 Chair/Vsi-ed-Dyyvo Xfer(QC): 6 Toilet Transfer (QC): 6 Car Transfer (QC): 6 Patient is independent with bed mobility and transfers and car transfer. Gait Does the Patient Walk?: Yes Mode of Locomotion: Walk Anticipated Mode of Locomotion: Walk Walk 10 feet (QC): 6 Walk 50 ft with 2 Turns(QC): 6 Walk 150 ft (QC): 6 Walking 10ft/uneven surface-QC: 6 Distance: 300', 150' Gait Assistive Device: None Comments/Gait Description Patient can ambulate 300' without an assistive device with independence (including 50' with at least 2 turns of 90 degrees and 10' over an uneven surface), patient has been ambulating to the restroom by herself and should be ok to do this. Wheelchair Training Does the Pt Use a Wheelchair?: No Wheel 50 ft with 2 turns (QC): 9 Wheel 150 ft (QC): 9 Stairs #of Steps: 12 1 Step (curb) (QC): 4 4 Steps (QC): 4 12 Steps (QC): 4 Patient can go up and down 12 steps using 1 handrail with SBA. Cues for foot placement and safety, some unsteadiness but no LOB. Balance Sitting Static: Normal Sitting Dynamic: Normal Standing Static: Normal Standing Dynamic: Good Picking up an Object (QC): 6 Special Test Comments Patient scored a 53/56 on the Graves Balance Scale. Treatment NuStep level 5 for 15 min. Assessment/Needs Patient has impaired mobility, balance, endurance. Some unsteadiness on stairs, good BBS score of 53/56, no AD needed. Rehab Potential: Fair PT Flavoring Maker Goals Flavoring Maker Goals PT Long-Term Goals Time Frame: Dec 14, 2019 Roll Left & Right (QC): 6 Sit to Lying (QC): 6 Lying-Sitting on Side/Bed(QC): 6 Sit to Stand (QC): 6 Chair/Eho-uj-Cprdl Xfer(QC): 6 Toilet Transfer (QC): 6 Car Transfer (QC): 6 Does the Patient Walk: Yes Walk 10 feet (QC): 6 Walk 50ft with 2 Turns (QC): 6 Walk 150 ft (QC): 6 Walking 10ft on Uneven Surface: 6 1 Step (curb) (QC): 6 4 Steps (QC): 6 12 Steps (QC): 6 Picking up an Object (QC): 6 Wheel 50 feet with 2 turns (QC: 9 Wheel 150 feet: 9 PT Plan Problem List Problem List: Activity Tolerance, Functional Strength, Safety, Balance, Gait, Transfer Treatment/Plan Treatment Plan: Continue Plan of Care Treatment Plan: Education, Functional Activity Bing, Functional Strength, Group Therapy, Gait, Safety, Therapeutic Exercise, Transfers Treatment Duration: Dec 14, 2019 Frequency: At least 5 of 7 days/Wk (IRF) Estimated Hrs Per Day: 1.5 hours per day Patient and/or Family Agrees t: Yes Safety Risks/Education Patient Education: Gait Training, Transfer Techniques, Steps, Correct Positioning, Safety Issues Teaching Recipient: Patient Teaching Methods: Demonstration, Discussion Response to Teaching: Reinforcement Needed Discharge Recommendations Plan Patient will perform bed mobility and transfer training, balance and endurance training, functional strengthening, stair training, gait training, and education, to improve functional mobility and independence at home. Therapy Discharge Recommendati: Home & Family Time/GCodes Time In: 1000 Time Out: 1100 Total Billed Treatment Time: 60 Total Billed Treatment 1 visit EVL 30' NM 15' EX 15' ESVIN ROQUE PT Dec 07, 2019 10:56
--- NOTE | 2019-12-07 13:26 | NUR ---
Pt is Yarsanism. Curriculum Coordinator provided prayer and Communion.
--- NOTE | 2019-12-07 14:22 | ST Cognitive Linguistic Eval ---
Speech Evaluation-General Medical Diagnosis CVA Onset Date: Dec 03, 2019 Therapy Diagnosis Therapy Diagnosis: Apraxia, Cognitive-communication Referral Referring Physician: Dr. Auguste Medical History Pertinent Medical History: HTN Reviewed History: Yes Social History Current Living Status: Children Speech PLF-Current Status Prior Level of Function Patient lived home with her teenage daughter. 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 Subjective Patient was pleasant and cooperative with the evaluation process. Patient states she is anxious with dealing with "all of this." Language Eval: Auditory Comprehends Simple Yes/No Ques: Functional Indent/Objects Multiple [place]: Functional Ident/Pics in Multiple [place]: Functional Follows 1-Step Commands: Functional Follows Complex Directions: Functional Follows General Conversations: Functional Language Eval: Verbal Language Completes Spontaneous Greeting: Functional Produces Auto, Serial Info: Functional Imitates Simple Words/Phrases: Functional Word Finding: Functional Requests Basic Needs: Functional States Basic Personal Info: Functional Expresses Complex Ideas: Functional Objective Cognitive Domain Attention: WNL Memory: WNL Problem Solving: Functional Executive Functions: WNL Visuospatial Skills: WNL Composite Severity Rating: WNL Clock Drawing Severity Rating: WNL Objective Formal/Standardized Tests [facility] Mental Status ([facility]) Results 29/30, within normal limits Oral Motor/Speech Production Patient exhibits mild apraxia on the right side. Patient's speech is intelligible at 90% with slight slurring at times. Impression Patient is a pleasant 44 y/o female who was admitted to the [facility] s/p CVA on 12/03/2019. Patient's cognitive status is within normal limits at 29/30 scored on the SLUMS. She does exhibit mild apraxia with her speech. She has some disorder exhibited as well with oral intake. She states she bites her tongue or cheek when eating and is learning what foods to avoid. Patient will receive skilled ST with focus on improving oral motor function for speech and mastication of food. Speech Patient Assess Expression of Ideas/Wants: Expression (4) Understanding Verbal Content: Understands (4) Brief Interview-Mental Status: Yes Repetition of Three Words: Three (3) Temporal Orientation: Year: Correct (3) Temporal Orientation: Month: Accurate within 5 days(2) Temporal Orientation: Day: Correct (1) Recall : Wear to say "Sock": Yes, no cue required (2) Recall : Color: Yes, no cue required (2) Recall : Bed: Yes, no cue required (2) Memory/Recall Ability: Current season, Location of own room, Staff names and faces, That he or she is in a hsp/hsp unit Speech Short Term Goals Short Term Goals Short Term Goals 1) Patient will complete OME x10 with 90% or greater accuracy. 2) Patient will complete speech exercises with 90% or greater accuracy. 3) Patient will utilize compensatory strategies for safe oral intake. Speech Wholesale Diamond Broker Goals Group Home Goals Patient's speech will improve to 100% intelligibility. Patient will maintain adequate nutrition/hydration via safe effective swallow functio. Speech-Plan Patient/Family Goals Patient/Family Goals: Patient plans on returning to her home where she has great support from family and friends. Treatment Plan Speech Therapy Treatment Plan: Continue Plan of Care Treatment Duration: Dec 16, 2019 Frequency: 4 times per week (Patient will receive skilled ST 4-5 times per jovana estes) Estimated Hrs Per Day: .5 hour per day Rehab Potential: Fair Barriers to Learning: Patient's recent CVA Pt/Family Agrees to Plan: Yes Safety Risks/Education Teaching Recipient: Patient Teaching Methods: Demonstration, Discussion Response to Teaching: Verbalize Understanding, Return Demonstration Education Topics Provided: Safety within her room and communication of wants/needs, safety or oral intake Time Speech Therapy Time In: 11:30 Speech Therapy Time Out: 12:00 Total Billed Time: 30 Billed Treatment Time 1, LUIZA YANEZ SLTS [place], [address] ST Dec 07, 2019 14:22
--- NOTE | 2019-12-07 14:33 | NUR ---
"RD ASSESSMENT PMHx: HLD; stroke (12/03/2019); SurgHx - gastric sleeve PT INTERACTION: Pt was awake and pleasant during nutrition assessment. Pt states current appetite is okay. Note avg PO intake 75% x2meal, per chart review. Pt states following a high protein, low-CHO diet at home, and has had some issues with chewing/swallowing since her stroke. Pt states recent issues with nausea and constipation. Note last BM was 12/06, and pt currently on bowel regimen of colace BID, senna BID, and miralax BID, per chart review. Pt states recent 5# wt loss, but unsure of timeframe. Note unable to determine recent wt hx, per chart review. ABNORMAL NUTRITION-RELATED LAB VALUES LOW: HIGH: BUN 32; cr 1.38; glu 113 Est. kcal needs: 1750 kcal | 15 kcal/kg Est. Pro needs: 94 g Pro | 0.8 g Pro/kg PES STATEMENT: Given current PO intake, no nutrition diagnosis at this time (NO-1.1) INTERVENTION: Continue with current diet order of Regular diet. Add Ensure Enlive (vary) to meals BID, per pt request. Provides 350 kcal and 13 g Pro per serving. Will continue to follow and reassess as pt needs, intake, and status change. MONITOR/EVALUATE: PO Intake; Plan of Care; Hydration Status; Weight Status; Lab Values Марина Valladares, MS, RD, LD"
--- NOTE | 2019-12-07 15:08 | Physical Therapy Daily Note ---
PT Daily Note-Current Subjective Patient in therapy gym already working with OT, has no complaints of pain. Will be co-treating with OT to work on high level balance activity. Appearance Patient in room post tx, she is independent in her room. Mental Status Patient Orientation: Normal For Age Transfers SCALE: Activities may be completed with or without assistive devices. 5-Xgnbasfrqu-hqxlqce completes the activity by him/herself with no assistance from a helper. 5-Set-up or Clean-up Assistance-helper sets up or cleans up; patient completes activity. [place] assists only prior to or following the activity. 4-Supervision or Touching Assistance-helper provides verbal cues and/or touching/steadying and/or contact guard assistance as patient completes activity. Assistance may be provided throughout the activity or intermittently. 3-Partial/Moderate Assistance-helper does LESS THAN HALF the effort. [place] lifts, holds or supports trunk or limbs, but provides less than half the effort. 2-Substantial/Maximal Assistance-helper does MORE THAN HALF the effort. [place] lifts or holds trunk or limbs and provides more than half the effort. 1-Yipbhkdzj-jmslmi does ALL the effort. Patient does none of the effort to complete the activity. Or, the assistance of 2 or more helpers is required for the patient to complete the activity. If activity was not attempted, code reason: 7-Patient Refused. 9-Not Applicable-not attempted and the patient did not perform the activity before the current illness, exacerbation or injury. 10-Not Attempted due to Environmental Limitations-(lack of equipment, weather restraints, etc.). 88-Not Attempted due to Medical Conditions or Safety Concerns. Neuromuscular standing dynamic balance activities with hitting ball with arms, catching ball, kicking ball Treatments balance training Assessment Current Status: Fair Progress no LOB PT Intermediate Goals Cracking Still Operator Goals PT Cracking Still Operator Goals Time Frame: Dec 14, 2019 Roll Left & Right (QC): 6 Sit to Lying (QC): 6 Lying-Sitting on Side/Bed(QC): 6 Sit to Stand (QC): 6 Chair/Psf-iw-Jdltc Xfer(QC): 6 Toilet Transfer (QC): 6 Car Transfer (QC): 6 Does the Patient Walk: Yes Walk 10 feet (QC): 6 Walk 50ft with 2 Turns (QC): 6 Walk 150 ft (QC): 6 Walking 10ft on Uneven Surface: 6 1 Step (curb) (QC): 6 4 Steps (QC): 6 12 Steps (QC): 6 Picking up an Object (QC): 6 Wheel 50 feet with 2 turns (QC: 9 Wheel 150 feet: 9 PT Plan Problem List Problem List: Activity Tolerance, Functional Strength, Safety, Balance, Gait, Transfer Treatment/Plan Treatment Plan: Continue Plan of Care Treatment Plan: Education, Functional Activity Bing, Functional Strength, Group Therapy, Gait, Safety, Therapeutic Exercise, Transfers Treatment Duration: Dec 14, 2019 Frequency: At least 5 of 7 days/Wk (IRF) Estimated Hrs Per Day: 1.5 hours per day Patient and/or Family Agrees t: Yes Safety Risks/Education Patient Education: Correct Positioning, Safety Issues Teaching Recipient: Patient Teaching Methods: Demonstration, Discussion Response to Teaching: Reinforcement Needed Time/GCodes Time In: 1440 Time Out: 1500 Total Billed Treatment Time: 20 Total Billed Treatment 1 visit ESVIN BENTLEY PT Dec 07, 2019 15:08
--- NOTE | 2019-12-07 15:28 | Occupational Ther Daily Note ---
OT Current Status-Daily Note Subjective No pain reported. Appearance Pt. up in chair when OT entered room. Agrees to work with OT. Mental Status/Objective Patient Orientation: Person, Place ADL-Treatment Therapy Code Descriptions/Definitions Functional [place] Measure: 0=Not Assessed/NA 4=Minimal Assistance 1=Total Assistance 5=Supervision or Setup 2=Maximal Assistance 6=Modified [place] 3=Moderate Assistance 7=Complete IndependenceSCALE: Activities may be completed with or without assistive devices. 0-Pcliefuakc-tsuhcrh completes the activity by him/herself with no assistance from a helper. 5-Set-up or Clean-up Assistance-helper sets up or cleans up; patient completes activity. [place] assists only prior to or following the activity. 4-Supervision or Touching Assistance-helper provides verbal cues and/or touching/steadying and/or contact guard assistance as patient completes activity. Assistance may be provided throughout the activity or intermittently. 3-Partial/Moderate Assistance-helper does LESS THAN HALF the effort. [place] lifts, holds or supports trunk or limbs, but provides less than half the effort. 2-Substantial/Maximal Assistance-helper does MORE THAN HALF the effort. [place] lifts or holds trunk or limbs and provides more than half the effort. 5-Cikyosuic-waqfjz does ALL the effort. Patient does none of the effort to complete the activity. Or, the assistance of 2 or more helpers is required for the patient to complete the activity. If activity was not attempted, code reason: 7-Patient Refused. 9-Not Applicable-not attempted and the patient did not perform the activity before the current illness, exacerbation or injury. 10-Not Attempted due to Environmental Limitations-(lack of equipment, weather restraints, etc.). 88-Not Attempted due to Medical Conditions or Safety Concerns. Pt. ambulates with SBA with no assistive device to therapy gym. OT facilitated AROM to right UE to available level. Noted adequate scapular glide. Pt. able to flex right shoulder to approximately 20 degrees. Noted approximately 50% elbow flexion, with no active movement in wrist or fingers. OT applied e-stim to right UE for wrist extension. Pt. tolerated 8 minutes at 6 melvin-amps with noted wrist movement. Tolerated treatment well. OT then attempted to facilitate movement again with muscle tapping. Noted trace wrist extension at this time. PT came into room and partial co-treatment performed. Pt. stood with PT for balance and safety while OT initiated bilateral coordination task with ball toss back and forth. Encouraged pt. to catch and toss ball with both hands. Pt. also encouraged to thread fingers of bilateral UE together, to "bump" ball back. Noted good weight shift in stance to kick ball. All needs met after treatment. Education OT Patient Education: Correct positioning, Exercise program, Modified ADL techniques, Progress toward Goal/Update tx plan, Purpose of tx/functional activities, Reviewed precautions, Rehab process, Transfer techniques Teaching Recipient: Patient Teaching Methods: Demonstration, Discussion Response to Teaching: Verbalize Understanding, Return Demonstration OT Detention Goals Business Enterprise Officer Goals Time Frame: Dec 21, 2019 Eating (QC): 6 Oral Hygiene (QC): 6 Toileting Hygiene (QC): 6 Shower/Bathe Self (QC): 6 Upper Body Dressing (QC): 6 Lower Body Dressing (QC): 6 On/Off Footwear (QC): 6 Additional Goals: 1-Demonstrate ADL Tasks, 2-Verbalize Understanding, 3- ImproveStrength/Bing 1=Demonstrate adherence to instructed precautions during ADL tasks. 2=Patient will verbalize/demonstrate understanding of assistive devices/modifications for ADL. 3=Patient will improve strength/tolerance for activity to enable patient to perform ADL's. OT Education/Plan Problem List/Assessment Assessment: Decreased Activ Tolerance, Decreased UE Strength, Impaired Coordination, Impaired I ADL's, Impaired Self-Care Skills, Restricted Funct UE ROM Discharge Recommendations Plan/Recommendations: Continue POC Therapy Discharge Recommendati: Home & Family, Post Acute OT Treatment Plan/Plan of Care Treatment,Training & Education: Yes Patient would benefit from OT for education, treatment and training to promote independence in ADL's, mobility, safety and/or upper extremity function for ADL's. Plan of Care: ADL Retraining, Functional Mobility, UE Funct Exercise/Act Treatment Duration: Dec 21, 2019 Frequency: At least 5 of 7 days/Wk (IRF) Estimated Hrs Per Day: 1.5 hours per day Agreement: Yes Rehab Potential: Good Time/GCodes Start Time: 14:20 Stop Time: 15:00 Total Time Billed (hr/min): 40 Billed Treatment Time 2322-2678 1, NM x 20minutes 4699-2148 Ex x 10minutes, FA x 10minutes. Co-treatment with PT. Please see above note for designated roles. NURY JARQUIN OT Dec 07, 2019 15:28
--- NOTE | 2019-12-07 15:36 | Physical Therapy Daily Note ---
PT Daily Note-Current Subjective Patient in bed pre tx, agrees to PT, no complaints of pain. Appearance Patient in bed post tx with nurse call, phone, tray, all needs met. Mental Status Patient Orientation: Normal For Age Transfers SCALE: Activities may be completed with or without assistive devices. 4-Uxepxggddj-wyknfhz completes the activity by him/herself with no assistance from a helper. 5-Set-up or Clean-up Assistance-helper sets up or cleans up; patient completes activity. [place] assists only prior to or following the activity. 4-Supervision or Touching Assistance-helper provides verbal cues and/or touching/steadying and/or contact guard assistance as patient completes activity. Assistance may be provided throughout the activity or intermittently. 3-Partial/Moderate Assistance-helper does LESS THAN HALF the effort. [place] lifts, holds or supports trunk or limbs, but provides less than half the effort. 2-Substantial/Maximal Assistance-helper does MORE THAN HALF the effort. [place] lifts or holds trunk or limbs and provides more than half the effort. 5-Ekxpvzwom-abqtto does ALL the effort. Patient does none of the effort to complete the activity. Or, the assistance of 2 or more helpers is required for the patient to complete the activity. If activity was not attempted, code reason: 7-Patient Refused. 9-Not Applicable-not attempted and the patient did not perform the activity before the current illness, exacerbation or injury. 10-Not Attempted due to Environmental Limitations-(lack of equipment, weather restraints, etc.). 88-Not Attempted due to Medical Conditions or Safety Concerns. Roll Left & Right (QC): 6 Sit to Lying (QC): 6 Lying to Sitting/Side of Bed(Q: 6 Sit to Stand (QC): 6 Chair/Ulg-fh-Qvkxf Xfer(QC): 6 Gait Training Distance: 800' Walk 10 feet (QC): 6 Walk 50 ft with 2 Turns(QC): 6 Walk 150 ft (QC): 6 Gait Assistive Device: None no LOB or unsteadiness Treatments ambulation Assessment Current Status: Fair Progress improving endurance PT Set Key Driver Goals Retirement Goals PT Retirement Goals Time Frame: Dec 14, 2019 Roll Left & Right (QC): 6 Sit to Lying (QC): 6 Lying-Sitting on Side/Bed(QC): 6 Sit to Stand (QC): 6 Chair/Lxa-jv-Pojma Xfer(QC): 6 Toilet Transfer (QC): 6 Car Transfer (QC): 6 Does the Patient Walk: Yes Walk 10 feet (QC): 6 Walk 50ft with 2 Turns (QC): 6 Walk 150 ft (QC): 6 Walking 10ft on Uneven Surface: 6 1 Step (curb) (QC): 6 4 Steps (QC): 6 12 Steps (QC): 6 Picking up an Object (QC): 6 Wheel 50 feet with 2 turns (QC: 9 Wheel 150 feet: 9 PT Plan Problem List Problem List: Activity Tolerance, Functional Strength, Safety, Balance, Gait, Transfer Treatment/Plan Treatment Plan: Continue Plan of Care Treatment Plan: Education, Functional Activity Bing, Functional Strength, Group Therapy, Gait, Safety, Therapeutic Exercise, Transfers Treatment Duration: Dec 14, 2019 Frequency: At least 5 of 7 days/Wk (IRF) Estimated Hrs Per Day: 1.5 hours per day Patient and/or Family Agrees t: Yes Safety Risks/Education Patient Education: Gait Training, Transfer Techniques, Correct Positioning, Safety Issues Teaching Recipient: Patient Teaching Methods: Demonstration, Discussion Response to Teaching: Reinforcement Needed Time/GCodes Time In: 1515 Time Out: 1530 Total Billed Treatment Time: 15 Total Billed Treatment 1 visit GT 15' ESVIN ROQUE PT Dec 07, 2019 15:36
--- NOTE | 2019-12-07 15:57 | Occupational Ther Daily Note ---
OT Current Status-Daily Note Subjective No pain reported. Mental Status/Objective Patient Orientation: Person, Place, Time, Situation ADL-Treatment Therapy Code Descriptions/Definitions Functional [place] Measure: 0=Not Assessed/NA 4=Minimal Assistance 1=Total Assistance 5=Supervision or Setup 2=Maximal Assistance 6=Modified [place] 3=Moderate Assistance 7=Complete IndependenceSCALE: Activities may be completed with or without assistive devices. 6-Gzvalufqpk-yylbemj completes the activity by him/herself with no assistance from a helper. 5-Set-up or Clean-up Assistance-helper sets up or cleans up; patient completes activity. [place] assists only prior to or following the activity. 4-Supervision or Touching Assistance-helper provides verbal cues and/or touching/steadying and/or contact guard assistance as patient completes activity. Assistance may be provided throughout the activity or intermittently. 3-Partial/Moderate Assistance-helper does LESS THAN HALF the effort. [place] lifts, holds or supports trunk or limbs, but provides less than half the effort. 2-Substantial/Maximal Assistance-helper does MORE THAN HALF the effort. [place] lifts or holds trunk or limbs and provides more than half the effort. 4-Xvlvzjtnm-othtkq does ALL the effort. Patient does none of the effort to complete the activity. Or, the assistance of 2 or more helpers is required for the patient to complete the activity. If activity was not attempted, code reason: 7-Patient Refused. 9-Not Applicable-not attempted and the patient did not perform the activity before the current illness, exacerbation or injury. 10-Not Attempted due to Environmental Limitations-(lack of equipment, weather restraints, etc.). 88-Not Attempted due to Medical Conditions or Safety Concerns. Other Treatment Pt. in bed. OT issued pt. therapy sponge and theraputty for right hand strengthening and coordination. Pt. educated on exercises and working towards increased movement. Pt. verbalizes understanding and demonstrates ability to complete exercises to best of her ability. Pt. verbalizes discouragement at not being able to fully move fingers of right hand. OT encourages pt. Pt. states that she will work on these exercises in her room. All needs met. Education OT Patient Education: Correct positioning, Exercise program, Modified ADL techniques, Progress toward Goal/Update tx plan, Purpose of tx/functional activities, Reviewed precautions, Rehab process, Transfer techniques Teaching Recipient: Patient Teaching Methods: Demonstration, Discussion Response to Teaching: Verbalize Understanding, Return Demonstration OT Corrugator Helper Goals Corrugator Helper Goals Time Frame: Dec 21, 2019 Eating (QC): 6 Oral Hygiene (QC): 6 Toileting Hygiene (QC): 6 Shower/Bathe Self (QC): 6 Upper Body Dressing (QC): 6 Lower Body Dressing (QC): 6 On/Off Footwear (QC): 6 Additional Goals: 1-Demonstrate ADL Tasks, 2-Verbalize Understanding, 3-Impr oveStrength/Bing 1=Demonstrate adherence to instructed precautions during ADL tasks. 2=Patient will verbalize/demonstrate understanding of assistive devices/modifications for ADL. 3=Patient will improve strength/tolerance for activity to enable patient to perform ADL's. OT Education/Plan Problem List/Assessment Assessment: Decreased Activ Tolerance, Decreased UE Strength, Impaired Coordination, Impaired I ADL's, Impaired Self-Care Skills, Restricted Funct UE ROM Discharge Recommendations Plan/Recommendations: Continue POC Therapy Discharge Recommendati: Home & Family, Post Acute OT Treatment Plan/Plan of Care Treatment,Training & Education: Yes Patient would benefit from OT for education, treatment and training to promote independence in ADL's, mobility, safety and/or upper extremity function for ADL's. Plan of Care: ADL Retraining, Functional Mobility, UE Funct Exercise/Act Treatment Duration: Dec 21, 2019 Frequency: At least 5 of 7 days/Wk (IRF) Estimated Hrs Per Day: 1.5 hours per day Agreement: Yes Rehab Potential: Good Time/GCodes Start Time: 15:20 Stop Time: 15:30 Total Time Billed (hr/min): 10 Billed Treatment Time 1, Ex NURY JARQUIN OT Dec 07, 2019 15:57
[2019-12-07 18:27] VITALS: BP 142/72
--- NOTE | 2019-12-07 19:40 | Individualized Plan of Care ---
Individualized Plan of Care Rehab Nursing IPOC Order Admission Date Dec 06, 2019 at 16:20 Current Orders Orders Admission Order(Inpt,Obs,Sdc) (12/06/19 15:05) Vital Signs: Per Unit Policy ( 08,16,00 (12/06/19 15:05) Jose Dorado , (12/06/19 15:05) Sequential Compression Device Q4H (12/06/19 15:05) Log Sawyer-Inpt Rehab Con (12/06/19 15:05) Rehab Nursing Orders-Ipoc (12/06/19 15:05) Physical Therapy Rehab Orders (12/06/19 15:05) Occupational Therapy Rehab Ord (12/06/19 15:05) Speech Therapy Rehab Orders (12/06/19 15:05) Cbc With Automated Diff (12/07/19 06:00) Comprehensive Metabolic Panel (12/07/19 06:00) Intake & Output 06,14,22 (12/06/19 15:05) Precautions (Aru) (12/06/19 15:05) Weekly Weight WEEK (12/06/19 15:05) Rehab-Intensity Of Therapy (12/06/19 15:05) Initiate Admission Nursing Pro .admission (12/06/19 15:05) Acetaminophen Tablet (Tylenol Tablet) (12/06/19 15:15) Alprazolam Tablet (Xanax Tablet) (12/06/19 15:15) Calcium Carbonate Chew Tablet (Antacid C (12/06/19 15:15) Diphenhydramine Tablet (Benadryl Tablet) (12/06/19 15:15) Docusate Sodium Capsule (Colace Capsule) (12/06/19 21:00) Docusate Sodium Capsule (Colace Capsule) (12/06/19 15:15) Bisacodyl Suppository (Dulcolax Supposit (12/06/19 15:15) Lactulose Oral Solution (Enulose Oral So (12/06/19 15:15) Na Phos/Na Biphos Enema (Fleet Enema Amos (12/06/19 15:15) Guaifenesin/Codeine Syrup (Robitussin Ac (12/06/19 15:15) Loperamide Tablet (Imodium Tablet) (12/06/19 15:15) Melatonin Tablet (Melatonin Tablet) (12/06/19 15:15) Polyethylene Glycol Powder Pkt (Miralax (12/06/19 21:00) Ondansetron Oral Dissolve Tab (Zofran (12/06/19 15:15) Senna S Tablet (Senokot S Tablet) (12/06/19 21:00) Initiate Admission Nursing Pro .admission (12/06/19 15:05) Admission Arrival Bed Request (12/06/19 16:21) Acetaminophen Tablet/Caplet (Tylenol T (12/06/19 17:15) General/Regular (12/06/19 Dinner) Ambulate 08,12,20 (12/06/19 18:37) Sequential Compression Device Q4H (12/06/19 18:37) Dvt/Vte Risk - Notifiy Physici Q4H (12/06/19 18:37) Amlodipine Tablet (Norvasc Tablet) (12/07/19 09:00) Aspirin Enteric Coated Tablet (Ecotrin T (12/07/19 09:00) Atorvastatin Tablet (Lipitor) (12/06/19 21:00) Lisinopril Tablet (Zestril Tablet) (12/07/19 09:00) Enoxaparin Injection (Lovenox Injection) (12/06/19 19:45) Hydrocodone/Apap 5/325 Tablet (Lortab 5 (12/06/19 19:45) Ensure Enlive (12/07/19 Dinner) Tramadol Tablet (Ultram Tablet) (12/07/19 15:00) Patient Visit (12/07/19 ) Pt Eval Low Complexity (12/07/19 ) Ex Neuromuscular, Ea 15 Min (12/07/19 ) Gait Training, Ea 15 Min (12/07/19 ) Exercise Therap, Ea 15 Min (12/07/19 ) Dysphagia Evaluation Std (12/07/19 ) Speech Sound Lang Comp (12/07/19 ) Treat. Speech/Lang/Voice (12/07/19 ) Gabapentin Capsule/Tablet (Neurontin Cap (12/07/19 21:00) Rehab Nursing Orders: Ongoing Assess. of Cognitive Status, Ongoing Assess. of Function Status, Bladder Management, Bladder Scan, Bladder Training, Bowel Management, Bowel Training, Disease Management & Educaiton, DVT Prophylaxis, Fall Prevention, Fluid/Electrolyte/Nutrition Mgmt, Infection Prevention, Medication Management & Education, Management of Risks & Complications, Management of Skin Intergrity, Nutrition Management, Pain Management, Patient/Family Support, Safety Management Intensity of Therapy to be met Patient to be seen: Min.3h per day/5 of 7d PT IPOC Problem List: Activity Tolerance, Functional Strength, Safety, Balance, Gait, Transfer Treatment Plan: Continue Plan of Care Education, Functional Activity Bing, Functional Strength, Group Therapy, Gait, Safety, Therapeutic Exercise, Transfers Treatment Duration: Dec 14, 2019 Frequency: At least 5 of 7 days/Wk (IRF) Estimated Hrs Per Day: 1.5 hours per day OT IPOC Problems: Decreased Activ Tolerance, Decreased UE Strength, Impaired Coordination, Impaired I ADL's, Impaired Self-Care Skills, Restricted Funct UE ROM OT Treatment, Training and Edu: Yes Plan of Care: ADL Retraining, Functional Mobility, UE Funct Exercise/Act Treatment Duration: Dec 21, 2019 Frequency: At least 5 of 7 days/Wk (IRF) Estimated Hrs Per Day: 1.[address] IPOC Speech Therapy Treatment Plan: Continue Plan of Care Treatment Duration: Dec 16, 2019 Frequency: 4 times per week (Patient will receive skilled ST 4-5 times per week) Estimated Hrs Per Day: .5 hour per day Log Sawyer/Case Mgmt Log Sawyer/Case Managemen: Discharge Planning Dietitian/Woods Laborer Dietitian/Woods Laborer to monitor nutritional status and make changes and/or recommendations as needed and work with speech pathology on dietary upgrades as the occur. Physician IPOC Medical Issues being managed closely and that require the 24 hour availability of a physician: Patient had recent CVA with malignant and urgent HTN OOC who will need to have close monitoring due to high risk for recurrence. Medical Issues: Bowel/Bladder Function, DVT Prophylaxis, Falls Precautions, Fluid/Electrolyte/Nutrition Balance, Infection Protection, Pain Management Brief Synthesis of Preadmission Screen, Post-Admission Evaluation, and Therapy Evaluations: PT OT will focus on strengthening right arm and hand and ST will focus on facial droop strengthening and speech management Medical Prognosis: Good Anticipated Length of Stay: 5 days ROSE PENA DO Dec 07, 2019 19:40
[2019-12-07] MEDS: GABAPENTIN 100 MG (NEURONTIN) CAP PO SCH (21:22)
[2019-12-07] MEDS: ENOXAPARIN 40 MG/0.4 ML (LOVENOX) SYR SC SCH (21:22)
[2019-12-07] MEDS: ALPRAZolam 0.25 MG (XANAX) TAB PO PRN (21:26)
[2019-12-08] MEDS: ONDANSETRON 4 MG (ZOFRAN) ORAL DISSOLVE TAB PO PRN ×2 (03:06→11:20)
[2019-12-08 05:49] VITALS: BP 158/84
--- NOTE | 2019-12-08 06:09 | PM&R Progress Note ---
Subjective HPI/CC On Admission Date Seen by Provider: Dec 08, 2019 Time Seen by Provider: 09:30 Subjective/Events-last exam 12/08/19: Patient having chronic pain issues and asked for Dilaudid yesterday for some unknown reason I started Ultram because that is the only thing I agree with Right hand did have a twinge of movement but she says its not happening today Overall has difficulty coping and obsessed about the right hand Review of Systems General: Fatigue, Malaise Neurological: Weakness Objective Exam Vital Signs Vital Signs Date Time Temp Pulse Resp B/P (MAP) Pulse Ox O2 Delivery O2 Flow Rate FiO2 12/09/19 05:10 36.6 70 18 120/71 (87) 97 Room Air Capillary Refill : Less Than 3 Seconds General Appearance: No Apparent Distress, WD/WN, Chronically ill, Obese HEENT: PERRL/EOMI, Normal ENT Inspection, Pharynx Normal Neck: Full Range of Motion, Normal Inspection, Non Tender, Supple, Carotid Bruit Respiratory: Chest Non Tender, Lungs Clear, Normal Breath Sounds, No Accessory Muscle Use, No Respiratory Distress Cardiovascular: Regular Rate, Rhythm, No Edema, No Gallop, No JVD, No Murmur, Normal Peripheral Pulses Gastrointestinal: Normal Bowel Sounds, No Organomegaly, No Pulsatile Mass, Non Tender, Soft Back: Normal Inspection, No CVA Tenderness, No Vertebral Tenderness Extremity: Normal Capillary Refill, Normal Inspection, Normal Range of Motion, Non Tender, No Calf Tenderness, No Pedal Edema Neurologic/Psychiatric: Alert, Oriented x3, No Motor/Sensory Deficits, Normal Mood/Affect, Abnormal Gait, Facial Droop (right), Motor Weakness (right arm 2/5) Skin: Normal Color, Warm/Dry Lymphatic: No Adenopathy Results/Procedures Lab Patient resulted labs reviewed. FIM Transfers Therapy Code Descriptions/Definitions Functional [place] Measure: 0=Not Assessed/NA 4=Minimal Assistance 1=Total Assistance 5=Supervision or Setup 2=Maximal Assistance 6=Modified [place] 3=Moderate Assistance 7=Complete IndependenceSCALE: Activities may be completed with or without assistive devices. 6-Rwytytmcbi-ekduehe completes the activity by him/herself with no assistance from a helper. 5-Set-up or Clean-up Assistance-helper sets up or cleans up; patient completes activity. [place] assists only prior to or following the activity. 4-Supervision or Touching Assistance-helper provides verbal cues and/or touching/steadying and/or contact guard assistance as patient completes activity. Assistance may be provided throughout the activity or intermittently. 3-Partial/Moderate Assistance-helper does LESS THAN HALF the effort. [place] lifts, holds or supports trunk or limbs, but provides less than half the effort. 2-Substantial/Maximal Assistance-helper does MORE THAN HALF the effort. [place] l ifts or holds trunk or limbs and provides more than half the effort. 0-Osurzyntg-cdcjry does ALL the effort. Patient does none of the effort to complete the activity. Or, the assistance of 2 or more helpers is required for the patient to complete the activity. If activity was not attempted, code reason: 7-Patient Refused. 9-Not Applicable-not attempted and the patient did not perform the activity before the current illness, exacerbation or injury. 10-Not Attempted due to Environmental Limitations-(lack of equipment, weather restraints, etc.). 88-Not Attempted due to Medical Conditions or Safety Concerns. Roll Left to Right (QC): 6 Sit to Lying (QC): 6 Sit to Stand (QC): 6 Chair/Tfa-kx-Ogrkf Xfer(QC): 6 Car Transfer (QC): 6 Gait Training Does the Patient Walk?: Yes Distance: 800' Walk 10 feet (QC): 6 Walk 50 ft with 2 Turns(QC): 6 Walk 150 ft (QC): 6 Walking 10ft/uneven surface-QC: 6 Gait Assistive Device: None Wheelchair Training Does the Pt Use a Wheelchair?: No Wheel 50 ft with 2 turns (QC): 9 Wheel 150 ft (QC): 9 Stair Training #of Steps: 12 1 Step (curb) (QC): 4 4 Steps (QC): 4 12 Steps (QC): 4 Balance Picking up an Object (QC): 6 ADL-Treatment Eating (QC): 7 Oral Hygiene (QC): 4 (SBA standing at sink to brush teeth.) Shower/Bathe Self (QC): 3 (Min assist to wash rear mara area thoroughly in shower.) Upper Body Dressing (QC): 2 (OT assisted with doffing/donning bra. Also assisted with donning t-shirt dress.) Lower Body Dressing (QC): 3 (Mod assist to don underwear over hips.) On/Off Footwear (QC): 4 (SBA to don/doff slipper socks.) Toileting Hygiene (QC): 4 Assessment/Plan Assessment and Plan Assess & Plan/Chief Complaint Assessment: CVA with right sided weakness HTN CRI Obesity Plan: Home meds Monitor BP IRF protocol 12/08/19: Continue aggressive treatment for right arm and hand Speech therapy to work on facial droop and speech (1) CVA (cerebral vascular accident) (2) Renal insufficiency (3) Obesity (4) Hypertensive emergency Status: Acute (5) Anxiety Status: Acute ROSE PENA DO Dec 08, 2019 06:09
[2019-12-08] MEDS: amLODIPine 5 MG (NORVASC) TAB PO SCH (08:52)
[2019-12-08] MEDS: SENNA W/DOCUSATE (SENOKOT S) TABLET PO SCH ×2 (08:52→20:58)
[2019-12-08] MEDS: DOCUSATE SODIUM 100 MG (COLACE) CAP PO SCH ×2 (08:52→20:58)
[2019-12-08] MEDS: polyethylene glycoL POWDER 17 GM (MIRALAX) PACK PO SCH ×2 (08:52→21:24)
[2019-12-08] MEDS: lisINopril 20 MG (PRINIVIL) TABLET PO SCH (08:52)
[2019-12-08] MEDS: ASPIRIN E.C. 325 MG (ECOTRIN) TABLET PO SCH (08:52)
[2019-12-08] MEDS: GABAPENTIN 100 MG (NEURONTIN) CAP PO SCH ×2 (08:52→21:03)
--- NOTE | 2019-12-08 09:03 | Speech Therapy Daily Note ---
Speech Daily Progress Note Subjective Date Seen by Provider: Dec 08, 2019 Time Seen by Provider: 00:30 Patient stated she was tired due to waking up at 4 am. Patient stated she woke up because she felt her disabled hand move. Patient stated she became anxious and vomited. Objective Speech exercises completed with 80% accuracy. Patient's speech slurred this am. Assessment Assessment Current Status: Fair Progress Treatment Plan Continue Plan of Care Speech Short Term Goals Short Term Goals Short Term Goals 1) Patient will complete OME x10 with 90% or greater accuracy. 2) Patient will complete speech exercises with 90% or greater accuracy. 3) Patient will utilize compensatory strategies for safe oral intake. Speech Value Stream Leader Goals Jail Goals Patient's speech will improve to 100% intelligibility. Patient will maintain adequate nutrition/hydration via safe effective swallow functio. Speech-Plan Patient/Family Goals Patient/Family Goals: Patient plans on returning to her home upon discharge. Treatment Plan Speech Therapy Treatment Plan: Continue Plan of Care Treatment Duration: Dec 16, 2019 Frequency: 4 times per week (Patient will receive skilled ST 4-5 times per week) Estimated Hrs Per Day: .5 hour per day Rehab Potential: Good Barriers to Learning: Patient's recent CVA, slurred speech resulting in difficulty with expressive speech, especially when she is tired Pt/Family Agrees to Plan: Yes Safety Risks/Education Teaching Recipient: Patient Teaching Methods: Demonstration, Discussion Response to Teaching: Verbalize Understanding, Return Demonstration Education Topics Provided: Continued safety with oral intake Time Speech Therapy Time In: 08:30 Speech Therapy Time Out: 09:00 Total Billed Time: 30 Billed Treatment Time 1, SLDESIREE, DYST YULI Hernandes Dec 08, 2019 09:03
--- NOTE | 2019-12-08 10:54 | Physical Therapy Daily Note ---
PT Daily Note-Current Subjective Patient in bed pre tx, agrees to PT, has no complaints of pain. Appearance Patient in room post tx, she is independent in her room. Mental Status Patient Orientation: Normal For Age Transfers SCALE: Activities may be completed with or without assistive devices. 2-Ovsxixpvqy-rulfshx completes the activity by him/herself with no assistance from a helper. 5-Set-up or Clean-up Assistance-helper sets up or cleans up; patient completes activity. [place] assists only prior to or following the activity. 4-Supervision or Touching Assistance-helper provides verbal cues and/or touching/steadying and/or contact guard assistance as patient completes activity. Assistance may be provided throughout the activity or intermittently. 3-Partial/Moderate Assistance-helper does LESS THAN HALF the effort. [place] lifts, holds or supports trunk or limbs, but provides less than half the effort. 2-Substantial/Maximal Assistance-helper does MORE THAN HALF the effort. [place] lifts or holds trunk or limbs and provides more than half the effort. 9-Mhiwhwwrr-frngfi does ALL the effort. Patient does none of the effort to complete the activity. Or, the assistance of 2 or more helpers is required for the patient to complete the activity. If activity was not attempted, code reason: 7-Patient Refused. 9-Not Applicable-not attempted and the patient did not perform the activity before the current illness, exacerbation or injury. 10-Not Attempted due to Environmental Limitations-(lack of equipment, weather restraints, etc.). 88-Not Attempted due to Medical Conditions or Safety Concerns. Roll Left & Right (QC): 6 Lying to Sitting/Side of Bed(Q: 6 Sit to Stand (QC): 6 Chair/Yxd-rg-Rdsvd Xfer(QC): 6 Gait Training Distance: 800', 150' Walk 10 feet (QC): 6 Walk 50 ft with 2 Turns(QC): 6 Walk 150 ft (QC): 6 Gait Assistive Device: None slow but steady ambulation Exercises LAQ alternating for 5 min with 2# ankle weights NuStep Minutes: 15 NuStep Workload: 5 Treatments transfers, ambulation, functional strengthening Assessment Current Status: Fair Progress improving RLE strength and endurance PT Automatic Dispenser Mechanic Goals Automatic Dispenser Mechanic Goals PT Automatic Dispenser Mechanic Goals Time Frame: Dec 14, 2019 Roll Left & Right (QC): 6 Sit to Lying (QC): 6 Lying-Sitting on Side/Bed(QC): 6 Sit to Stand (QC): 6 Chair/Sjo-vr-Ytckj Xfer(QC): 6 Toilet Transfer (QC): 6 Car Transfer (QC): 6 Does the Patient Walk: Yes Walk 10 feet (QC): 6 Walk 50ft with 2 Turns (QC): 6 Walk 150 ft (QC): 6 Walking 10ft on Uneven Surface: 6 1 Step (curb) (QC): 6 4 Steps (QC): 6 12 Steps (QC): 6 Picking up an Object (QC): 6 Wheel 50 feet with 2 turns (QC: 9 Wheel 150 feet: 9 PT Plan Problem List Problem List: Activity Tolerance, Functional Strength, Safety, Balance, Gait, Transfer Treatment/Plan Treatment Plan: Continue Plan of Care Treatment Plan: Education, Functional Activity Bing, Functional Strength, Group Therapy, Gait, Safety, Therapeutic Exercise, Transfers Treatment Duration: Dec 14, 2019 Frequency: At least 5 of 7 days/Wk (IRF) Estimated Hrs Per Day: 1.5 hours per day Patient and/or Family Agrees t: Yes Safety Risks/Education Patient Education: Gait Training, Transfer Techniques, Correct Positioning, Safety Issues Teaching Recipient: Patient Teaching Methods: Demonstration, Discussion Response to Teaching: Reinforcement Needed Time/GCodes Time In: 1000 Time Out: 1100 Total Billed Treatment Time: 60 Total Billed Treatment 1 visit EX 20' FA 10' GT 30' ESVIN ROQUE PT Dec 08, 2019 10:54
--- NOTE | 2019-12-08 10:55 | NUR ---
CM/SS ADMISSION and PATIENT CARE CONFERENCE SUMMARY Patient admitted to ARU 12/06/19 from [facility] for acute CVA with right sided weakness and mild speech apraxia. 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 Other comorbidities are, in part, HTN, CRI, obesity with history of gastric sleeve, anxiety. Patient's 14 year old daughter, Esther Reese, resides with her. Patient will return home when discharged. She has a significant other, Jorge Luis Hurst, who resides in [place], [place] but indications are he could assist patient during his non-working hours. PCP: ALEXANDRIA Dooley, [facility] PHARMACY: [facility] INSURANCE: Uninsured. [facility] P[place]itate Washer to discuss [facility] application process with patient and assist as appropriate for completion. Supportive documentation will have to be provided before application can move forward for review. DME: None prior to CVA. Therapy team to recommend assistive devices appropriate to patient performance and safety. BARRIERS TO DISCHARGE PLAN: Uninsured status and potential for financial hardship. Monitor for discharge Rx costs. As an established patient with [facility], she can utilize their financial levels of assistance with [facility] as the primary resource. [facility] Prescription Assistance Javad available as a secondary option. CONTACTS: Esther Reese, Minor Daughter [id number] [place] [address] [place] Hurst, Significant Other [address] [place], [place] [phone] Reviewed Summary with patient, she understands that her next review will be Saturday, December 14, 2019. She is in agreement to continued stay on ARU and participation with therapy regarding her care plan.
[2019-12-08] MEDS: ALPRAZolam 0.25 MG (XANAX) TAB PO PRN ×2 (11:21→21:03)
--- NOTE | 2019-12-08 12:26 | Occupational Ther Daily Note ---
OT Current Status-Daily Note Subjective Pt. in bed when OT entered room. No c/o pain. Pt. agreeable to therapy. Mental Status/Objective Patient Orientation: Person, Place, Time, Situation ADL-Treatment Therapy Code Descriptions/Definitions Functional [place] Measure: 0=Not Assessed/NA 4=Minimal Assistance 1=Total Assistance 5=Supervision or Setup 2=Maximal Assistance 6=Modified [place] 3=Moderate Assistance 7=Complete IndependenceSCALE: Activities may be completed with or without assistive devices. 6-Azbhuvaadc-kpgrchx completes the activity by him/herself with no assistance from a helper. 5-Set-up or Clean-up Assistance-helper sets up or cleans up; patient completes activity. [place] assists only prior to or following the activity. 4-Supervision or Touching Assistance-helper provides verbal cues and/or touching/steadying and/or contact guard assistance as patient completes activity. Assistance may be provided throughout the activity or intermittently. 3-Partial/Moderate Assistance-helper does LESS THAN HALF the effort. [place] lifts, holds or supports trunk or limbs, but provides less than half the effort. 2-Substantial/Maximal Assistance-helper does MORE THAN HALF the effort. [place] lifts or holds trunk or limbs and provides more than half the effort. 3-Qdgyfiwpy-swtsnm does ALL the effort. Patient does none of the effort to complete the activity. Or, the assistance of 2 or more helpers is required for the patient to complete the activity. If activity was not attempted, code reason: 7-Patient Refused. 9-Not Applicable-not attempted and the patient did not perform the activity before the current illness, exacerbation or injury. 10-Not Attempted due to Environmental Limitations-(lack of equipment, weather restraints, etc.). 88-Not Attempted due to Medical Conditions or Safety Concerns. On/Off Footwear: 6 Toileting Hygiene (QC): 4 Toilet Transfer (QC): 4 Pt. transferred to bathroom and completed toilet hygiene with SBA. She agreed to washing clothes in laundry machine and completed loading and starting the washer, as well as, emptying the dryer independently. Pt. had good balance while squatting to empty front-load dryer. She ambulated to the therapy gym independently. OT positioned pt. with R arm in gravity eliminated plane with arm resting on pillow case. Pt participated in 10 minutes of AAROM of shoulder protraction and retraction. Pt. ambulated back to room independently. She donned/doffed socks independently while seated in bed. Call light and phone within reach when OT left the room. All needs met. Education OT Patient Education: Correct positioning, Energy conservation, Modified ADL te chniques, Progress toward Goal/Update tx plan, Purpose of tx/functional activities, Reviewed precautions, Rehab process, Safety issues Teaching Recipient: Patient Teaching Methods: Demonstration, Discussion Response to Teaching: Verbalize Understanding, Return Demonstration OT [employer]'S Assistant Goals Shelter Goals Time Frame: Dec 21, 2019 Eating (QC): 6 Oral Hygiene (QC): 6 Toileting Hygiene (QC): 6 Shower/Bathe Self (QC): 6 Upper Body Dressing (QC): 6 Lower Body Dressing (QC): 6 On/Off Footwear (QC): 6 Additional Goals: 1-Demonstrate ADL Tasks, 2-Verbalize Understanding, 3- ImproveStrength/Bing 1=Demonstrate adherence to instructed precautions during ADL tasks. 2=Patient will verbalize/demonstrate understanding of assistive devices /modifications for ADL. 3=Patient will improve strength/tolerance for activity to enable patient to perform ADL's. OT Education/Plan Problem List/Assessment Assessment: Decreased Activ Tolerance, Decreased UE Strength, Impaired Funct Balance, Impaired I ADL's, Impaired Self-Care Skills Discharge Recommendations Plan/Recommendations: Continue POC Therapy Discharge Recommendati: Home & Family Treatment Plan/Plan of Care Treatment,Training & Education: Yes Patient would benefit from OT for education, treatment and training to promote independence in ADL's, mobility, safety and/or upper extremity function for ADL's. Plan of Care: ADL Retraining, Functional Mobility, UE Funct Exercise/Act Treatment Duration: Dec 21, 2019 Frequency: At least 5 of 7 days/Wk (IRF) Estimated Hrs Per Day: 1.5 hours per day Agreement: Yes Rehab Potential: Good Time/GCodes Start Time: 11:30 Stop Time: 12:00 Total Time Billed (hr/min): 30 Billed Treatment Time 1, ADL (15 minutes), NM (15 minutes) NAGA MOMIN Dec 08, 2019 12:26
--- NOTE | 2019-12-08 12:31 | Progress Note ---
TRUDY RAINES MED STUDENT 12/08/19 1230: Progress Note Tracee Reese is a 44 yo F with hx gastric sleeve, HLD, in rehabilitation following left thalamic stroke 12/02, with subsequent right extremity weakness most pronounced in the RUE and hand. Since being admitted here the patient has made the following changes (in the opinion of trudy raines, medical student): -BUN & creatinine up 32 & 1.38 from 11 & 0.7 on 12/02 -yesterday right phalanges flexion was 1/5. Today was 0/5. Pt reports was able to flex hand at 4 am today but cannot on command -anxiety and intermittent emotionality over future hand function -dresses with moderate assistance. Stands independently. Trudy Raines, Medical Student MAHI PENA DO 12/09/19 0540: Supervisory-Addendum Brief Verification & Attestation Participated in pt care: history, MDM, physical Personally performed: exam, history, MDM, supervision of care Care discussed with: Medical Student Procedures: n/a Results interpretation: Verified all documentation Verification and Attestation of Medical Student E/M Service A medical student performed and documented this service in my presence. I reviewed and verified all information documented by the medical student and made modifications to such information, when appropriate. I personally performed the physical exam and medical decision making. Mahi Pena, Dec 09, 2019,05:40 TRUDY RAINES MED STUDENT Dec 08, 2019 12:30 MAHI PENA DO Dec 09, 2019 05:40
--- NOTE | 2019-12-08 14:18 | Occupational Ther Daily Note ---
OT Current Status-Daily Note Subjective Pt finishing lunch when OT entered room. No c/o pain. Pt. agreeable to therapy. Mental Status/Objective Patient Orientation: Person, Place, Time, Situation ADL-Treatment Therapy Code Descriptions/Definitions Functional [place] Measure: 0=Not Assessed/NA 4=Minimal Assistance 1=Total Assistance 5=Supervision or Setup 2=Maximal Assistance 6=Modified [place] 3=Moderate Assistance 7=Complete IndependenceSCALE: Activities may be completed with or without assistive devices. 5-Rfnyvefkcf-yguepvv completes the activity by him/herself with no assistance from a helper. 5-Set-up or Clean-up Assistance-helper sets up or cleans up; patient completes activity. [place] assists only prior to or following the activity. 4-Supervision or Touching Assistance-helper provides verbal cues and/or touchin g/steadying and/or contact guard assistance as patient completes activity. Assistance may be provided throughout the activity or intermittently. 3-Partial/Moderate Assistance-helper does LESS THAN HALF the effort. [place] lifts, holds or supports trunk or limbs, but provides less than half the effort. 2-Substantial/Maximal Assistance-helper does MORE THAN HALF the effort. [place] lifts or holds trunk or limbs and provides more than half the effort. 3-Zdutojqhs-pgjomj does ALL the effort. Patient does none of the effort to complete the activity. Or, the assistance of 2 or more helpers is required for the patient to complete the activity. If activity was not attempted, code reason: 7-Patient Refused. 9-Not Applicable-not attempted and the patient did not perform the activity before the current illness, exacerbation or injury. 10-Not Attempted due to Environmental Limitations-(lack of equipment, weather restraints, etc.). 88-Not Attempted due to Medical Conditions or Safety Concerns. Shower/Bathe Self (QC): 4 Upper Body Dressing (QC): 6 On/Off Footwear: 6 Toileting Hygiene (QC): 4 Toilet Transfer (QC): 4 Pt. done with lunch, ready for therapy. She ambulated to laundry room with SBA. Pt. independently removed clothes from the washer and placed them in the dryer. Once back in her room, pt able to doff tshirt dress and slipper socks independently. Pt. SBA for bathing and drying self. OT provided skilled education on one handed dressing techniques. Pt verbalized and demonstrated understanding by donning tshirt dress independently. Pt. reported that she could not get deodorant open and OT facilitated problem solving to complete task independently with one hand. Pt. completed AAROM bilaterally through simultaneous shoulder abduction, adduction, flexion, and extension. Pt. becky ated 5 minutes of weight-shifting through both arms. She collected clothing from dryer and folded the laundry independently with extra time to problem solve folding with one hand. OT provided massage to R hand and wrist to mobilize joints. Pt. in bed with call light in reach when OT left the room. All needs met. Education OT Patient Education: Correct positioning, Energy conservation, Modified ADL techniques, Progress toward Goal/Update tx plan, Purpose of tx/functional act ivities, Reviewed precautions, Rehab process, Safety issues, Transfer techniques Teaching Recipient: Patient Teaching Methods: Demonstration, Discussion Response to Teaching: Verbalize Understanding, Return Demonstration OT [employer] Supervisor Goals Nursing Home Goals Time Frame: Dec 21, 2019 Eating (QC): 6 Oral Hygiene (QC): 6 Toileting Hygiene (QC): 6 Shower/Bathe Self (QC): 6 Upper Body Dressing (QC): 6 Lower Body Dressing (QC): 6 On/Off Footwear (QC): 6 Additional Goals: 1-Demonstrate ADL Tasks, 2-Verbalize Understanding, 3- ImproveStrength/Becky 1=Demonstrate adherence to instructed precautions during ADL tasks. 2=Patient will verbalize/demonstrate understanding of assistive devices/modifications for ADL. 3=Patient will improve strength/tolerance for activity to enable patient to perform ADL's. OT Education/Plan Problem List/Assessment Assessment: Decreased Activ Tolerance, Decreased UE Strength, Restricted Funct UE ROM Discharge Recommendations Plan/Recommendations: Continue POC Therapy Discharge Recommendati: Home & Family Treatment Plan/Plan of Care Treatment,Training & Education: Yes Patient would benefit from OT for education, treatment and training to promote independence in ADL's, mobility, safety and/or upper extremity function for ADL's. Plan of Care: ADL Retraining, Functional Mobility, UE Funct Exercise/Act Treatment Duration: Dec 21, 2019 Frequency: At least 5 of 7 days/Wk (IRF) Estimated Hrs Per Day: 1.5 hours per day Agreement: Yes Rehab Potential: Good Time/GCodes Start Time: 13:00 Stop Time: 14:00 Total Time Billed (hr/min): 60 Billed Treatment Time 1, ADL 2 (30 minutes), NM 2 (30 minutes) NAGA MOMIN Dec 08, 2019 14:17
--- NOTE | 2019-12-08 14:54 | Physical Therapy Daily Note ---
PT Daily Note-Current Subjective Patient in bed pre tx, agrees to PT, has no complaints of pain. Appearance Patient in room post tx, she is independent in her room. Mental Status Patient Orientation: Normal For Age Transfers SCALE: Activities may be completed with or without assistive devices. 4-Becdpgevvb-jjrmesk completes the activity by him/herself with no assistance from a helper. 5-Set-up or Clean-up Assistance-helper sets up or cleans up; patient completes activity. [place] assists only prior to or following the activity. 4-Supervision or Touching Assistance-helper provides verbal cues and/or touching/steadying and/or contact guard assistance as patient completes activity. Assistance may be provided throughout the activity or intermittently. 3-Partial/Moderate Assistance-helper does LESS THAN HALF the effort. [place] lifts, holds or supports trunk or limbs, but provides less than half the effort. 2-Substantial/Maximal Assistance-helper does MORE THAN HALF the effort. [place] lifts or holds trunk or limbs and provides more than half the effort. 4-Pfynupxjz-ezcwog does ALL the effort. Patient does none of the effort to complete the activity. Or, the assistance of 2 or more helpers is required for the patient to complete the activity. If activity was not attempted, code reason: 7-Patient Refused. 9-Not Applicable-not attempted and the patient did not perform the activity before the current illness, exacerbation or injury. 10-Not Attempted due to Environmental Limitations-(lack of equipment, weather restraints, etc.). 88-Not Attempted due to Medical Conditions or Safety Concerns. Roll Left & Right (QC): 6 Lying to Sitting/Side of Bed(Q: 6 Sit to Stand (QC): 6 Chair/Yri-gm-Amgbu Xfer(QC): 6 Gait Training Distance: 1000' Walk 10 feet (QC): 6 Walk 50 ft with 2 Turns(QC): 6 Walk 150 ft (QC): 6 Gait Assistive Device: None Exercises NuStep Minutes: 10 NuStep Workload: 5 Treatments transfers, ambulation, functional strengthening Assessment Current Status: Fair Progress improving endurance PT Jail Goals Jail Goals PT Jail Goals Time Frame: Dec 14, 2019 Roll Left & Right (QC): 6 Sit to Lying (QC): 6 Lying-Sitting on Side/Bed(QC): 6 Sit to Stand (QC): 6 Chair/Zrn-ue-Nncgy Xfer(QC): 6 Toilet Transfer (QC): 6 Car Transfer (QC): 6 Does the Patient Walk: Yes Walk 10 feet (QC): 6 Walk 50ft with 2 Turns (QC): 6 Walk 150 ft (QC): 6 Walking 10ft on Uneven Surface: 6 1 Step (curb) (QC): 6 4 Steps (QC): 6 12 Steps (QC): 6 Picking up an Object (QC): 6 Wheel 50 feet with 2 turns (QC: 9 Wheel 150 feet: 9 PT Plan Problem List Problem List: Activity Tolerance, Functional Strength, Safety, Balance, Gait, Transfer Treatment/Plan Treatment Plan: Continue Plan of Care Treatment Plan: Education, Functional Activity Bing, Functional Strength, Group Therapy, Gait, Safety, Therapeutic Exercise, Transfers Treatment Duration: Dec 14, 2019 Frequency: At least 5 of 7 days/Wk (IRF) Estimated Hrs Per Day: 1.5 hours per day Patient and/or Family Agrees t: Yes Safety Risks/Education Patient Education: Gait Training, Transfer Techniques, Correct Positioning, Safety Issues Teaching Recipient: Patient Teaching Methods: Demonstration, Discussion Response to Teaching: Reinforcement Needed Time/GCodes Time In: 1420 Time Out: 1450 Total Billed Treatment Time: 30 Total Billed Treatment 1 visit FA 20' EX 10' ESVIN ROQUE PT Dec 08, 2019 14:54
--- NOTE | 2019-12-08 15:29 | NUR ---
Pt stated that Communion yesterday did not go down very well and she prefers to wait.
[2019-12-08 18:00] VITALS: BP 161/74
[2019-12-08] MEDS: MELATONIN 3 MG TABLET PO PRN (20:58)
[2019-12-08] MEDS: ENOXAPARIN 40 MG/0.4 ML (LOVENOX) SYR SC SCH (21:05)
[2019-12-09 05:10] VITALS: BP 120/71
--- NOTE | 2019-12-09 05:50 | PM&R Progress Note ---
Subjective HPI/CC On Admission Date Seen by Provider: Dec 09, 2019 Time Seen by Provider: 09:30 Subjective/Events-last exam 12/09/19: Patient felt like she had some muscle spasms in her right hand Bowels moved last week will give laxatives Discontinue Lortab since it caused her nausea Ultram is helping 12/08/19: Patient having chronic pain issues and asked for Dilaudid yesterday for some unknown reason I started Ultram because that is the only thing I agree with Right hand did have a twinge of movement but she says its not happening today Overall has difficulty coping and obsessed about the right hand Review of Systems General: Fatigue, Malaise Neurological: Weakness Objective Exam Vital Signs Vital Signs Date Time Temp Pulse Resp B/P (MAP) Pulse Ox O2 Delivery O2 Flow Rate FiO2 12/09/19 05:10 36.6 70 18 120/71 (87) 97 Room Air Capillary Refill : Less Than 3 Seconds General Appearance: No Apparent Distress, WD/WN, Chronically ill, Obese HEENT: PERRL/EOMI, Normal ENT Inspection, Pharynx Normal Neck: Full Range of Motion, Normal Inspection, Non Tender, Supple, Carotid Bruit Respiratory: Chest Non Tender, Lungs Clear, Normal Breath Sounds, No Accessory Muscle Use, No Respiratory Distress Cardiovascular: Regular Rate, Rhythm, No Edema, No Gallop, No JVD, No Murmur, Normal Peripheral Pulses Gastrointestinal: Normal Bowel Sounds, No Organomegaly, No Pulsatile Mass, Non Tender, Soft Back: Normal Inspection, No CVA Tenderness, No Vertebral Tenderness Extremity: Normal Capillary Refill, Normal Inspection, Normal Range of Motion, Non Tender, No Calf Tenderness, No Pedal Edema Neurologic/Psychiatric: Alert, Oriented x3, No Motor/Sensory Deficits, Normal Mood/Affect, Abnormal Gait, Facial Droop (right), Motor Weakness (right arm 2/5) Skin: Normal Color, Warm/Dry Lymphatic: No Adenopathy Results/Procedures Lab Patient resulted labs reviewed. FIM Transfers Therapy Code Descriptions/Definitions Functional [place] Measure: 0=Not Assessed/NA 4=Minimal Assistance 1=Total Assistance 5=Supervision or Setup 2=Maximal Assistance 6=Modified [place] 3=Moderate Assistance 7=Complete IndependenceSCALE: Activities may be completed with or without assistive devices. 8-Jsdbzbjkly-whliijd completes the activity by him/herself with no assistance from a helper. 5-Set-up or Clean-up Assistance-helper sets up or cleans up; patient completes activity. [place] assists only prior to or following the activity. 4-Supervision or Touching Assistance-helper provides verbal cues and/or touching/steadying and/or contact guard assistance as patient completes activity. Assistance may be provided throughout the activity or intermittently. 3-Partial/Moderate Assistance-helper does LESS THAN HALF the effort. [place] lifts, holds or supports trunk or limbs, but provides less than half the effort. 2-Substantial/Maximal Assistance-helper does MORE THAN HALF the effort. [place] lifts or holds trunk or limbs and provides more than half the effort. 7-Otunuibmu-mgvlsf does ALL the effort. Patient does none of the effort to complete the activity. Or, the assistance of 2 or more helpers is required for the patient to complete the activity. If activity was not attempted, code reason: 7-Patient Refused. 9-Not Applicable-not attempted and the patient did not perform the activity before the current illness, exacerbation or injury. 10-Not Attempted due to Environmental Limitations-(lack of equipment, weather restraints, etc.). 88-Not Attempted due to Medical Conditions or Safety Concerns. Roll Left to Right (QC): 6 Sit to Lying (QC): 6 Sit to Stand (QC): 6 Chair/Asa-km-Nrejd Xfer(QC): 6 Car Transfer (QC): 6 Gait Training Does the Patient Walk?: Yes Distance: 1000' Walk 10 feet (QC): 6 Walk 50 ft with 2 Turns(QC): 6 Walk 150 ft (QC): 6 Walking 10ft/uneven surface-QC: 6 Gait Assistive Device: None Wheelchair Training Does the Pt Use a Wheelchair?: No Wheel 50 ft with 2 turns (QC): 9 Wheel 150 ft (QC): 9 Stair Training #of Steps: 12 1 Step (curb) (QC): 4 4 Steps (QC): 4 12 Steps (QC): 4 Balance Picking up an Object (QC): 6 ADL-Treatment Eating (QC): 7 Oral Hygiene (QC): 4 (SBA standing at sink to brush teeth.) Shower/Bathe Self (QC): 4 Upper Body Dressing (QC): 6 Lower Body Dressing (QC): 3 (Mod assist to don underwear over hips.) On/Off Footwear (QC): 6 Toileting Hygiene (QC): 4 Toilet Transfer (QC): 4 Assessment/Plan Assessment and Plan Assess & Plan/Chief Complaint Assessment: CVA with right sided weakness HTN CRI Obesity Plan: Home meds Monitor BP IRF protocol 12/08/19: Continue aggressive treatment for right arm and hand Speech therapy to work on facial droop and speech 12/09/19: Laxatives to resolve constipation Pain medication Monitor closely (1) CVA (cerebral vascular accident) (2) Renal insufficiency (3) Obesity (4) Hypertensive emergency Status: Acute (5) Anxiety Status: Acute ROSE PENA DO Dec 09, 2019 05:50
[2019-12-09] MEDS: ONDANSETRON 4 MG (ZOFRAN) ORAL DISSOLVE TAB PO PRN (07:57)
[2019-12-09 08:00] VITALS: BP 149/81
--- NOTE | 2019-12-09 08:00 | NUR ---
STATES HAS HAD INVOLUNTARY MOVEMENT OF RIGHT HAND A COUPLE OF TIMES. STATES ULTRAM WORKING WELL FOR LEFT SHOULDER PAIN, BUT NOW WONDERS IF IT IS CAUSING HER NAUSEA AND WANTS TO TRY TO HOLD OFF ON IT. USING KPAD BROUGHT FROM HOME. LORTAB DC'D SINCE PATIENT STATES IT CAUSES NAUSEA AND WILL NOT TAKE IT. SPEECH SL. SLURRED.
[2019-12-09] MEDS: DOCUSATE SODIUM 100 MG (COLACE) CAP PO SCH ×2 (08:33→20:36)
[2019-12-09] MEDS: amLODIPine 5 MG (NORVASC) TAB PO SCH (08:33)
[2019-12-09] MEDS: ASPIRIN E.C. 325 MG (ECOTRIN) TABLET PO SCH (08:33)
[2019-12-09] MEDS: GABAPENTIN 100 MG (NEURONTIN) CAP PO SCH ×2 (08:34→20:36)
[2019-12-09] MEDS: lisINopril 20 MG (PRINIVIL) TABLET PO SCH (08:34)
[2019-12-09] MEDS: SENNA W/DOCUSATE (SENOKOT S) TABLET PO SCH ×2 (08:34→20:36)
[2019-12-09] MEDS: polyethylene glycoL POWDER 17 GM (MIRALAX) PACK PO SCH ×2 (08:35→20:36)
--- NOTE | 2019-12-09 10:00 | NUR ---
STATES REMOVED NUVA RING (FOR CONTRACEPTION) ON THURSDAY OR THURSDAY BECAUSE HEARD IT MAY HAVE CAUSED HER CLOT. NOW ON HER MENSES.
--- NOTE | 2019-12-09 10:56 | Physical Therapy Daily Note ---
PT Daily Note-Current Subjective Patient in bed pre tx, agrees to PT, has some soreness in her left shoulder. Patient needs to get a gown on and go to the restroom and she does so without assist. Appearance Patient in room post tx, she is independent in her room. Mental Status Patient Orientation: Normal For Age Transfers SCALE: Activities may be completed with or without assistive devices. 9-Wpsutvubkn-vbfggms completes the activity by him/herself with no assistance from a helper. 5-Set-up or Clean-up Assistance-helper sets up or cleans up; patient completes activity. [place] assists only prior to or following the activity. 4-Supervision or Touching Assistance-helper provides verbal cues and/or touching/steadying and/or contact guard assistance as patient completes activity. Assistance may be provided throughout the activity or intermittently. 3-Partial/Moderate Assistance-helper does LESS THAN HALF the effort. [place] lifts, holds or supports trunk or limbs, but provides less than half the effort. 2-Substantial/Maximal Assistance-helper does MORE THAN HALF the effort. [place] lifts or holds trunk or limbs and provides more than half the effort. 4-Yvfjhllcm-qpbdur does ALL the effort. Patient does none of the effort to complete the activity. Or, the assistance of 2 or more helpers is required for the patient to complete the activity. If activity was not attempted, code reason: 7-Patient Refused. 9-Not Applicable-not attempted and the patient did not perform the activity before the current illness, exacerbation or injury. 10-Not Attempted due to Environmental Limitations-(lack of equipment, weather restraints, etc.). 88-Not Attempted due to Medical Conditions or Safety Concerns. Roll Left & Right (QC): 6 Lying to Sitting/Side of Bed(Q: 6 Sit to Stand (QC): 6 Chair/Uki-pk-Ijtyv Xfer(QC): 6 Gait Training Distance: 1500'x2 Walk 10 feet (QC): 6 Walk 50 ft with 2 Turns(QC): 6 Walk 150 ft (QC): 6 Gait Assistive Device: None Occasionally bumps into doorways with her right shoulder Exercises NuStep Minutes: 15 NuStep Workload: 5 Treatments dressing, toileting, ambulation, functional strengthening Assessment Current Status: Fair Progress good mobility, occasionally bumps into doorways with her right shoulder when ambulating PT Communications Planner Goals Communications Planner Goals PT Communications Planner Goals Time Frame: Dec 14, 2019 Roll Left & Right (QC): 6 Sit to Lying (QC): 6 Lying-Sitting on Side/Bed(QC): 6 Sit to Stand (QC): 6 Chair/Pye-pg-Uobcf Xfer(QC): 6 Toilet Transfer (QC): 6 Car Transfer (QC): 6 Does the Patient Walk: Yes Walk 10 feet (QC): 6 Walk 50ft with 2 Turns (QC): 6 Walk 150 ft (QC): 6 Walking 10ft on Uneven Surface: 6 1 Step (curb) (QC): 6 4 Steps (QC): 6 12 Steps (QC): 6 Picking up an Object (QC): 6 Wheel 50 feet with 2 turns (QC: 9 Wheel 150 feet: 9 PT Plan Problem List Problem List: Activity Tolerance, Functional Strength, Safety, Balance, Gait, Transfer Treatment/Plan Treatment Plan: Continue Plan of Care Treatment Plan: Education, Functional Activity Bing, Functional Strength, Group Therapy, Gait, Safety, Therapeutic Exercise, Transfers Treatment Duration: Dec 14, 2019 Frequency: At least 5 of 7 days/Wk (IRF) Estimated Hrs Per Day: 1.5 hours per day Patient and/or Family Agrees t: Yes Safety Risks/Education Patient Education: Gait Training, Transfer Techniques, Correct Positioning, Safety Issues Teaching Recipient: Patient Teaching Methods: Demonstration, Discussion Response to Teaching: Reinforcement Needed Time/GCodes Time In: 1000 Time Out: 1100 Total Billed Treatment Time: 60 Total Billed Treatment 1 visit EX 15' FA 10' GT 35' ESVIN ROQUE PT Dec 09, 2019 10:56
[2019-12-09] MEDS ORDERED: FAMO-144 PO (12:59)
[2019-12-09] MEDS ORDERED: ETON1VAG VG (13:01)
--- NOTE | 2019-12-09 13:03 | Occupational Ther Daily Note ---
OT Current Status-Daily Note Subjective Pt. in kitchen area of rehab floor at start of session. No c/o pain. Pt, agreeable to therapy. Mental Status/Objective Patient Orientation: Person, Place, Time, Situation ADL-Treatment Therapy Code Descriptions/Definitions Functional [place] Measure: 0=Not Assessed/NA 4=Minimal Assistance 1=Total Assistance 5=Supervision or Setup 2=Maximal Assistance 6=Modified [place] 3=Moderate Assistance 7=Complete IndependenceSCALE: Activities may be completed with or without assistive devices. 2-Sxrefeewwr-thhioqi completes the activity by him/herself with no assistance from a helper. 5-Set-up or Clean-up Assistance-helper sets up or cleans up; patient completes activity. [place] assists only prior to or following the activity. 4-Supervision or Touching Assistance-helper provides verbal cues and/or touching/steadying and/or contact guard assistance as patient completes activity. Assistance may be provided throughout the activity or intermittently. 3-Partial/Moderate Assistance-helper does LESS THAN HALF the effort. [place] lifts, holds or supports trunk or limbs, but provides less than half the effort. 2-Substantial/Maximal Assistance-helper does MORE THAN HALF the effort. [place] lifts or holds trunk or limbs and provides more than half the effort. 4-Coyswatqv-fvodnx does ALL the effort. Patient does none of the effort to complete the activity. Or, the assistance of 2 or more helpers is required for the patient to complete the activity. If activity was not attempted, code reason: 7-Patient Refused. 9-Not Applicable-not attempted and the patient did not perform the activity before the current illness, exacerbation or injury. 10-Not Attempted due to Environmental Limitations-(lack of equipment, weather restraints, etc.). 88-Not Attempted due to Medical Conditions or Safety Concerns. Pt. completed 15 minutes of simulated kitchen activity. OT provided skilled education on kitchen safety and one handed techniques. Pt. able to demonstrate several techniques and demonstrated good problem solving while discussing alternative scenarios. She tolerated 30 minutes of E-stim to facilitate wrist flexion and extension to promote AROM for daily functional tasks. Pt. able to extend wrist approximately 5 degrees initially and progressed to approximately 35 degrees AROM and 45 degrees AAROM. Wrist flexion against gravity began at muscle contraction without any movement and was able to flex to 5 degrees AROM and 10 degrees AAROM at the end of the session. Noted that pt. has swelling in R hand. OT provided retrograde massage to R hand and FA. Pt. in room with call light in reach when OT left. All needs met. 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 2=Patient will verbalize/demonstrate understanding of assistive devices/modifications for ADL. 3=Patient will improve strength/tolerance for activity to enable patient to perform ADL's. OT Education/Plan Problem List/Assessment Assessment: Decreased UE Strength, Impaired Coordination, Impaired I ADL's, Impaired Self-Care Skills, Restricted Funct UE ROM Discharge Recommendations Plan/Recommendations: Continue POC Therapy Discharge Recommendati: Home & Family Treatment Plan/Plan of Care Treatment,Training & Education: Yes Patient would benefit from OT for education, treatment and training to promote independence in ADL's, mobility, safety and/or upper extremity function for ADL's. Plan of Care: ADL Retraining, Functional Mobility, UE Funct Exercise/Act Treatment Duration: Dec 21, 2019 Frequency: At least 5 of 7 days/Wk (IRF) Estimated Hrs Per Day: 1.5 hours per day Agreement: Yes Rehab Potential: Good Time/GCodes Start Time: 11:00 Stop Time: 12:00 Total Time Billed (hr/min): 60 Billed Treatment Time 1, ADL (15 minutes), NM 3 (45 minutes) NAGA MOMIN Dec 09, 2019 13:03
--- NOTE | 2019-12-09 14:23 | NUR ---
CM/SS CONCURRENT DOCUMENTATION Observed patient ambulating with therapy in hallway without assistive device. Expressive speech still slurred, therapeutic PT/OT interventions/training/education continue. Patient participating well and motivated to achieve goals.
--- NOTE | 2019-12-09 14:30 | Occupational Ther Daily Note ---
OT Current Status-Daily Note Subjective Pt in bed when OT entered room. No c/o pain. Pt. agreeable to therapy. ADL-Treatment Therapy Code Descriptions/Definitions Functional [place] Measure: 0=Not Assessed/NA 4=Minimal Assistance 1=Total Assistance 5=Supervision or Setup 2=Maximal Assistance 6=Modified [place] 3=Moderate Assistance 7=Complete IndependenceSCALE: Activities may be completed with or without assistive devices. 6-Ztdpmugkhu-csmpjnq completes the activity by him/herself with no assistance from a helper. 5-Set-up or Clean-up Assistance-helper sets up or cleans up; patient completes activity. [place] assists only prior to or following the activity. 4-Supervision or Touching Assistance-helper provides verbal cues and/or touching/steadying and/or contact guard assistance as patient completes activity. Assistance may be provided throughout the activity or intermittently. 3-Partial/Moderate Assistance-helper does LESS THAN HALF the effort. [place] lifts, holds or supports trunk or limbs, but provides less than half the effort. 2-Substantial/Maximal Assistance-helper does MORE THAN HALF the effort. [place] lifts or holds trunk or limbs and provides more than half the effort. 3-Lyvzdyyrk-ywdiyh does ALL the effort. Patient does none of the effort to complete the activity. Or, the assistance of 2 or more helpers is required for the patient to complete the activity. If activity was not attempted, code reason: 7-Patient Refused. 9-Not Applicable-not attempted and the patient did not perform the activity before the current illness, exacerbation or injury. 10-Not Attempted due to Environmental Limitations-(lack of equipment, weather restraints, etc.). 88-Not Attempted due to Medical Conditions or Safety Concerns. Shower/Bathe Self (QC): 6 (Per pt. report) Upper Body Dressing (QC): 6 (Per pt report) Toileting Hygiene (QC): 6 Toilet Transfer (QC): 6 Pt walked to bathroom and completed toilet hygiene independently. She reported that she showered and dressed independently this am. Pt. tolerated 10 minutes with moderate resistance on arm bike and multiple rest breaks to increase endurance for functional tasks and strength. Pt. then completed 7 minutes arm bike at low resistance using primarily R UE to increase strength. She reported that she felt that her arms had a good workout. Noted that pt was fatigued this session and she reported that it is from a medication. Due to this, pt. required extra time and multiple rest breaks throughout session. End of therapy, pt in bed with call light/phone in reach. All needs met in room. Education OT Patient Education: Correct positioning, Energy conservation, Exercise pr ogram, Progress toward Goal/Update tx plan, Purpose of tx/functional activities, Reviewed precautions, Rehab process Teaching Recipient: Patient Teaching Methods: Demonstration, Discussion OT [facility] Goals Senior Care Goals Time Frame: Dec 21, 2019 Eating (QC): 6 Oral Hygiene (QC): 6 Toileting Hygiene (QC): 6 Shower/Bathe Self (QC): 6 Upper Body Dressing (QC): 6 Lower Body Dressing (QC): 6 On/Off Footwear (QC): 6 Additional Goals: 1-Demonstrate ADL Tasks, 2-Verbalize Understanding, 3-ImproveStrength/Bing 1=Demonstrate adherence to instructed precautions during ADL tasks. 2=Patient will verbalize/demonstrate understanding of assistive devices/modifications for ADL. 3=Patient will improve strength/tolerance for activity to enable patient to perform ADL's. OT Education/Plan Problem List/Assessment Assessment: Decreased UE Strength, Impaired Coordination, Impaired Funct Balance, Impaired I ADL's, Impaired Self-Care Skills Discharge Recommendations Plan/Recommendations: Continue POC Therapy Discharge Recommendati: Home & Family Treatment Plan/Plan of Care Treatment,Training & Education: Yes Patient would benefit from OT for education, treatment and training to promote independence in ADL's, mobility, safety and/or upper extremity function for ADL 's. Plan of Care: ADL Retraining, Functional Mobility, UE Funct Exercise/Act Treatment Duration: Dec 21, 2019 Frequency: At least 5 of 7 days/Wk (IRF) Estimated Hrs Per Day: 1.5 hours per day Agreement: Yes Rehab Potential: Good Time/GCodes Start Time: 13:00 Stop Time: 13:45 Total Time Billed (hr/min): 45 Billed Treatment Time 1, ADL (15 minutes), EX 2 (30 minutes) NAGA MOMIN Dec 09, 2019 14:30
--- NOTE | 2019-12-09 14:35 | Speech Therapy Daily Note ---
Speech Daily Progress Note Subjective Date Seen by Provider: Dec 09, 2019 Time Seen by Provider: 00:30 Patient was resting in her bed and watching television when I entered her room. Objective Patient completed OME as trained with vital stim set at 4 for 20 minutes. Patient demo good safety awareness with safe oral intake and avoids foods that are "crunchy". Assessment Assessment Current Status: Good Progress Treatment Plan Continue Plan of Care Speech Short Term Goals Short Term Goals Short Term Goals 1) Patient will complete OME x10 with 90% or greater accuracy. 2) Patient will complete speech exercises with 90% or greater accuracy. 3) Patient will utilize compensatory strategies for safe oral intake. Speech Inverter And Clipper Goals Inverter And Clipper Goals Patient's speech will improve to 100% intelligibility. Patient will maintain adequate nutrition/hydration via safe effective swallow functio. Speech-Plan Patient/Family Goals Patient/Family Goals: Patient plans on returning to her home where she lives with her teenage daughter. 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
--- NOTE | 2019-12-09 15:02 | Physical Therapy Daily Note ---
PT Daily Note-Current Subjective Patient in room pre tx, agrees to PT, has no complaints of pain. Appearance Patient in room post tx, she is independent with ambulation. Mental Status Patient Orientation: Normal For Age Transfers SCALE: Activities may be completed with or without assistive devices. 7-Adxxwgppsq-lqrmecy completes the activity by him/herself with no assistance from a helper. 5-Set-up or Clean-up Assistance-helper sets up or cleans up; patient completes activity. [place] assists only prior to or following the activity. 4-Supervision or Touching Assistance-helper provides verbal cues and/or touching/steadying and/or contact guard assistance as patient completes activity. Assistance may be provided throughout the activity or intermittently. 3-Partial/Moderate Assistance-helper does LESS THAN HALF the effort. [place] lifts, holds or supports trunk or limbs, but provides less than half the effort. 2-Substantial/Maximal Assistance-helper does MORE THAN HALF the effort. [place] lifts or holds trunk or limbs and provides more than half the effort. 6-Mpxnvwyju-xkhnzf does ALL the effort. Patient does none of the effort to c omplete the activity. Or, the assistance of 2 or more helpers is required for the patient to complete the activity. If activity was not attempted, code reason: 7-Patient Refused. 9-Not Applicable-not attempted and the patient did not perform the activity before the current illness, exacerbation or injury. 10-Not Attempted due to Environmental Limitations-(lack of equipment, weather restraints, etc.). 88-Not Attempted due to Medical Conditions or Safety Concerns. Sit to Stand (QC): 6 Chair/Ddr-ie-Sjieg Xfer(QC): 6 Gait Training Distance: 1000', 150' Walk 10 feet (QC): 6 Walk 50 ft with 2 Turns(QC): 6 Walk 150 ft (QC): 6 Gait Assistive Device: None Stair Training Stair Training: Handrails/: 1 handrail #of Steps: 12 1 Step (curb) (QC): 4 4 Steps (QC): 4 12 Steps (QC): 4 Stairs: Pattern: Step to SBA Exercises NuStep Minutes: 10 NuStep Workload: 5 Treatments functional strengthening, stair training, ambulation Assessment Current Status: Fair Progress sometimes has trouble stepping up or stepping off of a step with her right foot PT Director Of Consulting Services Goals [facility] Goals PT Director Of Consulting Services Goals Time Frame: Dec 14, 2019 Roll Left & Right (QC): 6 Sit to Lying (QC): 6 Lying-Sitting on Side/Bed(QC): 6 Sit to Stand (QC): 6 Chair/Vju-mx-Kldpx Xfer(QC): 6 Toilet Transfer (QC): 6 Car Transfer (QC): 6 Does the Patient Walk: Yes Walk 10 feet (QC): 6 Walk 50ft with 2 Turns (QC): 6 Walk 150 ft (QC): 6 Walking 10ft on Uneven Surface: 6 1 Step (curb) (QC): 6 4 Steps (QC): 6 12 Steps (QC): 6 Picking up an Object (QC): 6 Wheel 50 feet with 2 turns (QC: 9 Wheel 150 feet: 9 PT Plan Problem List Problem List: Activity Tolerance, Functional Strength, Safety, Balance, Gait, Transfer Treatment/Plan Treatment Plan: Continue Plan of Care Treatment Plan: Education, Functional Activity Bing, Functional Strength, Group Therapy, Gait, Safety, Therapeutic Exercise, Transfers Treatment Duration: Dec 14, 2019 Frequency: At least 5 of 7 days/Wk (IRF) Estimated Hrs Per Day: 1.5 hours per day Patient and/or Family Agrees t: Yes Safety Risks/Education Patient Education: Gait Training, Transfer Techniques, Steps, Correct Positioning, Safety Issues Teaching Recipient: Patient Teaching Methods: Demonstration, Discussion Response to Teaching: Reinforcement Needed Time/GCodes Time In: 1430 Time Out: 1500 Total Billed Treatment Time: 30 Total Billed Treatment 1 visit FA 30' ESVIN ROQUE PT Dec 09, 2019 15:02
--- NOTE | 2019-12-09 15:50 | Occupational Ther Daily Note ---
OT Current Status-Daily Note Subjective Pt seen up in room. Agreeable to OT tx session. Denies pain, states fatigued. Mental Status/Objective Patient Orientation: Normal For Age ADL-Treatment Therapy Code Descriptions/Definitions Functional [place] Measure: 0=Not Assessed/NA 4=Minimal Assistance 1=Total Assistance 5=Supervision or Setup 2=Maximal Assistance 6=Modified [place] 3=Moderate Assistance 7=Complete IndependenceSCALE: Activities may be completed with or without assistive devices. 0-Lsiplttrgi-bymxiiv completes the activity by him/herself with no assistance from a helper. 5-Set-up or Clean-up Assistance-helper sets up or cleans up; patient completes activity. [place] assists only prior to or following the activity. 4-Supervision or Touching Assistance-helper provides verbal cues and/or touching/steadying and/or contact guard assistance as patient completes activity. Assistance may be provided throughout the activity or intermittently. 3-Partial/Moderate Assistance-helper does LESS THAN HALF the effort. [place] lifts, holds or supports trunk or limbs, but provides less than half the effort. 2-Substantial/Maximal Assistance-helper does MORE THAN HALF the effort. [place] lifts or holds trunk or limbs and provides more than half the effort. 9-Xhaflmcjx-kbzuyb does ALL the effort. Patient does none of the effort to complete the activity. Or, the assistance of 2 or more helpers is required for the patient to complete the activity. If activity was not attempted, code reason: 7-Patient Refused. 9-Not Applicable-not attempted and the patient did not perform the activity before the current illness, exacerbation or injury. 10-Not Attempted due to Environmental Limitations-(lack of equipment, weather restraints, etc.). 88-Not Attempted due to Medical Conditions or Safety Concerns. Other Treatment Pt educated on self application of E-stim to R forearm (flex/ ext) with skilled cues for correct placement of pads and current for both flexion/ extension needs. Pt completes AROM of R ext to ~25*, completes PROM to full range in grav eliminated position. Pt able to hold at neutral for ~20 sec prior to estim application. E stim applied to extensors for ~10 minutes, pt able to return demonstrate self adhesion of pads and completes proper current for extension of R wrist and full ROM with e stim applied. Pt unable to complete active supination, completes passive pronation. Pt encouraged to complete MMT to pronators= 2/5 mm grade. Pt completes AROM of wrist flexors with 1/5 mm grade. Estim applied for 10 min with skilled cues, pt return demonstrates pad adhesion placement and current for flexion. Pt able to squeeze hand sponge with wrist flexion/ finger flexion- increases sensory/ muscular reconnection to R UE. Pt educated to complete estim in moderation due to mm fatigue over the weekend. Nursing notified of pt's HEP. Pt left in room with all needs met/ questions addressed. Education OT Patient Education: Exercise program, Home exercise program Teaching Recipient: Patient Teaching Methods: Demonstration, Discussion Response to Teaching: Verbalize Understanding, Return Demonstration, Bipin nforcement Needed OT Manager Of Organizational Development Goals Manager Of Organizational Development Goals Time Frame: Dec 21, 2019 Eating (QC): 6 Oral Hygiene (QC): 6 Toileting Hygiene (QC): 6 Shower/Bathe Self (QC): 6 Upper Body Dressing (QC): 6 Lower Body Dressing (QC): 6 On/Off Footwear (QC): 6 Additional Goals: 1-Demonstrate ADL Tasks, 2-Verbalize Understanding, 3- ImproveStrength/Bing 1=Demonstrate adherence to instructed precautions during ADL tasks. 2=Patient will verbalize/demonstrate understanding of assistive devices/modifications for ADL. 3=Patient will improve strength/tolerance for activity to enable patient to perform ADL's. OT Education/Plan Problem List/Assessment Assessment: Decreased Activ Tolerance, Decreased UE Strength, Impaired I ADL's, Impaired Self-Care Skills, Restricted Funct UE ROM Discharge Recommendations Plan/Recommendations: Continue POC Therapy Discharge Recommendati: Home & Family, Post Acute OT Treatment Plan/Plan of Care Patient would benefit from OT for education, treatment and training to promote independence in ADL's, mobility, safety and/or upper extremity function for ADL's. Plan of Care: ADL Retraining, Functional Mobility, UE Funct Exercise/Act Treatment Duration: Dec 21, 2019 Frequency: At least 5 of 7 days/Wk (IRF) Estimated Hrs Per Day: 1.5 hours per day Agreement: Yes Rehab Potential: Good Time/GCodes Start Time: 15:00 Stop Time: 15:37 Total Time Billed (hr/min): 37 Billed Treatment Time 1, NM 2 (37) RICHARD HAIRSTON OTR Dec 09, 2019 15:50
[2019-12-09 17:44] VITALS: BP 146/76
--- NOTE | 2019-12-09 18:30 | NUR ---
NO BM YET, BUT HAD LARGE COFFEE BROUGHT IN BY BOYFRIEND AND FEELS WILL SOON. REFUSED DULCOLAX SUPPOSITORY.
[2019-12-09] MEDS: ENOXAPARIN 40 MG/0.4 ML (LOVENOX) SYR SC SCH (20:36)
[2019-12-09] MEDS: ALPRAZolam 0.25 MG (XANAX) TAB PO PRN (20:53)
[2019-12-10 05:01] VITALS: BP 127/88
--- NOTE | 2019-12-10 07:26 | PM&R Progress Note ---
Subjective HPI/CC On Admission Date Seen by Provider: Dec 10, 2019 Time Seen by Provider: 13:15 Subjective/Events-last exam 12/10/2019: Patient is doing pretty well today Asking for Voltaren gel Discontinued hydrocodone since it made her nauseated and she does not think Ultram is helping Keep in mind she asked me for Dilaudid by name 3 days ago after she was admitted and that would not be an option Overall difficulty coping 12/09/19: Patient felt like she had some muscle spasms in her right hand Bowels moved last week will give laxatives Discontinue Lortab since it caused her nausea Ultram is helping 12/08/19: Patient having chronic pain issues and asked for Dilaudid yesterday for some unknown reason I started Ultram because that is the only thing I agree with Right hand did have a twinge of movement but she says its not happening today Overall has difficulty coping and obsessed about the right hand Review of Systems General: Fatigue, Malaise Neurological: Weakness Objective Exam Vital Signs Vital Signs Date Time Temp Pulse Resp B/P (MAP) Pulse Ox O2 Delivery O2 Flow Rate FiO2 12/10/19 09:31 Room Air 12/10/19 08:46 87 169/90 (116) 12/10/19 05:01 36.3 18 98 Capillary Refill : Less Than 3 Seconds General Appearance: No Apparent Distress, WD/WN, Chronically ill, Obese HEENT: PERRL/EOMI, Normal ENT Inspection, Pharynx Normal Neck: Full Range of Motion, Normal Inspection, Non Tender, Supple, Carotid Bruit Respiratory: Chest Non Tender, Lungs Clear, Normal Breath Sounds, No Accessory Muscle Use, No Respiratory Distress Cardiovascular: Regular Rate, Rhythm, No Edema, No Gallop, No JVD, No Murmur, Normal Peripheral Pulses Gastrointestinal: Normal Bowel Sounds, No Organomegaly, No Pulsatile Mass, Non Tender, Soft Back: Normal Inspection, No CVA Tenderness, No Vertebral Tenderness Extremity: Normal Capillary Refill, Normal Inspection, Normal Range of Motion, Non Tender, No Calf Tenderness, No Pedal Edema Neurologic/Psychiatric: Alert, Oriented x3, No Motor/Sensory Deficits, Normal Mood/Affect, Abnormal Gait, Facial Droop (right), Motor Weakness (right arm 2/5) Skin: Normal Color, Warm/Dry Lymphatic: No Adenopathy Results/Procedures Lab Patient resulted labs reviewed. FIM Transfers Therapy Code Descriptions/Definitions Functional [place] Measure: 0=Not Assessed/NA 4=Minimal Assistance 1=Total Assistance 5=Supervision or Setup 2=Maximal Assistance 6=Modified [place] 3=Moderate Assistance 7=Complete IndependenceSCALE: Activities may be completed with or without assistive devices. 5-Jviqoyjnnw-hljnbya completes the activity by him/herself with no assistance from a helper. 5-Set-up or Clean-up Assistance-helper sets up or cleans up; patient completes activity. [place] assists only prior to or following the activity. 4-Supervision or Touching Assistance-helper provides verbal cues and/or touching/steadying and/or contact guard assistance as patient completes activity. Assistance may be provided throughout the activity or intermittently. 3-Partial/Moderate Assistance-helper does LESS THAN HALF the effort. [place] lifts, holds or supports trunk or limbs, but provides less than half the effort. 2-Substantial/Maximal Assistance-helper does MORE THAN HALF the effort. [place] lifts or holds trunk or limbs and provides more than half the effort. 9-Ipyqhipjc-hlukmd does ALL the effort. Patient does none of the effort to complete the activity. Or, the assistance of 2 or more helpers is required for the patient to complete the activity. If activity was not attempted, code reason: 7-Patient Refused. 9-Not Applicable-not attempted and the patient did not perform the activity before the current illness, exacerbation or injury. 10-Not Attempted due to Environmental Limitations-(lack of equipment, weather restraints, etc.). 88-Not Attempted due to Medical Conditions or Safety Concerns. Roll Left to Right (QC): 6 Sit to Lying (QC): 6 Sit to Stand (QC): 6 Chair/Lhy-qy-Mnmct Xfer(QC): 6 Car Transfer (QC): 6 Gait Training Does the Patient Walk?: Yes Distance: 1000', 150' Walk 10 feet (QC): 6 Walk 50 ft with 2 Turns(QC): 6 Walk 150 ft (QC): 6 Walking 10ft/uneven surface-QC: 6 Gait Assistive Device: None Wheelchair Training Does the Pt Use a Wheelchair?: No Wheel 50 ft with 2 turns (QC): 9 Wheel 150 ft (QC): 9 Stair Training Stair Training: Handrails/: 1 handrail #of Steps: 12 1 Step (curb) (QC): 4 4 Steps (QC): 4 12 Steps (QC): 4 Stairs: Pattern: Step to Balance Picking up an Object (QC): 6 ADL-Treatment Eating (QC): 7 Oral Hygiene (QC): 4 (SBA standing at sink to brush teeth.) Shower/Bathe Self (QC): 6 (Per pt. report) Upper Body Dressing (QC): 6 (Per pt report) Lower Body Dressing (QC): 3 (Mod assist to don underwear over hips.) On/Off Footwear (QC): 6 Toileting Hygiene (QC): 6 Toilet Transfer (QC): 6 Assessment/Plan Assessment and Plan Assess & Plan/Chief Complaint Assessment: CVA with right sided weakness HTN CRI Obesity Plan: Home meds Monitor BP IRF protocol 12/08/19: Continue aggressive treatment for right arm and hand Speech therapy to work on facial droop and speech 12/09/19: Laxatives to resolve constipation Pain medication Monitor closely 12/10/2019: Continue intensive therapy Voltaren gel Monitor closely (1) CVA (cerebral vascular accident) (2) Renal insufficiency (3) Obesity (4) Hypertensive emergency Status: Acute (5) Anxiety Status: Acute ROSE PENA DO Dec 10, 2019 07:26
[2019-12-10] MEDS: DOCUSATE SODIUM 100 MG (COLACE) CAP PO SCH ×2 (08:42→20:44)
[2019-12-10] MEDS: polyethylene glycoL POWDER 17 GM (MIRALAX) PACK PO SCH ×2 (08:42→20:50)
[2019-12-10] MEDS: amLODIPine 5 MG (NORVASC) TAB PO SCH (08:42)
[2019-12-10] MEDS: GABAPENTIN 100 MG (NEURONTIN) CAP PO SCH ×2 (08:42→20:43)
[2019-12-10] MEDS: SENNA W/DOCUSATE (SENOKOT S) TABLET PO SCH ×2 (08:42→20:44)
[2019-12-10] MEDS: lisINopril 20 MG (PRINIVIL) TABLET PO SCH (08:42)
[2019-12-10] MEDS: ASPIRIN E.C. 325 MG (ECOTRIN) TABLET PO SCH (08:42)
[2019-12-10 08:46] VITALS: BP 169/90
--- NOTE | 2019-12-10 11:45 | Physical Therapy Daily Note ---
PT Daily Note-Current Subjective Pt just finished getting cleaned up (shower/etc) upon arrival. Pt agrees to therapy tx. Pain Numeric Pain Scale: 0-No Pain Location: No Pain Reported Mental Status Patient Orientation: Person, Place, Time, Situation Transfers SCALE: Activities may be completed with or without assistive devices. 3-Xoigwufgbc-xxwthqo completes the activity by him/herself with no assistance from a helper. 5-Set-up or Clean-up Assistance-helper sets up or cleans up; patient completes activity. [place] assists only prior to or following the activity. 4-Supervision or Touching Assistance-helper provides verbal cues and/or touching/steadying and/or contact guard assistance as patient completes activ ity. Assistance may be provided throughout the activity or intermittently. 3-Partial/Moderate Assistance-helper does LESS THAN HALF the effort. [place] lifts, holds or supports trunk or limbs, but provides less than half the effort. 2-Substantial/Maximal Assistance-helper does MORE THAN HALF the effort. [place] lifts or holds trunk or limbs and provides more than half the effort. 4-Pfyvdnpyg-pyqpdn does ALL the effort. Patient does none of the effort to complete the activity. Or, the assistance of 2 or more helpers is required for the patient to complete the activity. If activity was not attempted, code reason: 7-Patient Refused. 9-Not Applicable-not attempted and the patient did not perform the activity before the current illness, exacerbation or injury. 10-Not Attempted due to Environmental Limitations-(lack of equipment, weather restraints, etc.). 88-Not Attempted due to Medical Conditions or Safety Concerns. Gait Training Does the Patient Walk?: Yes Distance: 1,000' Gait Persons Needed: 1 Gait Assistive Device: None Pt ambulates w/out AD and w/out assistance. Pt ambulates over 1,000' throughout unit and on first floor of the hospital. Stair Training Stair Training: Handrails/: 1 handrail 4 Steps (QC): 4 Pt ascends stairs w/ a reciprocal pattern using 1 UE on hand rail at all times. Pt descends stairs w/ a step to pattern w/out using hand rail. Exercises NuStep Minutes: 15 NuStep Workload: 5 Treatments Gait, Stairs and NuStep. Pt sitting in common area at end of tx d/t housekeeping cleaning pt room. Pt has all needs met at end of tx. Assessment Current Status: Excellent Progress Pt positive and motivated. Voices deficits she knows she needs to work on. PT [facility] Goals [facility] Goals PT [facility] Goals Time Frame: Dec 14, 2019 Roll Left & Right (QC): 6 Sit to Lying (QC): 6 Lying-Sitting on Side/Bed(QC): 6 Sit to Stand (QC): 6 Chair/Spu-mm-Ntfpl Xfer(QC): 6 Toilet Transfer (QC): 6 Car Transfer (QC): 6 Does the Patient Walk: Yes Walk 10 feet (QC): 6 Walk 50ft with 2 Turns (QC): 6 Walk 150 ft (QC): 6 Walking 10ft on Uneven Surface: 6 1 Step (curb) (QC): 6 4 Steps (QC): 6 12 Steps (QC): 6 Picking up an Object (QC): 6 Wheel 50 feet with 2 turns (QC: 9 Wheel 150 feet: 9 PT Plan Problem List Problem List: Activity Tolerance, Functional Strength, Safety, Balance, Gait Treatment/Plan Treatment Plan: Continue Plan of Care Treatment Plan: Education, Functional Activity Bing, Functional Strength, Group Therapy, Gait, Safety, Therapeutic Exercise, Transfers Treatment Duration: Dec 14, 2019 Frequency: At least 5 of 7 days/Wk (IRF) Estimated Hrs Per Day: 1.5 hours per day Patient and/or Family Agrees t: Yes Safety Risks/Education Patient Education: Gait Training, Steps, Safety Issues Teaching Recipient: Patient Teaching Methods: Discussion Response to Teaching: Verbalize Understanding Time/GCodes Time In: 1000 Time Out: 1045 Total Billed Treatment Time: 45 Total Billed Treatment 1, Ex x1 (15m), GT x2 (30m) CARLY BARROW ETCHED CIRCUIT PROCESSOR Dec 10, 2019 11:44
--- NOTE | 2019-12-10 14:26 | NUR ---
PATIENT REPORTS BM AFTER SHOWER THIS AM.
[2019-12-10] MEDS: DICLOFENAC 1% GEL 100 GM (VOLTAREN) TUBE TOP SCH ×2 (17:47→20:47)
[2019-12-10 18:00] VITALS: BP 135/72
[2019-12-10] MEDS: MELATONIN 3 MG TABLET PO PRN (18:37)
[2019-12-10] MEDS: ENOXAPARIN 40 MG/0.4 ML (LOVENOX) SYR SC SCH (20:43)
[2019-12-10] MEDS: ALPRAZolam 0.25 MG (XANAX) TAB PO PRN (20:44)
[2019-12-10] MEDS: BACLOFEN 10 MG (LIORESAL) TAB PO PRN (22:59)
[2019-12-11] MEDS: DICLOFENAC 1% GEL 100 GM (VOLTAREN) TUBE TOP SCH ×5 (04:03→20:55)
[2019-12-11 05:03] VITALS: BP 158/83
[2019-12-11] MEDS: ASPIRIN E.C. 325 MG (ECOTRIN) TABLET PO SCH (08:26)
[2019-12-11] MEDS: GABAPENTIN 100 MG (NEURONTIN) CAP PO SCH ×2 (08:26→20:49)
[2019-12-11] MEDS: polyethylene glycoL POWDER 17 GM (MIRALAX) PACK PO SCH ×2 (08:27→20:54)
[2019-12-11] MEDS: SENNA W/DOCUSATE (SENOKOT S) TABLET PO SCH ×2 (08:27→20:48)
[2019-12-11] MEDS: DOCUSATE SODIUM 100 MG (COLACE) CAP PO SCH ×2 (08:27→20:48)
[2019-12-11] MEDS: lisINopril 20 MG (PRINIVIL) TABLET PO SCH (08:27)
[2019-12-11] MEDS: amLODIPine 5 MG (NORVASC) TAB PO SCH (08:27)
[2019-12-11 08:28] VITALS: BP 135/69
--- NOTE | 2019-12-11 09:47 | PM&R Progress Note ---
Subjective HPI/CC On Admission Date Seen by Provider: Dec 11, 2019 Time Seen by Provider: 12:30 Subjective/Events-last exam 12/11/19: Patient wants to DC tomorrow No issues Did not sleep well last night Anxiety is an issue 12/10/2019: Patient is doing pretty well today Asking for Voltaren gel Discontinued hydrocodone since it made her nauseated and she does not think Ultram is helping Keep in mind she asked me for Dilaudid by name 3 days ago after she was admitted and that would not be an option Overall difficulty coping 12/09/19: Patient felt like she had some muscle spasms in her right hand Bowels moved last week will give laxatives Discontinue Lortab since it caused her nausea Ultram is helping 12/08/19: Patient having chronic pain issues and asked for Dilaudid yesterday for some unknown reason I started Ultram because that is the only thing I agree with Right hand did have a twinge of movement but she says its not happening today Overall has difficulty coping and obsessed about the right hand Review of Systems General: Fatigue Musculoskeletal: arm pain Objective Exam Vital Signs Vital Signs Date Time Temp Pulse Resp B/P (MAP) Pulse Ox O2 Delivery O2 Flow Rate FiO2 12/11/19 18:00 36.0 77 16 146/82 (103) 99 Room Air Capillary Refill : Less Than 3 Seconds General Appearance: No Apparent Distress, WD/WN, Chronically ill, Obese HEENT: PERRL/EOMI, Normal ENT Inspection, Pharynx Normal Neck: Full Range of Motion, Normal Inspection, Non Tender, Supple, Carotid Bruit Respiratory: Chest Non Tender, Lungs Clear, Normal Breath Sounds, No Accessory Muscle Use, No Respiratory Distress Cardiovascular: Regular Rate, Rhythm, No Edema, No Gallop, No JVD, No Murmur, Normal Peripheral Pulses Gastrointestinal: Normal Bowel Sounds, No Organomegaly, No Pulsatile Mass, Non Tender, Soft Back: Normal Inspection, No CVA Tenderness, No Vertebral Tenderness Extremity: Normal Capillary Refill, Normal Inspection, Normal Range of Motion, Non Tender, No Calf Tenderness, No Pedal Edema Neurologic/Psychiatric: Alert, Oriented x3, No Motor/Sensory Deficits, Normal Mood/Affect, Abnormal Gait, Facial Droop (right), Motor Weakness (right arm 2/5) Skin: Normal Color, Warm/Dry Lymphatic: No Adenopathy Results/Procedures Lab Patient resulted labs reviewed. FIM Transfers Therapy Code Descriptions/Definitions Functional [place] Measure: 0=Not Assessed/NA 4=Minimal Assistance 1=Total Assistance 5=Supervision or Setup 2=Maximal Assistance 6=Modified [place] 3=Moderate Assistance 7=Complete IndependenceSCALE: Activities may be completed with or without assistive devices. 3-Lktkagxcej-oahcone completes the activity by him/herself with no assistance from a helper. 5-Set-up or Clean-up Assistance-helper sets up or cleans up; patient completes activity. [place] assists only prior to or following the activity. 4-Supervision or Touching Assistance-helper provides verbal cues and/or touching/steadying and/or contact guard assistance as patient completes a ctivity. Assistance may be provided throughout the activity or intermittently. 3-Partial/Moderate Assistance-helper does LESS THAN HALF the effort. [place] lifts, holds or supports trunk or limbs, but provides less than half the effort. 2-Substantial/Maximal Assistance-helper does MORE THAN HALF the effort. [place] lifts or holds trunk or limbs and provides more than half the effort. 6-Muwodrbxr-unkkps does ALL the effort. Patient does none of the effort to complete the activity. Or, the assistance of 2 or more helpers is required for the patient to complete the activity. If activity was not attempted, code reason: 7-Patient Refused. 9-Not Applicable-not attempted and the patient did not perform the activity before the current illness, exacerbation or injury. 10-Not Attempted due to Environmental Limitations-(lack of equipment, weather restraints, etc.). 88-Not Attempted due to Medical Conditions or Safety Concerns. Roll Left to Right (QC): 6 Sit to Lying (QC): 6 Sit to Stand (QC): 6 Chair/Jku-hx-Hznwh Xfer(QC): 6 Car Transfer (QC): 6 Gait Training Does the Patient Walk?: Yes Distance: 1,000' Walk 10 feet (QC): 6 Walk 50 ft with 2 Turns(QC): 6 Walk 150 ft (QC): 6 Walking 10ft/uneven surface-QC: 6 Gait Persons Needed: 1 Gait Assistive Device: None Wheelchair Training Does the Pt Use a Wheelchair?: No Wheel 50 ft with 2 turns (QC): 9 Wheel 150 ft (QC): 9 Stair Training Stair Training: Handrails/: 1 handrail #of Steps: 12 1 Step (curb) (QC): 4 4 Steps (QC): 4 12 Steps (QC): 4 Stairs: Pattern: Step to Balance Picking up an Object (QC): 6 ADL-Treatment Eating (QC): 7 Oral Hygiene (QC): 4 (SBA standing at sink to brush teeth.) Shower/Bathe Self (QC): 6 (Per pt. report) Upper Body Dressing (QC): 6 (Per pt report) Lower Body Dressing (QC): 3 (Mod assist to don underwear over hips.) On/Off Footwear (QC): 6 Toileting Hygiene (QC): 6 Toilet Transfer (QC): 6 Assessment/Plan Assessment and Plan Assess & Plan/Chief Complaint Assessment: CVA with right sided weakness HTN CRI Obesity Plan: Home meds Monitor BP IRF protocol 12/08/19: Continue aggressive treatment for right arm and hand Speech therapy to work on facial droop and speech 12/09/19: Laxatives to resolve constipation Pain medication Monitor closely 12/10/2019: Continue intensive therapy Voltaren gel Monitor closely 12/11/19: DC tomorrow (1) CVA (cerebral vascular accident) Qualifiers: Qualified Codes: I63.9 - Cerebral infarction, unspecified (2) Renal insufficiency (3) Obesity (4) Hypertensive emergency Status: Acute (5) Anxiety Status: Acute ROSE PENA DO Dec 11, 2019 09:47
[2019-12-11 18:00] VITALS: BP 146/82
[2019-12-11] MEDS: PANTOPRAZOLE 40 MG (PROTONIX) TAB PO SCH (18:08)
--- NOTE | 2019-12-11 18:10 | NUR ---
REQUESTING SOMETHING FOR HEARTBURN. STATES HAS BEEN DRINKING MILK AND EATING "HEARTBURN RELIEF GUMMIES". DR. PENA NOTIFIED WITH ORDERS TO START PROTONIX- 40MG PO DAILY.
[2019-12-11] MEDS: MELATONIN 3 MG TABLET PO PRN (18:52)
[2019-12-11] MEDS ORDERED: BACL10TA PO (20:21)
[2019-12-11] MEDS ORDERED: ATOR40TA PO (20:21)
[2019-12-11] MEDS ORDERED: AMLO5TAB9 PO (20:21)
[2019-12-11] MEDS ORDERED: LISI-552 PO (20:21)
[2019-12-11] MEDS ORDERED: ASPI325T32 PO (20:21)
[2019-12-11] MEDS ORDERED: GABA-486 PO (20:21)
[2019-12-11] MEDS: ENOXAPARIN 40 MG/0.4 ML (LOVENOX) SYR SC SCH (20:48)
[2019-12-11] MEDS: ALPRAZolam 0.25 MG (XANAX) TAB PO PRN (20:48)
[2019-12-11] MEDS: BACLOFEN 10 MG (LIORESAL) TAB PO PRN (22:27)
[2019-12-12] MEDS: PANTOPRAZOLE 40 MG (PROTONIX) TAB PO SCH (04:48)
[2019-12-12] MEDS: ACETAMINOPHEN 325 MG TABLET PO PRN (04:48)
[2019-12-12 05:03] VITALS: BP 106/59
[2019-12-12 05:43] LABS: CHLORIDE 104 MMOL/L (98-107); POTASSIUM 4.3 MMOL/L (3.6-5.0); SODIUM 136 MMOL/L (135-145)
[2019-12-12 05:44] LABS: CALCIUM 9.1 MG/DL (8.5-10.1); GLUCOSE 117 MG/DL (70-105)
[2019-12-12 05:46] LABS: CARBON DIOXIDE 23 MMOL/L (21-32)
[2019-12-12 05:48] LABS: CREATININE SERUM 0.83 MG/DL (0.60-1.30); GFR ESTIMATED > 60
[2019-12-12 05:49] LABS: BUN/CREATININE RATIO 31
--- NOTE | 2019-12-12 06:29 | PM&R Progress Note ---
Subjective Subjective/Events-last exam 12/11/19: Patient wants to DC tomorrow No issues Did not sleep well last night Anxiety is an issue 12/10/2019: Patient is doing pretty well today Asking for Voltaren gel Discontinued hydrocodone since it made her nauseated and she does not think Ultram is helping Keep in mind she asked me for Dilaudid by name 3 days ago after she was admitted and that would not be an option Overall difficulty coping 12/09/19: Patient felt like she had some muscle spasms in her right hand Bowels moved last week will give laxatives Discontinue Lortab since it caused her nausea Ultram is helping 12/08/19: Patient having chronic pain issues and asked for Dilaudid yesterday for some unknown reason I started Ultram because that is the only thing I agree with Right hand did have a twinge of movement but she says its not happening today Overall has difficulty coping and obsessed about the right hand Objective Exam Vital Signs Vital Signs Date Time Temp Pulse Resp B/P (MAP) Pulse Ox O2 Delivery O2 Flow Rate FiO2 12/12/19 05:03 36.2 71 20 106/59 (75) 95 Room Air Capillary Refill : Less Than 3 Seconds General Appearance: No Apparent Distress, WD/WN, Chronically ill, Obese HEENT: PERRL/EOMI, Normal ENT Inspection, Pharynx Normal Neck: Full Range of Motion, Normal Inspection, Non Tender, Supple, Carotid Bruit Respiratory: Chest Non Tender, Lungs Clear, Normal Breath Sounds, No Accessory Muscle Use, No Respiratory Distress Cardiovascular: Regular Rate, Rhythm, No Edema, No Gallop, No JVD, No Murmur, Normal Peripheral Pulses Gastrointestinal: Normal Bowel Sounds, No Organomegaly, No Pulsatile Mass, Non Tender, Soft Back: Normal Inspection, No CVA Tenderness, No Vertebral Tenderness Extremity: Normal Capillary Refill, Normal Inspection, Normal Range of Motion, Non Tender, No Calf Tenderness, No Pedal Edema Neurologic/Psychiatric: Alert, Oriented x3, No Motor/Sensory Deficits, Normal Mood/Affect, Abnormal Gait, Facial Droop (right), Motor Weakness (right arm 2/5) Skin: Normal Color, Warm/Dry Lymphatic: No Adenopathy Results/Procedures Lab Laboratory Tests 12/12/19 04:59 Patient resulted labs reviewed. FIM Transfers Therapy Code Descriptions/Definitions Functional [place] Measure: 0=Not Assessed/NA 4=Minimal Assistance 1=Total Assistance 5=Supervision or Setup 2=Maximal Assistance 6=Modified [place] 3=Moderate Assistance 7=Complete IndependenceSCALE: Activities may be completed with or without assistive devices. 2-Kkiqpegniv-tweehhe completes the activity by him/herself with no assistance from a helper. 5-Set-up or Clean-up Assistance-helper sets up or cleans up; patient completes activity. [place] assists only prior to or following the activity. 4-Supervision or Touching Assistance-helper provides verbal cues and/or touching/steadying and/or contact guard assistance as patient completes activity. Assistance may be provided throughout the activity or intermittently. 3-Partial/Moderate Assistance-helper does LESS THAN HALF the effort. [place] lifts, holds or supports trunk or limbs, but provides less than half the effort. 2-Substantial/Maximal Assistance-helper does MORE THAN HALF the effort. [place] lifts or holds trunk or limbs and provides more than half the effort. 2-Ldomradxw-ervjnl does ALL the effort. Patient does none of the effort to complete the activity. Or, the assistance of 2 or more helpers is required for the patient to complete the activity. If activity was not attempted, code reason: 7-Patient Refused. 9-Not Applicable-not attempted and the patient did not perform the activity before the current illness, exacerbation or injury. 10-Not Attempted due to Environmental Limitations-(lack of equipment, weather restraints, etc.). 88-Not Attempted due to Medical Conditions or Safety Concerns. Roll Left to Right (QC): 6 Sit to Lying (QC): 6 Sit to Stand (QC): 6 Chair/Vih-iq-Pmxiz Xfer(QC): 6 Car Transfer (QC): 6 Gait Training Does the Patient Walk?: Yes Distance: 1,000' Walk 10 feet (QC): 6 Walk 50 ft with 2 Turns(QC): 6 Walk 150 ft (QC): 6 Walking 10ft/uneven surface-QC: 6 Gait Persons Needed: 1 Gait Assistive Device: None Wheelchair Training Does the Pt Use a Wheelchair?: No Wheel 50 ft with 2 turns (QC): 9 Wheel 150 ft (QC): 9 Stair Training Stair Training: Handrails/: 1 handrail #of Steps: 12 1 Step (curb) (QC): 4 4 Steps (QC): 4 12 Steps (QC): 4 Stairs: Pattern: Step to Balance Picking up an Object (QC): 6 ADL-Treatment Eating (QC): 7 Oral Hygiene (QC): 4 (SBA standing at sink to brush teeth.) Shower/Bathe Self (QC): 6 (Per pt. report) Upper Body Dressing (QC): 6 (Per pt report) Lower Body Dressing (QC): 3 (Mod assist to don underwear over hips.) On/Off Footwear (QC): 6 Toileting Hygiene (QC): 6 Toilet Transfer (QC): 6 Assessment/Plan Assessment and Plan Assess & Plan/Chief Complaint Assessment: CVA with right sided weakness HTN CRI Obesity Plan: Home meds Monitor BP IRF protocol 12/08/19: Continue aggressive treatment for right arm and hand Speech therapy to work on facial droop and speech 12/09/19: Laxatives to resolve constipation Pain medication Monitor closely 12/10/2019: Continue intensive therapy Voltaren gel Monitor closely 12/11/19: DC tomorrow (1) CVA (cerebral vascular accident) Qualifiers: Qualified Codes: I63.9 - Cerebral infarction, unspecified (2) Renal insufficiency (3) Obesity (4) Hypertensive emergency Status: Acute (5) Anxiety Status: Acute ROSE PENA DO Dec 12, 2019 06:29
--- NOTE | 2019-12-12 06:29 | Discharge Summary ---
Diagnosis/Chief Complaint Date of Admission Dec 06, 2019 at 16:20 Date of Discharge Discharge Date: Dec 12, 2019 Discharge Diagnosis Assessment: CVA with right sided weakness HTN CRI Obesity Plan: Home meds Monitor BP IRF protocol 12/08/19: Continue aggressive treatment for right arm and hand Speech therapy to work on facial droop and speech 12/09/19: Laxatives to resolve constipation Pain medication Monitor closely 12/10/2019: Continue intensive therapy Voltaren gel Monitor closely 12/11/19: DC tomorrow Discharge Summary Discharge Physical Examination Allergies: Coded Allergies: No Known Drug Allergies (Unverified , 12/20/10) Vitals & I&Os Vital Signs Date Time Temp Pulse Resp B/P (MAP) Pulse Ox O2 Delivery O2 Flow Rate FiO2 12/12/19 11:30 36.2 78 20 128/62 97 Room Air General Appearance: Alert, Oriented X3 Respiratory: Normal Air Movement Psych/Mental Status: Mental Status NL Hospital Course Was the Problem List Reviewed?: Yes Hospital course: Pt had a brief hospital course, she was admitted for right- sided weakness from stroke, her BP remained stable, she was able to participate in all therapies, along with speech for slurred speech and overall she was deemed stable for discharge. Labs (last 24 hrs) Laboratory Tests 12/07/19 05:50: White Blood Count 10.8, Red Blood Count 4.33L, Hemoglobin 13.9, Hematocrit 42, Mean Corpuscular Volume 98, Mean Corpuscular Hemoglobin 32, Mean Corpuscular Hemoglobin Concent 33, Red Cell Distribution Width 13.5, Platelet Count 291, Mean Platelet Volume 10.6H, Neutrophils (%) (Auto) 64, Lymphocytes (%) (Auto) 2 7, Monocytes (%) (Auto) 9, Eosinophils (%) (Auto) 1, Basophils (%) (Auto) 0, Neutrophils # (Auto) 6.9, Lymphocytes # (Auto) 2.9, Monocytes # (Auto) 0.9, Eosinophils # (Auto) 0.1, Basophils # (Auto) 0.0, Sodium Level 139, Potassium Level 4.4, Chloride Level 103, Carbon Dioxide Level 21, Anion Gap 15H, Blood Urea Nitrogen 32H, Creatinine 1.38H, Estimat Glomerular Filtration Rate 41, BUN/Creatinine Ratio 23, Glucose Level 113H, Calcium Level 9.2, Corrected Calcium 9.5, Total Bilirubin 0.7, Aspartate Amino Transf (AST/SGOT) 13, Alanine Aminotransferase (ALT/SGPT) 10, Alkaline Phosphatase 49, Total Protein 7.0, Albumin 3.6 12/12/19 04:59: Sodium Level 136, Potassium Level 4.3, Chloride Level 104, Carbon Dioxide Level 23, Anion Gap 9, Blood Urea Nitrogen 26H, Creatinine 0.83, Estimat Glomerular Filtration Rate > 60, BUN/Creatinine Ratio 31, Glucose Level 117H, Calcium Level 9.1 Pending Labs Laboratory Tests 12/07/19 05:50: White Blood Count 10.8, Red Blood Count 4.33, Hemoglobin 13.9, Hematocrit 42, Mean Corpuscular Volume 98, Mean Corpuscular Hemoglobin 32, Mean Corpuscular Hemoglobin Concent 33, Red Cell Distribution Width 13.5, Platelet Count 291, Mean Platelet Volume 10.6, Neutrophils (%) (Auto) 64, Lymphocytes (%) (Auto) 27, Monocytes (%) (Auto) 9, Eosinophils (%) (Auto) 1, Basophils (%) (Auto) 0, Neutrophils # (Auto) 6.9, Lymphocytes # (Auto) 2.9, Monocytes # (Auto) 0.9, Eosinophils # (Auto) 0.1, Basophils # (Auto) 0.0, Sodium Level 139, Potassium Level 4.4, Chloride Level 103, Carbon Dioxide Level 21, Anion Gap 15, Blood Urea Nitrogen 32, Creatinine 1.38, Estimat Glomerular Filtration Rate 41, BUN/Creatinine Ratio 23, Glucose Level 113, Calcium Level 9.2, Corrected Calcium 9.5, Total Bilirubin 0.7, Aspartate Amino Transf (AST/SGOT) 13, Alanine Aminotransferase (ALT/SGPT) 10, Alkaline Phosphatase 49, Total Protein 7.0, Albumin 3.6 12/12/19 04:59: Sodium Level 136, Potassium Level 4.3, Chloride Level 104, Carbon Dioxide Level 23, Anion Gap 9, Blood Urea Nitrogen 26, Creatinine 0.83, Estimat Glomerular Filtration Rate > 60, BUN/Creatinine Ratio 31, Glucose Level 117, Calcium Level 9.1 Discharge Home Medications: Active Scripts Active Gabapentin 100 Mg Capsule 100 Mg PO BID Aspirin EC (Aspirin) 325 Mg Tablet.dr 325 Mg PO DAILY Lisinopril 20 Mg Tablet 20 Mg PO DAILY Amlodipine Besylate 5 Mg Tablet 5 Mg PO DAILY Lipitor (Atorvastatin Calcium) 40 Mg Tablet 40 Mg PO HS Baclofen 10 Mg Tablet 5 Mg PO Q6HR PRN Reported Acid Gypsum Roofer (FAMOTIDINE) (Famotidine) 10 Mg Tablet 10 Mg PO DAILY Instructions to patient/family Please see electronic discharge instructions given to patient. Diagnosis/Problems Diagnosis/Problems (1) CVA (cerebral vascular accident) Qualifiers: Qualified Codes: I63.9 - Cerebral infarction, unspecified (2) Renal insufficiency (3) Obesity (4) Hypertensive emergency Status: Acute (5) Anxiety Status: Acute Clinical Quality Measures DVT/VTE Risk/Contraindication: Risk Factor Score Per Nursin RFS Level Per Nursing on Admit: 4+=Very High ROSE PENA DO Dec 12, 2019 06:29
[2019-12-12 08:34] VITALS: BP 128/62
[2019-12-12] MEDS: GABAPENTIN 100 MG (NEURONTIN) CAP PO SCH (08:36)
[2019-12-12] MEDS: ASPIRIN E.C. 325 MG (ECOTRIN) TABLET PO SCH (08:36)
[2019-12-12] MEDS: SENNA W/DOCUSATE (SENOKOT S) TABLET PO SCH (08:37)
[2019-12-12] MEDS: lisINopril 20 MG (PRINIVIL) TABLET PO SCH (08:37)
[2019-12-12] MEDS: DOCUSATE SODIUM 100 MG (COLACE) CAP PO SCH (08:37)
[2019-12-12] MEDS: amLODIPine 5 MG (NORVASC) TAB PO SCH (08:38)
[2019-12-12] MEDS: polyethylene glycoL POWDER 17 GM (MIRALAX) PACK PO SCH (08:39)
[2019-12-12] MEDS: DICLOFENAC 1% GEL 100 GM (VOLTAREN) TUBE TOP SCH (08:40)
--- NOTE | 2019-12-12 09:22 | Physical Therapy Daily Note ---
PT Daily Note-Current Subjective Patient in common area of rehab walking on her own. Patient is discharging today, need to check quality codes before she goes. Patient has no complaints of pain. Appearance Patient in common area of therapy post tx. Mental Status Patient Orientation: Normal For Age Transfers SCALE: Activities may be completed with or without assistive devices. 0-Ksxyiwzrjq-edkeaiq completes the activity by him/herself with no assistance from a helper. 5-Set-up or Clean-up Assistance-helper sets up or cleans up; patient completes activity. [place] assists only prior to or following the activity. 4-Supervision or Touching Assistance-helper provides verbal cues and/or touching/steadying and/or contact guard assistance as patient completes acti vity. Assistance may be provided throughout the activity or intermittently. 3-Partial/Moderate Assistance-helper does LESS THAN HALF the effort. [place] lifts, holds or supports trunk or limbs, but provides less than half the effort. 2-Substantial/Maximal Assistance-helper does MORE THAN HALF the effort. [place] lifts or holds trunk or limbs and provides more than half the effort. 6-Xmunvtdtc-sethem does ALL the effort. Patient does none of the effort to complete the activity. Or, the assistance of 2 or more helpers is required for the patient to complete the activity. If activity was not attempted, code reason: 7-Patient Refused. 9-Not Applicable-not attempted and the patient did not perform the activity before the current illness, exacerbation or injury. 10-Not Attempted due to Environmental Limitations-(lack of equipment, weather restraints, etc.). 88-Not Attempted due to Medical Conditions or Safety Concerns. Roll Left & Right (QC): 6 Sit to Lying (QC): 6 Lying to Sitting/Side of Bed(Q: 6 Sit to Stand (QC): 6 Chair/Fds-mi-Bdrpq Xfer(QC): 6 Toilet Transfer (QC): 6 Car Transfer (QC): 6 Patient is independent with bed mobility and transfers, independent with car transfer. Gait Training Does the Patient Walk?: Yes Distance: 1000' Walk 10 feet (QC): 6 Walk 50 ft with 2 Turns(QC): 6 Walk 150 ft (QC): 6 Walking 10ft/uneven surface-QC: 6 Gait Assistive Device: None Patient can ambulate 1000' without an assistive device with independence (inc luding 50' with at least 2 turns of 90 degrees and 10' over an uneven surface). Patient has good speed and no deviations. Wheelchair Training Does the Pt Use a Wheelchair?: No Stair Training Stair Training: Handrails/: 1 handrail #of Steps: 12 1 Step (curb) (QC): 6 4 Steps (QC): 6 12 Steps (QC): 6 Stairs: Pattern: Reciprocal Balance Picking up an Object (QC): 6 Treatments bed mobility and transfers, ambulation, stairs Assessment Current Status: Fair Progress Patient is independent with mobility PT Bullet Swaging Machine Operator Goals Bullet Swaging Machine Operator Goals PT Bullet Swaging Machine Operator Goals Time Frame: Dec 14, 2019 Roll Left & Right (QC): 6 Sit to Lying (QC): 6 Lying-Sitting on Side/Bed(QC): 6 Sit to Stand (QC): 6 Chair/Apv-wz-Sfsiv Xfer(QC): 6 Toilet Transfer (QC): 6 Car Transfer (QC): 6 Does the Patient Walk: Yes Walk 10 feet (QC): 6 Walk 50ft with 2 Turns (QC): 6 Walk 150 ft (QC): 6 Walking 10ft on Uneven Surface: 6 1 Step (curb) (QC): 6 4 Steps (QC): 6 12 Steps (QC): 6 Picking up an Object (QC): 6 Wheel 50 feet with 2 turns (QC: 9 Wheel 150 feet: 9 PT Plan Problem List Problem List: Activity Tolerance, Functional Strength, Safety, Balance Treatment/Plan Treatment Plan: Discontinue PT Treatment Plan: Education, Functional Activity Bing, Functional Strength, Group Therapy, Gait, Safety, Therapeutic Exercise, Transfers Treatment Duration: Dec 14, 2019 Frequency: At least 5 of 7 days/Wk (IRF) Estimated Hrs Per Day: 1.5 hours per day Patient and/or Family Agrees t: Yes Safety Risks/Education Patient Education: Gait Training, Transfer Techniques, Steps, Correct Positioning, Safety Issues Teaching Recipient: Patient Teaching Methods: Demonstration, Discussion Response to Teaching: Reinforcement Needed Time/GCodes Time In: 904 Time Out: 919 Total Billed Treatment Time: 15 Total Billed Treatment 1 visit FA 15' ESVIN ROQUE PT Dec 12, 2019 09:22
--- NOTE | 2019-12-12 09:26 | NUR ---
CM/SS DISCHARGE Because of patient positive progress, patient, physician, and therapy team all in agreement for her to discharge home today. OP THERAPY: Patient in agreement to participate in continued therapy in the outpatient setting. Because of her uninsured status and the benefit of utilizing [facility] services under [facility], patient wholeheartedly requested [facility] facility. Referral completed for PT, OT, ST, first appointment tomorrow at 0845. Updated patient discharge information of appointment, address, and contact information. Patient states she is easily capable of finding transportation. Unit RN updated.
--- NOTE | 2019-12-12 09:26 | Therapy Team Discharge Summary ---
Therapy Discharge Summary Discharge Recommendations Date of Discharge Physical Therapy Patient came to rehab following a CVA. Upon evaluation patient was independent with bed mobility and transfers and car transfer, ambulated 300' without an assistive device with independence (including 50' with at least 2 turns of 90 degrees and 10' over an uneven surface), went up and down 12 steps using 1 handrail with SBA, and picked up an object from the floor with independence. Patient has been performing bed mobility and transfer training, balance and endurance training, functional strengthening, stair training, gait training, and education. Patient has made good progress and has met all of her correction goals. Now, patient is independent with bed mobility and transfers, independent with car transfer, ambulates 1000' without an assistive device with independence (including 50' with at least 2 turns of 90 degrees and 10' over an uneven surface), can go up and down 12 steps using 1 handrail with independence, and can pick and shovel man an object from the floor with independence. Patient is discharging from this facility today and will be discharged from PT at this time. Occupational Therapy Decreased Activ Tolerance, Decreased UE Strength, Impaired I ADL's, Impaired Self-Care Skills, Restricted Funct UE ROM PT Furnace Roaster Goals Furnace Roaster Goals PT Furnace Roaster Goals Time Frame: Dec 14, 2019 Roll Left to Right (QC): 6 Sit to Lying (QC): 6 Lying-Sitting on Side/Bed(QC): 6 Sit to Stand (QC): 6 Chair/Rqe-rj-Sjdwc Xfer(QC): 6 Car Transfer (QC): 6 Does the Patient Walk: Yes Walk 10 feet (QC): 6 Walk 10ft-Uneven Surface(QC): 6 Walk 50ft with 2 Turns (QC): 6 Walk 150 ft (QC): 6 Wheel 50 feet with 2 turns (QC: 9 1 Step (curb) (QC): 6 4 Steps (QC): 6 12 Steps (QC): 6 Picking up an Object (QC): 6 OT Intermediate Goals Intermediate Goals Time Frame: Dec 21, 2019 Eating (QC): 6 Oral Hygiene (QC): 6 Shower/Bathe Self (QC): 6 Upper Body Dressing (QC): 6 Lower Body Dressing (QC): 6 On/Off Footwear (QC): 6 Toileting Hygiene (QC): 6 Toilet/Commode Transfer (QC): 6 Additional Goals: 1-Demonstrate ADL Tasks, 2-Verbalize Understanding, 3- ImproveStrength/Bing 1=Demonstrate adherence to instructed precautions during ADL tasks. 2=Patient will verbalize/demonstrate understanding of assistive devices/modifications for ADL. 3=Patient will improve strength/tolerance for activity to enable patient to perform ADL's. Speech Furnace Roaster Goals Intermediate Goals Patient's speech will improve to 100% intelligibility. Patient will maintain adequate nutrition/hydration via safe effective swallow functio. ESVIN ROQUE PT Dec 12, 2019 09:26
[2019-12-12] MEDS: ONDANSETRON 4 MG (ZOFRAN) ORAL DISSOLVE TAB PO PRN (10:56)
--- NOTE | 2019-12-12 11:11 | Speech Therapy Daily Note ---
Speech Daily Progress Note Subjective Date Seen by Provider: Dec 12, 2019 Time Seen by Provider: 10:00 Patient was up and about in her room getting her things ready for discharge. Objective Patient completed a series of q/a related to her discharge to home and her daily needs. Patient will receive skilled ST as an outpatient. Assessment Assessment Current Status: Good Progress Treatment Plan Discontinue ST, Goals Met Speech Short Term Goals Short Term Goals Short Term Goals 1) Patient will complete OME x10 with 90% or greater accuracy. 2) Patient will complete speech exercises with 90% or greater accuracy. 3) Patient will utilize compensatory strategies for safe oral intake. Speech Longterm Goals Longterm Goals Patient's speech will improve to 100% intelligibility. Patient will maintain adequate nutrition/hydration via safe effective swallow functio. Speech-Plan Patient/Family Goals Patient/Family Goals: Patient is discharging to her home with family this date Treatment Plan Speech Therapy Treatment Plan: Discontinue ST, Goals Met Treatment Duration: Dec 16, 2019 Frequency: 4 times per week (Patient will receive skilled ST 4-5 times per week) Estimated Hrs Per Day: .5 hour per day Rehab Potential: Good Barriers to Learning: Patient's recent CVA Pt/Family Agrees to Plan: Yes Safety Risks/Education Teaching Recipient: Patient, Friend Teaching Methods: Demonstration, Discussion Response to Teaching: Verbalize Understanding, Return Demonstration Education Topics Provided: Continued safety upon her return to home Time Speech Therapy Time In: 11:00 Speech Therapy Time Out: 11:10 Total Billed Time: 10 Billed Treatment Time 1, YULI Bronson Dec 12, 2019 11:11
--- NOTE | 2019-12-12 11:13 | Therapy Team Discharge Summary ---
Therapy Discharge Summary Discharge Recommendations Date of Discharge Occupational Therapy Decreased Activ Tolerance, Decreased UE Strength, Impaired I ADL's, Impaired Self-Care Skills, Restricted Funct UE ROM Speech-Language Pathology Patient was admitted to ARU s/p CVA. Patient was given the SLUMS with a mild cognitive deficit, apraxia and dysphagia. Patient received ST with goals met. She will continue as an outpatient in order to work toward higher level of function to obtain baseline level of function. PT Group Home Goals Neuroradiologist Goals PT Group Home Goals Time Frame: Dec 14, 2019 Roll Left to Right (QC): 6 Sit to Lying (QC): 6 Lying-Sitting on Side/Bed(QC): 6 Sit to Stand (QC): 6 Chair/Vba-pe-Jzzxv Xfer(QC): 6 Car Transfer (QC): 6 Does the Patient Walk: Yes Walk 10 feet (QC): 6 Walk 10ft-Uneven Surface(QC): 6 Walk 50ft with 2 Turns (QC): 6 Walk 150 ft (QC): 6 Wheel 50 feet with 2 turns (QC: 9 1 Step (curb) (QC): 6 4 Steps (QC): 6 12 Steps (QC): 6 Picking up an Object (QC): 6 OT Group Home Goals Group Home Goals Time Frame: Dec 21, 2019 Eating (QC): 6 Oral Hygiene (QC): 6 Shower/Bathe Self (QC): 6 Upper Body Dressing (QC): 6 Lower Body Dressing (QC): 6 On/Off Footwear (QC): 6 Toileting Hygiene (QC): 6 Toilet/Commode Transfer (QC): 6 Additional Goals: 1-Demonstrate ADL Tasks, 2-Verbalize Understanding, 3- ImproveStrength/Bing 1=Demonstrate adherence to instructed precautions during ADL tasks. 2=Patient will verbalize/demonstrate understanding of assistive devices/modifications for ADL. 3=Patient will improve strength/tolerance for activity to enable patient to perform ADL's. Speech Neuroradiologist Goals Neuroradiologist Goals Patient's speech will improve to 100% intelligibility. Patient will maintain adequate nutrition/hydration via safe effective swallow functio. YULI KEATING Dec 12, 2019 11:13
[2019-12-12] MEDS: ALPRAZolam 0.25 MG (XANAX) TAB PO PRN (11:22)
[2019-12-12 11:30] VITALS: BP 128/62
--- NOTE | 2019-12-12 11:34 | Occupational Ther Daily Note ---
OT Current Status-Daily Note Subjective Pt in bed when OT entered room. Pt. reported that she is not having any pain but is ready to go home. Pt. agreeable to therapy. QC's collected this date. Mental Status/Objective Patient Orientation: Person, Place, Time, Situation ADL-Treatment Therapy Code Descriptions/Definitions Functional [place] Measure: 0=Not Assessed/NA 4=Minimal Assistance 1=Total Assistance 5=Supervision or Setup 2=Maximal Assistance 6=Modified [place] 3=Moderate Assistance 7=Complete IndependenceSCALE: Activities may be completed with or without assistive devices. 8-Ozssogeuyf-zrokebo completes the activity by him/herself with no assistance from a helper. 5-Set-up or Clean-up Assistance-helper sets up or cleans up; patient completes activity. [place] assists only prior to or following the activity. 4-Supervision or Touching Assistance-helper provides verbal cues and/or touching/steadying and/or contact guard assistance as patient completes activity. Assistance may be provided throughout the activity or intermittently. 3-Partial/Moderate Assistance-helper does LESS THAN HALF the effort. [place] lifts, holds or supports trunk or limbs, but provides less than half the effort. 2-Substantial/Maximal Assistance-helper does MORE THAN HALF the effort. [place] lifts or holds trunk or limbs and provides more than half the effort. 6-Kmgicoqjn-omtfan does ALL the effort. Patient does none of the effort to complete the activity. Or, the assistance of 2 or more helpers is required for the patient to complete the activity. If activity was not attempted, code reason: 7-Patient Refused. 9-Not Applicable-not attempted and the patient did not perform the activity before the current illness, exacerbation or injury. 10-Not Attempted due to Environmental Limitations-(lack of equipment, weather restraints, etc.). 88-Not Attempted due to Medical Conditions or Safety Concerns. Eating (QC): 6 (Per pt. report) Oral Hygiene (QC): 6 Shower/Bathe Self (QC): 6 Upper Body Dressing (QC): 6 Lower Body Dressing (QC): 6 On/Off Footwear: 6 Toileting Hygiene (QC): 6 Toilet Transfer (QC): 6 Pt. reported that she is independent with eating. She independently bathed and dried while seated. Independent in doffing/donning shirt dress, underwear, and socks. Pt. able to independently transfer to toilet and complete toilet hygiene. She is able to brush her teeth without any assistance. Pt. has increased AROM in R wrist to approximately 45 degrees. She reported that she used E-stim this weekend to facilitate increasing movement. Pt. reported that she has no concerns about going home at this time and that she will have help the majority of the time at home. Pt. in chair with phone and call light in reach when OT left the room. Education OT Patient Education: Home exercise program, Modified ADL techniques, Progress toward Goal/Update tx plan, Purpose of tx/functional activities, Reviewed preca utions, Rehab process, Safety issues, Transfer techniques Teaching Recipient: Patient Teaching Methods: Demonstration, Discussion Response to Teaching: Verbalize Understanding, Return Demonstration OT Senior Care Goals Senior Care Goals Time Frame: Dec 21, 2019 Eating (QC): 6 (met) Oral Hygiene (QC): 6 (met) Toileting Hygiene (QC): 6 (met) Shower/Bathe Self (QC): 6 (met) Upper Body Dressing (QC): 6 (met) Lower Body Dressing (QC): 6 (met) On/Off Footwear (QC): 6 (met) Additional Goals: 1-Demonstrate ADL Tasks, 2-Verbalize Understanding, 3- ImproveStrength/Bing 1=Demonstrate adherence to instructed precautions during ADL tasks. 2=Patient will verbalize/demonstrate understanding of assistive devices/modifications for ADL. 3=Patient will improve strength/tolerance for activity to enable patient to perform ADL's. OT Education/Plan Problem List/Assessment Assessment: Decreased UE Strength, Restricted Funct UE ROM Discharge Recommendations Plan/Recommendations: Continue POC Therapy Discharge Recommendati: Home & Family, Post Acute OT Treatment Plan/Plan of Care Treatment,Training & Education: Yes Patient would benefit from OT for education, treatment and training to promote independence in ADL's, mobility, safety and/or upper extremity function for ADL's. Plan of Care: ADL Retraining, Functional Mobility, UE Funct Exercise/Act Treatment Duration: Dec 21, 2019 Frequency: At least 5 of 7 days/Wk (IRF) Estimated Hrs Per Day: 1.5 hours per day Agreement: Yes Rehab Potential: Good Time/GCodes Start Time: 08:00 Stop Time: 09:00 Total Time Billed (hr/min): 60 Billed Treatment Time 1, ADL 2 (30 minutes), NM 2 (30 minutes) NAGA MOMIN Dec 12, 2019 11:33
--- NOTE | 2019-12-13 11:28 | NUR ---
CM/SS POST DISCHARGE Provided continuum of care update to Gladis IBRAHIM at [facility] at her request.
--- NOTE | 2019-12-14 10:03 | Therapy Team Discharge Summary ---
Therapy Discharge Summary Discharge Recommendations Date of Discharge Dec 12, 2019 at 11:30 Therapy D/C Recommendations: Home w/ Family Support Occupational Therapy Pt. seen by occupational therapy to increase independence with ADL skills, UE strengthening, and fine motor skills. Pt. met all goals and is discharging home with her significant other and daughter. She is independent with bathing and dressing. Pt would benefit from continued occupational therapy to improve UE strength in her R wrist and fingers. Decreased UE Strength, Restricted Funct UE ROM PT Brush Maker Goals Retirement Goals PT Retirement Goals Time Frame: Dec 14, 2019 Roll Left to Right (QC): 6 Sit to Lying (QC): 6 Lying-Sitting on Side/Bed(QC): 6 Sit to Stand (QC): 6 Chair/Oxu-dx-Ualzn Xfer(QC): 6 Car Transfer (QC): 6 Does the Patient Walk: Yes Walk 10 feet (QC): 6 Walk 10ft-Uneven Surface(QC): 6 Walk 50ft with 2 Turns (QC): 6 Walk 150 ft (QC): 6 Wheel 50 feet with 2 turns (QC: 9 1 Step (curb) (QC): 6 4 Steps (QC): 6 12 Steps (QC): 6 Picking up an Object (QC): 6 OT Retirement Goals Brush Maker Goals Time Frame: Dec 21, 2019 Eating (QC): 6 (met) Oral Hygiene (QC): 6 (met) Shower/Bathe Self (QC): 6 (met) Upper Body Dressing (QC): 6 (met) Lower Body Dressing (QC): 6 (met) On/Off Footwear (QC): 6 (met) Toileting Hygiene (QC): 6 (met) Toilet/Commode Transfer (QC): 6 Additional Goals: 1-Demonstrate ADL Tasks, 2-Verbalize Understanding, 3- ImproveStrength/Bing 1=Demonstrate adherence to instructed precautions during ADL tasks. 2=Patient will verbalize/demonstrate understanding of assistive dev ices/modifications for ADL. 3=Patient will improve strength/tolerance for activity to enable patient to perform ADL's. Speech Retirement Goals Brush Maker Goals Patient's speech will improve to 100% intelligibility. Patient will maintain adequate nutrition/hydration via safe effective swallow functio. NURY JARQUIN OT Dec 14, 2019 10:03
== END 2019-12-12 11:30 | disposition home or self-care (01) | DRG 57 ==
PROVIDERS: ADMIT Internal Medicine; ATTEND Internal Medicine
DX: I69.351 Hemiplegia and hemiparesis following cerebral infarction affecting right dominant side (principal); I69.392 Facial weakness following cerebral infarction; I69.328 Other speech and language deficits following cerebral infarction; I12.9 Hypertensive chronic kidney disease with stage 1 through stage 4 chronic kidney disease, or unspecified chronic kidney disease; N18.9 Chronic kidney disease, unspecified; E66.9 Obesity, unspecified; Z68.39 Body mass index [BMI] 39.0-39.9, adult; F41.9 Anxiety disorder, unspecified; R73.03 Prediabetes; E78.5 Hyperlipidemia, unspecified; K59.00 Constipation, unspecified; Z90.3 Acquired absence of stomach [part of]
CPT/HCPCS: 36415; 80048; 80053; 85025

== ENCOUNTER 2020-01-12 13:08 | Outpatient (RCR) | payer MEDICAID ==
[~2020-01-12 13:08] MED LIST changes: +AMLO5TAB9 PO; +ASPI325T32 PO; +ATOR40TA PO; +ATOR40TA70 PO; +BACL10TA PO; -CALC600T14 PO; +CLC600T PO; +ETON1VAG VG; +FAMO-144 PO; +GABA-486 PO; +LISI-552 PO
== END 2020-01-12 15:02 | disposition home or self-care (01) ==
PROVIDERS: ATTEND Nurse Practitioner Community Health
DX: I69.322 Dysarthria following cerebral infarction (principal)

== ENCOUNTER 2020-02-13 13:52 | Outpatient (RCR) | payer MEDICAID | END 2020-02-13 14:33 | disposition home or self-care (01) | PROVIDERS: ATTEND Nurse Practitioner Community Health | DX: I63.9 Cerebral infarction, unspecified (principal) ==

== ENCOUNTER 2020-02-28 14:40 | Outpatient (RCR) | payer MEDICAID ==
[~2020-02-28 14:40] MED LIST changes: +AMLO-250 PO; -AMLO5TAB9 PO
== END 2020-03-12 | disposition home or self-care (01) ==
PROVIDERS: ATTEND Nurse Practitioner Community Health
DX: I69.351 Hemiplegia and hemiparesis following cerebral infarction affecting right dominant side (principal)

== ENCOUNTER 2020-04-10 14:43 | Outpatient (RCR) | payer MEDICAID | END 2020-04-11 16:00 | disposition home or self-care (01) | PROVIDERS: ATTEND Nurse Practitioner Community Health | DX: I69.351 Hemiplegia and hemiparesis following cerebral infarction affecting right dominant side (principal) ==

== ENCOUNTER → 2020-07-06 | Outpatient (CLI) | payer MEDICAID ==
[~2020-07-06] MED LIST changes: -LISI-552 PO; +LISI20TA26 PO
--- NOTE | 2020-07-06 12:29 | Diagnostic Imaging Report ---
PROCEDURE: Pelvic comp/transvaginal sonogram. TECHNIQUE: Complete transabdominal and transvaginal pelvic ultrasound was performed. In addition, limited pelvic Doppler was performed. INDICATION: Abnormal uterine bleeding. Uterus is anteverted measuring 10.3 x 5.5 x 7.2 cm. Endometrium is 7 mm in thickness. There are probable uterine fibroids present, largest in the right uterus approximately 2.5 x 3.0 x 2.5 cm. Smaller fibroid left uterus measures 2.1 x 1.5 x 2.1 cm. The right ovary measures 3.3 x 2.0 x 2.0 cm and contains a 2.5 x 1.5 x 1.4 cm cyst. There is blood flow to the right ovary. Left ovary cannot be visualized due to bowel gas. There is no free fluid. IMPRESSION: 1. Fibroid uterus. 2. 2.5 cm right ovarian cyst. Dictated by: Dictated on workstation # [id number]
--- NOTE | 2020-07-06 13:17 | Diagnostic Imaging Report ---
INDICATION: Routine screening. COMPARISON is made with prior mammogram of 07/19/2008. 2-D and 3-D bilateral screening mammography was performed with CAD. Scattered fibroglandular densities are identified bilaterally. There are benign calcifications scattered throughout both breasts. There is a nodular density in the lower inner left breast appearing more prominent than on prior exam. Additional views are recommended. No other masses are seen. There are no malignant appearing microcalcifications. Axillae are unremarkable. IMPRESSION: BI-RADS Category 0. Left breast nodular density. Additional views are recommended for further evaluation. ACR BI-RADS Category 0: Incomplete. (Needs additional imaging evaluation). Result letter will be mailed to the patient. Note: At least 10% of breast cancer is not imaged by mammography. Dictated by: Dictated on workstation # [id number]
== END ==
LOC: RAD 09:54
PROVIDERS: ATTEND Obstetrics & Gynecology
DX: Z12.31 Encounter for screening mammogram for malignant neoplasm of breast (principal); D25.9 Leiomyoma of uterus, unspecified; N83.201 Unspecified ovarian cyst, right side
CPT/HCPCS: 76830; 76856; 77063; 77067

== ENCOUNTER → 2020-07-12 | Outpatient (CLI) | payer MEDICAID ==
--- NOTE | 2020-07-12 10:18 | Diagnostic Imaging Report ---
Indication: Left breast density. Patient presents for additional views. Correlation is made with prior screening mammogram from 07/06/2020. 2-D and 3-D unilateral left diagnostic mammography was performed with CAD. Included spot compression CC and ML views as well as conventional 90 degrees lateral view. Additional views show a persistent circular nodular density in the inner aspect of the left breast anterior depth. No suspicious microcalcifications are seen. Impression: BI-RADS 0 Persistent circumscribed nodular density in the inner left breast anterior depth. Further evaluation ultrasound is recommended and will be performed today. ACR BI-RADS Category 0: Incomplete. (Needs additional imaging evaluation). Result letter will be mailed to the patient. Note: At least 10% of breast cancer is not imaged by mammography. Dictated by: Dictated on workstation # [id number]
--- NOTE | 2020-07-12 17:55 | Diagnostic Imaging Report ---
INDICATION: Abnormal mammogram. The study is performed for further evaluation. CORRELATION is made with diagnostic mammogram earlier the same day and screening mammogram from 07/06/2020. Sonographic interrogation of the inner left breast was performed. There is a small hypoechoic solid appearing nodule at the 9:00 location of the left breast measuring 4 mm x 2 mm x 5 mm. This may account for the mammographic density. While this does appear to be solid, no definite internal vascularity is present. No posterior acoustic enhancement is identified. No other abnormalities are seen. IMPRESSION: BI-RADS Category 4 Subcentimeter hypoechoic nodule at the 9:00 location left breast, likely accounting for the mammographic density. Exact etiology is indeterminate. Biopsy would be recommended. This would be amenable to ultrasound-guided core biopsy. ACR BI-RADS Category 4: Suspicious abnormality. Result letter will be mailed to the patient. Note: At least 10% of breast cancer is not imaged by mammography. Dictated by: Dictated on workstation # [id number]
== END ==
LOC: RAD 09:45
PROVIDERS: ATTEND Obstetrics & Gynecology
DX: N63.25 Unspecified lump in the left breast, overlapping quadrants (principal)
CPT/HCPCS: 76642; 77065; G0279

== ENCOUNTER 2020-09-24 06:07 | Outpatient (CLI) | payer MEDICAID ==
[~2020-09-24] VITALS: Ht 172.7 cm; Wt 123.7 kg
[~2020-09-24 06:07] MED LIST changes: +CALC600T91 PO; -CLC600T PO
[2020-09-24] MEDS ORDERED: FLUO40CA PO (10:23)
[2020-09-24] MEDS ORDERED: LISI20TA26 PO (10:23)
[2020-09-24] MEDS ORDERED: AMLO-250 PO (10:23)
[2020-09-24] MEDS ORDERED: ASPI325T32 PO (10:23)
[2020-09-24] MEDS ORDERED: ATOR20TA66 PO (10:23)
[2020-09-24] MEDS ORDERED: DOCU-143 PO (10:23)
[2020-09-24] MEDS ORDERED: ATOR40TA70 PO (10:24)
== END 2020-09-24 10:44 | disposition home or self-care (01) ==
LOC: PREOP 06:07
PROVIDERS: ATTEND Surgery
DX: Z01.818 Encounter for other preprocedural examination (principal)

== ENCOUNTER 2020-09-26 08:02 | Outpatient (CLI) | payer MEDICAID ==
[~2020-09-26] VITALS: Ht 172.7 cm; Wt 123.7 kg
[2020-09-26] VITALS (10 sets, daily range): BP systolic 90–136; BP diastolic 52–73
[~2020-09-26 08:02] MED LIST changes: +ATOR20TA66 PO; +DOCU-143 PO; +FLUO40CA PO
[2020-09-26] MEDS ORDERED: ceFAZolin INJECTION 1,000 MG in WATER (STERILE) FOR INJECTION 10 ML IV ONE (08:15)
[2020-09-26] MEDS ORDERED: LIDOCAINE 1% INJ 20 ML 20 ML VIAL INJ ONE (08:15)
[2020-09-26] MEDS ORDERED: LIDOCAINE/EPI 1%-1:200,000 (XYLOCAINE) 30 ML VIAL ONE (08:31)
[2020-09-26] MEDS: LACTATED RINGERS 1,000 ML IV PRN ×2 (08:40→10:45)
[2020-09-26] MEDS ORDERED: proPOfol 200 MG/20 ML (DIPRIVAN) VIAL IV ONE (08:57)
[2020-09-26] MEDS ORDERED: fentaNYL INJ 100 MCG/2 ML AMP ONE (08:57)
[2020-09-26] MEDS ORDERED: SEVOFLURANE (ULTANE) 15 ML INHAL SOLN ONE (08:57)
[2020-09-26] MEDS ORDERED: LIDOCAINE PF 2% 5 ML (XYLOCAINE) VIAL ONE (08:57)
[2020-09-26] MEDS ORDERED: ONDANSETRON 4 MG/2 ML (SDV) Z0FRAN ONE (08:57)
[2020-09-26] MEDS ORDERED: MIDAZOLAM 2 MG/2 ML (VERSED) VIAL ONE (08:57)
--- NOTE | 2020-09-26 09:28 | Progress Note-Pre Operative ---
Pre-Operative Progress Note H&P Reviewed The H&P was reviewed, patient examined and no changes noted. Time Seen by Provider: 09:24 Date H&P Reviewed: September 26, 2020 Time H&P Reviewed: 09:24 Pre-Operative Diagnosis: Left breast mass DAPHNE GUZMAN DO September 26, 2020 09:28
--- NOTE | 2020-09-26 10:35 | Diagnostic Imaging Report ---
INDICATION: Left breast nodule. Patient presents for hookwire placement. Patient is brought to the sonography suite placed in table in the supine position. Ultrasound imaging of the left breast was performed to evaluate appropriate entry site. A hookwire localizing needle was advanced into the left breast benign o'clock location and placed through the small seroma and adjacent to the marker clip at the 9 clock location. The hookwire was then deployed and the needle was removed. A wire was affixed to the patient's skin. Patient tolerated the procedure well and obtained a post procedure mammogram in satisfactory condition. IMPRESSION: Successful ultrasound-guided hookwire placement, localizing lesion at the 9:00 location of the left breast. Dictated by: Dictated on workstation # [id number]
[2020-09-26] MEDS ORDERED: ACHD5005 PO (11:03)
--- NOTE | 2020-09-26 11:03 | Progress Note-Post Operative ---
Post-Operative Progess Note Surgeon (s)/Airline Ticket Agent (s) Surgeon DAPHNE GUZMAN DO Airline Ticket Agent: none Pre-Operative Diagnosis Left breast mass Post-Operative Diagnosis same pending path Procedure & Operative Findings Date of Procedure 09/26/20 Procedure Performed/Findings Exc left breast mass with needle loc Anesthesia Type LMA Estimated Blood Loss Estimated blood loss (mL): less than 10ml Specimens/Packing Specimens Removed breast tissue and wire DAPHNE GUZMAN DO September 26, 2020 11:02
--- NOTE | 2020-09-26 11:04 | Discharge Inst-Surgical ---
Discharge Inst-Surgical Depart Medication/Instructions New, Converted or Re-Newed RX: RX Given to Pt/Family Patient Instructions Follow up Appt: Make appointment for 1 week. [phone] Instructions: No lifting greater than 20 pounds. No strenuous activity. May shower in 24 hours, no tub bath or soaking. Use incentive spirometer at home as directed. No Smoking Skin/Wound Care: May remove bandages in am. You need to leave the Dermabond on incision it will fall off on it's own. Symptoms to Report: Appetite Changes, Extremity Discoloration, Numbness/Tingling, Swelling Increased, Bleeding Excessive, Eyesight Changes, Pain Increased, Urine Color Change, Constipation(Persistent), Fever over 101 degree F, Pain/Pressure in chest, Urinating Difficulty, Cough Up/Vomit Blood, Heart Beat Irreg/Pounding, Pain/Pressure in jaw, Cramps in feet or legs, Lightheadedness, Pain/Pressure in shoulder, Diarrhea(Persistent), Memory Changes Suddenly, Questions/Concerns, Weight gain consecutive days, Dizziness/Fainting, Nausea/Vomiting, Shortness of Breath, Weight gain over 2 pounds If questions or concerns contact your physician Or seek help at emergency department. Activity Activity as Tolerated: Yes Driving Instructions: No Driving/Refer to Dr. Pena Discharge Diet: No Restrictions Diet After 24 Hours: Clear Liquid if Nauseous If Any Problems/Questions/Issu: Contact Your Physician, Go to Emergency Room Skin/Wound Care Infection Signs and Symptoms: Increased Redness, Foul Odor of Wound, Increased Drainage, Skin Itchy or Has a Rash, Increased Swelling, Temperature Above 101 F Wound Care Comment: wear a tight sports bra all day for a week (24/11) except to shower Bathing Instructions: Shower Stitches/Rancho/Dermabond Dis: Yenniond DAPHNE GUZMAN DO September 26, 2020 11:04
[2020-09-26] MEDS ORDERED: MEPERIDINE (DEMEROL) INJ 50 MG/ML IVP ONE (11:30)
[2020-09-26] MEDS ORDERED: morphine INJ 10 MG/ML 1ML (SYR OR VIAL) IVP ONE (11:30)
[2020-09-26] MEDS ORDERED: fentaNYL INJ 100 MCG/2 ML AMP IVP ONE (11:30)
[2020-09-26] MEDS ORDERED: ONDANSETRON 4 MG/2 ML (SDV) Z0FRAN IVP PRN (11:30)
--- NOTE | 2020-09-26 12:44 | Anesthesia-General Post-Op ---
General Patient Condition Mental Status/LOC: Same as Preop Cardiovascular: Satisfactory Nausea/Vomiting: Absent Respiratory: Satisfactory Pain: Controlled Complications: Absent Post Op Complications Complications None Follow Up Care/Instructions Patient Instructions None needed. Anesthesia/Patient Condition Patient Condition Patient is doing well, no complaints, stable vital signs, no apparent adverse anesthesia problems. No complications reported per nursing. ANA MARIA BUNCH CRNA September 26, 2020 12:44
--- NOTE | 2020-09-26 13:47 | Diagnostic Imaging Report ---
INDICATION: Left breast nodule, status post hookwire localization. FINDINGS: Unilateral left 2D CC and ML mammography was performed. There is a hookwire in the medial left breast adjacent to the marker clip. IMPRESSION: Satisfactory hookwire placement. Dictated by: Dictated on workstation # [id number]
--- NOTE | 2020-09-26 13:47 | Diagnostic Imaging Report ---
INDICATION: Status post left breast surgery. FINDINGS/ IMPRESSION: A specimen radiograph was obtained. There is a hookwire located within the specimen. No definite marker clip is located within the specimen. Dictated by: Dictated on workstation # [id number]
--- NOTE | 2020-09-26 13:48 | Diagnostic Imaging Report ---
INDICATION: Left breast surgery. FINDINGS/ IMPRESSION: A specimen radiograph was obtained. No definite marker clip is seen within the specimen. Dictated by: Dictated on workstation # [id number]
--- NOTE | 2020-09-26 13:48 | Diagnostic Imaging Report ---
INDICATION: Left breast surgery. FINDINGS/ IMPRESSION: A specimen radiograph was obtained. There is fibroglandular tissue and fat within the specimen. No definite marker clip is identified within the specimen. Dictated by: Dictated on workstation # [id number]
--- NOTE | 2020-09-26 21:18 | OPERATIVE REPORT ---
DATE OF SERVICE: 09/26/2020 PREOPERATIVE DIAGNOSIS: Left breast mass. POSTOPERATIVE DIAGNOSIS: Left breast mass, pending pathology. PROCEDURE: Excision of left breast mass with needle localization. SURGEON: Thomas Guzman DO VETERANS EMPLOYMENT REPRESENTATIVE: None. ANESTHESIA: LMA. SPECIMEN: Left breast tissue with needle. BLOOD LOSS: Less than 10 mL. FLUIDS: Per anesthesia. POSTOPERATIVE CONDITION: Stable. INDICATION FOR PROCEDURE: The patient is a 45-year-old female who had a left breast mass and actually had a biopsy that came back as a fibroid. She wanted to get this removed. There was actually a little bit of confusion this morning because she was asking why was getting removed and Dr. Sigala and I talked and told her daughter, she did not have to have it removed, but she said she thought Dr. Telles did want to remove and when he had decided to get it removed today. We again told that she did not need to, but she decided she wanted to get this done. FINDINGS: The patient had a breast biopsy performed with needle localization, unfortunately could not find the clip in the specimen. PROCEDURE NOTE: After informed consent was obtained, the patient was first sent to radiology to have a needle localization performed. Dr. Sigala placed this right through the previous spot. It was near the clip. She was then brought back to the preop area where site was marked. She was then taken to the operating room, placed on the operating table in supine position, sterilely prepped and draped in normal fashion. Local lidocaine was used to infiltrate the skin right near the needle as well as around in a regional block. This needle was right around the 9 o'clock position in the left breast. I made a small incision with #15 blade, carried down through the skin into subcutaneous tissue around the needle and then deepened down through subcutaneous tissue with Bovie electrocautery, grasping the needle and surrounding tissue with a Mishel and dissecting down around it going down under the tip of the needle. It looked like I could see some seroma and old scar and this was sent to first to radiology and then to pathology, radiology. Unfortunately, looked like a good specimen, but the clip was not in there. I went back into the breast and did some more resection at the superior aspect along from the 11 o'clock to 2 o'clock position as well as then around from the 10 o'clock to the 7 o'clock position and some down at around the 2 o'clock to 4 o'clock position to take out more tissue sent another specimen. Unfortunately, this also did not have the clip. I did not see any other areas. I had gone widely out and elected to stop at this point, copiously irrigated with normal saline. Hemostasis obtained using Bovie electrocautery. Closed the incision with 4-0 undyed Monocryl 3 interrupted subcuticular stitches and then closed the skin with a Skin Affix. Area was then cleaned and dried, pressure dressing placed. The patient tolerated the procedure. She was transferred to recovery room in stable condition. Sponge, instrument and needle count correct at the end of the case. Job ID: [id number] DocumentID: [id number] Dictated Date: 09/26/2020 12:44:11 Medical Or Surgical Instrument Maker Date: 09/26/2020 21:17:59 Dictated By: THOMAS GUZMAN DO
== END 2020-09-26 13:55 | disposition home or self-care (01) ==
LOC: RAD 08:02
PROVIDERS: ATTEND Surgery
DX: D24.2 Benign neoplasm of left breast (principal); I10 Essential (primary) hypertension; I69.351 Hemiplegia and hemiparesis following cerebral infarction affecting right dominant side; G62.9 Polyneuropathy, unspecified; Z79.82 Long term (current) use of aspirin; Z79.899 Other long term (current) drug therapy; Z98.84 Bariatric surgery status
CPT/HCPCS: 19285; 76098 ×2; 77065; 84703; 87081; 88307; G0279

== ENCOUNTER → 2021-08-23 | Outpatient (CLI) | payer MEDICAID ==
[~2021-08-23] MED LIST changes: +ACHD5005 PO
--- NOTE | 2021-08-23 14:55 | Diagnostic Imaging Report ---
INDICATION: Routine screening. COMPARISON is made with prior mammogram from 07/06/2020. 2-D and 3-D bilateral screening mammography was performed with CAD. Scattered fibroglandular densities are identified bilaterally. No discrete mass or malignant-appearing microcalcifications are seen. There is significant motion artifact on the left MLO view and should be repeated. Axillae are unremarkable. IMPRESSION: BI-RADS 0 Motion artifact left MLO view. Repeat view is recommended. ACR BI-RADS Category 0: Incomplete. (Needs additional imaging evaluation). Result letter will be mailed to the patient. Note: At least 10% of breast cancer is not imaged by mammography. Dictated by: Dictated on workstation # [id number]
== END ==
LOC: RAD 10:12
PROVIDERS: ATTEND Obstetrics & Gynecology
DX: Z12.31 Encounter for screening mammogram for malignant neoplasm of breast (principal)
CPT/HCPCS: 77063; 77067

== ENCOUNTER 2021-08-30 09:43 | Outpatient (RCR) | payer MEDICAID ==
[~2021-08-30 09:43] MED LIST changes: +FERRIC CARBOXYMALTOSE INJ 750 MG in NS (IVPB) 250 ML IV SCH
== END 2021-08-31 | disposition home or self-care (01) ==
LOC: ONC 09:43
PROVIDERS: ATTEND Internal Medicine Hematology & Oncology
DX: D50.9 Iron deficiency anemia, unspecified (principal)
CPT/HCPCS: 82728; G0463; 36415; 82607; 82746; 99214

== ENCOUNTER → 2021-08-30 | Outpatient (CLI) | payer MEDICAID ==
--- NOTE | 2021-09-03 07:01 | Diagnostic Imaging Report ---
INDICATION: Motion artifact, left breast. Repeat left MLO view was performed. Scattered fibroglandular densities are noted throughout the left breast. No mass or malignant-appearing microcalcifications are seen. The left axilla is unremarkable. IMPRESSION: BI-RADS Category 1 No mammographic features suspicious for malignancy are identified. ACR BI-RADS Category 1: Negative. Result letter will be mailed to the patient. Note: At least 10% of breast cancer is not imaged by mammography. Dictated by: Dictated on workstation # [id number]
== END ==
LOC: RAD 09:30
PROVIDERS: ATTEND Obstetrics & Gynecology
DX: Z12.31 Encounter for screening mammogram for malignant neoplasm of breast (principal)
CPT/HCPCS: 77063

== ENCOUNTER → 2021-09-10 | Outpatient (CLI) | payer MEDICAID ==
[~2021-09-10] MED LIST changes: -FERRIC CARBOXYMALTOSE INJ 750 MG in NS (IVPB) 250 ML IV SCH; +TOPI50TA37 PO; +VENL37.52 PO
--- NOTE | 2021-09-10 11:20 | Diagnostic Imaging Report ---
MRI LT LOWER EXT JOINT W/O TECHNIQUE: Multiplanar, multisequence MR imaging of the left knee was performed without contrast. COMPARISON: None available. INDICATION: Left knee pain. FINDINGS: MENISCI Medial meniscus: Complete radial tear at the posterior root of the medial meniscus results in 5 mm of extrusion of the body into the medial gutter. Lateral meniscus: Normal. LIGAMENTS ACL: Intact. PCL: Intact. MCL: Intact. LCL: The lateral collateral ligamentous complex is intact. EXTENSOR MECHANISM The extensor mechanism is intact. CARTILAGE Medial compartment: There is a broad region of mixed near full-thickness and full-thickness articular cartilage loss throughout the weightbearing aspect of the medial compartment. Subchondral bone marrow edema is present in the medial tibial plateau. Lateral compartment: Focal partial-thickness chondral fissuring and short segment delamination in the central weightbearing aspect of the lateral femoral condyle. Patellofemoral compartment: Low-grade partial-thickness chondromalacia at the patellar apex. Trochlear cartilage is preserved. BONE No fracture, stress fracture or osteonecrosis. SOFT TISSUE Small knee joint effusion. A small Noyola's cyst measures 3.6 x 0.7 cm. IMPRESSION: 1. Complete radial tear at the posterior root of the medial meniscus results in 5 mm of extrusion of the body into the medial gutter. 2. 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 Dictated by: Dictated on workstation # [id number]
== END ==
LOC: RAD 08:10
PROVIDERS: ATTEND Physician Assistant
DX: S83.242A Other tear of medial meniscus, current injury, left knee, initial encounter (principal); M17.12 Unilateral primary osteoarthritis, left knee
CPT/HCPCS: 73721

== ENCOUNTER 2021-09-12 13:09 | Outpatient (RCR) | payer MEDICAID ==
[~2021-09-12 13:09] MED LIST changes: +FERRIC CARBOXYMALTOSE INJ 750 MG in NS (IVPB) 250 ML IV SCH; -TOPI50TA37 PO; -VENL37.52 PO
[2021-09-13] MEDS ORDERED: TOPI50TA37 PO (13:02)
[2021-09-13] MEDS ORDERED: VENL37.52 PO (13:02)
[2021-09-20] MEDS ORDERED: OMEP-401 PO (14:13)
== END 2021-10-01 | disposition home or self-care (01) ==
LOC: ONC 13:09
PROVIDERS: ATTEND Internal Medicine Hematology & Oncology
DX: D50.9 Iron deficiency anemia, unspecified (principal); N63.20 Unspecified lump in the left breast, unspecified quadrant
CPT/HCPCS: 96365

== ENCOUNTER → 2021-09-12 | Outpatient (CLI) | payer MEDICAID ==
[~2021-09-12] VITALS: Ht 172.7 cm; Wt 115.4 kg
== END | disposition home or self-care (01) ==
LOC: PREOP 05:39
PROVIDERS: ATTEND Surgery
DX: Z01.818 Encounter for other preprocedural examination (principal)

== ENCOUNTER → 2021-09-20 | Day surgery (SDC) | payer MEDICAID ==
[~2021-09-20] VITALS: Ht 172.7 cm; Wt 115.4 kg
[~2021-09-20] MED LIST changes: -FERRIC CARBOXYMALTOSE INJ 750 MG in NS (IVPB) 250 ML IV SCH; +HURRICAINE EXT TUBE (BENZOCAINE) XX PRN; +LACTATED RINGERS 1,000 ML IV ONE; +LACTATED RINGERS 1,000 ML IV STA; +OMEP-401 PO; +PROPOFOL INJECTION 50 ML IV ONE; +TOPI50TA37 PO; +VENL37.52 PO
[2021-09-20 14:09] VITALS: BP 136/77
--- NOTE | 2021-09-20 14:11 | Progress Note-Pre Operative ---
Pre-Operative Progress Note H&P Reviewed The H&P was reviewed, patient examined and no changes noted. Time Seen by Provider: 14:08 Date H&P Reviewed: September 20, 2021 Time H&P Reviewed: 14:08 Pre-Operative Diagnosis: Dysphagia, Anemia, Hx of Polyps DAPHNE GUZMAN DO September 20, 2021 14:11
[2021-09-20 14:55] VITALS: BP 114/64
--- NOTE | 2021-09-20 14:58 | Progress Note-Post Operative ---
Post-Operative Progess Note Surgeon (s)/Sales Representative [employer] (s) Surgeon DAPHNE GUZMAN DO Sales Representative Marine Supplies: none Pre-Operative Diagnosis Dysphagia, Anemia, Hx of Polyps Post-Operative Diagnosis Gastritis Esophagitis Polyp int hemorrhoids Procedure & Operative Findings Date of Procedure 09/20/21 Procedure Performed/Findings EGD with biopsy Colon with snare PROCEDURE NOTE: After informed consent was obtained, the patient was brought to the endoscopy suite, placed in bed in left lateral decubitus position. She was administered IV sedation by the BREAKFAST SERVER who then monitored vitals the entire time, heart rate, blood pressure and pulse ox and the scope was inserted down the mouth through the esophagus into the stomach. On the way down, noted some mild esophagitis, took a picture, pushed into the stomach, pushed past the antrum into the duodenum. Duodenum looked good. Pulled back and did a biopsy of antrum, then tried to retroflex the scope; but, pt appeared to have narrowing in the middle of her stomach. I then retroflexed above this but did not see a hiatal hernia. Next pulled the scope into the GE junction, took a picture and then did a biopsy of the GE junction. Pushed the scope back into the stomach, suctioned all the air out of the stomach. At this point pulled the scope up the esophagus and out the mouth. Switched camera, switched gloves, went down below, started the colonoscopy. Pushed all the way into about 140 cm to get all the way to cecum, took a picture of the appendiceal orifice, noted the ileocecal valve and then slowly withdrew the scope, insufflating to look circumferentially at the glez starting in the cecum, up the ascending colon to the hepatic flexure. Then down the transverse colon where I found a polyp and removed it with a snare. Continued to the splenic flexure, into the descending colon, down into the sigmoid and finally into the rectum, retroflexed in the rectal vault, saw some minimal internal hemorrhoids and took a picture of this. She did have a lot of retained fecal pieces I was unable to clear; got most of the liquid out. The patient tolerated the procedure and she recovered in the endoscopy suite. Recommended for repeat colonoscopy in 5 years Anesthesia Type IV sedation by BREAKFAST SERVER Estimated Blood Loss Estimated blood loss (mL): scant Specimens/Packing Specimens Removed antral bx GE jxn bx transverse colon polyp DAPHNE GUZMAN DO September 20, 2021 14:58
--- NOTE | 2021-09-20 14:59 | Endoscopy Discharge Instruct ---
Endo Procedure/Findings Findings 1.: Gastritis 2.: Polyp 3.: Internal Hemorrhoids Discharge Instructions - Activity: You might feel a little sleepy until tomorrow. This is due to the medicine you received to relax you. Until tomorrow, you should: NOT drive a car, operate machinery or power tools. NOT drink any alcoholic beverages. NOT make any important decisions or sign importortant papers. Do not return to work until tomorrow, unless otherwise instructed. Resume previous activities tomorrow. Diet: Start by taking liquids. If you tolerate liquids, advance to solid food. 1.: EGD in 3 years 2.: Colonscopy in 5 years Notify Physician - If you experience excessive bleeding, unusual abdominal pain, fever, or chest pain, contact your doctor immediately. DAPHNE GUZMAN DO September 20, 2021 14:59
[2021-09-20 15:15] VITALS: BP 100/85
[2021-09-20 15:40] VITALS: BP 100/85
--- NOTE | 2021-09-25 17:32 | Anesthesia-General Post-Op ---
MAC Patient Condition Mental Status/LOC: Same as Preop Cardiovascular: Satisfactory Nausea/Vomiting: Absent Respiratory: Satisfactory Pain: Controlled Complications: Absent Post Op Complications Complications None Follow Up Care/Instructions Patient Instructions None needed. Anesthesiology Discharge Order Discharge Order Patient is doing well, no complaints, stable vital signs, no apparent adverse anesthesia problems. No complications reported per nursing. ESPERANZA MAN CRNA September 25, 2021 17:32
== END ==
LOC: ENDO 13:31
PROVIDERS: ATTEND Surgery
DX: Z12.11 Encounter for screening for malignant neoplasm of colon (principal); K29.50 Unspecified chronic gastritis without bleeding; K20.90 Esophagitis, unspecified without bleeding; D12.3 Benign neoplasm of transverse colon; K64.8 Other hemorrhoids; D50.9 Iron deficiency anemia, unspecified; Z79.899 Other long term (current) drug therapy
CPT/HCPCS: 84703

== ENCOUNTER 2021-10-02 13:33 | Outpatient (RCR) | payer MEDICAID ==
[~2021-10-02 13:33] MED LIST changes: -HURRICAINE EXT TUBE (BENZOCAINE) XX PRN; -LACTATED RINGERS 1,000 ML IV ONE; -LACTATED RINGERS 1,000 ML IV STA; -PROPOFOL INJECTION 50 ML IV ONE
[2021-10-02 13:47] LABS: BASOPHILS % (AUTO) 0 % (0-10); EOSINOPHILS % (AUTO) 1 % (0-10); HEMATOCRIT 38 % (35-52); LYMPHOCYTES # (AUTO) 1.8 10^3/uL (1.0-4.0); LYMPHOCYTES % (AUTO) 33 % (12-44); MEAN CORPUSCULAR HEMOGLOBIN 31 pg (25-34); MEAN CORPUSCULAR HGB CONC 32 g/dL (32-36); MEAN CORPUSCULAR VOLUME 97 fL (80-99); MEAN PLATELET VOLUME 10.6 fL (9.0-12.2); MONOCYTES # (AUTO) 0.4 10^3/uL (0.0-1.0); MONOCYTES % (AUTO) 8 % (0-12); NEUTROPHILS # (AUTO) 3.3 10^3/uL (1.8-7.8); NEUTROPHILS % (AUTO) 59 % (42-75); PLATELET COUNT 237 10^3/uL (130-400); WHITE BLOOD COUNT 5.6 10^3/uL (4.3-11.0)
== END 2021-10-31 | disposition home or self-care (01) ==
LOC: ONC 13:33
PROVIDERS: ATTEND Internal Medicine Hematology & Oncology
DX: D50.9 Iron deficiency anemia, unspecified (principal); D25.9 Leiomyoma of uterus, unspecified; E66.9 Obesity, unspecified; Z68.30 Body mass index [BMI] 30.0-30.9, adult
CPT/HCPCS: 82728; 83540; 83550; 85025; G0463; 36415; 99213

== ENCOUNTER 2021-12-03 13:03 | Outpatient (RCR) | payer MEDICAID ==
[2021-12-03 13:16] LABS: BASOPHILS % (AUTO) 0 % (0-10); EOSINOPHILS % (AUTO) 1 % (0-10); HEMATOCRIT 39 % (35-52); LYMPHOCYTES # (AUTO) 1.5 10^3/uL (1.0-4.0); LYMPHOCYTES % (AUTO) 25 % (12-44); MEAN CORPUSCULAR HEMOGLOBIN 34 pg (25-34); MEAN CORPUSCULAR HGB CONC 34 g/dL (32-36); MEAN CORPUSCULAR VOLUME 100 fL (80-99); MEAN PLATELET VOLUME 11.1 fL (9.0-12.2); MONOCYTES # (AUTO) 0.5 10^3/uL (0.0-1.0); MONOCYTES % (AUTO) 8 % (0-12); NEUTROPHILS # (AUTO) 4.2 10^3/uL (1.8-7.8); NEUTROPHILS % (AUTO) 67 % (42-75); PLATELET COUNT 208 10^3/uL (130-400); WHITE BLOOD COUNT 6.3 10^3/uL (4.3-11.0)
== END 2022-01-01 | disposition home or self-care (01) ==
LOC: ONC 13:03
PROVIDERS: ATTEND Internal Medicine Hematology & Oncology
DX: D50.9 Iron deficiency anemia, unspecified (principal)
CPT/HCPCS: 82728; 83540; 83550; 85025; G0463; 36415; 99213

== ENCOUNTER 2022-03-04 13:05 | Outpatient (RCR) | payer MEDICAID ==
[2022-02-27 15:46] LABS: BASOPHILS % (AUTO) 0 % (0-10); EOSINOPHILS # (AUTO) 0.1 10^3/uL (0.0-0.3); EOSINOPHILS % (AUTO) 1 % (0-10); HEMATOCRIT 39 % (35-52); LYMPHOCYTES # (AUTO) 2.1 10^3/uL (1.0-4.0); LYMPHOCYTES % (AUTO) 27 % (12-44); MEAN CORPUSCULAR HEMOGLOBIN 35 pg (25-34); MEAN CORPUSCULAR HGB CONC 34 g/dL (32-36); MEAN CORPUSCULAR VOLUME 103 fL (80-99); MEAN PLATELET VOLUME 10.5 fL (9.0-12.2); MONOCYTES # (AUTO) 0.5 10^3/uL (0.0-1.0); MONOCYTES % (AUTO) 7 % (0-12); NEUTROPHILS % (AUTO) 65 % (42-75); PLATELET COUNT 274 10^3/uL (130-400); WHITE BLOOD COUNT 7.6 10^3/uL (4.3-11.0)
[2022-02-27 16:28] LABS: BILIRUBIN,TOTAL 0.5 MG/DL (0.1-1.0); CALCIUM 9.2 MG/DL (8.5-10.1); CREATININE SERUM 0.8 MG/DL (0.60-1.30); POTASSIUM 3.6 MMOL/L (3.6-5.0); TOTAL PROTEIN 7.7 GM/DL (6.4-8.2)
[2022-03-24] MEDS ORDERED: LORA-404 PO (12:19)
[2022-03-24] MEDS ORDERED: TRZ50T PO (12:19)
[2022-03-31] MEDS ORDERED: IBUP-844 PO (07:25)
[2022-03-31] MEDS ORDERED: ACHD5005 PO (07:25)
[2022-03-31] MEDS ORDERED: SIME80TA16 PO (07:25)
[2022-03-31] MEDS ORDERED: DOCU100C37 PO (07:25)
== END 2022-04-02 | disposition home or self-care (01) ==
LOC: ONC 13:05
PROVIDERS: ATTEND Internal Medicine Hematology & Oncology
DX: D50.9 Iron deficiency anemia, unspecified (principal)
CPT/HCPCS: 80053; 82728; 83540; 83550; 85025; G0463; 99213

== ENCOUNTER 2022-03-24 05:27 | Outpatient (CLI) | payer MEDICAID ==
[~2022-03-24] VITALS: Ht 172.7 cm; Wt 105.7 kg
[2022-03-24] MEDS ORDERED: TRZ50T PO (12:19)
[2022-03-24] MEDS ORDERED: LORA-404 PO (12:19)
== END 2022-03-24 12:37 ==
LOC: PREOP 05:27
PROVIDERS: ATTEND Obstetrics & Gynecology
DX: Z01.818 Encounter for other preprocedural examination (principal)

== ENCOUNTER 2022-03-31 05:56 | Day surgery (SDC) | payer MEDICAID ==
[~2022-03-31] VITALS: Ht 172.7 cm; Wt 105.7 kg
[2022-03-31] VITALS (10 sets, daily range): BP systolic 127–148; BP diastolic 59–88
[~2022-03-31 05:56] MED LIST changes: +LORA-404 PO; +TRZ50T PO
[2022-03-31] MEDS: LACTATED RINGERS 1,000 ML IV PRN ×2 (06:36→08:39)
[2022-03-31] MEDS ORDERED: ceFAZolin INJECTION 2,000 MG in NS (IVPB) 50 ML IV ONE (06:45)
[2022-03-31] MEDS ORDERED: metroNIDAZOLE 500MG/100ML IVPB 100 ML IV ONE (06:45)
[2022-03-31] MEDS ORDERED: ceFAZolin INJECTION 2,000 MG ONE (06:55)
[2022-03-31] MEDS ORDERED: metroNIDAZOLE 500MG/100ML IVPB 100 ML ONE (06:55)
[2022-03-31] MEDS ORDERED: NS (IVPB) 50 ML ONE (06:56)
[2022-03-31] MEDS ORDERED: BUPIVACAINE 0.25% 30 ML (SENSORCAINE) VIAL ONE (06:59)
[2022-03-31] MEDS ORDERED: NEOSTIGMINE (BLOXIVERZ ) 1 MG/1ML 10 ML VIAL ONE (07:00)
[2022-03-31] MEDS ORDERED: ROCURONIUM 10 MG/ML 5 ML SYRINGE IV ONE (07:00)
[2022-03-31] MEDS ORDERED: LIDOCAINE PF 2% 5 ML (XYLOCAINE) VIAL ONE (07:00)
[2022-03-31] MEDS ORDERED: GLYCOPYRROLATE 0.2 MG/ML (ROBINUL) 2 ML VIAL ONE ×2 (07:00→08:22)
[2022-03-31] MEDS ORDERED: fentaNYL INJ 100 MCG/2 ML AMP ONE (07:00)
[2022-03-31] MEDS ORDERED: MIDAZOLAM 2 MG/2 ML (VERSED) VIAL ONE (07:00)
[2022-03-31] MEDS ORDERED: ONDANSETRON 4 MG/2 ML (SDV) Z0FRAN ONE (07:00)
[2022-03-31] MEDS ORDERED: proPOfol 200 MG/20 ML (DIPRIVAN) VIAL IV ONE (07:00)
[2022-03-31 07:02] LABS: BASOPHILS % (AUTO) 0 % (0-10); EOSINOPHILS # (AUTO) 0.1 10^3/uL (0.0-0.3); EOSINOPHILS % (AUTO) 2 % (0-10); HEMATOCRIT 38 % (35-52); HEMOGLOBIN 12.9 g/dL (11.5-16.0); LYMPHOCYTES # (AUTO) 1.9 10^3/uL (1.0-4.0); LYMPHOCYTES % (AUTO) 34 % (12-44); MEAN CORPUSCULAR HEMOGLOBIN 34 pg (25-34); MEAN CORPUSCULAR HGB CONC 34 g/dL (32-36); MEAN CORPUSCULAR VOLUME 100 fL (80-99); MEAN PLATELET VOLUME 10.6 fL (9.0-12.2); MONOCYTES # (AUTO) 0.5 10^3/uL (0.0-1.0); MONOCYTES % (AUTO) 9 % (0-12); NEUTROPHILS % (AUTO) 55 % (42-75); PLATELET COUNT 267 10^3/uL (130-400); WHITE BLOOD COUNT 5.5 10^3/uL (4.3-11.0)
[2022-03-31] MEDS ORDERED: ONDANSETRON 4 MG/2 ML (SDV) Z0FRAN IVP PRN (07:15)
[2022-03-31] MEDS ORDERED: HYDROmorphone 2 MG/ML VIAL (DILAUDID) IV ONE (07:15)
[2022-03-31] MEDS ORDERED: morphine INJ 10 MG/ML 1ML (SYR OR VIAL) IVP ONE (07:15)
--- NOTE | 2022-03-31 07:21 | Progress Note-Pre Operative ---
Pre-Operative Progress Note Date of Available H&P: Mar 31, 2022 Date H&P Reviewed: Mar 31, 2022 Time H&P Reviewed: 07:05 History & Physical: H&P Reviewed, Patient Examed, No changes noted Pre-Operative Diagnosis: 46 yo female with AUB, Fibroid uterus, Chronic blood loss anemia XENIA CHEUNG DO Mar 31, 2022 07:21
--- NOTE | 2022-03-31 07:24 | Discharge Inst-Women's Service ---
Discharge Inst-Women's Serv Depart Medication/Instructions New, Converted or Re-Newed RX: Transmitted to Pharmacy Problems Reviewed?: Yes Consults/Follow Up Additional Follow Up: Yes Orders/Referrals Dr. Telles in 7-10 days and in 8 weeks Activity Activity: Activity as Tolerated Driving Instructions: No Driving for 1 Week NO SMOKING: NO SMOKING Nothing Inside Vagina: No Douching, No [place], No Tampons Diet Discharge Diet: No Restrictions Symptoms to Report to : Bleeding Excessive, Pain Increased, Fever Over 101 Degrees F, Vaginal Bleeding Increase, Questions/Concerns For Any Problems or Questions: Contact Your Physician Skin/Wound Care Infection Signs and Symptoms: Increased Redness, Foul Odor of Wound, Increased Drainage, Skin Itchy or Has a Rash, Increased Swelling, Temperature Above 101 F Operative Area Clean and Dry: Keep Incision Clean/Dry Stitches/Rancho/Dermabond: Dermabond, Care of Stitches Bathing Instructions: XENIA Anders DO Mar 31, 2022 07:24
[2022-03-31] MEDS ORDERED: IBUP-844 PO (07:25)
[2022-03-31] MEDS ORDERED: SIME80TA16 PO (07:25)
[2022-03-31] MEDS ORDERED: ACHD5005 PO (07:25)
[2022-03-31] MEDS ORDERED: DOCU100C37 PO (07:25)
[2022-03-31] MEDS ORDERED: ANTACID SUSP 30 ML UDC (MYLANTA) PO PRN (07:30)
[2022-03-31] MEDS ORDERED: DOCUSATE SODIUM 100 MG (COLACE) CAP PO PRN (07:30)
[2022-03-31] MEDS ORDERED: ZOLPIDEM 5 MG (AMBIEN) TAB PO PRN (07:30)
[2022-03-31] MEDS ORDERED: BENZOCAINE LOZENGES 1 EACH LOZENGE MM PRN (07:30)
[2022-03-31] MEDS ORDERED: HYDROcodone/APAP 5 MG/325 MG (LORTAB) TAB PO PRN (07:30)
[2022-03-31] MEDS ORDERED: IBUPROFEN 600 MG (MOTRIN) TAB PO PRN (07:30)
[2022-03-31] MEDS ORDERED: SIMETHICONE 80 MG (MYLICON) CHEW PO PRN (07:30)
[2022-03-31] MEDS ORDERED: ONDANSETRON 4 MG/2 ML (SDV) Z0FRAN IV PRN (07:30)
[2022-03-31] MEDS ORDERED: BUPIVACAINE 0.25% 30 ML (SENSORCAINE) VIAL INJ ONE (08:32)
[2022-03-31] MEDS ORDERED: SEVOFLURANE (ULTANE) 15 ML INHAL SOLN ONE (08:48)
[2022-03-31] MEDS ORDERED: KETOROLAC 30 MG/ML VIAL ONE (09:12)
[2022-03-31] MEDS ORDERED: morphine INJ 10 MG/ML 1ML (SYR OR VIAL) ONE (09:12)
[2022-03-31] MEDS: KETOROLAC 30 MG/ML VIAL IVP PRN ×2 (09:15→17:08)
--- NOTE | 2022-03-31 10:48 | Anesthesia-General Post-Op ---
General Patient Condition Mental Status/LOC: Same as Preop Cardiovascular: Satisfactory Nausea/Vomiting: Absent Respiratory: Satisfactory Pain: Controlled Complications: Absent Post Op Complications Complications None Follow Up Care/Instructions Patient Instructions None needed. Anesthesia/Patient Condition Patient Condition Patient was doing well in PACU without complaints, stable vital signs, no apparent adverse anesthesia problems. No complications reported per nursing. VIRAJ MAGALLON DO Mar 31, 2022 10:48
[2022-03-31] MEDS: LACTATED RINGERS 1,000 ML IV SCH ×2 (14:09→16:00)
--- NOTE | 2022-03-31 14:14 | OPERATIVE REPORT ---
DATE OF SERVICE: 03/31/2022 PREOPERATIVE DIAGNOSES: 1. A 46-year-old female with abnormal uterine bleeding. 2. Menorrhagia. 3. Fibroid uterus. 4. Chronic blood loss anemia. POSTOPERATIVE DIAGNOSES: 1. A 46-year-old female with abnormal uterine bleeding. 2. Menorrhagia. 3. Fibroid uterus. 4. Chronic blood loss anemia. PROCEDURE: Robotic-assisted total laparoscopic hysterectomy, bilateral salpingectomy. SURGEON: Bill Cheung DO ANESTHESIA: General endotracheal. ESTIMATED BLOOD LOSS: Minimal. URINE OUTPUT: 200 mL FLUIDS: 1300 mL lactated Ringer's solution. FINDINGS: Bulky hyperemic uterus, grossly normal-appearing bilateral ovaries. SPECIMEN SENT: Uterus, bilateral fallopian tubes. INDICATIONS FOR PROCEDURE: This 46-year-old female was patient had sought care in my office over the past year and a half for heavy bleeding. She underwent endometrial sampling and more conservative measures for management of this had failed her in the past. She wished to pursue more definitive measures in the form of hysterectomy. Risks of the procedure were discussed with the patient in detail including risk of bleeding, infection, damage to surrounding structures including but not limited to bowel, bladder, ureter or kidney, possible need for reoperation, postoperative complications that may occur, recovery time frame, risk from anesthesia and even . After everything was discussed with the patient in detail, consent was obtained preoperatively and the patient was taken to the operating room.. OPERATIVE REPORT IN DETAIL: Once in the operating room, general anesthesia was found to be adequate. She was placed in dorsal lithotomy position, prepped and draped in normal sterile fashion where a timeout was performed. Carrasco catheter was placed using sterile technique. A weighted speculum was inserted into the patient's vagina. A 0 Vicryl suture was then placed in the anterior lip of the cervix, which I used my retraction on the cervix. I then gently sounded the uterine cavity, depth was found to be 8 cm. I selected an 8 cm DERIK uterine manipulator tip and a 3.5 cm colpotomy ring. The manipulator tip was advanced into the uterus where the balloon was deployed and the colpotomy ring was advanced around the vaginal fornix. Excellent manipulation was noted. After doing this, we then removed all the instruments from the patient's vagina and performed a change of gloves, turned my attention to the abdomen, where subcostally at the midclavicular line on the left side, I introduced a Veress needle was entered. Placement was confirmed using saline drop test and opening pressure of 5 mmHg was noted. The maximum pressure of 15 mmHg, at which point I make an infraumbilical incision 8 mm with a knife and directed blunt laparoscopic da Epi camera trocar through the incision to ensure proper placement was confirmed with the da Epi laparoscope. There was no evidence of damage from the entry site. A brief scan of the upper abdominal anatomy appears to be grossly normal with some filmy adhesions in the upper abdomen. The Veress needle entry site was identified and there was no evidence of damage upon this entry site. I removed the Veress needle and then had the patient was placed in steep Trendelenburg. We may do visualize all my pelvic anatomy as defined in my findings above. I placed 2 lateral trocars were both 8 mm trocars were approximately 8-10 cm lateral to my infraumbilical trocar. Once both these trocars were placed, bringing the da Epi robot and docked in the appropriate fashion, placing the SynchroSeal seal device on the left hand, monopolar bettye in the right hand. I then took my place at the da Epi operative console where I performed the following dissection bilaterally starting at the uteroovarian ligament was sealed and transected using the SynchroSeal device. I then created a window in the mesosalpinx and take this laterally down the mesosalpinx amputating the fallopian tube from the surrounding blood supply. I then grasped the round ligament, which I sealed and transected using a SynchroSeal device. I then grasped the entire broad ligament, which I sealed and transected using the SynchroSeal device down to the level of the lower uterine segment, at which point I the anterior and posterior leaflets of the broad ligament. The anterior leaf dissection was taken down to the anterior vaginal fornix, posterior leaf dissection was taken to the posterior vaginal fornix. This allowed me to skeletonize the uterine vessels bilaterally, which I sealed and transected using a SynchroSeal device. It also allows me to identify the ureters laterally and stay clear of them during my dissection. I then created a colpotomy at 12 o'clock position using monopolar bettye and take this circumferentially around the vaginal fornix amputating the cervix away from the vagina. There was no evidence of damage from or active bleeding noted at the time of colpotomy. I then removed the cervix, uterus and bilateral fallopian tubes to the uterus through the vagina. There was no active bleeding noted from the vaginal cuff. At that point, I then closed the vaginal cuff using 2-0 V-Loc in running fashion, after which showed no active bleeding noted from any of my dissection plane. We then undocked the da Epi robot. I proceed with the remainder of the case laparoscopically. I then copiously irrigated the pelvis with normal saline. There was no active bleeding noted from any of my dissection planes. I placed Surgiflo hemostatic agent overall my planes of dissection. The patient was taken out of steep Trendelenburg, removed the lateral trocars under direct visualization, laparoscope. The infraumbilical trocar was left in place to release the remainder of the insufflation and to introduce 10 mL of 0.25% Marcaine. The peritoneal cavity for postoperative pain management. I then removed this trocar as well. The skin was then reapproximated using 4-0 Monocryl in interrupted subcuticular stitches. Dermabond was applied to the incision and Band-Aids were placed over the incisions as well. The patient tolerated the procedure well and was taken to recovery in stable condition. Lap and sponge counts were correct and then procedure was correct as well. Carrasco catheter was still in place. Two grams of Ancef and 500 mg of Flagyl were given preoperatively for infection prophylaxis. Job ID: [id number] DocumentID: [id number] Dictated Date: 03/31/2022 08:55:53 Rope Cleaner Date: 03/31/2022 14:12:00 Dictated By: BILL CHEUNG DO
--- NOTE | 2022-04-01 09:25 | Anesthesia-General Post-Op ---
General Patient Condition Mental Status/LOC: Same as Preop Cardiovascular: Satisfactory Nausea/Vomiting: Absent Respiratory: Satisfactory Pain: Controlled Complications: Absent Post Op Complications Complications None Follow Up Care/Instructions Patient Instructions None needed. Anesthesia/Patient Condition Patient Condition Patient is doing well, no complaints, stable vital signs, no apparent adverse anesthesia problems. No complications reported per nursing. SHELBIE SUÁREZ CRNA Apr 01, 2022 09:25
== END 2022-03-31 19:20 | disposition home or self-care (01) ==
LOC: SDC 05:56 → WS 10:05 → SDC 19:20
PROVIDERS: ATTEND Obstetrics & Gynecology
DX: D25.9 Leiomyoma of uterus, unspecified (principal); N80.03 Adenomyosis of the uterus; N80.00 Endometriosis of the uterus, unspecified; D50.0 Iron deficiency anemia secondary to blood loss (chronic); K66.0 Peritoneal adhesions (postprocedural) (postinfection); K21.9 Gastro-esophageal reflux disease without esophagitis
CPT/HCPCS: 36415; 84703; 85025; 86850; 86900; 86901; 87081; 88307; 94664

== ENCOUNTER 2022-05-16 10:32 | Outpatient (RCR) | payer MEDICAID ==
[~2022-05-16 10:32] MED LIST changes: +DOCU100C37 PO; +IBUP-844 PO; +SIME80TA16 PO
[2022-05-16 11:09] LABS: BASOPHILS % (AUTO) 0 % (0-10); EOSINOPHILS # (AUTO) 0.1 10^3/uL (0.0-0.3); EOSINOPHILS % (AUTO) 1 % (0-10); HEMATOCRIT 41 % (35-52); HEMOGLOBIN 13.2 g/dL (11.5-16.0); LYMPHOCYTES # (AUTO) 2.1 10^3/uL (1.0-4.0); LYMPHOCYTES % (AUTO) 31 % (12-44); MEAN CORPUSCULAR HEMOGLOBIN 33 pg (25-34); MEAN CORPUSCULAR HGB CONC 32 g/dL (32-36); MEAN CORPUSCULAR VOLUME 103 fL (80-99); MEAN PLATELET VOLUME 10.2 fL (9.0-12.2); MONOCYTES # (AUTO) 0.5 10^3/uL (0.0-1.0); MONOCYTES % (AUTO) 7 % (0-12); NEUTROPHILS # (AUTO) 3.9 10^3/uL (1.8-7.8); NEUTROPHILS % (AUTO) 59 % (42-75); PLATELET COUNT 300 10^3/uL (130-400); WHITE BLOOD COUNT 6.6 10^3/uL (4.3-11.0)
== END 2022-06-03 | disposition home or self-care (01) ==
LOC: ONC 10:32
PROVIDERS: ATTEND Internal Medicine Hematology & Oncology
DX: D50.9 Iron deficiency anemia, unspecified (principal)
CPT/HCPCS: 36415; 82728; 83540; 83550; 85025

== ENCOUNTER 2022-06-04 13:01 | Outpatient (RCR) | payer MEDICAID | END 2022-07-01 | disposition home or self-care (01) | LOC: ONC 13:01 | PROVIDERS: ATTEND Internal Medicine Hematology & Oncology | DX: D50.9 Iron deficiency anemia, unspecified (principal) | CPT/HCPCS: 99213 ==

== ENCOUNTER → 2022-10-01 | Outpatient (RCR) | payer MEDICARE, MEDICAID ==
[2022-09-19 13:59] LABS: BASOPHILS % (AUTO) 0 % (0-10); EOSINOPHILS # (AUTO) 0.1 10^3/uL (0.0-0.3); EOSINOPHILS % (AUTO) 1 % (0-10); HEMATOCRIT 37 % (35-52); HEMOGLOBIN 12.5 g/dL (11.5-16.0); LYMPHOCYTES # (AUTO) 2.5 10^3/uL (1.0-4.0); LYMPHOCYTES % (AUTO) 37 % (12-44); MEAN CORPUSCULAR HEMOGLOBIN 34 pg (25-34); MEAN CORPUSCULAR HGB CONC 34 g/dL (32-36); MEAN CORPUSCULAR VOLUME 100 fL (80-99); MEAN PLATELET VOLUME 10.5 fL (9.0-12.2); MONOCYTES # (AUTO) 0.6 10^3/uL (0.0-1.0); MONOCYTES % (AUTO) 9 % (0-12); NEUTROPHILS # (AUTO) 3.6 10^3/uL (1.8-7.8); NEUTROPHILS % (AUTO) 53 % (42-75); PLATELET COUNT 249 10^3/uL (130-400); WHITE BLOOD COUNT 6.8 10^3/uL (4.3-11.0)
[2022-09-19 14:18] LABS: ALBUMIN 3.9 GM/DL (3.2-4.5); BILIRUBIN,TOTAL 0.4 MG/DL (0.1-1.0); CALCIUM 8.8 MG/DL (8.5-10.1); CREATININE SERUM 0.81 MG/DL (0.60-1.30); POTASSIUM 3.8 MMOL/L (3.6-5.0)
== END | disposition home or self-care (01) ==
LOC: ONC 09-19 13:27
PROVIDERS: ATTEND Internal Medicine Hematology & Oncology
DX: D50.9 Iron deficiency anemia, unspecified (principal)
CPT/HCPCS: 36415; 80053; 82728; 83540; 83550; 85025; 85027

== ENCOUNTER 2022-12-15 15:36 | Outpatient (RCR) | payer MEDICARE, MEDICAID ==
[2022-12-08 16:35] VITALS: BP 118/78
[2022-12-08] MEDS: FERRIC CARBOXYMALTOSE INJ 750 MG in NS (IVPB) 250 ML 250 ML IV SCH (16:41)
[~2022-12-15] VITALS: Ht 172.7 cm; Wt 107.0 kg
[~2022-12-15 15:36] MED LIST changes: -ETON1VAG VG; +ETON1VAG14 VG; +NS IV 500 ML (CANCER CENTER) IV SCH
[2022-12-15 16:05] VITALS: BP 124/76
[2022-12-15] MEDS: FERRIC CARBOXYMALTOSE INJ 750 MG in NS (IVPB) 250 ML 250 ML IV SCH (16:11)
== END 2023-01-01 | disposition home or self-care (01) ==
LOC: ONC 15:36
PROVIDERS: ATTEND Internal Medicine Hematology & Oncology
DX: D50.9 Iron deficiency anemia, unspecified (principal)
CPT/HCPCS: 36415; 96365